=== PATIENT | female | born 1945 | race Caucasian/White ===

== ENCOUNTER 2018-03-07 06:14 | Emergency (ER) | payer MEDICARE, MEDICAID, SELFPAY ==
[2018-03-07 06:17] VITALS: BP 192/68; PULSE 79; RESP 16; TEMP 37; O2SAT 96
--- NOTE | 2018-03-07 06:38 | W.ED.GENAD ---
Discharge Plan Disposition Patient Disposition: HOME Condition: Good Discharge Details Chief Complaint: Sorethroat Clinical Impression: Anticoagulant long-term use Primary Care Provider: Noreen Adam ED Provider: Vern Orozco [place] Meds and New Rx's Prescriptions: Continue betaxolol [Betoptic S] 15 ML drops,suspension 1 drp OU BID RF: 0 carboxymethylcellulose sodium [TheraTears] 1 EACH dropperette 1 ea OU PRN RF: 0 rivaroxaban [Xarelto] 20 MG tablet 1 tab PO DAILY RF: 0 famotidine [Pepcid AC] 20 MG tablet 20 mg PO BID Qty: 180 RF: 4 cholecalciferol (vitamin D3) [Vitamin D3] 2,000 UNIT capsule 2,000 unit PO DAILY Qty: 90 RF: 3 Discharge Instructions Additional Instructions: Please follow up with primary care for blood pressure recheck and medication adjustments if needed. Follow up with ENT for further evaluation of throat. Return to ED for active bleeding, trouble swallowing, trouble breathing, other concerns. Referrals: Noreen Adam NP [Primary Care Provider] - Gurinder Devine MD [ [facility] STAFF PHYSICIAN] - Medical Decision Making There is no active bleeding now. The oropharynx that I can visualize appears normal. There does appear to be evidence of previous left epistaxis but she denies this. Her exam is otherwise unremarkable and heart rate is normal. Blood pressure is elevated but she reports being taken off blood pressure medication due to low blood pressure. Suspect the bleeding may be related to epistaxis though she denies. States she just spits up blood. Will refer back to primary care for follow-up of blood pressure and will refer to ear nose and throat as primary care had requested previously. She is not actively bleeding currently and is in no distress and reports no hemoptysis or hematemesis. She has no difficulty breathing. She is discharged home in good condition. HPI General Mode of arrival: ambulatory. Date/Time Provider Initiated Documentation: 03/07/18 06:28. Limitations to Documentation: no limitations. Information obtained by: patient. HPI Narrative: Patient presents to the ED with complaints of blood in her throat. Patient reports that for the last year at night she notices blood in the back of her throat. She knows this because when she spits it up it is bloody. She denies having a nosebleed. She denies any difficulty breathing or swallowing. She is not coughing up blood. She is not vomiting up blood. She came in this morning because she noted that last night seem to be more than usual. She is on Xarelto. She was referred to ear nose and throat in the past by her primary care physician but was never seen. She states it never happens during the day. She has no pain. Related Data Home Medications Medication Instructions Recorded Confirmed betaxolol [Betoptic S] 1 drp OU BID drp 09/21/12 03/07/18 carboxymethylcellulose sodium 1 ea OU PRN 12/20/13 03/07/18 [TheraTears] rivaroxaban [Xarelto] 1 tab PO DAILY 06/16/16 03/07/18 famotidine [Pepcid AC] 20 mg PO BID #180 tab-cap 12/22/17 03/07/18 cholecalciferol (vitamin D3) 2,000 unit PO DAILY #90 tab-cap 12/23/17 03/07/18 [Vitamin D3] Previous Rx's Medication Instructions Recorded famotidine [Pepcid AC] 20 mg PO BID #180 tab-cap 12/22/17 cholecalciferol (vitamin D3) 2,000 unit PO DAILY #90 tab-cap 12/23/17 [Vitamin D3] Allergies Allergy/AdvReac Type Severity Reaction Status Date / Time bimatoprost [From [place]ulu] AdvReac discomfort Unverified 03/07/18 06:21 General Stated Complaint: Sorethroat HANNAH: 4 Review of Systems Constitutional Denies headache(s) and Denies weakness ENT Denies dysphagia, Denies otalgia, Denies headache(s), Denies hoarseness, Denies epistaxis, Denies odynophagia, Denies post nasal drip, Denies sinus pain and Denies sore throat Cardiovascular Denies chest pain, Denies diaphoresis, Denies syncope, Denies palpitations and Denies dyspnea Respiratory Denies hemoptysis and Denies dyspnea Gastrointestinal Denies melena, Denies hematochezia, Denies coffee ground emesis, Denies dysphagia, Denies odynophagia and Denies hematemesis Genitourinary Denies hematuria Neurologic Denies syncope, Denies headache(s) and Denies weakness Endocrine Denies palpitations PFSH Family History Mother Diabetes Essential hypertension Personal history of malignant neoplasm Heart disease Father Diabetes Essential hypertension Heart disease Sister Aneurysm Sister Essential hypertension Personal history of malignant neoplasm Heart disease Brother No problems noted. Grandfather Heart disease Grandfather No problems noted. Grandmother Dementia Mental disorder Grandmother Dementia Mental disorder FAMILY HISTORY Duchenne muscular dystrophy Arthritis Neoplasm Glaucoma Brother Amyloidosis Brother Parkinson disease Brother Heart disease Medical History Atrial fibrillation (Chronic) GERD (gastroesophageal reflux disease) (Chronic) HTN (hypertension) (Chronic) Social History Smoking/Tobacco Use Status: Never Surgical History Dilation and curettage Extraction of cataract (02/06/13) Laser Eye Open Heart Surgery Exam Const General: cooperative, comfortable and no acute distress HENMT Head: normocephalic and atraumatic Ears: external ears normal and TM's normal bilaterally General nose exam: external nose normal, mucous membranes and turbinates abnormal erythematous and other (left septal wall noted to have excoriated area/small clot) and septum abnormal Mouth: oropharynx normal and moist mucous membranes Neck Neck: normal visual inspection, trachea midline and supple Resp Effort & Inspection: normal respiratory effort Auscultation: clear to auscultation bilaterally Cardio Rate: regular rate Rhythm: regular rhythm Heart Sounds: S1 normal and S2 normal Course Vital Signs Temperature 98.6 F 03/07/18 06:17 Pulse 79 03/07/18 06:17 Respiratory Rate 16 03/07/18 06:17 Blood Pressure 192/68 H 03/07/18 06:17 Pulse Oximetry 96 03/07/18 06:17 Temperature 98.6 F 03/07/18 06:17 Temperature Source Skin 03/07/18 06:17 Pulse 79 03/07/18 06:17 Respiratory Rate 16 03/07/18 06:17 Respiratory Effort Non-Labored 03/07/18 06:20 Blood Pressure 192/68 H 03/07/18 06:17 Blood Pressure Position Sitting 03/07/18 06:17 Pulse Oximetry 96 03/07/18 06:17 Oxygen Delivery Method Room Air 03/07/18 06:17 Oxygen Flow Rate 0 03/07/18 06:17 Pain Level 0 03/07/18 06:17
--- NOTE | 2018-03-07 06:44 | ED.GENADUL_ITS ---
Discharge Plan Disposition Patient Disposition: HOME Condition: Good Discharge Details Chief Complaint: Sorethroat Clinical Impression: Anticoagulant long-term use Primary Care Provider: Noreen Adam ED Provider: Vern Orozco [place] Meds and New Rx's Prescriptions: Continue betaxolol [Betoptic S] 15 ML drops,suspension 1 drp OU BID RF: 0 carboxymethylcellulose sodium [TheraTears] 1 EACH dropperette 1 ea OU PRN RF: 0 rivaroxaban [Xarelto] 20 MG tablet 1 tab PO DAILY RF: 0 famotidine [Pepcid AC] 20 MG tablet 20 mg PO BID Qty: 180 RF: 4 cholecalciferol (vitamin D3) [Vitamin D3] 2,000 UNIT capsule 2,000 unit PO DAILY Qty: 90 RF: 3 Discharge Instructions Additional Instructions: Please follow up with primary care for blood pressure recheck and medication adjustments if needed. Follow up with ENT for further evaluation of throat. Return to ED for active bleeding, trouble swallowing, trouble breathing, other concerns. Referrals: Noreen Adam NP [Primary Care Provider] - Gurinder Devine MD [ [facility] STAFF PHYSICIAN] - Medical Decision Making There is no active bleeding now. The oropharynx that I can visualize appears normal. There does appear to be evidence of previous left epistaxis but she denies this. Her exam is otherwise unremarkable and heart rate is normal. Blood pressure is elevated but she reports being taken off blood pressure medication due to low blood pressure. Suspect the bleeding may be related to epistaxis though she denies. States she just spits up blood. Will refer back to primary care for follow-up of blood pressure and will refer to ear nose and throat as primary care had requested previously. She is not actively bleeding currently and is in no distress and reports no hemoptysis or hematemesis. She has no difficulty breathing. She is discharged home in good condition. HPI General Mode of arrival: ambulatory . Date/Time Provider Initiated Documentation: 03/07/18 06:28 . Limitations to Documentation: no limitations . Information obtained by: patient . HPI Narrative: Patient presents to the ED with complaints of blood in her throat. Patient reports that for the last year at night she notices blood in the back of her throat. She knows this because when she spits it up it is bloody. She denies having a nosebleed. She denies any difficulty breathing or swallowing. She is not coughing up blood. She is not vomiting up blood. She came in this morning because she noted that last night seem to be more than usual. She is on Xarelto. She was referred to ear nose and throat in the past by her primary care physician but was never seen. She states it never happens during the day. She has no pain. Related Data Home Medications Medication Instructions Recorded Confirmed betaxolol [Betoptic S] 1 drp OU BID drp 09/21/12 03/07/18 carboxymethylcellulose sodium 1 ea OU PRN 12/20/13 03/07/18 [TheraTears] rivaroxaban [Xarelto] 1 tab PO DAILY 06/16/16 03/07/18 famotidine [Pepcid AC] 20 mg PO BID #180 tab-cap 12/22/17 03/07/18 cholecalciferol (vitamin D3) 2,000 unit PO DAILY #90 tab-cap 12/23/17 03/07/18 [Vitamin D3] Previous Rx's Medication Instructions Recorded famotidine [Pepcid AC] 20 mg PO BID #180 tab-cap 12/22/17 cholecalciferol (vitamin D3) 2,000 unit PO DAILY #90 tab-cap 12/23/17 [Vitamin D3] Allergies Allergy/AdvReac Type Severity Reaction Status Date / Time bimatoprost [From [place]ulu] AdvReac discomfort Unverified 03/07/18 06:21 General Stated Complaint: Sorethroat HANNAH: 4 Review of Systems Constitutional Denies headache(s) and Denies weakness ENT Denies dysphagia, Denies otalgia, Denies headache(s), Denies hoarseness, Denies epistaxis, Denies odynophagia, Denies post nasal drip, Denies sinus pain and Denies sore throat Cardiovascular Denies chest pain, Denies diaphoresis, Denies syncope, Denies palpitations and Denies dyspnea Respiratory Denies hemoptysis and Denies dyspnea Gastrointestinal Denies melena, Denies hematochezia, Denies coffee ground emesis, Denies dysphagia, Denies odynophagia and Denies hematemesis Genitourinary Denies hematuria Neurologic Denies syncope, Denies headache(s) and Denies weakness Endocrine Denies palpitations PFSH Family History Mother Diabetes Essential hypertension Personal history of malignant neoplasm Heart disease Father Diabetes Essential hypertension Heart disease Sister Aneurysm Sister Essential hypertension Personal history of malignant neoplasm Heart disease Brother No problems noted. Grandfather Heart disease Grandfather No problems noted. Grandmother Dementia Mental disorder Grandmother Dementia Mental disorder FAMILY HISTORY Duchenne muscular dystrophy Arthritis Neoplasm Glaucoma Brother Amyloidosis Brother Parkinson disease Brother Heart disease Medical History Atrial fibrillation (Chronic) GERD (gastroesophageal reflux disease) (Chronic) HTN (hypertension) (Chronic) Social History Smoking/Tobacco Use Status: Never Surgical History Dilation and curettage Extraction of cataract (02/06/13) Laser Eye Open Heart Surgery Exam Const General: cooperative, comfortable and no acute distress HENMT Head: normocephalic and atraumatic Ears: external ears normal and TM's normal bilaterally General nose exam: external nose normal, mucous membranes and turbinates abnormal erythematous and other (left septal wall noted to have excoriated area/ small clot) and septum abnormal Mouth: oropharynx normal and moist mucous membranes Neck Neck: normal visual inspection, trachea midline and supple Resp Effort & Inspection: normal respiratory effort Auscultation: clear to auscultation bilaterally Cardio Rate: regular rate Rhythm: regular rhythm Heart Sounds: S1 normal and S2 normal Course Vital Signs Temperature 98.6 F 03/07/18 06:17 Pulse 79 03/07/18 06:17 Respiratory Rate 16 03/07/18 06:17 Blood Pressure 192/68 H 03/07/18 06:17 Pulse Oximetry 96 03/07/18 06:17 Temperature 98.6 F 03/07/18 06:17 Temperature Source Skin 03/07/18 06:17 Pulse 79 03/07/18 06:17 Respiratory Rate 16 03/07/18 06:17 Respiratory Effort Non-Labored 03/07/18 06:20 Blood Pressure 192/68 H 03/07/18 06:17 Blood Pressure Position Sitting 03/07/18 06:17 Pulse Oximetry 96 03/07/18 06:17 Oxygen Delivery Method Room Air 03/07/18 06:17 Oxygen Flow Rate 0 03/07/18 06:17 Pain Level 0 03/07/18 06:17
== END 2018-03-07 06:45 | disposition home or self-care (01) ==
PROVIDERS: Emergency Provider Emergency Medicine
DX: R04.2 Hemoptysis (principal); Z79.01 Long term (current) use of anticoagulants; I48.91 Unspecified atrial fibrillation; K21.9 Gastro-esophageal reflux disease without esophagitis; I10 Essential (primary) hypertension
CPT/HCPCS: 99281

== ENCOUNTER 2018-04-24 10:01 | Outpatient (CLI) | payer MEDICARE, MEDICAID, SELFPAY ==
[2018-04-24 11:44] LABS: HCT 41.3 % (36.0-46.0); HGB 13.6 g/dL (12.0-15.5); Mean Corp. HGB Concentration 32.9 g/dL (32.0-36.0); Mean Corpuscular Hemoglobin 29.1 pg (27.0-33.0); Mean Corpuscular Volume 88.2 fL (80-95); Platelet Count 335 x1000/uL (130-400); RBC 4.68 m/cumm (4.00-5.20); RBC Distribution Width 15.5 % (11.7-14.6); White Blood Cell Count 6.84 k/cumm (4.4-10.8)
[2018-04-24 12:05] LABS: ALT 27 U/L (12-78); AST 26 U/L (15-37); Alkaline Phosphatase 88 U/L (46-116); Anion Gap 10.7 mmol/L (3-11); BUN 20 mg/dL (7-18); Bilirubin, Total 0.4 mg/dL (0.2-1.0); CO2 27.3 mmol/L (21.0-32.0); CREATININE 1.17 mg/dL (0.55-1.02); Calcium 9.6 mg/dL (8.5-10.1); Chloride 99 mmol/L (98-107); Estimated GFR 45.22 (mL/min/1.73m2); Glucose 81 mg/dL (70-100); Sodium 137 mmol/L (136-145); Total Protein 8.3 g/dL (6.4-8.2)
== END 2018-04-24 10:21 ==
DX: R53.83 Other fatigue (principal); I10 Essential (primary) hypertension
CPT/HCPCS: 36415; 80053; 85027

== ENCOUNTER 2018-06-06 00:13 | Outpatient (CLI) | payer MEDICARE, MEDICAID, SELFPAY ==
--- NOTE | 2018-06-06 10:20 | DI.CT_ITS ---
SYMPTOMS/DIAGNOSIS: BLEEDING FROM MOUTH, K13.79, ESOPHAGITIS, K20.9, DEVIATED SPUTUM, J34.2, NASAL SEPTAL SPUR, J34.[address]: There is a minimal amount of mucous retention in a single right ethmoid air cell. The remaining sinuses appear clear. The nasal cavity appears clear. There is no evidence of fracture. The orbits are unremarkable. IMPRESSION: Minimal ethmoid sinus disease.
== END 2018-06-06 00:33 ==
PROVIDERS: Visit Provider Otolaryngology Otolaryngology/Facial Plastic Surgery
DX: K13.79 Other lesions of oral mucosa (principal); K20.9 Esophagitis, unspecified; J34.2 Deviated nasal septum; J34.89 Other specified disorders of nose and nasal sinuses
CPT/HCPCS: 70486

== ENCOUNTER 2018-12-29 03:53 | Outpatient (CLI) | payer MEDICARE, MEDICAID, SELFPAY ==
[2018-12-29 13:12] LABS: ALT 23 U/L (12-78); AST 21 U/L (15-37); Albumin 3.9 g/dL (3.4-5.0); Alkaline Phosphatase 78 U/L (46-116); Anion Gap 11.2 mmol/L (3-11); BUN 9 mg/dL (7-18); Bilirubin, Total 0.5 mg/dL (0.2-1.0); CO2 25.8 mmol/L (21.0-32.0); CREATININE 1.14 mg/dL (0.55-1.02); Calcium 8.7 mg/dL (8.5-10.1); Chloride 99 mmol/L (98-107); Estimated GFR 46.47 (mL/min/1.73m2); Glucose 89 mg/dL (70-100); Potassium 4.4 mmol/L (3.5-5.1); Sodium 136 mmol/L (136-145); TSH (W/Ref FT4) 3.11 uIU/mL (0.36-3.74)
== END 2018-12-29 04:13 ==
DX: E03.9 Hypothyroidism, unspecified (principal); F32.9 Major depressive disorder, single episode, unspecified; I10 Essential (primary) hypertension; N28.9 Disorder of kidney and ureter, unspecified; R00.2 Palpitations; G47.00 Insomnia, unspecified
CPT/HCPCS: 36415; 80053; 84443

== ENCOUNTER 2019-03-26 16:38 | Inpatient (IN) | payer MEDICARE, MEDICAID, SELFPAY ==
[2019-03-26] VITALS (97 sets, daily range): BP systolic 114–186; BP diastolic 60–148; PULSE 53–176; RESP 9–23; TEMP 36.3–36.6; O2SAT 95–100
[2019-03-26 17:41] LABS: Abs Immature Grans 0.02 k/cumm (0.0-0.09); Absolute Basophil Count 0.05 k/cumm (0.0-0.2); Absolute Eosinophil Count 0.08 k/cumm (0.0-0.7); Absolute Lymphocyte Count 2.11 k/cumm (1.2-3.4); Absolute Monocyte Count 0.96 k/cumm (0.11-0.7); Basophils % 0.6; Eosinophils % 0.9; HCT 41.9 % (36.0-46.0); HGB 14.1 g/dL (12.0-15.5); Immature Grans % 0.2; Lymphocytes % 24.2; Mean Corp. HGB Concentration 33.7 g/dL (32.0-36.0); Mean Corpuscular Hemoglobin 30.5 pg (27.0-33.0); Mean Corpuscular Volume 90.5 fL (80-95); Mean Platelet Volume 8.8 fL (8.0-11.0); Neutrophils % 63.1; Platelet Count 394 x1000/uL (130-400); RBC 4.63 m/cumm (4.00-5.20); RBC Distribution Width 14.3 % (11.7-14.6); White Blood Cell Count 8.72 k/cumm (4.4-10.8)
[2019-03-26] MEDS: Metoprolol 5 MG/5 ML VIAL IVP ×2 (17:51→18:25)
[2019-03-26] MEDS: Normal Saline Flush 10 ML SYR IVP ×2 (17:52→18:27)
[2019-03-26 18:00] LABS: ALT 24 U/L (14-59); AST 23 U/L (15-37); Albumin 3.8 g/dL (3.4-5.0); Alkaline Phosphatase 89 U/L (46-116); Anion Gap 9.2 mmol/L (3-11); BUN 17 mg/dL (7-18); Bilirubin, Total 0.3 mg/dL (0.2-1.0); CO2 27.8 mmol/L (21.0-32.0); CREATININE 1.28 mg/dL (0.55-1.02); Calcium 9.7 mg/dL (8.5-10.1); Chloride 100 mmol/L (98-107); Estimated GFR 40.65 (mL/min/1.73m2); Glucose 94 mg/dL (70-100); Potassium 4.1 mmol/L (3.5-5.1); Sodium 137 mmol/L (136-145); Total Protein 8.4 g/dL (6.4-8.2)
[2019-03-26 18:10] LABS: Troponin I < 0.05 ng/mL (0.00-0.06)
[2019-03-26] MEDS: dilTIAZem 25 MG/5 ML VIAL 15 MG IVP (19:29)
--- NOTE | 2019-03-26 19:45 | DI.RAD_ITS ---
EXAM: XR PORTABLE CHEST AP INDICATION: Palpitations,H/O CARDIAC TUMOR COMPARISON: CHEST 2 VIEWS PA,LAT from 09/28/2016 TECHNIQUE: 2D digital imaging was performed. FINDINGS: The heart is mildly enlarged, unchanged. Sternal wires are seen. Leads overlie the chest. The lung s appear clear. IMPRESSION: No acute abnormality.
--- NOTE | 2019-03-26 19:55 | DI.VRAD_ITS ---
PROCEDURE INFORMATION: Exam: XR Chest, 1 View Exam date and time: 03/26/2019 7:46 PM Clinical history: 73 years old, female; Other: Palpitations; Prior surgery; Surgery date: 6+ months; Surgery type: Open heart surgery 3 years ago due to heart tumor TECHNIQUE: Imaging protocol: XR of the chest Views: 1 view. COMPARISON: CR CHEST 2 VIEWS PA,LAT 09/28/2016 7:37 PM FINDINGS: Lungs: Unremarkable. No consolidation. Pleural space: Unremarkable. No pleural effusion. No pneumothorax. Heart/Mediastinum: Unremarkable. No cardiomegaly. Vasculature: Atherosclerosis. Bones/joints: Sternotomy. IMPRESSION: No acute finding. Dictated and Authenticated by: Ben Baltazar MD. Ordering:SUNNY St MD
[2019-03-26 20:23] LABS: TSH (W/Ref FT4) 4.47 uIU/mL (0.36-3.74)
[2019-03-26 20:28] LABS: Troponin I < 0.05 ng/mL (0.00-0.06)
--- NOTE | 2019-03-26 21:20 | W.PM.HP.N ---
Date of service: 03/26/19 Time of Service: 21:20 Assessment and Plan Assessment and plan (1) Atrial fibrillation: Start date: 03/26/19 Status: Acute Assessment and plan: This is 73-year-old lady admitted for rate control with recurrent atrial fibrillation which appears to be paroxysmal though presently persistent. She is doing well on IV diltiazem and we will trend her troponins with the first set of lab negative. Her chest pressure and associated symptoms are of a concern for CAD associated with her heart rate. If she can be controlled on diltiazem she may need to be changed from Xarelto to another anticoagulation but she did tolerate metoprolol in the past and this could be considered. She does not want to be on Coumadin. Further cardiac work-up could be done as an outpatient. She appears very comfortable. She is a DNR/DNI. Qualifiers: Atrial fibrillation type: paroxysmal Qualified Code(s): I48.0 - Paroxysmal atrial fibrillation (2) Tachycardia: Start date: 03/26/19 Status: Acute Assessment and plan: This appears to be what was causing her symptoms upon presentation along with her recurrent atrial fibrillation. This presently is controlled on diltiazem but could be converted to metoprolol if possible. She has been on this medication in the past. 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 Continue anticoagulation chronically with most appropriate medication avoiding conflicts with her cardiac meds. 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 She is been on Xarelto since that time. She was in atrial for ablation for about 6 weeks and was cardioverted without recurrence. Since this summer the patient has been having intermittent and increasing episodes of palpitations with chest pressure as if something was pushing on her chest along with dyspnea but no nausea or diaphoresis. Patient reported to the ED because the episode became worse and more symptomatic. In the ED she was found to be in atrial fibrillation with variable but tachycardic response. She did not respond to IV metoprolol but did respond to IV diltiazem. There appeared to be a warning about using diltiazem and Xarelto therefore Xarelto was held and she will be converted to Lovenox for thrombolytic coverage. At the time I examined the patient she was not having any chest symptoms or respiratory symptoms with a heart rate well controlled on IV diltiazem and her blood pressure well controlled. She usually is on amlodipine for hypertension. She was on metoprolol when she was first diagnosed with atrial fibrillation. She did tolerate this well. Review of Systems Narrative: 13 point review of systems otherwise unrevealing or stable. [facility] Medical History Atrial fibrillation (Chronic) GERD (gastroesophageal reflux disease) (Chronic) HTN (hypertension) (Chronic) Surgical History Dilation and curettage Extraction of cataract (02/06/13) RIGHT EYE LEFT EYE Laser Eye For a cloudy implant Open Heart Surgery Family History Mother , AGE 72 Diabetes Essential hypertension Personal history of malignant neoplasm BREAST Heart disease Father , AGE 78 Diabetes Essential hypertension Heart disease Sister , AGE 80 Aneurysm Sister , AGE 81 Essential hypertension Personal history of malignant neoplasm Heart disease Brother , AGE 84 No problems noted. Maternal Grandfather Heart disease Paternal Grandfather No problems noted. Maternal Grandmother Dementia Mental disorder DEMENTIA Paternal Grandmother Dementia Mental disorder DEMENTIA FAMILY HISTORY Duchenne muscular dystrophy Arthritis Neoplasm Glaucoma Brother , AGE 28 Amyloidosis Cancer Brother , AGE 72 Parkinson disease Cancer Brother , AGE 78 Heart disease Social History Smoking/Tobacco Use Status: Never Second Hand Exposure: Yes Alcohol Intake: former Drug use: Never Substance use type: does not use Caregiver/Support person: No Household members: none Pets and animals: Yes Pets and animals: cat(s) Sexually active: No Do you think of yourself as: straight/heterosexual Current gender identity: female Frequency: does not exercise Kerrie/Yarsanism: No preference Special kerrie needs: No Do you feel safe at home: Yes Do you feel safe in your relationship?: Yes Meds Home Medications and Allergies Home Medications Medication Instructions Recorded Confirmed Type Betoptic S 1 drp OU BID drp 09/21/12 03/26/19 History TheraTears 1 ea OU PRN 12/20/13 03/26/19 History rivaroxaban 20 mg tablet 20 mg PO DAILY #90 tab 08/25/18 03/26/19 Rx amlodipine 2.5 mg tablet 2.5 mg PO DAILY tab 12/06/18 03/26/19 History amoxicillin 500 mg tablet 2,000 mg PO ONCE #8 tab 01/25/19 03/26/19 Rx cholecalciferol (vitamin D3) 2,000 2,000 unit PO DAILY #90 tab-cap 01/29/19 03/26/19 Rx unit capsule famotidine 20 mg tablet 20 mg PO BID #180 tab-cap 02/23/19 03/26/19 Rx Allergies Allergy/AdvReac Type Severity Reaction Status Date / Time bimatoprost [From [place]] AdvReac discomfort Verified 03/26/19 16:54 Exam Narrative Exam Narrative: General: Patient is moderately obese, alert and oriented x3 and in no acute distress. HEENT: Normocephalic, eyes with pupils equal and reactive to light symmetrically, extraocular movement intact and sclera anicteric. Ears normal. Oropharynx with moist pink oral mucosa. Dentition. Neck: Supple without JVD. Lungs: Clear to auscultation with no focalizing adventitious sounds. Normal breath sounds. Normal aeration. Heart: Irregular irregular rhythm without appreciable murmurs or gallops. Normal rate. Breast: Exam deferred. Back: Stooped posture with no CVA tenderness. Abdomen: Obese contour, soft and nontender. No palpable masses or hepatomegaly. No auscultated bruits with normal bowel sounds in all quadrants. Genitalia and rectal: Exam deferred. Extremities: No joint swelling with mild arthritic changes and good range of motion, obese lower extremities with no pitting edema, cyanosis or clubbing noted on upper lower extremities. Skin: Pale, warm and dry. Neuro: Cranial nerves II through XII grossly intact, no focalizing motor deficits with some word searching during conversation, sensory grossly intact with no Babinski's. Psych: Normal mood with slightly anxious affect good eye contact. Remote and recent memory appear to be intact. Results Imaging Imaging Studies: Exam(s) PROCEDURE INFORMATION: Exam: XR Chest, 1 View Exam date and time: 03/26/2019 7:46 PM Clinical history: 73 years old, female; Other: Palpitations; Prior surgery; Surgery date: 6+ months; Surgery type: Open heart surgery 3 years ago due to heart tumor TECHNIQUE: Imaging protocol: XR of the chest Views: 1 view. COMPARISON: CR CHEST 2 VIEWS PA,LAT 09/28/2016 7:37 PM FINDINGS: Lungs: Unremarkable. No consolidation. Pleural space: Unremarkable. No pleural effusion. No pneumothorax. Heart/Mediastinum: Unremarkable. No cardiomegaly. Vasculature: Atherosclerosis. Bones/joints: Sternotomy. IMPRESSION: No acute finding. Dictated and Authenticated by: Ben Baltazar MD. Labs Result diagrams: 03/26/19 17:18 03/26/19 17:18 Labs: Laboratory Results - last 24 hr 03/26/19 03/26/19 03/26/19 17:18 17:18 17:18 WBC 8.72 RBC 4.63 Hgb 14.1 Hct 41.9 MCV 90.5 MCH 30.5 MCHC 33.7 RDW 14.3 Plt Count 394 MPV 8.8 Immature Gran % 0.2 Neutrophils % 63.1 Lymphocytes % 24.2 Monocytes % 11.0 Eosinophils % 0.9 Basophils % 0.6 Absolute Neutrophils 5.50 Absolute Lymphocytes 2.11 Absolute Monocytes 0.96 H Absolute Eosinophils 0.08 Absolute Basophils 0.05 Sodium 137 Potassium 4.1 Chloride 100 Carbon Dioxide 27.8 Anion Gap 9.2 BUN 17 Creatinine 1.28 H Estimated GFR/1.73 m2 40.65 Glucose 94 Calcium 9.7 Total Bilirubin 0.3 AST 23 ALT 24 Alkaline Phosphatase 89 Troponin I < 0.05 Cancelled Total Protein 8.4 H Albumin 3.8 TSH Free T4 03/26/19 19:52 WBC RBC Hgb Hct MCV MCH MCHC RDW Plt Count MPV Immature Gran % Neutrophils % Lymphocytes % Monocytes % Eosinophils % Basophils % Absolute Neutrophils Absolute Lymphocytes Absolute Monocytes Absolute Eosinophils Absolute Basophils Sodium Potassium Chloride Carbon Dioxide Anion Gap BUN Creatinine Estimated GFR/1.73 m2 Glucose Calcium Total Bilirubin AST ALT Alkaline Phosphatase Troponin I < 0.05 Total Protein Albumin TSH 4.47 H Free T4 1.10 Last Vital Signs Temp 36.3 C L 03/26/19 16:43 Pulse 69 03/26/19 19:55 Resp 20 03/26/19 19:46 BP 142/80 H 03/26/19 19:55 Pulse Ox 99 03/26/19 16:51
[2019-03-26] MEDS: dilTIAZem 125 MG in Normal Saline 100 ML IV (21:51)
[2019-03-26] MEDS: Enoxaparin 40 MG/0.4 ML SYR SC (23:35)
--- NOTE | 2019-03-26 23:49 | W.ED.GENAD ---
Discharge Plan Disposition Patient Disposition: [facility] INPATIENT Condition: Improving Discharge Details Chief Complaint: Palpitatns Clinical Impression: A-fib Admit Date/Time: 03/26/19 21:01 Admit Provider: Barak Goldberg Attending Provider: Barak Goldberg Primary Care Provider: Noreen Adam ED Provider: Alma Rosa Sevilla Medical Decision Making 73-year-old woman who presents for complaints of palpitations associated with chest soreness and shortness of breath. Patient reports intermittent episodes for the last several months which have increased in frequency and duration. Patient is ultimately noted to be in A. fib with a heart rate which waxes and wanes between 101- 170. 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 Patient was in A. fib for approximately 6 weeks before she was cardioverted. Patient has not had any reported atrial fibrillation in the last 3 years. Patient is compliant with Xarelto. Patient compliant with her daily medications. Patient currently uses amlodipine to control hypertension is no longer on a beta-quoc which she was taking after her surgery. Patient's EKG upon presentation reveals a heart rate of 89 and atrial fibrillation. No obvious RVR. Reviewed with Kieran Joya MD. Patient's labs are ultimately unremarkable at this time for acute abnormality. Patient's TSH was notably elevated however free T4 is normal. No significant leukocytosis. No elevation of troponin. Given patient's symptomatic atrial fibrillation which is acute in onset metoprolol was attempted without significant improvement in her blood pressure or heart rate. A second dose of metoprolol was provided similarly with no significant results. Patient ultimately was given diltiazem 15 mg IV push which significantly improved her heart rate from >100 to the 70s. Patient reports symptomatic relief. Diltiazem drip of 5 mg/h was ordered. Patient continues to feel well at this time. Will admit to the ICU for continued diltiazem drip. This was discussed with the hospitalist who agrees with plan of care and will plan to admit patient. Patient agrees with plan of care of admission. This case was discussed at length throughout its course with Dr. Kieran Joya. HPI General Date/Time Provider Initiated Documentation: 03/26/19 17:00. HPI Narrative: This is a 73-year-old patient who presents to the emergency room [facility] for complaints of palpitations. Patient reports palpitations associated with chest soreness. Patient denies associated nausea or vomiting. Patient denies radiation into the arm, neck or back. Patient denies headache or dizziness. Patient does report shortness of breath is at baseline intermittently for the last several months. Patient also reports palpitations have been occurring intermittently for the last several months. Patient reports she has been quite aware of palpitations that have increased in frequency and are now lasting longer than previously. Patient comes in today for palpitations which have been present for greater than 24 hours and persistent. Patient reports no alleviating or significantly aggravating factors. Patient denies any lower leg swelling. Denies any abdominal pain. Is eating and drinking without difficulty. No other concerns or complaints at this time. Related Data Home Medications Medication Instructions Recorded Confirmed Betoptic S 1 drp OU BID drp 09/21/12 03/26/19 TheraTears 1 ea OU PRN 12/20/13 03/26/19 rivaroxaban 20 mg tablet 20 mg PO DAILY #90 tab 08/25/18 03/26/19 amlodipine 2.5 mg tablet 2.5 mg PO DAILY tab 12/06/18 03/26/19 amoxicillin 500 mg tablet 2,000 mg PO ONCE #8 tab 01/25/19 03/26/19 cholecalciferol (vitamin D3) 2,000 2,000 unit PO DAILY #90 tab-cap 01/29/19 03/26/19 unit capsule famotidine 20 mg tablet 20 mg PO BID #180 tab-cap 02/23/19 03/26/19 Previous Rx's Medication Instructions Recorded rivaroxaban 20 mg tablet 20 mg PO DAILY #90 tab 08/25/18 amoxicillin 500 mg tablet 2,000 mg PO ONCE #8 tab 01/25/19 cholecalciferol (vitamin D3) 2,000 2,000 unit PO DAILY #90 tab-cap 01/29/19 unit capsule famotidine 20 mg tablet 20 mg PO BID #180 tab-cap 02/23/19 Allergies Allergy/AdvReac Type Severity Reaction Status Date / Time bimatoprost [From Lumigan] AdvReac discomfort Verified 03/26/19 16:54 General Stated Complaint: Palpitatns HANNAH: 2 Review of Systems All systems reviewed & are unremarkable except as noted in HPI and below Constitutional Constitutional: Denies chills, Reports fatigue, Denies fever(s), Denies headache(s) and Reports malaise ENT Ears, Nose, Mouth, and Throat: Denies vertigo, Denies dizziness and Denies headache(s) Respiratory Respiratory: Denies cough Gastrointestinal Gastrointestinal: Denies abdominal pain, Denies nausea and Denies vomiting Neurologic Neurologic: Denies vertigo, Denies dizziness and Denies headache(s) Endocrine Endocrine: Reports fatigue PFSH Medical History Atrial fibrillation (Chronic) GERD (gastroesophageal reflux disease) (Chronic) HTN (hypertension) (Chronic) Surgical History Dilation and curettage Extraction of cataract (02/06/13) RIGHT EYE LEFT EYE Laser Eye For a cloudy implant Open Heart Surgery Family History Mother , AGE 72 Diabetes Essential hypertension Personal history of malignant neoplasm BREAST Heart disease Father , AGE 78 Diabetes Essential hypertension Heart disease Sister , AGE 80 Aneurysm Sister , AGE 81 Essential hypertension Personal history of malignant neoplasm Heart disease Brother , AGE 84 No problems noted. Maternal Grandfather Heart disease Paternal Grandfather No problems noted. Maternal Grandmother Dementia Mental disorder DEMENTIA Paternal Grandmother Dementia Mental disorder DEMENTIA FAMILY HISTORY Duchenne muscular dystrophy Arthritis Neoplasm Glaucoma Brother , AGE 28 Amyloidosis Cancer Brother , AGE 72 Parkinson disease Cancer Brother , AGE 78 Heart disease Social History Smoking/Tobacco Use Status: Never Second Hand Exposure: Yes Alcohol Intake: former Drug use: Never Substance use type: does not use Caregiver/Support person: No Household members: none Pets and animals: Yes Pets and animals: cat(s) Sexually active: No Do you think of yourself as: straight/heterosexual Current gender identity: female Frequency: does not exercise Kerrie/Protestant: No preference Special kerrie needs: No Do you feel safe at home: Yes Do you feel safe in your relationship?: Yes Exam Narrative Exam Narrative: CONST: Healthy appearing patient, in no acute distress. Well hydrated. Alert and alert. HENMT: Head nomocephalic, normal to inspection. Atraumatic. Hearing grossly normal. External ear canal no erythema or swelling. TM normal bilaterally. Nose normal to inspection. No rhinnorhea. Normal facial exam. Oral mucosa normal. Tounge normal. Dentition normal. Normal posterior oropharynx. Uvula midline. EYES: General normal appearance. Alignment normal. Eyelids normal. Conjunctiva normal. Sclera normal. PERRL. NECK: Normal visual inspection. FROM. No lymphadenopathy. Trachea midline. No Midline tenderness. CHEST: Normal insepection of the chest. RESP: Normal respiratory effort. Speaking full sentences. No cough. No wheezing. No retractions. Clear to auscaltation. Breath sound equal and present bilaterally. CARDIO: No JVD. Normal PMI. Tachycardic with a regular rhythm. Normal peripheral pulses. GI: Normal inspection of abdomen. No distension. Soft. Nontender. Bowel sounds present in all 4 quadrants. No rebound. No gaurding. MUSCULOSKELETAL: Normal Gait. FROM of all extremities. Distal neurovascularly intact. Sensation intact distally. No lower leg swelling present SKIN: Normal. Dry. No rashes. NEURO: Alert and awake. Speech clear. PSYCH: Normal affect. Cooperative. Course Vital Signs Vital signs: Vital Signs Temperature 36.3 C L 03/26/19 16:43 Pulse 125 H 03/26/19 16:43 Respiratory Rate 13 03/26/19 16:43 Blood Pressure 186/84 H 03/26/19 16:43 Pulse Oximetry 100 03/26/19 16:43 Temperature 36.6 C 03/26/19 22:40 Temperature Source Temporal Artery Scan 03/26/19 22:40 Pulse 85 03/26/19 22:40 Pulse 80 03/26/19 22:20 Respiratory Rate 14 03/26/19 22:40 Respiratory Effort 03/26/19 16:51 Blood Pressure 139/104 H 03/26/19 22:40 Blood Pressure Mean 115 03/26/19 22:40 Blood Pressure Position Sitting 03/26/19 22:40 Pulse Oximetry 99 03/26/19 22:40 Oxygen Delivery Method Room Air 03/26/19 22:40 Oxygen Flow Rate 0 03/26/19 22:40 Pain Level 0 03/26/19 22:40 Comment 03/26/19 16:43 Lab/Test Results Lab/Test Results: Laboratory Tests Range/Units 03/26/19 03/26/19 03/26/19 17:18 17:18 17:18 WBC (4.4-10.8) k/cumm 8.72 RBC (4.00-5.20) m/cumm 4.63 Hgb (12.0-15.5) g/dL 14.1 Hct (36.0-46.0) % 41.9 MCV (80-95) fL 90.5 MCH (27.0-33.0) pg 30.5 MCHC (32.0-36.0) g/dL 33.7 RDW (11.7-14.6) % 14.3 Plt Count (130-400) x1000/uL 394 MPV (8.0-11.0) fL 8.8 Immature Gran % 0.2 Neutrophils % 63.1 Lymphocytes % 24.2 Monocytes % 11.0 Eosinophils % 0.9 Basophils % 0.6 Absolute Neutrophils (1.2-6.7) k/cumm 5.50 Absolute Lymphocytes (1.2-3.4) k/cumm 2.11 Absolute Monocytes (0.11-0.7) k/cumm 0.96 H Absolute Eosinophils (0.0-0.7) k/cumm 0.08 Absolute Basophils (0.0-0.2) k/cumm 0.05 Sodium (136-145) mmol/L 137 Potassium (3.5-5.1) mmol/L 4.1 Chloride (98-107) mmol/L 100 Carbon Dioxide (21.0-32.0) mmol/L 27.8 Anion Gap (3-11) mmol/L 9.2 BUN (7-18) mg/dL 17 Creatinine (0.55-1.02) mg/dL 1.28 H Estimated GFR/1.73 m2 (mL/min/1.73m2) 40.65 Glucose (70-100) mg/dL 94 Calcium (8.5-10.1) mg/dL 9.7 Total Bilirubin (0.2-1.0) mg/dL 0.3 AST (15-37) U/L 23 ALT (14-59) U/L 24 Alkaline Phosphatase (46-116) U/L 89 Troponin I (0.00-0.06) ng/mL < 0.05 Cancelled Total Protein (6.4-8.2) g/dL 8.4 H Albumin (3.4-5.0) g/dL 3.8 TSH (0.36-3.74) uIU/mL Free T4 (0.76-1.46) ng/dL Range/Units 03/26/19 19:52 WBC (4.4-10.8) k/cumm RBC (4.00-5.20) m/cumm Hgb (12.0-15.5) g/dL Hct (36.0-46.0) % MCV (80-95) fL MCH (27.0-33.0) pg MCHC (32.0-36.0) g/dL RDW (11.7-14.6) % Plt Count (130-400) x1000/uL MPV (8.0-11.0) fL Immature Gran % Neutrophils % Lymphocytes % Monocytes % Eosinophils % Basophils % Absolute Neutrophils (1.2-6.7) k/cumm Absolute Lymphocytes (1.2-3.4) k/cumm Absolute Monocytes (0.11-0.7) k/cumm Absolute Eosinophils (0.0-0.7) k/cumm Absolute Basophils (0.0-0.2) k/cumm Sodium (136-145) mmol/L Potassium (3.5-5.1) mmol/L Chloride (98-107) mmol/L Carbon Dioxide (21.0-32.0) mmol/L Anion Gap (3-11) mmol/L BUN (7-18) mg/dL Creatinine (0.55-1.02) mg/dL Estimated GFR/1.73 m2 (mL/min/1.73m2) Glucose (70-100) mg/dL Calcium (8.5-10.1) mg/dL Total Bilirubin (0.2-1.0) mg/dL AST (15-37) U/L ALT (14-59) U/L Alkaline Phosphatase (46-116) U/L Troponin I (0.00-0.06) ng/mL < 0.05 Total Protein (6.4-8.2) g/dL Albumin (3.4-5.0) g/dL TSH (0.36-3.74) uIU/mL 4.47 H Free T4 (0.76-1.46) ng/dL 1.10
[2019-03-27] VITALS (38 sets, daily range): BP systolic 97–170; BP diastolic 38–95; PULSE 55–129; RESP 10–33; TEMP 36.6–37; O2SAT 95–99
[2019-03-27 06:56] LABS: HCT 42.7 % (36.0-46.0); HGB 14.2 g/dL (12.0-15.5); Mean Corp. HGB Concentration 33.3 g/dL (32.0-36.0); Mean Corpuscular Hemoglobin 30.1 pg (27.0-33.0); Mean Corpuscular Volume 90.7 fL (80-95); Mean Platelet Volume 8.9 fL (8.0-11.0); Platelet Count 394 x1000/uL (130-400); RBC 4.71 m/cumm (4.00-5.20); RBC Distribution Width 14.4 % (11.7-14.6); White Blood Cell Count 7.34 k/cumm (4.4-10.8)
[2019-03-27 07:00] LABS: Troponin I < 0.05 ng/mL (0.00-0.06)
[2019-03-27 07:31] LABS: ALT 24 U/L (14-59); AST 22 U/L (15-37); Albumin 3.4 g/dL (3.4-5.0); Alkaline Phosphatase 87 U/L (46-116); Anion Gap 8.2 mmol/L (3-11); BUN 20 mg/dL (7-18); Bilirubin, Total 0.4 mg/dL (0.2-1.0); CO2 27.8 mmol/L (21.0-32.0); CREATININE 1.21 mg/dL (0.55-1.02); Calcium 9.3 mg/dL (8.5-10.1); Chloride 101 mmol/L (98-107); Estimated GFR 43.38 (mL/min/1.73m2); Glucose 87 mg/dL (70-100); Potassium 4.3 mmol/L (3.5-5.1); Sodium 137 mmol/L (136-145); Total Protein 7.8 g/dL (6.4-8.2)
[2019-03-27 07:36] LABS: Troponin I < 0.05 ng/mL (0.00-0.06)
--- NOTE | 2019-03-27 07:57 | PDOC.CMIN ---
- If Service Date Differs Date of service: 03/27/19 Time of Service: 07:57 Care Management Initial Assess REASON FOR HOSPITALIZATION:: Atrial Fibrillation PAST MEDICAL HISTORY/PAST SURGICAL HISTORY:: Medical History . Atrial fibrillation (Chronic). GERD (gastroesophageal reflux disease) (Chronic). HTN (hypertension) (Chronic). Surgical History . Dilation and curettage. Extraction of cataract (02/06/13). RIGHT EYE. LEFT EYE. Laser Eye. For a cloudy implant. Open Heart Surgery PREVIOUS FUNCTIONAL STATUS/SOCIAL/FAMILY SUPPORTS:: Massiel lives alone in a mobile home in [place] with her cat Kemal. She has a [id number] closeby as well as numerous nieces and nephews who provide a strong support system.She is independent at baseline. CURRENT FUNCTIONAL STATUS:: Massiel was sitting up in bed when CM met with her her.She was pleasant and engaged readily in conversation.She stated she hopes to be able to go home later today but understands that may not be possible. She had worked with physical therapy this afternoon and is requesting to have new HH PT at discharge. ADVANCE DIRECTIVES:: none on file Has patient been provided with information about the portal?: No Did the patient sign up for the portal?: No CODE STATUS:: DNR/DNI INSURANCE COVERAGE / FINANCIAL ISSUES:: Medicare CURRENT HOME/COMMUNITY SERVICES/EQUIPMENT:: Massiel has no services currently but does have miscellaneous assistive devices such as a walker which she does not use. PRIMARY CARE PHYSICIAN:: Noreen Adam PATIENT/FAMILY EDUCATION NEEDS:: Discharge plan, limitations, follow up plan, Ask Me Three. ANTICIPATED BARRIERS TO DISCHARGE:: none identified TRANSPORTATION:: via private vehicle with friends/family PLAN:: Massiel will likely be discharged home with new HH PT. She will follow up with her discharge plan of care, cardiologuy and her PCP. CM will continue to suppport patient, family and discharge planning needs.
--- NOTE | 2019-03-27 08:21 | W.PM.PROGNOT ---
Date of Service Date of service: 03/27/19 Time of Service: 11:53 Assessment and Plan Assessment and plan (1) Paroxysmal atrial fibrillation with rapid ventricular response: Status: Acute Assessment and plan: Seems to be doing perfectly on cardizem 7.5 mg/hr. If HR remains controlled and BP adequate, would transition to short acting cardizem today and long acting in the morning. Resume xarelto. The patient was concerned about an interraction between xarelto and cardizem, but I have verified with the pharmacy that this combination is safe. Cardiology consult may be warranted if we are having difficulty controlling HR with medications - if she needs cardioversion. (2) Hypothyroidism: Status: Chronic Assessment and plan: Subclinical, not on levothyroxine at home. TSH of 4 does not warrant initiation of therapy at this time - follow up as outpatient. (3) Essential hypertension: Status: Chronic Assessment and plan: hold amlodipine as the patient is now on cardizem - monitor BP's carefully (4) Esophageal reflux: Status: Chronic Assessment and plan: Continue famotidine Qualifiers: Esophagitis presence: without esophagitis Qualified Code(s): K21.9 - Gastro-esophageal reflux disease without esophagitis (5) DVT prophylaxis: Status: Acute Assessment and plan: Therapeutic xarelto (6) Discharge planning issues: Status: Acute Assessment and plan: DNR/DNI Likely discharge home tomorrow Subjective Subjective Interval history since last seen: Overnight, SBP's on the cardizem gtt went down to 90's; off the drip HR went up to 110-120's, sometimes up to 160's, still in afib. Diltiazem gtt was resumed this morning. The patient's HR is now in the 70's, SBP in 110's-120's (laying flat/at rest). The patient denies dizziness, chest pain, shortness of breath, nausea, palpitations at this time - she is on cardizem gtt at 7.5 mg/hr. Exam Narrative Exam Narrative: General: very pleasant elderly female, looks tired, laying comfortably flat in bed HEENT: EOMI, MMM Heart: Irregularly irregular rhythm, no m/r/g Lungs: ?quiet crackles at B bases GI: abdomen is soft, nontender, nondistended Extremities: no e/c/c BLE's Objective Objective Clinical Data: Abnormal lab results 03/26/19 03/26/19 03/26/19 Range/Units 17:18 17:18 19:52 Absolute Monocytes 0.96 H (0.11-0.7) k/cumm BUN (7-18) mg/dL Creatinine 1.28 H (0.55-1.02) mg/dL Total Protein 8.4 H (6.4-8.2) g/dL TSH 4.47 H (0.36-3.74) uIU/mL 03/27/19 Range/Units 06:25 Absolute Monocytes (0.11-0.7) k/cumm BUN 20 H (7-18) mg/dL Creatinine 1.21 H (0.55-1.02) mg/dL Total Protein (6.4-8.2) g/dL TSH (0.36-3.74) uIU/mL Vital Signs Temperature 36.8 C 03/27/19 04:00 Temperature Source Temporal Artery Scan 03/27/19 04:00 Pulse 73 03/27/19 06:00 Pulse 87 03/27/19 06:00 Respiratory Rate 14 03/27/19 06:00 Respiratory Effort 03/27/19 04:00 Respiratory Depth Normal 03/27/19 04:00 Respiratory Pattern Normal 03/27/19 04:00 Blood Pressure 128/64 03/27/19 06:00 Blood Pressure Mean 81 03/27/19 06:00 Blood Pressure Position Sitting 03/26/19 22:40 Pulse Oximetry 95 03/27/19 06:00 Oxygen Delivery Method Room Air 03/27/19 04:00 Oxygen Flow Rate 0 03/27/19 04:00 Pain Level 0 03/27/19 04:00 Comment 03/26/19 16:43 Intake & Output 03/26/19 03/26/19 03/27/19 11:59 23:59 11:59 Intake Total 253.917 / 253.917 Output Total 275 / 275 Balance -21.083 / -21.083 Weight 92.3 kg Intake: IV 13.917 / 13.917 Oral 240 / 240 Output: Urine 275 / 275 Other: Urine Color Yellow Urine Appearance Clear Laboratory Results WBC 7.34 k/cumm (4.4-10.8) 03/27/19 06:25 RBC 4.71 m/cumm (4.00-5.20) 03/27/19 06:25 Hgb 14.2 g/dL (12.0-15.5) 03/27/19 06:25 Hct 42.7 % (36.0-46.0) 03/27/19 06:25 MCV 90.7 fL (80-95) 03/27/19 06:25 MCH 30.1 pg (27.0-33.0) 03/27/19 06:25 MCHC 33.3 g/dL (32.0-36.0) 03/27/19 06:25 RDW 14.4 % (11.7-14.6) 03/27/19 06:25 Plt Count 394 x1000/uL (130-400) 03/27/19 06:25 MPV 8.9 fL (8.0-11.0) 03/27/19 06:25 Immature Gran % 0.2 03/26/19 17:18 Neutrophils % 63.1 03/26/19 17:18 Lymphocytes % 24.2 03/26/19 17:18 Monocytes % 11.0 03/26/19 17:18 Eosinophils % 0.9 03/26/19 17:18 Basophils % 0.6 03/26/19 17:18 Absolute Neutrophils 5.50 k/cumm (1.2-6.7) 03/26/19 17:18 Absolute Lymphocytes 2.11 k/cumm (1.2-3.4) 03/26/19 17:18 Absolute Monocytes 0.96 k/cumm (0.11-0.7) H 03/26/19 17:18 Absolute Eosinophils 0.08 k/cumm (0.0-0.7) 03/26/19 17:18 Absolute Basophils 0.05 k/cumm (0.0-0.2) 03/26/19 17:18 Sodium 137 mmol/L (136-145) 03/27/19 06:25 Potassium 4.3 mmol/L (3.5-5.1) 03/27/19 06:25 Chloride 101 mmol/L (98-107) 03/27/19 06:25 Carbon Dioxide 27.8 mmol/L (21.0-32.0) 03/27/19 06:25 Anion Gap 8.2 mmol/L (3-11) 03/27/19 06:25 BUN 20 mg/dL (7-18) H 03/27/19 06:25 Creatinine 1.21 mg/dL (0.55-1.02) H 03/27/19 06:25 Estimated GFR/1.73 m2 43.38 (mL/min/1.73m2) 03/27/19 06:25 Glucose 87 mg/dL (70-100) 03/27/19 06:25 Calcium 9.3 mg/dL (8.5-10.1) 03/27/19 06:25 Total Bilirubin 0.4 mg/dL (0.2-1.0) 03/27/19 06:25 AST 22 U/L (15-37) 03/27/19 06:25 ALT 24 U/L (14-59) 03/27/19 06:25 Alkaline Phosphatase 87 U/L (46-116) 03/27/19 06:25 Troponin I < 0.05 ng/mL (0.00-0.06) 03/27/19 06:25 Total Protein 7.8 g/dL (6.4-8.2) 03/27/19 06:25 Albumin 3.4 g/dL (3.4-5.0) 03/27/19 06:25 TSH 4.47 uIU/mL (0.36-3.74) H 03/26/19 19:52 Free T4 1.10 ng/dL (0.76-1.46) 03/26/19 19:52
[2019-03-27] MEDS: Famotidine 20 MG TAB PO ×2 (08:55→19:57)
[2019-03-27 09:06] LABS: Magnesium 2.2 mg/dL (1.8-2.4)
--- NOTE | 2019-03-27 10:20 | PHARADMIT ---
Addendum entered by Carole Salgado 03/28/19 12:21: Pharmacy Note Subjective Rate controlled but symptomatic just doesn't feel right Objective BP 124/41, Scr 1.22, CrCl ~45ml/min based on adjusted bw Assessment Transitioned to short acting PO diltiazem, xarelto resumed (potential interaction in pts with decreased renal fxn and COMBINED p-gb and cy inhibitor, consider lowering dose to 15mg -MD notified) Plan IDA and Cardioversion planned for tomorrow Original Note: Admission Pharmacy Clinical Review PAROXYSMAL ATRIAL FIB WITH RVR, ATYPICAL CP Code Status DNR/DNI Current Weight 92.3 kg Renally Cleared and Narrow Therapeutic Index Meds CRCL ~38ML/MIN QTc Value / Action Taken 394 BP Control, Fever 153/67 AFEBRILE Electrolytes reviewed OK DVT Prophylaxis RIVAROXABAN Opiate Usage / Scheduled Bowel Regimen Ordered NO/PRN Plt/SCr for Heparin / Enoxaparin 394/1.21 INR for Warfarin NA H/H stable, WBC/Bands 14.2/42.7 WBC 7.34 Antibiotic appropriateness NA Cultures and Sensitivities NA Surgical ABX d/c within 24 hr NA DM control / Insulin Dosing NA Heart Failure (Check EF%) (CARMELO's, B-Block, Diuretics) NA IV to PO Switch IV DILTIAZEM Home Meds Reviewed OK Home Meds Not Ordered amlodipine 2.5 mg tablet 2.5 mg PO DAILY tab amoxicillin 500 mg tablet 2,000 mg PO ONCE #8 tab cholecalciferol (vitamin D3) 2,000 unit capsule 2,000 unit PO DAILY #90 tab-cap famotidine 20 mg tablet 20 mg PO BID #180 tab-cap Comments DILTIAZEM INFUSION STARTED THEN STOPPED OVERNIGHT BUT RESTARTED THIS AM. MAY NEED CARDIOVERSION BUT NOT UNTIL TUESDAY
--- NOTE | 2019-03-27 14:20 | IN_ITS ---
Date of service: 03/27/19 Time of Service: 13:32 PT Notes Physical Therapy Inpatient Evaluation Date: 03/27/2019 Referring Doctor: Nydia Chaves MD PT Orders: PT CONSULT: Eval/treat. Limited ability. Patient feels off balance Precautions: Fall. Standard. Activity as tolerated Patient Profile/Admitting Diagnosis: Patient is a 73-year-old female with past medical history significant for embolic CVA who presented to the ED with chief complaints of palpitation accompanied with chest soreness and shortness of breath. Patient is diagnosed with atrial fibrillation and tachycardia. PMHX: Medical History Atrial fibrillation (Chronic) GERD (gastroesophageal reflux disease) (Chronic) HTN (hypertension) (Chronic) Surgical History Dilation and curettage Extraction of cataract (02/06/13) Open Heart Surgery Social History/Home Situation: Patient lives alone with her 20-year-old cat named Kemal in a mobile home with 2-3 steps to enter with rails on both sides. She does have one step down from the level living room area to the kitchen. She is independent with all last of ADLs without the need for an assistive ambulatory device nor adaptive equipment. Equipment Owned/DME: Front-wheeled walker, walking stick Subjective: Patient is agreeable to a PT consult. She reports being off balance which she she states has been happening for quite a while now. She states that she does not want to use an assistive ambulatory device despite being off balance. She reports that her usual blood pressure is typically high in the 140s over 70s and that anything below 120/70 is not good for her. Objective: General Observation: Patient seen lying in bed. Telemetry monitoring in place. IV in right UE. Bilateral TEDS on legs. Mental Status: Alert and oriented x4 Pain: 0/10 Vital Signs: 157/70 5 mmHg ROM: Right Upper Extremity: Shoulder Flexion WFL. Shoulder abduction WFL. Elbow flexion WFL. Wrist flexion WFL. Opening and closing of hand WFL. Left Upper Extremity: Shoulder Flexion WFL. Shoulder abduction WFL. Elbow flexion WFL. Wrist flexion WFL. Opening and closing of hand WFL. Right Lower Extremity: Hip flexion WFL. Hip abduction WFL. Knee flexion WFL. Ankle dorsiflexion WFL. Ankle plantarflexion WFL. Left Lower Extremity: Hip flexion WFL. Hip abduction WFL. Knee flexion WFL. Ankle dorsiflexion WFL. Ankle plantarflexion WFL. Strength: Right Upper Extremity: Shoulder flexors 5/5. Shoulder abductors 4/5. Elbow flexors 5/5. Elbow extensors 5/5. Implementation Coordinator strong. Left Upper Extremity: Shoulder flexors 5/5. Shoulder abductors 4/5. Elbow flexors 5/5. Elbow extensors 5/5. Implementation Coordinator strong. Right Lower Extremity: Hip flexors 4/5. Hip abductors 4/5. Knee flexors 4/5. Knee extensors 4/5. Ankle dorsiflexors 4/5. Ankle plantarflexors 4/5. Left Lower Extremity:Hip flexors 4/5. Hip abductors 4/5. Knee flexors 4/5. Knee extensors 4/5. Ankle dorsiflexors 4/5. Ankle plantarflexors 4/5. Sensation: Intact as to pain and pressure on bilateral lower extremities. Bed Mobility/Transfers: Rolling supervision Supine to sit supervision Sit to supine supervision Sit to stand supervision Stand to sit supervision Bed to chair supervision Chair to bed supervision Gait: Patient is able to tolerate 80 feet of level surface ambulation inside ICU hallway requiring only SBA without any use of an assistive device. She did complain of being off balance towards the latter half of the walk back to her room. She however denies headache, dizziness, and chest pain during and after ambulation activity. Balance: Static Sitting: Normal Dynamic Sitting: Normal Static Standing: Good Dynamic Standing: Good Special Tests: Mobility Limitations Standardized Measure [facility] AM-PAC 6 clicks Basic Mobility Inpatient Short Form: Raw Score: 22 CMS Score: 21% deficit 4 stage balance test: Patient is able to assume feet close together and semi- tandem for 10 seconds but is unable to assume full tandem and one legged stance. This puts the patient at risk for falls. 2-minute walk test is 80 feet signifying impaired aerobic capacity and risk for falls. Informed Consent/Education: Patient instructed in purpose of PT consult and plan of care. Assessment: Patient is a 73-year-old female with diagnoses of paroxysmal atrial fibrillation and tachycardia. Motivation level is high. PLOF is independent without any assistive device. However the result of the 4 stage balance test and the 2-minute walk test along with manual muscle testing indicate impaired activity tolerance and low to moderate risk for falling. Patient is not agreeable to a recommendation of outpatient physical therapy for continued balance scaling. She did agree with having home health PT instead. Prognosis for regaining premorbid independent level is good. Patient presents with clinical signs and symptoms consistent with current/admitting diagnoses that have resulted to mobility limitations, gait instability, generalized weakness, and impairment of motor control as demonstrated by the following impairment level findings: 1. Decreased strength to B LE major muscle groups 2. Impaired standing balance 3. Impaired activity tolerance Impairments are contributing to the following functional limitations: 1. Inability to safely ambulate without assistive device and physical assistance 2. Increase completion time for mobility ADL performance 3. Increased fall risk 4. Inability to negotiate steps alone safely Patient is assessed as a 60052 moderate complexity based on the following: History: Patient is a 73-year-old female with diagnoses of paroxysmal atrial fibrillation and tachycardia. Examination: Demonstrable impairment in strength, balance, and activity tolerance with underlying impairments and functional limitations as documented above Presentation:Evolving Decision Makin moderate complexity Goals: Goals X1 week 1. Supine-Sit independent 2. Sit-Supine independent 3. Sit-Stand independent 4. Stand-Sit independent 5. Bed-Chair independent 6. Chair-Bed independent 7. Independent gait on level surface with use of least restrictive device for at least 300 feet without report of pain nor dyspnea 8. Independent stair negotiation while holding onto bilateral rails for at least 10 steps without report of pain nor dyspnea 9. Independent with home exercise program 10. Good static and dynamic standing balance/tolerance Plan of Care/Treatment Plan: 1-2x/day, 7 days/week x 1 week. Plan of care has been reviewed with the MEDICAL IMAGING SPECIALIST providing the service under Physical Therapy direction. Initiate Physical Therapy intervention for strengthening, bed mobility, transfers, gait, stairs, balance training, use of assistive device. DISCHARGE RECOMMENDATIONS: Patient will benefit from home health PT services in order to progress mobility level using least restrictive assistive ambulatory device, assess home safety, identify additional equipment needs, and establish a functional maintenance program that will increase ability of patient to remain at home. TREATMENT CODE/TIME: 64113 x 32 minutes beginning at 13:32 PM. Thank you very much for this referral. Madhavi Fenton PT, DPT, CLT [facility]
[2019-03-27] MEDS: dilTIAZem 60 MG TAB PO (17:50)
[2019-03-27] MEDS: Rivaroxaban 10 MG TABLET 20 MG PO (20:34)
[2019-03-28] VITALS (36 sets, daily range): BP systolic 110–147; BP diastolic 41–79; PULSE 58–132; RESP 13–28; TEMP 36.6–37; O2SAT 93–96
[2019-03-28] MEDS: dilTIAZem 60 MG TAB PO ×3 (01:21→18:12)
[2019-03-28 07:25] LABS: Abs Immature Grans 0.01 k/cumm (0.0-0.09); Absolute Basophil Count 0.03 k/cumm (0.0-0.2); Absolute Lymphocyte Count 1.71 k/cumm (1.2-3.4); Basophils % 0.3; HCT 42.1 % (36.0-46.0); HGB 13.7 g/dL (12.0-15.5); Immature Grans % 0.1; Lymphocytes % 17.1; Mean Corp. HGB Concentration 32.5 g/dL (32.0-36.0); Mean Corpuscular Hemoglobin 29.7 pg (27.0-33.0); Mean Corpuscular Volume 91.3 fL (80-95); Neutrophils % 69.5; Platelet Count 380 x1000/uL (130-400); RBC 4.61 m/cumm (4.00-5.20); RBC Distribution Width 14.5 % (11.7-14.6); White Blood Cell Count 9.98 k/cumm (4.4-10.8)
[2019-03-28 07:30] LABS: Absolute Neutrophil Count 6.94 k/cumm (1.2-6.7)
[2019-03-28] MEDS: Famotidine 20 MG TAB PO ×2 (07:34→19:08)
[2019-03-28 07:36] LABS: Anion Gap 10.3 mmol/L (3-11); BUN 22 mg/dL (7-18); CO2 27.7 mmol/L (21.0-32.0); CREATININE 1.22 mg/dL (0.55-1.02); Calcium 9.2 mg/dL (8.5-10.1); Chloride 101 mmol/L (98-107); Estimated GFR 42.97 (mL/min/1.73m2); Glucose 91 mg/dL (70-100); Potassium 4.6 mmol/L (3.5-5.1); Sodium 139 mmol/L (136-145)
--- NOTE | 2019-03-28 09:09 | PDOC.CMPRO ---
Care Management Progress Note S/O: Massiel was sleeping soundly when CM attempted to meet with her. She remains in the ICU at this time. She will have a IDA today and an anticipated cardioversion tomorrow, 03/29/19. Anticipate she will return home with new [facility] PT, CM faxed referral to [facility] intake and continues to follow. A: 73 year old female admitted to [facility] 03/26/19 for Paroxsmal A-Fib w/RVR, Atypical chest pain P: Massiel will likely be discharged home with new VNA PT through [facility]; referral faxed 03/28/19. She will follow up with her discharge plan of care, cardiology and her PCP. CM will continue to support patient, family and discharge planning needs.
--- NOTE | 2019-03-28 12:04 | W.PM.PROGNOT ---
Date of Service Date of service: 03/28/19 Time of Service: 16:53 Assessment and Plan Assessment and plan (1) Paroxysmal atrial fibrillation with rapid ventricular response: Status: Acute Assessment and plan: Transitioned to PO cardizem. Continue xarelto. Planned for IDA/cardioversion tomorrow. (2) Hypothyroidism: Status: Chronic Assessment and plan: Subclinical, not on levothyroxine at home. TSH of 4 does not warrant initiation of therapy at this time - follow up as outpatient. (3) Essential hypertension: Status: Chronic Assessment and plan: hold amlodipine as the patient is now on cardizem - monitor BP's carefully (4) Esophageal reflux: Status: Chronic Assessment and plan: Continue famotidine Qualifiers: Esophagitis presence: without esophagitis Qualified Code(s): K21.9 - Gastro-esophageal reflux disease without esophagitis (5) DVT prophylaxis: Status: Acute Assessment and plan: Therapeutic xarelto (6) Discharge planning issues: Status: Acute Assessment and plan: DNR/DNI pending IDA/cardioversion Subjective Subjective Interval history since last seen: The patient states she just doesn't feel right when she is in Afib. She specifically reports palpitations. She is interested in having cardioversion tomorrow. Denies dizziness, chest pain or burning like she had when she first presented, shortness of breath, nausea. We spoke about the fact that she would need to have a IDA prior to her cardioversion - she agrees. IDA and cardioversion are planned for tomorrow. Exam Narrative Exam Narrative: General: very pleasant elderly female, sitting up in a chair, looks well HEENT: EOMI, MMM Heart: Irregularly irregular rhythm, no m/r/g Lungs: CTAB GI: abdomen is soft, nontender, nondistended Extremities: no e/c/c BLE's Objective Objective Clinical Data: Abnormal lab results 03/28/19 03/28/19 Range/Units 06:10 06:10 Absolute Neutrophils 6.94 H (1.2-6.7) k/cumm Absolute Monocytes 1.20 H (0.11-0.7) k/cumm BUN 22 H (7-18) mg/dL Creatinine 1.22 H (0.55-1.02) mg/dL Vital Signs Temperature 36.6 C 03/28/19 07:20 Temperature Source Temporal Artery Scan 03/28/19 07:20 Pulse 58 L 03/28/19 09:52 Pulse 99 H 03/28/19 09:52 Respiratory Rate 23 03/28/19 09:52 Respiratory Effort Non-Labored 03/28/19 07:20 Respiratory Depth Normal 03/28/19 07:20 Respiratory Pattern Normal 03/28/19 07:20 Blood Pressure 147/79 H 03/28/19 09:52 Blood Pressure Mean 86 03/28/19 09:52 Blood Pressure Position Supine 03/27/19 16:30 Pulse Oximetry 96 03/28/19 07:15 Oxygen Delivery Method Room Air 03/28/19 04:00 Oxygen Flow Rate 0 03/28/19 04:00 Pain Level 0 03/28/19 07:20 Comment 03/26/19 16:43 Intake & Output 03/27/19 03/28/19 03/28/19 23:59 11:59 23:59 Intake Total 321.417 / 1065.918 240 / 240 Output Total 600 / 1125 700 / 700 Balance -278.583 / -59.082 -460 / -460 Intake: IV 71.417 / 115.918 Oral 250 / 950 240 / 240 Output: Urine 600 / 1125 700 / 700 Other: Urine Color Pale Urine Appearance Clear Comment Amount approximated based on patient report. Voiding Methods Bedside Commode Laboratory Results WBC 9.98 k/cumm (4.4-10.8) D 03/28/19 06:10 RBC 4.61 m/cumm (4.00-5.20) 03/28/19 06:10 Hgb 13.7 g/dL (12.0-15.5) 03/28/19 06:10 Hct 42.1 % (36.0-46.0) 03/28/19 06:10 MCV 91.3 fL (80-95) 03/28/19 06:10 MCH 29.7 pg (27.0-33.0) 03/28/19 06:10 MCHC 32.5 g/dL (32.0-36.0) 03/28/19 06:10 RDW 14.5 % (11.7-14.6) 03/28/19 06:10 Plt Count 380 x1000/uL (130-400) 03/28/19 06:10 MPV 9.0 fL (8.0-11.0) 03/28/19 06:10 Immature Gran % 0.1 03/28/19 06:10 Neutrophils % 69.5 03/28/19 06:10 Lymphocytes % 17.1 03/28/19 06:10 Monocytes % 12.0 03/28/19 06:10 Eosinophils % 1.0 03/28/19 06:10 Basophils % 0.3 03/28/19 06:10 Absolute Neutrophils 6.94 k/cumm (1.2-6.7) H 03/28/19 06:10 Absolute Lymphocytes 1.71 k/cumm (1.2-3.4) 03/28/19 06:10 Absolute Monocytes 1.20 k/cumm (0.11-0.7) H 03/28/19 06:10 Absolute Eosinophils 0.10 k/cumm (0.0-0.7) 03/28/19 06:10 Absolute Basophils 0.03 k/cumm (0.0-0.2) 03/28/19 06:10 Sodium 139 mmol/L (136-145) 03/28/19 06:10 Potassium 4.6 mmol/L (3.5-5.1) 03/28/19 06:10 Chloride 101 mmol/L (98-107) 03/28/19 06:10 Carbon Dioxide 27.7 mmol/L (21.0-32.0) 03/28/19 06:10 Anion Gap 10.3 mmol/L (3-11) 03/28/19 06:10 BUN 22 mg/dL (7-18) H 03/28/19 06:10 Creatinine 1.22 mg/dL (0.55-1.02) H 03/28/19 06:10 Estimated GFR/1.73 m2 42.97 (mL/min/1.73m2) 03/28/19 06:10 Glucose 91 mg/dL (70-100) 03/28/19 06:10 Calcium 9.2 mg/dL (8.5-10.1) 03/28/19 06:10 Magnesium 2.0 mg/dL (1.8-2.4) 03/28/19 06:10 Total Bilirubin 0.4 mg/dL (0.2-1.0) 03/27/19 06:25 AST 22 U/L (15-37) 03/27/19 06:25 ALT 24 U/L (14-59) 03/27/19 06:25 Alkaline Phosphatase 87 U/L (46-116) 03/27/19 06:25 Troponin I < 0.05 ng/mL (0.00-0.06) 03/27/19 06:25 Total Protein 7.8 g/dL (6.4-8.2) 03/27/19 06:25 Albumin 3.4 g/dL (3.4-5.0) 03/27/19 06:25 TSH 4.47 uIU/mL (0.36-3.74) H 03/26/19 19:52 Free T4 1.10 ng/dL (0.76-1.46) 03/26/19 19:52 Echo preliminary read: EF 65%, mild LVH, no wall motion abnormalities, RV size and function normal, mild aortic regurg, mild to moderate tricuspid regurg, RV
--- NOTE | 2019-03-28 12:38 | PT.INTREAT ---
Date of service: 03/28/19 Time of Service: 12:39 PT Notes Inpatient Physical Therapy Treatment Note [facility] Date: 03/28/2019 PRECAUTIONS: Fall SUBJECTIVE: Massiel is agreeable to participating in PT, stating that she feels good today. She reports that she will be spending the night tonight and getting zapped tomorrow. OBJECTIVE: PAIN: No complaints of pain BED MOBILITY/TRANSFERS Supine-sit: I Sit-supine: I Sit-stand: I Stand-sit: I GAIT Assistive Device: SPC Weight bearing: Full Assist: S Distance: 75' + approx 150' in a.m.; 500' + in p.m. Independent with short, in-room distances (limited by heart monitor attachment) Static standing x5 minutes with SPC support STAIRS: Up/down 2x6 and 3?4 using one rail/SPC and a step over pattern with supervision ASSESSMENT: Patient tolerated session well, tolerating a progression in gait distance with SPC support and supervision. She demonstrates independence with transfers and bed mobility at this time. PLAN: Continue with PTs POC TREATMENT CODE/TIME: Session 1: 25 minutes; 03888 x2 Session 2: 20 minutes; [id number]
[2019-03-28] MEDS: Normal Saline Flush 10 ML SYR IVP (19:09)
[2019-03-28] MEDS: Rivaroxaban 10 MG TABLET 20 MG PO (19:18)
[2019-03-29] VITALS (30 sets, daily range): BP systolic 98–149; BP diastolic 55–111; PULSE 57–119; RESP 12–27; TEMP 36.3–36.8; O2SAT 92–99
[2019-03-29] MEDS: dilTIAZem 60 MG TAB PO ×2 (01:50→09:52)
[2019-03-29 07:00] LABS: Abs Immature Grans 0.01 k/cumm (0.0-0.09); Absolute Basophil Count 0.04 k/cumm (0.0-0.2); Absolute Eosinophil Count 0.19 k/cumm (0.0-0.7); Absolute Lymphocyte Count 1.79 k/cumm (1.2-3.4); Absolute Monocyte Count 0.77 k/cumm (0.11-0.7); Absolute Neutrophil Count 5.24 k/cumm (1.2-6.7); Basophils % 0.5; Eosinophils % 2.4; HCT 41.7 % (36.0-46.0); HGB 13.6 g/dL (12.0-15.5); Immature Grans % 0.1; Lymphocytes % 22.3; Mean Corp. HGB Concentration 32.6 g/dL (32.0-36.0); Mean Corpuscular Hemoglobin 29.7 pg (27.0-33.0); Mean Platelet Volume 9.1 fL (8.0-11.0); Monocytes % 9.6; Neutrophils % 65.1; Platelet Count 405 x1000/uL (130-400); RBC 4.58 m/cumm (4.00-5.20); RBC Distribution Width 14.4 % (11.7-14.6); White Blood Cell Count 8.04 k/cumm (4.4-10.8)
[2019-03-29 07:16] LABS: Anion Gap 10.7 mmol/L (3-11); BUN 23 mg/dL (7-18); CO2 25.3 mmol/L (21.0-32.0); CREATININE 1.22 mg/dL (0.55-1.02); Calcium 9.3 mg/dL (8.5-10.1); Chloride 105 mmol/L (98-107); Estimated GFR 42.97 (mL/min/1.73m2); Glucose 110 mg/dL (70-100); Magnesium 1.9 mg/dL (1.8-2.4); Potassium 4.1 mmol/L (3.5-5.1); Sodium 141 mmol/L (136-145)
[2019-03-29] MEDS: Famotidine 20 MG TAB PO ×2 (07:55→20:24)
--- NOTE | 2019-03-29 08:00 | DI.US_ITS ---
APPROVED REPORT EXAM: Comprehensive 2D, Doppler, and color-flow Echocardiogram Patient Location: [facility]Patient [facility] Implement Mechanic: CLAUDIA Bennett (AE) Rhythm: Atrial Fibrillation Indications: prior to cardioversion. PAF Conclusion Left Ventricle : The left ventricular systolic function is normal. The left ventricular ejection frac tion is within the normal range. Atria : No thrombus is visualized in the left atrium or appendage. The right atrium size is normal. Mitral Valve : There is no mitral valve regurgitation noted. Cardioversion successful with 200J and 1 attempt. NSR confirmed with ECG. Wall motion Left Ventricle not well visualized The left ventricular systolic function is normal. The left ventricular ejection f raction is within the normal range. not well visualized not well visualized not well visualized LVEF is 55-60%. Right Ventricle not well visualized not well visualized Atria No thrombus is visualized in the left atrium or appendage. The right atrium size is normal. Aortic Valve The Aortic valve is sclerotic. not well visualized not well visualized Mitral Valve not well visualized There is no mitral valve regurgitation noted. Tricuspid Valve not well visualized not well visualized Great Vessels not well visualized Pericardium not well visualized Procedure After obtaining informed consent, patient underwent transesophageal echo in the OR. Type of Sedation : General Anesthesia Sedation was administered by Abdiaziz Ortiz CRNA. Sedation was achieved intravenously with: Propofol () The IDA was performed without complications. Synchronized Cardioversion attempted: Successful Synchronized Cardioversion acheived with 200 Joules after 1 attempt(s). Rhythm following Synchronized Cardioversion: Normal Sinus Rhythm Throughout the procedure, the blood pressure, pulse oximetry, cardiac rhythm, and rate were monitored . The patient tolerated the procedure without adverse effects. Recovery from conscious sedation was une ventful and vital signs were stable.
--- NOTE | 2019-03-29 12:49 | PDOC.CMPRO ---
- If Service Date Differs Date of service: 03/29/19 Time of Service: 12:49 Care Management Progress Note S/O: Massiel was sitting up in a chair when CM came to see her. She was smiling and pleasant and engaged readily in conversation. When asked about the cardioversion planned for this afternoon, Massiel stated that she was looking forward to having it done because she does not like feeling like she does when she is in atrial fibrillation. She stated that she had the same procedure 2 years ago and it worked well. She is not cleqar if she will be discharged home today or tomorrow. Massiel also shared that she no longer feels she needs home health PT. She stated that she has been working with the PT staff here and they have discharged her from their service since she is doing well. A: 73 year old female admitted to [facility] 03/26/19 for Paroxsmal A-Fib w/RVR, Atypical chest pain P: Massiel may be discharged home with new VNA PT through [facility], although today she states that she no longer feels she needs it. A referral was faxed 03/28/19. She will follow up with her discharge plan of care, cardiology and her PCP. CM will continue to support patient, family and discharge planning needs.
[2019-03-29] MEDS: Lactated Ringers 1,000 ML 30 ML IV (14:44)
--- NOTE | 2019-03-29 15:55 | RESPIRATORY ---
03/29/2019-RT bedside in OR with Pt for IDA/Cardioversion. Pre/Post EKG completed. Copious amounts of clear secretions orally suctioned with Yankauer and 10Fr cath. RETAIL ZONE SPECIALIST intubated Pt for airway protection.
--- NOTE | 2019-03-29 16:08 | W.CARDVER ---
Cardioversion IDA was performed under general anesthesia The left atrial appendage was free of thrombus Direct cardioversion was performed using 200 J. Normal sinus rhythm was obtained after one attempt. Normal sinus rhythm was confirmed on EKG. Date of service: 03/29/19 Time of Service: 16:08
--- NOTE | 2019-03-29 16:54 | W.PM.PROGNOT ---
Date of Service Date of service: 03/29/19 Time of Service: 16:54 Assessment and Plan Assessment and plan (1) Paroxysmal atrial fibrillation with rapid ventricular response: Status: Resolved Assessment and plan: S/p IDA/cardioversion, now in NSR. She is still recovering from anesthesia, so I feel we best monitor the patient overnight, especially given her possible aspiration event. Continue xarelto. I have discontinued cardizem. (2) Hypothyroidism: Status: Chronic Assessment and plan: Subclinical, not on levothyroxine at home. TSH of 4 does not warrant initiation of therapy at this time - follow up as outpatient. (3) Essential hypertension: Status: Chronic Assessment and plan: hold amlodipine for now - may be able to restart as outpatient. (4) Esophageal reflux: Status: Chronic Assessment and plan: Continue famotidine, but also add a PPI - I feel this was likely the reason why the patient had the possible aspiration event today. Qualifiers: Esophagitis presence: without esophagitis Qualified Code(s): K21.9 - Gastro-esophageal reflux disease without esophagitis (5) DVT prophylaxis: Status: Acute Assessment and plan: Therapeutic xarelto (6) Discharge planning issues: Status: Acute Assessment and plan: DNR/DNI will monitor for development of aspiration pneumonia/pneumonitis overnight. Planned for discharge home tomorrow if stable. Subjective Subjective Interval history since last seen: S/p IDA/cardioversion today with successful conversion to NSR, but required intubation. There is a question of possible aspiration on gastric contents (the patient coughed up greenish content). Apparently, the patient's GERD makes her sleep in a recliner at home. The patient is successfully extubated, on room air, but reports feeling nauseated. Denies chest pain, shortness of breath, dizziness. She says she just feels terrible. Exam Narrative Exam Narrative: General: elderly female, having dry heaves, does not appear to be feeling well HEENT: EOMI, MMM Heart: RRR, no m/r/g Lungs: CTAB GI: abdomen is soft, nontender, nondistended Extremities: no e/c/c BLE's Objective Objective Clinical Data: Abnormal lab results 03/29/19 03/29/19 Range/Units 06:15 06:15 Plt Count 405 H (130-400) x1000/uL Absolute Monocytes 0.77 H (0.11-0.7) k/cumm BUN 23 H (7-18) mg/dL Creatinine 1.22 H (0.55-1.02) mg/dL Glucose 110 H (70-100) mg/dL Vital Signs Temperature 36.8 C 03/29/19 11:46 Temperature Source Temporal Artery Scan 03/29/19 11:46 Pulse 97 H 03/29/19 11:46 Pulse 85 03/29/19 08:01 Respiratory Rate 14 03/29/19 11:46 Respiratory Effort Non-Labored 03/29/19 11:46 Respiratory Depth Normal 03/29/19 11:46 Respiratory Pattern Normal 03/29/19 11:46 Blood Pressure 130/83 03/29/19 11:46 Blood Pressure Mean 98 03/29/19 11:46 Blood Pressure Position Sitting 03/29/19 11:46 Pulse Oximetry 99 03/29/19 11:46 Oxygen Delivery Method Room Air 03/29/19 11:46 Oxygen Flow Rate 0 03/29/19 11:46 Pain Level 0 03/29/19 11:46 Comment 03/26/19 16:43 Intake & Output 03/28/19 03/29/19 03/29/19 23:59 11:59 23:59 Intake Total 510 / 1250 10 / 410 400 / 410 Output Total 950 / 1950 850 / 1650 800 / 1650 Balance -440 / -700 -840 / -1240 -400 / -1240 Intake: IV 10 / 410 400 / 410 Oral 500 / 1240 Output: Urine 950 / 1950 850 / 1650 800 / 1650 Other: Urine Color Yellow Yellow Yellow Urine Appearance Clear Clear Clear Urine Odor Normal Voiding Methods Bedside Commode Laboratory Results WBC 8.04 k/cumm (4.4-10.8) 03/29/19 06:15 RBC 4.58 m/cumm (4.00-5.20) 03/29/19 06:15 Hgb 13.6 g/dL (12.0-15.5) 03/29/19 06:15 Hct 41.7 % (36.0-46.0) 03/29/19 06:15 MCV 91.0 fL (80-95) 03/29/19 06:15 MCH 29.7 pg (27.0-33.0) 03/29/19 06:15 MCHC 32.6 g/dL (32.0-36.0) 03/29/19 06:15 RDW 14.4 % (11.7-14.6) 03/29/19 06:15 Plt Count 405 x1000/uL (130-400) H 03/29/19 06:15 MPV 9.1 fL (8.0-11.0) 03/29/19 06:15 Immature Gran % 0.1 03/29/19 06:15 Neutrophils % 65.1 03/29/19 06:15 Lymphocytes % 22.3 03/29/19 06:15 Monocytes % 9.6 03/29/19 06:15 Eosinophils % 2.4 03/29/19 06:15 Basophils % 0.5 03/29/19 06:15 Absolute Neutrophils 5.24 k/cumm (1.2-6.7) 03/29/19 06:15 Absolute Lymphocytes 1.79 k/cumm (1.2-3.4) 03/29/19 06:15 Absolute Monocytes 0.77 k/cumm (0.11-0.7) H 03/29/19 06:15 Absolute Eosinophils 0.19 k/cumm (0.0-0.7) 03/29/19 06:15 Absolute Basophils 0.04 k/cumm (0.0-0.2) 03/29/19 06:15 Sodium 141 mmol/L (136-145) 03/29/19 06:15 Potassium 4.1 mmol/L (3.5-5.1) 03/29/19 06:15 Chloride 105 mmol/L (98-107) 03/29/19 06:15 Carbon Dioxide 25.3 mmol/L (21.0-32.0) 03/29/19 06:15 Anion Gap 10.7 mmol/L (3-11) 03/29/19 06:15 BUN 23 mg/dL (7-18) H 03/29/19 06:15 Creatinine 1.22 mg/dL (0.55-1.02) H 03/29/19 06:15 Estimated GFR/1.73 m2 42.97 (mL/min/1.73m2) 03/29/19 06:15 Glucose 110 mg/dL (70-100) H 03/29/19 06:15 Calcium 9.3 mg/dL (8.5-10.1) 03/29/19 06:15 Magnesium 1.9 mg/dL (1.8-2.4) 03/29/19 06:15 Total Bilirubin 0.4 mg/dL (0.2-1.0) 03/27/19 06:25 AST 22 U/L (15-37) 03/27/19 06:25 ALT 24 U/L (14-59) 03/27/19 06:25 Alkaline Phosphatase 87 U/L (46-116) 03/27/19 06:25 Troponin I < 0.05 ng/mL (0.00-0.06) 03/27/19 06:25 Total Protein 7.8 g/dL (6.4-8.2) 03/27/19 06:25 Albumin 3.4 g/dL (3.4-5.0) 03/27/19 06:25 TSH 4.47 uIU/mL (0.36-3.74) H 03/26/19 19:52 Free T4 1.10 ng/dL (0.76-1.46) 03/26/19 19:52
[2019-03-29] MEDS: Pantoprazole 40 MG VIAL IVP (17:22)
--- NOTE | 2019-03-29 17:36 | DI.RAD_ITS ---
EXAM: XR PORTABLE CHEST AP INDICATION: suspected aspiration event. COMPARISON: XR PORTABLE CHEST AP from 03/26/2019 TECHNIQUE: 2D digital imaging was performed. FINDINGS: The heart is enlarged. Sternal wires and cardiomegaly are noted. Leads overlie the chest. There ar e minimal linear densities at the left lung base. No infiltrate, effusion or pulmonary edema is seen . IMPRESSION: Cardiomegaly. No acute abnormality.
--- NOTE | 2019-03-29 17:44 | DI.VRAD_ITS ---
PROCEDURE INFORMATION: Exam: XR Chest, 1 View Exam date and time: 03/29/2019 5:32 PM Clinical history: 73 years old, female; Other: Suspected aspiration event TECHNIQUE: Imaging protocol: XR of the chest Views: 1 view. COMPARISON: XR PORTABLE CHEST AP 03/26/2019 7:33 PM FINDINGS: Lungs: Linear fibrotic/atelectatic changes left lung base. Pleural space: Unremarkable. No pleural effusion. No pneumothorax. Heart/Mediastinum: Unremarkable. No cardiomegaly. Bones/joints: There are sternal wires consistent with previous sternotomy incision. IMPRESSION: Linear fibrotic/atelectatic changes at the left lung base. No real interval change from 03/26/2019 Dictated and Authenticated by: Cheikh Guajardo MD. Ordering:NERY Stafford MD
[2019-03-29] MEDS: Rivaroxaban 10 MG TABLET 20 MG PO (20:23)
[2019-03-30] VITALS (16 sets, daily range): BP systolic 132–157; BP diastolic 56–63; PULSE 64–84; RESP 12–25; TEMP 36.6–36.8; O2SAT 95–100
[2019-03-30 07:14] LABS: HCT 38.6 % (36.0-46.0); HGB 12.7 g/dL (12.0-15.5); Mean Corp. HGB Concentration 32.9 g/dL (32.0-36.0); Mean Corpuscular Hemoglobin 30.5 pg (27.0-33.0); Mean Corpuscular Volume 92.8 fL (80-95); Mean Platelet Volume 9.3 fL (8.0-11.0); Platelet Count 358 x1000/uL (130-400); RBC 4.16 m/cumm (4.00-5.20); RBC Distribution Width 14.5 % (11.7-14.6); White Blood Cell Count 9.32 k/cumm (4.4-10.8)
[2019-03-30 07:28] LABS: Anion Gap 9.1 mmol/L (3-11); BUN 24 mg/dL (7-18); CO2 26.9 mmol/L (21.0-32.0); CREATININE 1.33 mg/dL (0.55-1.02); Calcium 9.1 mg/dL (8.5-10.1); Chloride 101 mmol/L (98-107); Estimated GFR 38.89 (mL/min/1.73m2); Glucose 108 mg/dL (70-100); Magnesium 2.1 mg/dL (1.8-2.4); Potassium 4.7 mmol/L (3.5-5.1); Sodium 137 mmol/L (136-145)
--- NOTE | 2019-03-30 08:27 | W.PM.PROGNOT ---
Subjective Subjective Interval history since last seen: Doing much better today - not requiring oxygen, no fever or cough. Wants to go home. Objective Objective Clinical Data: Abnormal lab results 03/30/19 Range/Units 06:05 BUN 24 H (7-18) mg/dL Creatinine 1.33 H (0.55-1.02) mg/dL Glucose 108 H (70-100) mg/dL Vital Signs Temperature 36.6 C 03/30/19 08:13 Temperature Source Temporal Artery Scan 03/30/19 08:13 Pulse 70 03/30/19 08:13 Pulse 75 03/30/19 07:40 Respiratory Rate 16 03/30/19 08:13 Respiratory Effort Non-Labored 03/30/19 08:13 Respiratory Depth Normal 03/30/19 08:13 Respiratory Pattern Normal 03/30/19 08:13 Blood Pressure 146/61 H 03/30/19 08:13 Blood Pressure Mean 89 03/30/19 08:13 Blood Pressure Position Sitting 03/30/19 08:13 Pulse Oximetry 99 03/30/19 08:13 Oxygen Delivery Method Room Air 03/30/19 08:13 Oxygen Flow Rate 0 03/30/19 08:13 Pain Level 0 03/30/19 08:13 Comment 03/26/19 16:43 Intake & Output 03/29/19 03/29/19 03/30/19 11:59 23:59 11:59 Intake Total 10 / 410 400 / 410 600 / 600 Output Total 850 / 1650 800 / 1650 700 / 700 Balance -840 / -1240 -400 / -1240 -100 / -100 Weight 98.4 kg Intake: IV 10 / 410 400 / 410 Oral 600 / 600 Output: Urine 850 / 1650 800 / 1650 700 / 700 Other: Urine Color Yellow Yellow Dark Yoselin Urine Appearance Clear Clear Clear Urine Odor None Laboratory Results WBC 9.32 k/cumm (4.4-10.8) 03/30/19 06:05 RBC 4.16 m/cumm (4.00-5.20) 03/30/19 06:05 Hgb 12.7 g/dL (12.0-15.5) 03/30/19 06:05 Hct 38.6 % (36.0-46.0) 03/30/19 06:05 MCV 92.8 fL (80-95) 03/30/19 06:05 MCH 30.5 pg (27.0-33.0) 03/30/19 06:05 MCHC 32.9 g/dL (32.0-36.0) 03/30/19 06:05 RDW 14.5 % (11.7-14.6) 03/30/19 06:05 Plt Count 358 x1000/uL (130-400) 03/30/19 06:05 MPV 9.3 fL (8.0-11.0) 03/30/19 06:05 Immature Gran % 0.1 03/29/19 06:15 Neutrophils % 65.1 03/29/19 06:15 Lymphocytes % 22.3 03/29/19 06:15 Monocytes % 9.6 03/29/19 06:15 Eosinophils % 2.4 03/29/19 06:15 Basophils % 0.5 03/29/19 06:15 Absolute Neutrophils 5.24 k/cumm (1.2-6.7) 03/29/19 06:15 Absolute Lymphocytes 1.79 k/cumm (1.2-3.4) 03/29/19 06:15 Absolute Monocytes 0.77 k/cumm (0.11-0.7) H 03/29/19 06:15 Absolute Eosinophils 0.19 k/cumm (0.0-0.7) 03/29/19 06:15 Absolute Basophils 0.04 k/cumm (0.0-0.2) 03/29/19 06:15 Sodium 137 mmol/L (136-145) 03/30/19 06:05 Potassium 4.7 mmol/L (3.5-5.1) 03/30/19 06:05 Chloride 101 mmol/L (98-107) 03/30/19 06:05 Carbon Dioxide 26.9 mmol/L (21.0-32.0) 03/30/19 06:05 Anion Gap 9.1 mmol/L (3-11) 03/30/19 06:05 BUN 24 mg/dL (7-18) H 03/30/19 06:05 Creatinine 1.33 mg/dL (0.55-1.02) H 03/30/19 06:05 Estimated GFR/1.73 m2 38.89 (mL/min/1.73m2) 03/30/19 06:05 Glucose 108 mg/dL (70-100) H 03/30/19 06:05 Calcium 9.1 mg/dL (8.5-10.1) 03/30/19 06:05 Magnesium 2.1 mg/dL (1.8-2.4) 03/30/19 06:05 Total Bilirubin 0.4 mg/dL (0.2-1.0) 03/27/19 06:25 AST 22 U/L (15-37) 03/27/19 06:25 ALT 24 U/L (14-59) 03/27/19 06:25 Alkaline Phosphatase 87 U/L (46-116) 03/27/19 06:25 Troponin I < 0.05 ng/mL (0.00-0.06) 03/27/19 06:25 Total Protein 7.8 g/dL (6.4-8.2) 03/27/19 06:25 Albumin 3.4 g/dL (3.4-5.0) 03/27/19 06:25 TSH 4.47 uIU/mL (0.36-3.74) H 03/26/19 19:52 Free T4 1.10 ng/dL (0.76-1.46) 03/26/19 19:52
[2019-03-30] MEDS: Famotidine 20 MG TAB PO (08:51)
[2019-03-30] MEDS: dilTIAZem 30 MG TAB PO (08:51)
[2019-03-30] MEDS: Normal Saline Flush 10 ML SYR IVP (08:52)
[2019-03-30] MEDS: Normal Saline 1,000 ML 1000 ML IV (08:52)
[2019-03-30 13:22] LABS: Anion Gap 6.8 mmol/L (3-11); BUN 21 mg/dL (7-18); CO2 29.2 mmol/L (21.0-32.0); CREATININE 1.11 mg/dL (0.55-1.02); Calcium 8.7 mg/dL (8.5-10.1); Chloride 101 mmol/L (98-107); Estimated GFR 47.92 (mL/min/1.73m2); Glucose 108 mg/dL (70-100); Sodium 137 mmol/L (136-145)
--- NOTE | 2019-03-30 14:35 | W.PM.DS.N ---
Date of service: 03/30/19 Time of Service: 14:36 DS: Diagnosis Discharge Diagnosis (1) Paroxysmal atrial fibrillation with rapid ventricular response: Status: Resolved Asessment and Plan: S/p IAD/cardioversion 03/29/19 - now, in NSR, on xarelto; cardizem 30 mg PO BID (2) Hypothyroidism: Status: Chronic (3) Essential hypertension: Status: Chronic (4) Esophageal reflux: Status: Chronic (5) Acute kidney injury superimposed on chronic kidney disease: Status: Acute Discharge Plan Disposition Patient Disposition: HOME Condition: Good Discharge Details Chief Complaint: Palpitatns Clinical Impression: A-fib Reason For Visit: PAROXYSMAL ATRIAL FIBRILLATION W/RVR, ATYPICAL CARMENZA Admit Date/Time: 03/26/19 21:01 Admit Provider: Barak Goldberg Attending Provider: Barak Goldberg Primary Care Provider: Noreen Adam ED Provider: Alma Rosa [place] Hospital Course Hospital Course: Ms Max is a 73 year old female with PMHx of paroxysmal afib post atrial myxoma ressection, previously requiring cardioversion, on anticoagulation with xarelto, as well as h/o hypertension, CKD III, hypothyroidism, GERD, admitted to [facility] ICU on 03/26/19 with rapid afib, requiring intravenous cardizem infusion. Unfortunately, though her rates were easily controlled, she remained symptomatic of her atrial fibrillation. Because there was 1 missed dose of therapeutic anticoagulation (xarelto) on admission, the patient had to undergo a IDA prior to her cardioversion on 03/29/[address] Thompson. The patient had to be intubated because, post initiation of sedation, the patient developed secretions from reflux and there was a concern for aspiration. She was extubated the same day. She is asymptomatic from the event at the time of discharge, endorsing only her chronic cough, no shortness of breath, and her CXR is negative for aspiration pneumonia. She will be maintained on xarelto for anticoagulation and, per recommendation of Dr Ascencio, should stay on low dose of AV rafa quoc, so she will be discharged home on cardizem 30 mg PO BID. She will need to follow up with her PCP and with Dr Ascencio on discharge. She will be discharged with a cardiac event recorder. The patient is medically stable for discharge. Care for patient as well as completion of her discharge paperwork on the day of discharge took 45 minutes. Home Meds and New Rx's Prescriptions: New diltiazem HCl [Cardizem] 30 mg Tablet 30 mg PO BID Qty: 60 RF: 0 pantoprazole [Protonix] 40 mg tablet,delayed release (DR/EC) 40 mg PO DAILY Qty: 30 RF: 0 Continued Betoptic S 15 ML drops,suspension 1 drp OU BID RF: 0 TheraTears 1 EACH dropperette 1 ea OU PRN RF: 0 Xarelto 20 mg tablet 20 mg PO DAILY Qty: 90 RF: 3 amoxicillin 500 mg tablet 2,000 mg PO ONCE Qty: 8 RF: 0 cholecalciferol (vitamin D3) [Vitamin D3] 2,000 unit capsule 2,000 unit PO DAILY Qty: 90 RF: 3 Discontinued amlodipine 2.5 mg tablet 2.5 mg PO DAILY RF: 0 famotidine [Pepcid AC] 20 mg tablet 20 mg PO BID Qty: 180 RF: 4 Discharge Instructions Instructions: Diltiazem (By mouth), Pantoprazole (By mouth), Atrial Fibrillation (DC), Gastroesophageal Reflux Disease (DC), Cardioversion (DC) Additional Instructions: Return to the hospital with any fever, bleeding, chest, shortness of breath. Care Plan Goals: Home with a cardiac event recorder, PCP and cardiology follow up. Referrals: Noreen Adam NP [Primary Care Provider] - Barak Ascencio MD [MD CONSULTING PHYSICIAN] - Activity:: Activity as Tolerated Equipment/Supplies:: 30 day cardiac event recorder Diet:: Low Sodium Discharge Orders Discharge Orders: Discharge Order (Routine); Ordered 03/30/19 Ordered By: Nydia Chaves Other Ambulatory Orders: Cardiac Event Recorder (Outpt) (ONCE) Timeframe: [id number] Facility: [facility] - Location: Respiratory Therapy Ordered By: Nydia Chaves DS: Summary Status at Discharge Functional status at discharge: independent ambulation Overall status at discharge: patient is back to baseline Mental Status: mental status grossly normal Speech and Movement: speech and movement normal Mood: congruent mood Affect: normal affect Exam Narrative Exam Narrative: General: elderly female, A&Ox3, looks well HEENT: EOMI, MMM Heart: RRR, no m/r/g Lungs: CTAB GI: abdomen is soft, nontender, nondistended Extremities: no e/c/c BLE's Psych Mental Status: mental status grossly normal Speech and Movement: speech and movement normal Mood: congruent mood Affect: normal affect DS: Data Vitals/I&O Vitals and I&O: Vital Signs Temperature 36.6 C 03/30/19 12:07 Temperature Source Temporal Artery Scan 03/30/19 12:07 Pulse 70 03/30/19 12:07 Pulse 80 03/30/19 12:00 Respiratory Rate 14 03/30/19 12:07 Respiratory Effort Non-Labored 03/30/19 12:07 Respiratory Depth Normal 03/30/19 12:07 Respiratory Pattern Normal 03/30/19 12:07 Blood Pressure 157/61 H 03/30/19 12:07 Blood Pressure Mean 93 03/30/19 12:07 Blood Pressure Position Sitting 03/30/19 12:07 Pulse Oximetry 99 03/30/19 12:07 Oxygen Delivery Method Room Air 03/30/19 12:07 Oxygen Flow Rate 0 03/30/19 12:07 Pain Level 0 03/30/19 12:07 Comment 03/26/19 16:43 Intake & Output 03/29/19 03/30/19 03/30/19 23:59 11:59 23:59 Intake Total 400 / 410 850 / 850 Output Total 800 / 1650 700 / 1150 450 / 1150 Balance -400 / -1240 150 / -300 -450 / -300 Weight 98.4 kg Intake: IV 400 / 410 10 / 10 Oral 840 / 840 Output: Urine 800 / 1650 700 / 1150 450 / 1150 Other: Urine Color Yellow Dark Yoselin Yellow Urine Appearance Clear Clear Clear Urine Odor None None Data Completed and Pending Completed studies during hospitalization [Text1]: CXR 03/26/19: No acute abnormality. TTE 03/27/19: LVEF 65%, mild concentric LVH, nml RV function and size, moderate tricuspid regurg, PA pressure 25 mmHg IDA 03/29/19: IDA was performed under general anesthesia The left atrial appendage was free of thrombus Direct cardioversion was performed using 200 J. Normal sinus rhythm was obtained after one attempt. Normal sinus rhythm was confirmed on EKG. CXR 03/29/19: Cardiomegaly. No acute abnormality. Labs on day of discharge: Labs from last 24 hours 03/30/19 03/30/19 03/30/19 12:32 06:05 06:05 WBC 9.32 RBC 4.16 Hgb 12.7 Hct 38.6 MCV 92.8 MCH 30.5 MCHC 32.9 RDW 14.5 Plt Count 358 MPV 9.3 Sodium 137 137 Potassium 4.0 4.7 Chloride 101 101 Carbon Dioxide 29.2 26.9 Anion Gap 6.8 9.1 BUN 21 H 24 H Creatinine 1.11 H 1.33 H Estimated GFR/1.73 m2 47.92 38.89 Glucose 108 H 108 H Calcium 8.7 9.1 Magnesium 2.1 PFSH Medical History Atrial fibrillation (Chronic) GERD (gastroesophageal reflux disease) (Chronic) HTN (hypertension) (Chronic) Surgical History Dilation and curettage Extraction of cataract (02/06/13) RIGHT EYE LEFT EYE Laser Eye For a cloudy implant Open Heart Surgery Family History Mother , AGE 72 Diabetes Essential hypertension Personal history of malignant neoplasm BREAST Heart disease Father , AGE 78 Diabetes Essential hypertension Heart disease Sister , AGE 80 Aneurysm Sister , AGE 81 Essential hypertension Personal history of malignant neoplasm Heart disease Brother , AGE 84 No problems noted. Maternal Grandfather Heart disease Paternal Grandfather No problems noted. Maternal Grandmother Dementia Mental disorder DEMENTIA Paternal Grandmother Dementia Mental disorder DEMENTIA FAMILY HISTORY Duchenne muscular dystrophy Arthritis Neoplasm Glaucoma Brother , AGE 28 Amyloidosis Cancer Brother , AGE 72 Parkinson disease Cancer Brother , AGE 78 Heart disease Social History Smoking/Tobacco Use Status: Never Second Hand Exposure: Yes Alcohol Intake: former Drug use: Never Substance use type: does not use Caregiver/Support person: No Household members: none Pets and animals: Yes Pets and animals: cat(s) Sexually active: No Do you think of yourself as: straight/heterosexual Current gender identity: female Frequency: does not exercise Kerrie/Pentecostalism: No preference Special kerrie needs: No Do you feel safe at home: Yes Do you feel safe in your relationship?: Yes
--- NOTE | 2019-03-30 16:43 | PDOC.CMDIS ---
- If Service Date Differs Date of service: 03/30/19 Time of Service: 16:43 LACE Index Scoring Tool - Questions: Length of Stay (in days): 4 - 6 Acuity (Admit via E.D.?): Yes E.D. Visits: 2 - Answers: Total Score: 9 Risk of Readmission: Low Risk Care Management Discharge Reason for Hospitalization: Atrial Fibrillation Discharge Plan: Massiel will be discharged home with no new services. She has progressed with PT to the point of not needing further services at home. She will transport with her nephew via private vehicle and foolow up with her PCP, cardiology and discharge plan of care. Patient/Family Education Needs: Discharge plan, limitations, follow up plan, Ask Me Three.
--- NOTE | 2019-03-31 13:00 | PT.INDS ---
Date of service: 03/31/19 Time of Service: 13:30 PT Notes Inpatient Physical Therapy Discharge Summary Dates: 03/31/2019 Dates of Service: 03/27/2019 and 03/28/2019 This is a clinical summary of care provided on the duration of dates listed above. No charge was made in the completion of this documentation. Referring Doctor: Nydia Chaves MD PT Orders: PT CONSULT: Eval/treat. Limited ability. Patient feels off balance Precautions: Fall. Standard. Activity as tolerated Patient Profile/Admitting Diagnosis: Patient is a 73-year-old female with past medical history significant for embolic CVA who presented to the ED with chief complaints of palpitation accompanied with chest soreness and shortness of breath. Patient is diagnosed with atrial fibrillation and tachycardia. PMHX: Medical History Atrial fibrillation (Chronic) GERD (gastroesophageal reflux disease) (Chronic) HTN (hypertension) (Chronic) Surgical History Dilation and curettage Extraction of cataract (02/06/13) Open Heart Surgery Social History/Home Situation: Patient lives alone with her 20-year-old cat named Kemal in a mobile home with 2-3 steps to enter with rails on both sides. She does have one step down from the level living room area to the kitchen. She is independent with all last of ADLs without the need for an assistive ambulatory device nor adaptive equipment. Equipment Owned/DME: Front-wheeled walker, walking stick Subjective: NT Objective: General Observation: NT Mental Status: NT Pain: NT ROM: Right Upper Extremity: Shoulder Flexion WFL. Shoulder abduction WFL. Elbow flexion WFL. Wrist flexion WFL. Opening and closing of hand WFL. Left Upper Extremity: Shoulder Flexion WFL. Shoulder abduction WFL. Elbow flexion WFL. Wrist flexion WFL. Opening and closing of hand WFL. Right Lower Extremity: Hip flexion WFL. Hip abduction WFL. Knee flexion WFL. Ankle dorsiflexion WFL. Ankle plantarflexion WFL. Left Lower Extremity: Hip flexion WFL. Hip abduction WFL. Knee flexion WFL. Ankle dorsiflexion WFL. Ankle plantarflexion WFL. Strength: Right Upper Extremity: Shoulder flexors 5/5. Shoulder abductors 4/5. Elbow flexors 5/5. Elbow extensors 5/5. [employer] Equipment Tender strong. Left Upper Extremity: Shoulder flexors 5/5. Shoulder abductors 4/5. Elbow flexors 5/5. Elbow extensors 5/5. [employer] Coating Equipment Tender strong. Right Lower Extremity: Hip flexors 4/5. Hip abductors 4/5. Knee flexors 4/5. Knee extensors 4/5. Ankle dorsiflexors 4/5. Ankle plantarflexors 4/5. Left Lower Extremity:Hip flexors 4/5. Hip abductors 4/5. Knee flexors 4/5. Knee extensors 4/5. Ankle dorsiflexors 4/5. Ankle plantarflexors 4/5. Sensation: Intact as to pain and pressure on bilateral lower extremities. Bed Mobility/Transfers: Rolling independent Supine to sit independent Sit to supine independent Sit to stand independent Stand to sit independent Bed to chair independent Chair to bed independent Gait: Patient is able to tolerate 500 feet of level surface ambulation requiring only supervision SPC per ENGINE HOUSE HELPER notes on 03/28/2019. Balance: Static Sitting: Normal Dynamic Sitting: Normal Static Standing: Good Dynamic Standing: Good Assessment: Patient is a 73-year-old female with diagnoses of paroxysmal atrial fibrillation and tachycardia. Motivation level is high. PLOF is independent without any assistive device. However the result of the 4 stage balance test and the 2-minute walk test along with manual muscle testing indicate impaired activity tolerance and low to moderate risk for falling. Patient is not agreeable to a recommendation of outpatient physical therapy for continued balance scaling. She did agree with having home health PT instead. Prognosis for regaining premorbid independent level is good. Patient continues to presents with clinical signs and symptoms consistent with current/admitting diagnoses that have resulted to mobility limitations, gait instability and impairment of motor control as demonstrated by the following impairment level findings: 1. Impaired activity tolerance Impairments are contributing to the following functional limitations: 1. Increase completion time for mobility ADL performance Goals: Goals X1 week 1. Supine-Sit independent MET 2. Sit-Supine independent MET 3. Sit-Stand independent MET 4. Stand-Sit independent MET 5. Bed-Chair independent MET 6. Chair-Bed independent MET 7. Independent gait on level surface with use of least restrictive device for at least 300 feet without report of pain nor dyspnea NOT MET 8. Independent stair negotiation while holding onto bilateral rails for at least 10 steps without report of pain nor dyspnea NOT MET 9. Independent with home exercise program MET 10. Good static and dynamic standing balance/tolerance MET DISCHARGE RECOMMENDATIONS: Patient will benefit from home health PT services in order to progress mobility level using least restrictive assistive ambulatory device, assess home safety, identify additional equipment needs, and establish a functional maintenance program that will increase ability of patient to remain at home. TREATMENT CODE/TIME: NC. Thank you very much for this referral. Madhavi Fenton PT, DPT, CLT [facility]
== END 2019-03-30 16:30 | disposition home or self-care (01) | DRG 309 ==
LOC: ER 21:26 → ICU 22:42
PROVIDERS: Internal Medicine Cardiovascular Disease; Admitting Provider Family Medicine; Emergency Provider Physician Assistant; Visit Provider Internal Medicine
PROC: B246ZZ4 Ultrasonography of Right and Left Heart, Transesophageal (ICD-10-PCS; CPT 93312; principal; 2019-03-29 14:30)
PROC: 5A2204Z Restoration of Cardiac Rhythm, Single (ICD-10-PCS; CPT 92960; 2019-03-29 14:30)
DX: I48.0 Paroxysmal atrial fibrillation (principal); N17.9 Acute kidney failure, unspecified; R00.0 Tachycardia, unspecified; E03.9 Hypothyroidism, unspecified; I69.322 Dysarthria following cerebral infarction; K21.9 Gastro-esophageal reflux disease without esophagitis; I12.9 Hypertensive chronic kidney disease with stage 1 through stage 4 chronic kidney disease, or unspecified chronic kidney disease; N18.3 Chronic kidney disease, stage 3 (moderate); Z66 Do not resuscitate; Z79.01 Long term (current) use of anticoagulants
CPT/HCPCS: 92960; 36415; 80048; 80053; 85027; 93005; 93306; 93312; 96365; 96375; 96376; 97162; 97530; 99223; 99232; 99239; 99285; J1650; 71045; 83735; 84439; 84443; 84484; 85025; 93010; 93225; 93320; 93325; J2405

== ENCOUNTER 2019-04-02 11:46 | Emergency (ER) | payer MEDICARE, MEDICAID, SELFPAY ==
[2019-04-02] VITALS (15 sets, daily range): BP systolic 142–175; BP diastolic 76–104; PULSE 69–105; RESP 13–22; TEMP 36.7; O2SAT 97–98
--- NOTE | 2019-04-02 12:38 | W.ED.GENAD ---
Discharge Plan Disposition Patient Disposition: HOME Condition: Stable Discharge Details Chief Complaint: Palpitatns Clinical Impression: Atrial fibrillation Primary Care Provider: Noeren Adam ED Provider: Mauricio Jean Home Meds and New Rx's Prescriptions: No Action Betoptic S 15 ML drops,suspension 1 drp OU BID RF: 0 TheraTears 1 EACH dropperette 1 ea OU PRN RF: 0 Xarelto 20 mg tablet 20 mg PO DAILY Qty: 90 RF: 3 amoxicillin 500 mg tablet 2,000 mg PO ONCE Qty: 8 RF: 0 cholecalciferol (vitamin D3) [Vitamin D3] 2,000 unit capsule 2,000 unit PO DAILY Qty: 90 RF: 3 diltiazem HCl [Cardizem] 30 mg Tablet 30 mg PO BID Qty: 60 RF: 0 pantoprazole [Protonix] 40 mg tablet,delayed release (DR/EC) 40 mg PO DAILY Qty: 30 RF: 0 Discharge Instructions Instructions: Atrial Fibrillation (ED) Additional Instructions: 1. Drink plenty of fluids. 2. Continue all medications as prescribed. Except, increase diltiazem to 60 mg twice a day. 3. Measure blood pressure daily at the same time using her home blood pressure monitor. 4. Follow-up this week with Dr. Ascencio to review outpatient management of your atrial fibrillation. Return to the Emergency Department (ED) if your condition worsens, does not improve as expected, or for ANY other concerns. Specifically, return if you have new or uncontrolled pain, worsening fever, difficulty breathing, vomiting, or are unable to drink fluids. Medical Decision Making 73-year-old recently discharged from an [facility] after admission for atrial fibrillation with RVR. Her hospital course have included cardioversion and discharged on diltiazem 30 mg twice a day. She returns with episodes of palpitations since yesterday and in atrial fibrillation on arrival here. Of note other than having subjective palpitations intermittently, she is otherwise asymptomatic with no dyspnea, chest pain, lightheadedness, abdominal pain or bloating, lower extremity edema, or other constitutional complaints. Nonfocal exam except for irregular regular heart rate. Reviewed recent hospital admission and discussed her case with the newborn hearing screener, Dr. Ascencio. Discharge home with a plan to increase her diltiazem to 60 mg twice a day and follow-up as an outpatient for reevaluation and possible medication adjustment. Of note, Ms. Max is concerned about increased hypotension with additional calcium channel quoc use and will measure her blood pressure at home prior to follow-up with cardiology. Medical Records Medical records reviewed: Yes I reviewed the patient's medical records. ECG Data Attestation: I personally reviewed and interpreted this ECG (s) as follows: (Atrial fibrillation, heart rate = 106. Nonspecific ST changes.) HPI 73-year-old woman with a past medical history which includes CAD, hypothyroidism, and PAF. Recently admitted for atrial fibrillation with RVR. Her hospital course included cardioversion requiring intubation. She was discharged home on diltiazem 30 mg twice a day. She returns with the sensation of episodic palpitations since yesterday. She describes being unable to tell whether she is in atrial fibrillation or not. On arrival, she is in atrial fibrillation her heart rate variable between 80 and 105. She otherwise feels in her usual state of health and denies any chest pain, lightheadedness, dyspnea, fever/chills, abdominal pain or bloating, or lower extremity edema. She is concerned about raising her level of rate control medication because of associated hypotension and subjectively feeling worse when her blood pressure decreased below 140 systolic. General Date/Time Provider Initiated Documentation: 04/02/19 12:20. Related Data Home Medications Medication Instructions Recorded Confirmed Betoptic S 1 drp OU BID drp 09/21/12 03/26/19 TheraTears 1 ea OU PRN 12/20/13 04/02/19 rivaroxaban 20 mg tablet 20 mg PO DAILY #90 tab 08/25/18 04/02/19 amoxicillin 500 mg tablet 2,000 mg PO ONCE #8 tab 01/25/19 04/02/19 cholecalciferol (vitamin D3) 2,000 2,000 unit PO DAILY #90 tab-cap 01/29/19 04/02/19 unit capsule diltiazem HCl [Cardizem] 30 mg PO BID #60 tab 03/30/19 04/02/19 pantoprazole [Protonix] 40 mg PO DAILY #30 tab 03/30/19 04/02/19 Previous Rx's Medication Instructions Recorded rivaroxaban 20 mg tablet 20 mg PO DAILY #90 tab 08/25/18 amoxicillin 500 mg tablet 2,000 mg PO ONCE #8 tab 01/25/19 cholecalciferol (vitamin D3) 2,000 2,000 unit PO DAILY #90 tab-cap 01/29/19 unit capsule diltiazem HCl [Cardizem] 30 mg PO BID #60 tab 03/30/19 pantoprazole [Protonix] 40 mg PO DAILY #30 tab 03/30/19 Allergies Allergy/AdvReac Type Severity Reaction Status Date / Time bimatoprost [From Lumigan] AdvReac discomfort Verified 04/02/19 12:03 General Stated Complaint: Palpitatns HANNAH: 3 Review of Systems All systems reviewed & are unremarkable except as noted in HPI and below PFSH Medical History Atrial fibrillation (Chronic) GERD (gastroesophageal reflux disease) (Chronic) HTN (hypertension) (Chronic) Surgical History Dilation and curettage Extraction of cataract (02/06/13) RIGHT EYE LEFT EYE Laser Eye For a cloudy implant Open Heart Surgery Family History Mother , AGE 72 Diabetes Essential hypertension Personal history of malignant neoplasm BREAST Heart disease Father , AGE 78 Diabetes Essential hypertension Heart disease Sister , AGE 80 Aneurysm Sister , AGE 81 Essential hypertension Personal history of malignant neoplasm Heart disease Brother , AGE 84 No problems noted. Maternal Grandfather Heart disease Paternal Grandfather No problems noted. Maternal Grandmother Dementia Mental disorder DEMENTIA Paternal Grandmother Dementia Mental disorder DEMENTIA FAMILY HISTORY Duchenne muscular dystrophy Arthritis Neoplasm Glaucoma Brother , AGE 28 Amyloidosis Cancer Brother , AGE 72 Parkinson disease Cancer Brother , AGE 78 Heart disease Social History Smoking/Tobacco Use Status: Never Second Hand Exposure: Yes Alcohol Intake: former Drug use: Never Substance use type: does not use Caregiver/Support person: No Household members: none Pets and animals: Yes Pets and animals: cat(s) Sexually active: No Do you think of yourself as: straight/heterosexual Current gender identity: female Frequency: does not exercise Kerrie/Synagogue: No preference Special kerrie needs: No Do you feel safe at home: Yes Do you feel safe in your relationship?: Yes Exam Narrative Exam Narrative: Nursing note and vital signs have been reviewed and noted. GENERAL: alert, active, no acute distress, well -hydrated, well-nourished HEENT: atraumatic/normocephalic, PERRLA, EOMI, conjunctiva clear, external ears/canals normal, nasal mucosa normal NECK: supple, full range of motion, no mass, normal lymphadenopathy, no thyromegaly CARDIOVASCULAR: Irregularly irregular, no murmurs, nl pulses, no edema PULMONARY: nl effort, no audible wheezing or stridor, nl breath sounds with no focal deficit. no chest wall tenderness ABDOMEN: soft, non-tender, non-distended, no mass, no organomegaly EXTREMITY: normal muscle tone, all joints with FROM, no deformity or tenderness SKIN: no exanthem appreciated NEURO: gross motor exam normal, normal stance and gait PSYCH: alert and oriented, Course Vital Signs Vital signs: Vital Signs Pulse 91 H 04/02/19 11:55 Respiratory Rate 14 04/02/19 11:55 Blood Pressure 159/78 H 04/02/19 11:55 Pulse Oximetry 98 04/02/19 11:55 Temperature 98.1 F 04/02/19 11:57 Temperature Source Temporal Artery Scan 04/02/19 11:57 Pulse 81 04/02/19 12:34 Pulse 98 H 04/02/19 12:34 Respiratory Rate 16 04/02/19 12:34 Respiratory Effort Non-Labored 04/02/19 12:14 Blood Pressure 148/88 H 04/02/19 12:34 Blood Pressure Mean 103 04/02/19 12:34 Blood Pressure Position Supine 04/02/19 11:57 Pulse Oximetry 98 04/02/19 12:34 Oxygen Delivery Method Room Air 04/02/19 11:57 Oxygen Flow Rate 0 04/02/19 11:57 Pain Level 0 04/02/19 12:05
== END 2019-04-02 12:40 | disposition home or self-care (01) ==
PROVIDERS: Emergency Provider Emergency Medicine
DX: I48.91 Unspecified atrial fibrillation (principal); I10 Essential (primary) hypertension
CPT/HCPCS: 93005; 99283; 93010

== ENCOUNTER 2019-04-02 12:07 | Outpatient (CLI) | payer MEDICARE, SELFPAY | END 2019-04-02 12:27 | DX: R69 Illness, unspecified (principal) ==

== ENCOUNTER 2019-05-29 11:49 | Outpatient (CLI) | payer MEDICARE, MEDICAID, SELFPAY | END 2019-05-29 12:09 | PROVIDERS: Visit Provider Internal Medicine Cardiovascular Disease | DX: I48.19 Other persistent atrial fibrillation (principal); I10 Essential (primary) hypertension; Z79.01 Long term (current) use of anticoagulants | CPT/HCPCS: 99214; 93005; 93010 ==

== ENCOUNTER 2019-07-30 01:45 | Outpatient (CLI) | payer MEDICARE, SELFPAY ==
[2019-07-30 12:57] LABS: ALT 22 U/L (14-59); AST 21 U/L (15-37); Albumin 3.9 g/dL (3.4-5.0); Alkaline Phosphatase 104 U/L (46-116); Anion Gap 9.9 mmol/L (3-11); BUN 15 mg/dL (7-18); Bilirubin, Total 0.5 mg/dL (0.2-1.0); CO2 28.1 mmol/L (21.0-32.0); CREATININE 1.02 mg/dL (0.55-1.02); Calcium 9.6 mg/dL (8.5-10.1); Calculated LDL 149 mg/dL (<100); Chloride 99 mmol/L (98-107); Cholesterol 231 mg/dL (<200); Estimated GFR 52.83 (mL/min/1.73m2); Glucose 85 mg/dL (74-106); HDL Cholesterol 69 mg/dL (40-60); Potassium 4.4 mmol/L (3.5-5.1); Sodium 137 mmol/L (136-145); TSH (W/Ref FT4) 3.52 uIU/mL (0.36-3.74); Total Protein 8.1 g/dL (6.4-8.2); Triglyceride 68 mg/dL (<150)
== END 2019-07-30 02:05 ==
DX: E03.9 Hypothyroidism, unspecified (principal); R53.83 Other fatigue; E78.5 Hyperlipidemia, unspecified; I10 Essential (primary) hypertension; I48.0 Paroxysmal atrial fibrillation; R00.2 Palpitations
CPT/HCPCS: 36415; 80053; 80061; 84443

== ENCOUNTER → 2019-11-27 10:49 | Outpatient (BNVA) | payer MEDICARE, MEDICAID, SELFPAY | PROVIDERS: Visit Provider Internal Medicine Cardiovascular Disease | DX: I48.21 Permanent atrial fibrillation (principal); I10 Essential (primary) hypertension; Z79.01 Long term (current) use of anticoagulants | CPT/HCPCS: 99213 ==

== ENCOUNTER 2019-12-14 07:57 | Outpatient (CLI) | payer MEDICARE, MEDICAID, SELFPAY ==
[2019-12-18 15:36] LABS: SARS-CoV-2 RNA Undetected (Undetected)
== END 2019-12-14 08:17 ==
PROVIDERS: Visit Provider Family Medicine
DX: Z11.59 Encounter for screening for other viral diseases (principal)
CPT/HCPCS: U0003

== ENCOUNTER → 2020-05-21 10:39 | Outpatient (BNVA) | payer MEDICARE, MEDICAID, SELFPAY | PROVIDERS: Visit Provider Internal Medicine Cardiovascular Disease | DX: I48.21 Permanent atrial fibrillation (principal); I10 Essential (primary) hypertension | CPT/HCPCS: 99214 ==

== ENCOUNTER → 2020-08-05 13:36 | Outpatient (BNVA) | payer MEDICARE, MEDICAID, SELFPAY | PROVIDERS: Visit Provider Internal Medicine Cardiovascular Disease | DX: I48.91 Unspecified atrial fibrillation (principal); E78.5 Hyperlipidemia, unspecified; I10 Essential (primary) hypertension; Z79.01 Long term (current) use of anticoagulants | CPT/HCPCS: 99214; 99213 ==

== ENCOUNTER 2020-08-27 03:36 | Outpatient (CLI) | payer MEDICARE, MEDICAID, SELFPAY ==
[2020-08-27 11:55] LABS: ALT 22 U/L (14-59); AST 23 U/L (15-37); Albumin 3.8 g/dL (3.4-5.0); Alkaline Phosphatase 109 U/L (46-116); Anion Gap 11.4 mmol/L (3-11); BUN 14 mg/dL (7-18); Bilirubin, Total 0.5 mg/dL (0.2-1.0); CO2 26.6 mmol/L (21.0-32.0); CREATININE 1.1 mg/dL (0.55-1.02); Calcium 9.5 mg/dL (8.5-10.1); Calculated LDL 150 mg/dL (<100); Chloride 100 mmol/L (98-107); Cholesterol 245 mg/dL (<200); Estimated GFR 48.29 (mL/min/1.73m2); Glucose 91 mg/dL (74-106); HDL Cholesterol 82 mg/dL (40-60); Potassium 4.3 mmol/L (3.5-5.1); Sodium 138 mmol/L (136-145); Total Protein 8.2 g/dL (6.4-8.2); Triglyceride 67 mg/dL (<150)
== END 2020-08-27 03:37 | disposition home or self-care (01) ==
LOC: LBO 03:36
DX: I10 Essential (primary) hypertension (principal); E78.5 Hyperlipidemia, unspecified; R53.83 Other fatigue; I48.0 Paroxysmal atrial fibrillation; F32.9 Major depressive disorder, single episode, unspecified
CPT/HCPCS: 36415; 80053; 80061

== ENCOUNTER → 2021-02-24 13:28 | Outpatient (BNVA) | payer MEDICARE, MEDICAID, SELFPAY | PROVIDERS: Visit Provider Internal Medicine Cardiovascular Disease | DX: I48.21 Permanent atrial fibrillation (principal); E78.5 Hyperlipidemia, unspecified; I10 Essential (primary) hypertension; Z79.01 Long term (current) use of anticoagulants | CPT/HCPCS: 99214; 99213 ==

== ENCOUNTER → 2021-03-31 13:09 | Outpatient (BNVA) | payer MEDICARE, MEDICAID, SELFPAY | PROVIDERS: Visit Provider Internal Medicine Cardiovascular Disease | DX: R53.83 Other fatigue (principal); R53.81 Other malaise; I48.91 Unspecified atrial fibrillation; I10 Essential (primary) hypertension; Z79.01 Long term (current) use of anticoagulants | CPT/HCPCS: 99214 ==

== ENCOUNTER 2021-04-21 16:16 | Outpatient (REF) | payer MEDICARE, MEDICAID, SELFPAY ==
[2021-04-21 20:59] LABS: Blood Negative (Negative); Clarity Turbid (Clear); Leukocyte Esterase Negative (Negative); Nitrite Negative (Negative); Specific Gravity >= 1.030 (1.005-1.025); pH 5.5 (5-8)
[2021-04-21 21:00] LABS: Bilirubin Color Interference (Negative); Glucose Color Interference mg/dL (Negative); Ketones Color Interference mg/dL (Negative); Urobilinogen Color Interference EU/dL (Up TO 0.2)
[2021-04-21 21:10] LABS: C & S Indicated? C&S Done As Ordered; Crystals Many Amorphous HPF (Negative)
== END 2021-04-21 16:17 | disposition home or self-care (01) ==
LOC: LBN 16:16
DX: R53.83 Other fatigue (principal); G47.00 Insomnia, unspecified; I48.91 Unspecified atrial fibrillation; I10 Essential (primary) hypertension
CPT/HCPCS: 81003; 81015; 87086

== ENCOUNTER 2021-04-28 02:54 | Outpatient (CLI) | payer MEDICARE, MEDICAID, SELFPAY ==
[2021-04-28 13:22] LABS: Abs Immature Grans 0.02 10^3/uL (0.0-0.06); Absolute Basophil Count 0.06 10^3/uL (0.0-0.2); Absolute Eosinophil Count 0.02 10^3/uL (0.0-0.7); Absolute Lymphocyte Count 1.01 10^3/uL (1.2-3.4); Absolute Monocyte Count 0.73 10^3/uL (0.1-0.8); Absolute Neutrophil Count 3.56 10^3/uL (1.2-6.7); Basophils % 1.1; Eosinophils % 0.4; HCT 35.9 % (36.0-46.0); HGB 11.2 g/dL (11.2-15.7); Immature Grans % 0.4; Lymphocytes % 18.7; MCH 25.8 pg (27.0-33.0); MCHC 31.2 % (32.0-36.0); MCV 82.7 fL (80-95); MPV 9.5 fL (8.0-11.0); Monocytes % 13.5; Neutrophils % 65.9; Nucleated RBC 0 %; Platelet Count 273 10^3/uL (130-400); RBC 4.34 10^6/uL (3.93-5.22); RDW 17.2 % (11.7-14.6); RDW-SD 51.2 fL
[2021-04-28 14:51] LABS: Iron 25 ug/dL (50-170)
[2021-04-28 15:04] LABS: ALT 91 U/L (14-59); AST 112 U/L (15-37); Albumin 3.3 g/dL (3.4-5.0); Alkaline Phosphatase 169 U/L (46-116); Anion Gap 11.5 mmol/L (3-11); BUN 16 mg/dL (7-18); Bilirubin, Total 3.7 mg/dL (0.2-1.0); CO2 23.5 mmol/L (21.0-32.0); CREATININE 1.1 mg/dL (0.55-1.02); Calcium 9.2 mg/dL (8.5-10.1); Chloride 102 mmol/L (98-107); Estimated GFR 48.16 (mL/min/1.73m2); Ferritin 67 ng/mL (8-252); Glucose 80 mg/dL (74-106); Potassium 4.1 mmol/L (3.5-5.1); Sodium 137 mmol/L (136-145); TSH (W/Ref FT4) 0.29 uIU/mL (0.36-3.74); Total Protein 7.1 g/dL (6.4-8.2)
[2021-04-28 15:37] LABS: FREE T4 3.14 ng/dL (0.76-1.46)
== END 2021-04-28 02:55 | disposition home or self-care (01) ==
DX: R53.83 Other fatigue; G47.00 Insomnia, unspecified; F32.9 Major depressive disorder, single episode, unspecified; I48.91 Unspecified atrial fibrillation; N28.9 Disorder of kidney and ureter, unspecified; I10 Essential (primary) hypertension
CPT/HCPCS: 36415; 80053; 82728; 83540; 84439; 84443; 85025

== ENCOUNTER 2021-05-07 19:16 | Outpatient (REF) | payer MEDICARE, SELFPAY ==
[2021-05-09 11:40] LABS: COVID-19 RT-PCR UVMMC Result Negative (Negative)
== END 2021-05-07 19:17 | disposition home or self-care (01) ==
LOC: LBN 19:16
DX: R53.82 Chronic fatigue, unspecified (principal); Z20.822 Contact with and (suspected) exposure to COVID-19
CPT/HCPCS: U0003

== ENCOUNTER 2021-05-20 00:25 | Outpatient (CLI) | payer MEDICARE, MEDICAID, SELFPAY ==
--- NOTE | 2021-05-20 06:45 | DI.US_ITS ---
Exam(s) US ABDOMEN EXAM: US ABDOMEN CLINICAL HISTORY: RUQ discomfort, elevated LFT, ? gallbladder DISEASE,R10.11,R94.5 TECHNIQUE: Ultrasound of complete upper abdomen performed using standard protocol. COMPARISON: No exams were available for comparison FINDINGS: There is no ascites evident. LIVER: The liver is somewhat hyperechoic indicating an element of steatosis. However, there are no d iscrete focal hepatic lesions identified. GALLBLADDER/BILIARY: Gallbladder is packed with shadowing gallstones. No obvious gallbladder wall ed sina or pericholecystic fluid. The common hepatic duct isnot dilated, measuring 4-5mm at the level of jonatan hepatis. PANCREAS: There is no evidence of pancreatic mass nor dilatation of the pancreatic duct. SPLEEN: The spleen is not enlarged and there are no intrasplenic lesions evident. KIDNEYS:Kidneys exhibit normal size with no evidence of solid mass, calculus, nor hydronephrosis. No cortical cysts evident. ABDOMINAL AORTA: There is no evidence of abdominal aortic aneurysm. IVC: Normal diameter where visualized. IMPRESSION: 1. Cholelithiasis. The gallbladder is filled with shadowing gallstones. Gallbladder wall does not appear to be obviously edematous and the patient was not tender over this area during scanning today. CBD is not dilated 2. Hepatic steatosis. Correlation with appropriate hepatic blood work recommended 3. There is no ascites. DATA REPOSITORY:
== END 2021-05-20 00:45 ==
DX: I10 Essential (primary) hypertension (principal); R10.11 Right upper quadrant pain; R53.82 Chronic fatigue, unspecified; R94.5 Abnormal results of liver function studies; K80.20 Calculus of gallbladder without cholecystitis without obstruction; K76.0 Fatty (change of) liver, not elsewhere classified
CPT/HCPCS: 80053; 86376; 86704; 86709; 86803; 87340; 76700; 82607; 82746; 84165; 84235; 84439; 84443; 84481

== ENCOUNTER 2021-05-20 02:37 | Outpatient (CLI) | payer MEDICARE, MEDICAID, SELFPAY ==
[2021-05-20 10:39] LABS: ALT 52 U/L (14-59); AST 68 U/L (15-37); Albumin 3.4 g/dL (3.4-5.0); Alkaline Phosphatase 129 U/L (46-116); Anion Gap 11.1 mmol/L (3-11); BUN 17 mg/dL (7-18); Bilirubin, Total 3.5 mg/dL (0.2-1.0); CO2 25.9 mmol/L (21.0-32.0); CREATININE 1.2 mg/dL (0.55-1.02); Calcium 9.4 mg/dL (8.5-10.1); Chloride 103 mmol/L (98-107); Estimated GFR 43.56 (mL/min/1.73m2); Folate 11.8 ng/mL (8.6-20.0); Glucose 85 mg/dL (74-106); Potassium 4.2 mmol/L (3.5-5.1); Sodium 140 mmol/L (136-145); TSH (W/Ref FT4) 6.05 uIU/mL (0.36-3.74); Total Protein 7.2 g/dL (6.4-8.2); Vitamin B12 1266 pg/mL (193-986)
[2021-05-20 10:55] LABS: FREE T4 2.04 ng/dL (0.76-1.46)
[2021-05-20 16:30] LABS: T3,Free 4.3 pg/mL (2.8-5.3)
[2021-05-20 17:10] LABS: Thyroglobulin Antibody <15 U/mL (<=60); Thyroperoxidase Antibody <28 U/mL (<=60)
[2021-05-21 10:23] LABS: Hepatitis A Antibody IgM Negative (Negative); Hepatitis B Core Antibody Negative (Negative); Hepatitis B surface Ag Negative (Negative); Hepatitis C Ab w Rflx HCV PCR Negative (Negative)
[2021-05-21 12:00] LABS: Thyrotropin Receptor Ab <1.10 IU/L
[2021-05-21 13:08] LABS: Albumin 50.7 % (55.8-66.1); Total Protein 7.5 g/dL (6.3-8.2)
== END 2021-05-20 02:38 | disposition home or self-care (01) ==
LOC: LBO 02:38
DX: G47.00 Insomnia, unspecified (principal); E05.90 Thyrotoxicosis, unspecified without thyrotoxic crisis or storm; I10 Essential (primary) hypertension; R10.11 Right upper quadrant pain; R53.82 Chronic fatigue, unspecified; R94.5 Abnormal results of liver function studies; D51.8 Other vitamin B12 deficiency anemias
CPT/HCPCS: 80053; 86376; 86704; 86709; 86803; 87340; 82607; 82746; 84165; 84235; 84439; 84443; 84481

== ENCOUNTER 2021-05-29 00:17 | Outpatient (CLI) | payer MEDICARE, MEDICAID, SELFPAY ==
--- NOTE | 2021-05-29 10:00 | DI.NM_ITS ---
Exam(s) NM I123 THYROID UP SC DAY 1 NM I123 THYROID UP SC DAY 2 CLINICAL HISTORY: HYPERTHYROIDISM,GRAVES DISEASE,E05.90,E05.00. COMPARISON: NM NM I123 THYROID UP SC DAY 2 from 05/29/2021 TECHNIQUE: Capsule Dose: 335 uCi I-123 Images: At 6 hours and 24 hours. FINDINGS: The total radioiodine uptake was 3.1% at 24 hours. (Normal 24 hour uptake at [facility] is 10-35%) No cold or hot nodules are demonstrated. IMPRESSION: 1. Total radioiodine uptake of 3.1%. Decreased 24 hour radioiodine uptake. 2. No thyroid nodules are identified. Thyroid scan is limited due to decreased radiotracer uptake. SNM Guidelines: Normal uptake values 10-35%. Graves Uptake >50-80%. DATA REPOSITORY:
== END 2021-05-29 00:37 ==
DX: E05.90 Thyrotoxicosis, unspecified without thyrotoxic crisis or storm (principal); E05.00 Thyrotoxicosis with diffuse goiter without thyrotoxic crisis or storm
CPT/HCPCS: 78014; A9512

== ENCOUNTER → 2021-06-05 09:23 | Outpatient (BNVA) | payer MEDICARE, MEDICAID, SELFPAY | PROVIDERS: Visit Provider Surgery | DX: K80.20 Calculus of gallbladder without cholecystitis without obstruction (principal); R06.02 Shortness of breath; R60.9 Edema, unspecified; I48.91 Unspecified atrial fibrillation; Z79.01 Long term (current) use of anticoagulants | CPT/HCPCS: 99203; 99214 ==

== ENCOUNTER → 2021-06-19 10:45 | Outpatient (BNVA) | payer MEDICARE, MEDICAID, SELFPAY | PROVIDERS: Visit Provider Internal Medicine Cardiovascular Disease | DX: I50.9 Heart failure, unspecified (principal); I48.91 Unspecified atrial fibrillation | CPT/HCPCS: 99214 ==

== ENCOUNTER 2021-06-25 01:22 | Outpatient (CLI) | payer MEDICARE, MEDICAID, SELFPAY ==
--- NOTE | 2021-06-25 14:49 | DI.US_ITS ---
APPROVED REPORT EXAM: Comprehensive 2D, Doppler, and color-flow Echocardiogram Other Information Study Quality: Adequate Conclusion Left ventricle is normal in size and wall thickness. Estimated ejection fraction is 25 to 30%. Sept al motion is paradoxic. Apical and anterior akinesis Mildly dilated right ventricle. normal right ventricular systolic function with paradoxic septal mot ion Both atria are moderately dilated The aortic valve is sclerotic with trace to mild regurgitation. No aortic stenosis Thickened mitral leaflets. Moderate mitral annular calcification. Moderate to severe mitral regurgi tation Normal tricuspid valve with moderate to severe regurgitation. Estimated right ventricular systolic p ressure is 47 mmHg Dilated ascending aorta measuring 3.56 cm Left pleural effusion Wall motion Left Ventricle The left ventricle is normal size. Left ventricular systolic function is moderately to severely decre ased. There is normal left ventricular wall thickness. Regional wall motion abnormalities are noted. Septum is akinetic to paradoxic There is no ventricular septal defect visualized. LVEF is 25-30%. Right Ventricle Right ventricle is mildly dilated. Right ventricular systolic function is grossly normal. The RVSP is 46.9mmHg. Atria Left atrium is moderately dilated. Right atrium is moderately dilated. The interatrial septum is inta ct with no evidence for an atrial septal defect. Aortic Valve The Aortic valve is sclerotic. Aortic valve is trileaflet. There is no aortic valvular stenosis. Trac e to mild aortic regurgitation. Mitral Valve Moderate mitral annular calcification. Mitral valve leaflets are mildly thickened. No evidence of jose ral valve stenosis. Moderate to severe mitral regurgitation Tricuspid Valve The tricuspid valve is normal in structure. There is no tricuspid valve stenosis. Moderate to severe tricuspid regurgitation. Pulmonic Valve The pulmonary valve is normal in structure. There is no pulmonic valvular stenosis. Trace to mild pul sonya regurgitation. Great Vessels The aortic root is normal in size. The ascending aorta is mildly dilated. Aortic arch is normal in ca liber. The IVC collapses <50% with inspiration. Pericardium There is no pericardial effusion. 2D Dimensions IVSD d PLAX 0.93 cm F: 0.6-1.0 LV Vol A2C d MOD 116.5 mL LVPW d PLAX 0.96 cm F: 0.6 - 1.0 LV Vol A4C d MOD 97.9 mL LVID d PLAX 4.96 cm F: 3.8 - 5.2 LA vol/ BSA A2C s A-L 30.1 mL/m2 LVDs 4.15 cm F: 2.2 - 3.5 LA vol/ BSA A4C s A-L 47.0 mL/m2 Ao Root d 3.25 cm F: 2.7 - 3.3 LA Vol/ BSA Biplane s A-L 39.2 mL/m2 RA Area A4C 24.44 cm2 LA Area A4C s MOD 28.79 cm2 RA Vol/ BSA A4C s A-L 39.5 mL/m2 LA Area A2C s MOD 22.15 cm2 Ao Asc Diam d 3.56 cm F: 2.3 - 3.1 LV EF A4C MOD 25.9 % LV EF Teichholz 33.0 % LV EF A2C MOD 30.9 % LVEF (Bullock's) 26.19 % F: 54 - 74 LV EF Biplane MOD 26.2 % LV Volume 78.49 mL F: 46 - 106 SV 28.05 mL LV Volume Index 36.67 mL/m2 F: 29 - 61 SV Index 13.07 mL/m2 LV Vol Biplane MOD 107.1 mL FS 15.65 % M-Mode TAPSE 0.88 cm (M/F) >1.7 LV Diastology MV E' medial 0.092 (>0.07 m/s) MV E Vmax 1.16 (0.4-1.3 m/s) LV E/e MED 12.60 (<14) MV E' lateral 0.089 (>0.1 m/s) LV E/e LAT 13.00 (<14) MV E/E' medial 12.61 MV E/E' lateral 13.03 Aortic Valve LVOT Area 3.15 cm2 AoV Area Vmax 2.76 cm2 LVOT Vmax 0.82 m/s AoV Area/ BSA (Vmax) 1.28 cm2/m2 LVOT Mean Giovanny. 0.59 m/s BETO Mean Giovanny. 2.59 cm2 LVOT Peak Grad 2.7 mmHg BETO Mean Giovanny. Index 1.21 cm2/m2 LVOT Mean Grad 1.6 mmHg AR DT 1925 msec LVOT VTI 0.154 m AR PHT 558 msec LVOT Diam s 2.00 cm AoV Vmax 0.94 m/s Velocity Ratio 0.87 AoV Mean Giovanny. 0.72 m/s AoV Peak Grad 3.5 mmHg LVOT SV 48.47 mL AoV Mean Grad 2.2 mmHg AoV VTI 0.158 m AoV Area VTI 3.07 cm2 AoV Area/ BSA (VTI) 1.43 cm/m2 Mitral Valve MV DT 176 (160-240 msec) MR Vmax 5.01 m/s MV PHT 51 msec MR VTI 1.458 m MV Area PHT 4.31 cm2 MR Peak Grad 100.4 mmHg MV VTI 0.261 m MR Mean Grad 70.3 mmHg MV VTI Annulus 0.259 m MV Area VTI 1.85 (4.0-6.0 cm2) Pulmonary Valve PV Vmax 0.54 (0.5-1.5 m/s) RVOT Peak Gr. 0.68 mmHg PV Peak Grad 1.2 mmHg RVOT Mean Gr. 0.30 mmHg PV Mean Grad 0.6 mmHg RVOT VTI 0.072 m PV VTI 0.113 m RVOT Vmax 0.41 m/s Tricuspid Valve TR Peak Grad 38.8 mmHg TR Vmax 3.12 m/s RA Pressure 8.00 mmHg RVSP (TR) 46.9 mmHg
== END 2021-06-25 01:42 ==
PROVIDERS: Visit Provider Internal Medicine Cardiovascular Disease
DX: I48.91 Unspecified atrial fibrillation (principal); I36.1 Nonrheumatic tricuspid (valve) insufficiency; I08.1 Rheumatic disorders of both mitral and tricuspid valves
CPT/HCPCS: 93306

== ENCOUNTER → 2021-07-03 10:19 | Outpatient (BNVA) | payer MEDICARE, MEDICAID, SELFPAY | PROVIDERS: Visit Provider Internal Medicine Cardiovascular Disease | DX: I48.91 Unspecified atrial fibrillation (principal); I50.9 Heart failure, unspecified; R53.83 Other fatigue; K76.0 Fatty (change of) liver, not elsewhere classified; I42.9 Cardiomyopathy, unspecified | CPT/HCPCS: 99214 ==

== ENCOUNTER → 2021-07-31 11:48 | Outpatient (BNVA) | payer MEDICARE, MEDICAID, SELFPAY | PROVIDERS: Visit Provider Internal Medicine Cardiovascular Disease | DX: I42.9 Cardiomyopathy, unspecified (principal); I50.9 Heart failure, unspecified; I48.91 Unspecified atrial fibrillation | CPT/HCPCS: 99214; 99213 ==

== ENCOUNTER 2021-07-31 18:43 | Outpatient (REF) | payer MEDICARE, SELFPAY ==
[2021-07-31 13:31] LABS: ALT 40 U/L (14-59); AST 50 U/L (15-37); Albumin 3.8 g/dL (3.4-5.0); Alkaline Phosphatase 111 U/L (46-116); Anion Gap 10.7 mmol/L (3-11); BUN 40 mg/dL (7-18); Bilirubin, Direct 0.9 mg/dL (0.0-0.2); Bilirubin, Total 1.5 mg/dL (0.2-1.0); CO2 25.3 mmol/L (21.0-32.0); CREATININE 1.4 mg/dL (0.55-1.02); Calcium 10.2 mg/dL (8.5-10.1); Chloride 99 mmol/L (98-107); Estimated GFR 36.46 (mL/min/1.73m2); Glucose 104 mg/dL (74-106); Sodium 135 mmol/L (136-145); Total Protein 8.9 g/dL (6.4-8.2)
== END 2021-07-31 18:44 | disposition home or self-care (01) ==
LOC: LBN 18:43
PROVIDERS: Visit Provider Internal Medicine Cardiovascular Disease
DX: I48.91 Unspecified atrial fibrillation (principal); I50.9 Heart failure, unspecified; K76.0 Fatty (change of) liver, not elsewhere classified; R53.83 Other fatigue
CPT/HCPCS: 80048; 80076

== ENCOUNTER 2021-09-11 01:56 | Outpatient (CLI) | payer MEDICARE, SELFPAY ==
[2021-09-11 14:59] LABS: ALT 39 U/L (14-59); AST 44 U/L (15-37); Albumin 3.4 g/dL (3.4-5.0); Alkaline Phosphatase 166 U/L (46-116); Anion Gap 5.1 mmol/L (3-11); BUN 20 mg/dL (7-18); Bilirubin, Total 0.7 mg/dL (0.2-1.0); CO2 30.9 mmol/L (21.0-32.0); Calcium 9.7 mg/dL (8.5-10.1); Calculated LDL 163 mg/dL (<100); Chloride 100 mmol/L (98-107); Cholesterol 239 mg/dL (<200); Estimated GFR 53.76 (mL/min/1.73m2); Glucose 84 mg/dL (74-106); HDL Cholesterol 52 mg/dL (40-60); Potassium 4.3 mmol/L (3.5-5.1); Sodium 136 mmol/L (136-145); Total Protein 7.8 g/dL (6.4-8.2); Triglyceride 121 mg/dL (<150)
[2021-09-11 15:07] LABS: FREE T4 1.05 ng/dL (0.76-1.46); TSH 3.49 uIU/mL (0.36-3.74)
[2021-09-11 22:20] LABS: T3, Total 142 ng/dL (97-169)
== END 2021-09-11 01:57 | disposition home or self-care (01) ==
LOC: LBO 01:56
PROVIDERS: Visit Provider Student in an Organized Health Care Education/Training Program
DX: E78.5 Hyperlipidemia, unspecified (principal); I48.0 Paroxysmal atrial fibrillation; R53.1 Weakness; R53.83 Other fatigue
CPT/HCPCS: 36415; 80053; 80061; 84439; 84443; 84480

== ENCOUNTER → 2021-10-27 16:09 | Outpatient (CLI) | payer MEDICARE, MEDICAID, SELFPAY ==
--- NOTE | 2021-10-27 16:04 | DI.US_ITS ---
APPROVED REPORT EXAM: Comprehensive 2D, Doppler, and color-flow Echocardiogram Patient Location: Out-Patient Technical Sales Consultant: Rebekah Arzate RDCS (AE) Indications: Cardiomyopathy Other Information Study Quality: Fair Conclusion Normal left ventricular wall thickness and chamber size. Left ventricular systolic function is moder ately reduced. EF is 40%. There is global hypokinesis The right ventricle is mildly dilated. Right ventricular systolic function appears grossly normal Both atria are moderately dilated The aortic valve is sclerotic and trileaflet with trace to mild regurgitation Mitral annular calcification. Thickened mitral leaflets. Moderate mitral regurgitation Normal tricuspid valve with trace to mild regurgitation. Estimated right ventricular systolic pressu re is 23 mmHg Mildly dilated ascending aorta Wall motion Left Ventricle The left ventricle is normal size. Left ventricular systolic function is moderately decreased. There is normal left ventricular wall thickness. There is global hypokinesis of the left ventricle. There i s no ventricular septal defect visualized. LVEF is 40%. Right Ventricle Right ventricle is mildly dilated. Right ventricular systolic function is grossly normal. The RVSP is 23.4 mmHg. Atria Left atrium is moderately dilated. Right atrium is moderately dilated. The interatrial septum is inta ct with no evidence for an atrial septal defect. Aortic Valve The Aortic valve is sclerotic. Aortic valve is trileaflet. There is no aortic valvular stenosis. Trac e to mild aortic regurgitation. Mitral Valve Moderate mitral annular calcification. Mitral valve leaflets are thickened. No evidence of mitral krishna ve stenosis. Moderate mitral regurgitation. Tricuspid Valve The tricuspid valve is normal in structure. There is no tricuspid valve stenosis. Trace to mild tricu spid regurgitation. Pulmonic Valve The pulmonary valve is normal in structure. There is no pulmonic valvular stenosis. Trace pulmonic re gurgitation. Great Vessels The aortic root is normal in size. The ascending aorta is mildly dilated. Aortic arch is normal in ca liber. IVC is normal in size and collapses >50% with inspiration. Pericardium There is no pericardial effusion. 2D Dimensions IVSD d PLAX 1.04 cm F: 0.6-1.0 LV Vol A2C d MOD 88.5 mL LVPW d PLAX 1.04 cm F: 0.6 - 1.0 LV Vol A4C d MOD 93.2 mL LVID d PLAX 4.94 cm F: 3.8 - 5.2 LA vol/ BSA A2C s A-L 27.7 mL/m2 LVDs 4.05 cm F: 2.2 - 3.5 LA vol/ BSA A4C s A-L 44.4 mL/m2 Ao Root d 3.29 cm F: 2.7 - 3.3 LA Vol/ BSA Biplane s A-L 36.5 mL/m2 RA Area A4C 20.98 cm2 LA Area A4C s MOD 25.91 cm2 RA Vol/ BSA A4C s A-L 30.8 mL/m2 LA Area A2C s MOD 19.68 cm2 Ao Asc Diam d 3.57 cm F: 2.3 - 3.1 LV EF A4C MOD 37.4 % LV EF Teichholz 35.7 % LV EF A2C MOD 35.1 % LVEF (Bullock's) 36.39 % F: 54 - 74 LV EF Biplane MOD 36.4 % LV Volume 72.21 mL F: 46 - 106 SV 34.78 mL LV Volume Index 37.03 mL/m2 F: 29 - 61 SV Index 17.78 mL/m2 LV Vol Biplane MOD 95.6 mL FS 17.10 % M-Mode TAPSE 1.13 cm (M/F) >1.7 LV Diastology MV E' medial 0.090 (>0.07 m/s) MV E Vmax 1.10 (0.4-1.3 m/s) LV E/e MED 12.10 (<14) MV E' lateral 0.081 (>0.1 m/s) LV E/e LAT 13.45 (<14) MV E/E' medial 12.12 MV E/E' lateral 13.46 Aortic Valve LVOT Area 2.92 cm2 AoV Area Vmax 2.12 cm2 LVOT Vmax 0.90 m/s AoV Area/ BSA (Vmax) 1.09 cm2/m2 LVOT Mean Giovanny. 0.62 m/s BETO Mean Giovanny. 1.84 cm2 LVOT Peak Grad 3.2 mmHg BETO Mean Giovanny. Index 0.94 cm2/m2 LVOT Mean Grad 1.8 mmHg AR DT 1539 msec LVOT VTI 0.172 m AR PHT 446 msec LVOT Diam s 1.90 cm AoV Vmax 1.24 m/s Velocity Ratio 0.72 AoV Mean Giovanny. 0.99 m/s AoV Peak Grad 6.1 mmHg LVOT SV 50.36 mL AoV Mean Grad 4.1 mmHg AoV VTI 0.245 m AoV Area VTI 2.05 cm2 AoV Area/ BSA (VTI) 1.05 cm/m2 Mitral Valve MV DT 166 (160-240 msec) MR Vmax 5.26 m/s MV PHT 48 msec MR VTI 1.652 m MV Area PHT 4.58 cm2 MR Peak Grad 110.5 mmHg MV VTI 0.213 m MR Mean Grad 70.8 mmHg MV VTI Annulus 0.213 m MR PISA Radius 0.54 cm MV Area VTI 2.36 (4.0-6.0 cm2) MR EROA 0.12 cm2 MR Aliasing Velocity 0.35 m/s MR PISA 1.85 cm2 Pulmonary Valve PV Vmax 0.92 (0.5-1.5 m/s) RVOT Peak Gr. 0.75 mmHg PV Peak Grad 3.4 mmHg RVOT Mean Gr. 0.50 mmHg PV Mean Grad 2.2 mmHg RVOT VTI 0.085 m PV VTI 0.182 m RVOT Vmax 0.43 m/s Tricuspid Valve TR Peak Grad 20.4 mmHg TR Vmax 2.26 m/s RA Pressure 3.00 mmHg RVSP (TR) 23.4 mmHg
== END ==
PROVIDERS: Visit Provider Internal Medicine Cardiovascular Disease
DX: I42.9 Cardiomyopathy, unspecified (principal)
CPT/HCPCS: 93306

== ENCOUNTER → 2021-11-02 11:43 | Outpatient (BNVA) | payer MEDICARE, MEDICAID, SELFPAY | PROVIDERS: Visit Provider Internal Medicine Cardiovascular Disease | DX: I48.91 Unspecified atrial fibrillation (principal); I42.9 Cardiomyopathy, unspecified; I50.9 Heart failure, unspecified; I10 Essential (primary) hypertension | CPT/HCPCS: 99214; 99213 ==

== ENCOUNTER → 2021-11-12 02:05 | Outpatient (CLI) | payer MEDICARE, SELFPAY ==
--- NOTE | 2021-11-12 13:30 | DI.DEXA_ITS ---
Exam(s) XR DEXA BONE DENSITY W/WO COLETTE EXAM: XR DEXA BONE DENSITY W/WO COLETTE CLINICAL HISTORY: ASYMPTOMATIC MENOPAUSAL STATE, Z80.0; HYPERTHYROIDISM, E05.90 TECHNIQUE: OneTouch Horizon C densitometer analysis of left hip, lumbar spine and left forearm. COMPARISON: No exams were available for comparison FINDINGS: Lateral view of the thoracic and lumbar spine shows no evidence of compression fractures. Bone mineral density measurements of the lumbar spine correspond to a total T-score of -0.2, in the n ormal range. Bone mineral density measurements of the left hip correspond to a total T-score of -0.4. The femora l neck T-score is -1.4, in the osteopenic range.. The left forearm bone mineral density measurements correspond to a T-score of the distal 3rd of 0.7, normal range.. IMPRESSION: Normal bone mineral density of the lumbar spine and left forearm. Osteopenia of the left hip.
== END ==
PROVIDERS: Visit Provider Student in an Organized Health Care Education/Training Program
DX: M85.88 Other specified disorders of bone density and structure, other site (principal); E05.90 Thyrotoxicosis, unspecified without thyrotoxic crisis or storm; Z78.0 Asymptomatic menopausal state
CPT/HCPCS: 77080

== ENCOUNTER 2021-12-17 02:57 | Outpatient (CLI) | payer MEDICARE, SELFPAY ==
[2021-12-17 10:34] LABS: HCT 43.9 % (36.0-46.0); HGB 14.7 g/dL (11.2-15.7)
[2021-12-17 12:10] LABS: Iron 94 ug/dL (50-170)
[2021-12-17 12:21] LABS: FREE T4 0.95 ng/dL (0.76-1.46); TSH 5.94 uIU/mL (0.36-3.74)
[2021-12-17 12:36] LABS: Vitamin D 25 Total 44.3 ng/mL (30-100)
== END 2021-12-17 02:58 | disposition home or self-care (01) ==
LOC: LBO 02:58
PROVIDERS: Visit Provider Student in an Organized Health Care Education/Training Program
DX: E05.90 Thyrotoxicosis, unspecified without thyrotoxic crisis or storm (principal); E66.8 Other obesity; D50.9 Iron deficiency anemia, unspecified
CPT/HCPCS: 36415; 82306; 83540; 84439; 84443; 85014; 85018

== ENCOUNTER 2022-03-01 08:45 | Outpatient (CLI) | payer MEDICARE, MEDICAID, SELFPAY | END 2022-03-01 08:46 | disposition home or self-care (01) | LOC: DI.CARD 08:46 | PROVIDERS: Visit Provider Internal Medicine Cardiovascular Disease | DX: R69 Illness, unspecified (principal) | CPT/HCPCS: 93010 ==

== ENCOUNTER 2022-03-02 08:18 | Outpatient (CLI) | payer MEDICARE, MEDICAID, SELFPAY ==
--- NOTE | 2022-03-02 08:15 | RT.EKG_ITS ---
APPROVED REPORT Exam: Resting ECG Reason for Exam: PAF, cardiomyopathy, CHF Patient Location: O HR:85 bpm ECG Measurements Heart Rate 85 AXIS NM [id number] P [id number] QRSd 103 QRS 28 QT 353 T 57 QTc 420 Conclusion Atrial fibrillation...V-rate 67- 94, irreg A-activity
== END 2022-03-02 08:19 | disposition home or self-care (01) ==
LOC: DI.CARD 08:20
PROVIDERS: Visit Provider Internal Medicine Cardiovascular Disease
DX: I48.0 Paroxysmal atrial fibrillation (principal); I42.9 Cardiomyopathy, unspecified; I50.9 Heart failure, unspecified
CPT/HCPCS: 93010

== ENCOUNTER → 2022-03-02 10:31 | Outpatient (BNVA) | payer MEDICARE, MEDICAID, SELFPAY | PROVIDERS: Visit Provider Internal Medicine Cardiovascular Disease | DX: Z79.01 Long term (current) use of anticoagulants (principal); I48.91 Unspecified atrial fibrillation; I42.9 Cardiomyopathy, unspecified; I50.9 Heart failure, unspecified | CPT/HCPCS: 93005; 99214 ==

== ENCOUNTER 2022-03-30 03:25 | Outpatient (CLI) | payer MEDICARE, MEDICAID, SELFPAY ==
[2022-03-30 12:25] LABS: FREE T4 0.99 ng/dL (0.76-1.46); TSH 7.89 uIU/mL (0.36-3.74)
== END 2022-03-30 03:26 | disposition home or self-care (01) ==
PROVIDERS: Visit Provider Student in an Organized Health Care Education/Training Program
DX: E06.9 Thyroiditis, unspecified (principal)
CPT/HCPCS: 36415; 99214; 84439; 84443; 99213

== ENCOUNTER 2022-07-21 00:54 | Outpatient (CLI) | payer MEDICARE, MEDICAID, SELFPAY ==
--- NOTE | 2022-07-21 10:30 | DI.US_ITS ---
APPROVED REPORT EXAM: Comprehensive 2D, Doppler, and color-flow Echocardiogram Patient Location: Out-Patient Software Systems Architect: Rebekah Arzate RDCS (AE) Indications: Cardiomyopathy, palpitations, atrial fibrillation Other Information Study Quality: Adequate Conclusion Normal left ventricular wall thickness and chamber size. Estimated ejection fraction is 40%. There is global hypokinesis The right atrium and left atrium are both moderately dilated The right ventricle is mildly dilated and hypocontractile The aortic valve is sclerotic, trileaflet, with mild regurgitation Mitral annular calcification. Moderate mitral regurgitation Mild tricuspid regurgitation. Estimated right ventricular systolic pressure is 41 mmHg Mildly dilated ascending aorta Wall motion Left Ventricle The left ventricle is normal size. Left ventricular systolic function is moderately decreased. There is normal left ventricular wall thickness. There is global hypokinesis of the left ventricle. There i s no ventricular septal defect visualized. LVEF is 40%. Right Ventricle Right ventricle is mildly dilated. Right ventricle is mildly hypokinetic. The RVSP is 40.9 mmHg. Atria Left atrium is moderately dilated. Right atrium is moderately dilated. The interatrial septum is i ntact with no evidence for an atrial septal defect. Aortic Valve The Aortic valve is sclerotic. Aortic valve is trileaflet. There is no aortic valvular stenosis. mil d aortic regurgitation. Mitral Valve Moderate mitral annular calcification. No evidence of mitral valve stenosis. Moderate mitral regurgit ation. Tricuspid Valve The tricuspid valve is normal in structure. There is no tricuspid valve stenosis. Mild tricuspid regu rgitation. Pulmonic Valve The pulmonary valve is normal in structure. There is no pulmonic valvular stenosis. Mild pulmonic re gurgitation. Great Vessels The aortic root is normal in size. The ascending aorta is mildly dilated. Aortic arch is normal in ca liber. IVC is normal in size and collapses >50% with inspiration. Pericardium There is no pericardial effusion. 2D Dimensions IVSD d PLAX 0.80 cm F: 0.6-1.0 LV Vol A2C d MOD 78.0 mL LVPW d PLAX 0.82 cm F: 0.6 - 1.0 LV Vol A4C d MOD 93.1 mL LVID d PLAX 4.82 cm F: 3.8 - 5.2 LA vol/ BSA A4C s A-L 35.5 mL/m2 LVDs 3.85 cm F: 2.2 - 3.5 LA Area A4C s MOD 24.00 cm2 Ao Root d 3.27 cm F: 2.7 - 3.3 LV EF A4C MOD 40.7 % RA Area A4C 24.98 cm2 LV EF A2C MOD 40.5 % RA Vol/ BSA A4C s A-L 41.9 mL/m2 LV EF Biplane MOD 41.1 % Ao Asc Diam d 3.58 cm F: 2.3 - 3.1 SV 35.84 mL LV EF Teichholz 39.8 % SV Index 17.36 mL/m2 LVEF (Bullock's) 41.12 % F: 54 - 74 LV Volume 64.68 mL F: 46 - 106 LV Volume Index 31.24 mL/m2 F: 29 - 61 LV Vol Biplane MOD 87.2 mL FS 19.35 % M-Mode TAPSE 0.89 cm (M/F) >1.7 LV Diastology MV E' medial 0.086 (>0.07 m/s) MV E Vmax 1.07 (0.4-1.3 m/s) LV E/e MED 12.40 (<14) MV E' lateral 0.095 (>0.1 m/s) LV E/e LAT 11.25 (<14) MV E/E' medial 12.42 MV E/E' lateral 11.27 Aortic Valve LVOT Area 3.23 cm2 AoV Area Vmax 2.69 cm2 LVOT Vmax 0.83 m/s AoV Area/ BSA (Vmax) 1.30 cm2/m2 LVOT Mean Giovanny. 0.57 m/s BETO Mean Giovanny. 2.48 cm2 LVOT Peak Grad 2.8 mmHg BETO Mean Giovanny. Index 1.20 cm2/m2 LVOT Mean Grad 1.5 mmHg AR DT 1738 msec LVOT VTI 0.154 m AR PHT 504 msec LVOT Diam s 2.00 cm AoV Vmax 1.00 m/s Velocity Ratio 0.83 AoV Mean Giovanny. 0.74 m/s AoV Peak Grad 4.0 mmHg LVOT SV 49.63 mL AoV Mean Grad 2.4 mmHg AoV VTI 0.177 m AoV Area VTI 2.81 cm2 AoV Area/ BSA (VTI) 1.36 cm/m2 Mitral Valve MV DT 125 (160-240 msec) MR Vmax 5.43 m/s MV PHT 36 msec MR VTI 1.610 m MV Area PHT 6.06 cm2 MR Peak Grad 117.8 mmHg MV VTI 0.159 m MR Mean Grad 74.8 mmHg MV VTI Annulus 0.154 m MR PISA Radius 0.67 cm MV Area VTI 3.04 (4.0-6.0 cm2) MR EROA 0.18 cm2 MR Aliasing Velocity 0.35 m/s MR PISA 2.79 cm2 Pulmonary Valve PV Vmax 0.73 (0.5-1.5 m/s) RVOT Peak Gr. 0.81 mmHg PV Peak Grad 2.2 mmHg RVOT Mean Gr. 0.50 mmHg PV Mean Grad 1.3 mmHg RVOT VTI 0.099 m PV VTI 0.131 m RVOT Vmax 0.45 m/s Tricuspid Valve TR Peak Grad 37.9 mmHg TR Vmax 3.08 m/s RA Pressure 3.00 mmHg RVSP (TR) 40.9 mmHg
== END 2022-07-21 01:14 ==
PROVIDERS: PCP Nurse Practitioner Family; Visit Provider Internal Medicine Cardiovascular Disease
DX: I42.9 Cardiomyopathy, unspecified (principal); I48.91 Unspecified atrial fibrillation; R00.2 Palpitations
CPT/HCPCS: 93306

== ENCOUNTER → 2022-08-10 13:14 | Outpatient (BNVA) | payer MEDICARE, MEDICAID, SELFPAY | PROVIDERS: PCP Nurse Practitioner Family; Visit Provider Internal Medicine Cardiovascular Disease | DX: I50.9 Heart failure, unspecified (principal); I42.9 Cardiomyopathy, unspecified; I48.0 Paroxysmal atrial fibrillation; R00.2 Palpitations | CPT/HCPCS: 99214 ==

== ENCOUNTER 2022-09-01 03:14 | Outpatient (CLI) | payer MEDICARE, SELFPAY ==
[2022-09-01 13:17] LABS: TSH (W/Ref FT4) 6.55 uIU/mL (0.36-3.74)
[2022-09-01 14:33] LABS: FREE T4 0.97 ng/dL (0.76-1.46)
== END 2022-09-01 03:15 | disposition home or self-care (01) ==
LOC: LBO 03:15
PROVIDERS: PCP Nurse Practitioner Family; Visit Provider Student in an Organized Health Care Education/Training Program
DX: E03.8 Other specified hypothyroidism (principal)
CPT/HCPCS: 36415; 84439; 84443

== ENCOUNTER 2022-09-22 02:35 | Outpatient (CLI) | payer MEDICARE, SELFPAY ==
[2022-09-22 10:52] LABS: HCT 41.4 % (36.0-46.0); HGB 13.6 g/dL (11.2-15.7); MCH 30.8 pg (27.0-33.0); MCHC 32.9 % (32.0-36.0); MCV 94 fL (80-95); Platelet Count 282 10^3/uL (130-400); RBC 4.41 10^6/uL (3.93-5.22); RDW 14.3 % (11.7-14.6); RDW-SD 49.5 fL
[2022-09-22 11:42] LABS: ALT 25 U/L (14-59); AST 25 U/L (15-37); Albumin 3.6 g/dL (3.4-5.0); Alkaline Phosphatase 112 U/L (46-116); BUN 24 mg/dL (7-18); Bilirubin, Total 0.6 mg/dL (0.2-1.0); CREATININE 1.5 mg/dL (0.55-1.02); Calcium 9.8 mg/dL (8.5-10.1); Chloride 101 mmol/L (98-107); Estimated GFR 35.45 (mL/min/1.73m2); Glucose 91 mg/dL (74-106); Potassium 4.4 mmol/L (3.5-5.1); Sodium 137 mmol/L (136-145); Total Protein 8.4 g/dL (6.4-8.2)
== END 2022-09-22 02:36 | disposition home or self-care (01) ==
LOC: LBO 02:35
PROVIDERS: PCP Nurse Practitioner Family; Visit Provider Nurse Practitioner Family
DX: D50.9 Iron deficiency anemia, unspecified (principal); I48.91 Unspecified atrial fibrillation; K76.0 Fatty (change of) liver, not elsewhere classified; K80.20 Calculus of gallbladder without cholecystitis without obstruction
CPT/HCPCS: 36415; 80053; 85027

== ENCOUNTER → 2023-02-07 13:18 | Outpatient (BNVA) | payer MEDICARE, MEDICAID, SELFPAY | PROVIDERS: PCP Nurse Practitioner Family; Visit Provider Internal Medicine Cardiovascular Disease | DX: I48.21 Permanent atrial fibrillation (principal); Z79.01 Long term (current) use of anticoagulants; I42.9 Cardiomyopathy, unspecified; I50.9 Heart failure, unspecified | CPT/HCPCS: 99213 ==

== ENCOUNTER 2023-09-30 11:35 | Outpatient (CLI) | payer MEDICARE, MEDICAID, SELFPAY ==
--- NOTE | 2023-09-30 11:30 | RT.EKG_ITS ---
APPROVED REPORT Exam: Resting ECG Reason for Exam: Follow up Patient Location: O HR:89 bpm ECG Measurements Heart Rate 89 AXIS MS [id number] P [id number] QRSd 97 QRS 30 QT 364 T 57 QTc 443 Conclusion Atrial fibrillation...V-rate 69-103, irreg A-activity
== END 2023-09-30 11:36 | disposition home or self-care (01) ==
LOC: DI.CARD 11:36
PROVIDERS: PCP Nurse Practitioner Family; Visit Provider Internal Medicine Cardiovascular Disease
DX: I61.4 Nontraumatic intracerebral hemorrhage in cerebellum (principal)
CPT/HCPCS: 93010

== ENCOUNTER → 2023-09-30 11:35 | Outpatient (BNVA) | payer MEDICARE, MEDICAID, SELFPAY | PROVIDERS: PCP Nurse Practitioner Family; Referring Provider Nurse Practitioner Family; Visit Provider Internal Medicine Cardiovascular Disease | DX: I48.21 Permanent atrial fibrillation (principal); I42.9 Cardiomyopathy, unspecified; I50.9 Heart failure, unspecified; R00.2 Palpitations | CPT/HCPCS: 93005; 99213 ==

== ENCOUNTER 2023-10-04 05:08 | Outpatient (CLI) | payer MEDICARE, MEDICAID, SELFPAY ==
[2023-10-04 10:56] LABS: HGB 13.5 g/dL (11.2-15.7); MCH 29.9 pg (27.0-33.0); MCHC 32.9 % (32.0-36.0); MCV 91 fL (80-95); MPV 9.1 fL (8.0-11.0); Platelet Count 291 10^3/uL (130-400); RBC 4.52 10^6/uL (3.93-5.22); RDW 14.6 % (11.7-14.6); RDW-SD 48.4 fL; WBC 7.55 10^3/uL (4.4-10.8)
[2023-10-04 11:26] LABS: ALT 27 U/L (14-59); AST 27 U/L (15-37); Albumin 3.7 g/dL (3.4-5.0); Alkaline Phosphatase 106 U/L (46-116); Anion Gap 8.5 mmol/L (3-11); BUN 27 mg/dL (7-18); Bilirubin, Total 0.5 mg/dL (0.2-1.0); CO2 29.5 mmol/L (21.0-32.0); CREATININE 1.4 mg/dL (0.55-1.02); Calcium 9.7 mg/dL (8.5-10.1); Chloride 100 mmol/L (98-107); Estimated GFR 38.27 (mL/min/1.73m2); Glucose 97 mg/dL (74-106); Potassium 4.4 mmol/L (3.5-5.1); Sodium 138 mmol/L (136-145); Total Protein 8.3 g/dL (6.4-8.2)
[2023-10-04 11:54] LABS: Iron 57 ug/dL (50-170)
== END 2023-10-04 05:09 | disposition home or self-care (01) ==
LOC: LBO 05:08
PROVIDERS: PCP Nurse Practitioner Family; Visit Provider Nurse Practitioner Family
DX: D50.9 Iron deficiency anemia, unspecified (principal); K76.0 Fatty (change of) liver, not elsewhere classified
CPT/HCPCS: 36415; 80053; 85027; 83540

== ENCOUNTER 2023-10-27 05:17 | Outpatient (CLI) | payer MEDICARE, SELFPAY ==
[2023-10-27 12:31] LABS: TSH (W/Ref FT4) 5.99 uIU/mL (0.36-3.74); Uric Acid 9.7 mg/dL (2.6-6.0)
[2023-10-27 12:51] LABS: FREE T4 0.96 ng/dL (0.76-1.46)
== END 2023-10-27 05:18 | disposition home or self-care (01) ==
LOC: LBO 05:17
PROVIDERS: PCP Nurse Practitioner Family; Visit Provider Nurse Practitioner Family
DX: R53.83 Other fatigue (principal)
CPT/HCPCS: 36415; 84439; 84443; 84550

== ENCOUNTER 2023-12-07 03:54 | Outpatient (CLI) | payer MEDICARE, SELFPAY ==
--- OUTSIDE RECORDS SUMMARY | 2023-12-07 03:55 | XMS_ITS | Encounter Summary ---
Author Organization [facility] Address [address] [place] [address] Care Team Providers Care Law Secretary Name Role Phone Unavailable Primary Care Provider Unavailabl e Encounter Details Date Type Department Care Team (Late st Contact Info) Description 05/20/2021 Lab Requisition [facility] Pathology & Laboratory Medicine - [facility] [address] [place] [address] Outr Resulting Lab, Provider Social History Tobacco Use Types Packs/Day Years Used Date Smoking Tobacco: Never Assessed Sex and Gender Information Value Date Recorded Sex Assigned at Not on file Gender Identity Not on file Sexual Orientation Not on file documented as of this encounter Plan of Treatment Not on file documented as of this encounter Procedures Procedure Name Priority Date/Time Associated Diagnosis Comments SPEP, INCLUDES QUANTITATION OF MONOCLONAL SPIKE PERFORMABLE Today 05/20/2021 9:20 EST T3 FREE Routine 05/20/2021 9:20 EST THYROID ANTIBODIES Routine 05/20/2021 9: 20 EST SPEP, INCLUDES QUANTITATION OF MONOCLONAL SPIKE Routine 05/20/2021 9:20 EST PROTEIN, TOTAL Today 05/20/2021 9:20 EST documented in this encounter Results * (ABNORMAL) SPEP, INCLUDES QUANTITATION OF MONOCLONAL SPIKE PERFORMABLE (05/20/2021 9:20 EST) Albumin % 50.7(L) 55.8 - 66.1 % 05/21/2021 13:04 EST [facility] Alpha-1 % 3.5 2.9 - 4.9 % 05/21/2021 13:04 [facility] Alpha-2 % 6.7(L) 7.1 - 11.8 % 05/21/2021 13:04 [facility] Beta % 16.3(H) 8.4 - 13.1 % 05/21/2021 13:04 [facility] Gamma % 22.8(H) 11.1 - 18.8 % 05/21/2021 13:04 [facility] SPEP Comment No apparent monoclonal protein seen on serum electrophoresis 05/21/2021 13:04 [facility] Comment:See scanned/suppleme ntary report. Total Protein 7.5 6.3 - 8.2 g/dL 05/21/2021 13:04 [facility] Blood VENOUS BLOOD / Unknown 05/20/2021 9:20 EST 05/20/2021 15:51 EST Provider Outr Resulting Lab CHEMISTRY & BLOOD GAS ORDERABLES Performing Organization Address [facility] de Phone Number [facility] [address] [place] [address] * PROTEIN, TOTAL (05/20/2021 9:20 EST) Blood VENOUS BLOOD / Unknown 05/20/2021 9:20 EST 05/20/2021 15:51 EST Provider Outr Resulting Lab CHEMISTRY & BLOOD GAS ORDERABLES Performing Organization Address [facility] Co de Phone Number [facility] [address] [place] [address] * T3 FREE (05/20/2021 9:20 EST) T3, Free 4.3 2.8 - 5.3 pg/mL 05/20/2021 16:24 EST [facility] Blood VENOUS BLOOD / Unknown 05/20/2021 9:20 EST 05/20/2021 15:51 EST Provider Outr Resulting Lab CHEMISTRY & BLOOD GAS ORDERABLES Performing Organization Address [facility]/State/ZIP Co de Phone Number [facility] [address] [place] [address] * THYROID ANTIBODIES (05/20/2021 9:20 EST) Anti-Thyroglobulin <15 <=60 U/mL 2020 17:05 EST [facility] Thyroperoxidase Ab <28 <=60 U/mL 2020 17:05 EST [facility] Blood VENOUS BLOOD / Unknown 05/20/2021 9:20 EST 05/20/2021 15:51 EST Provider Outr Resulting Lab CHEMISTRY & BLOOD GAS ORDERABLES [facility] [address] [place] [address] documented in this encounter Visit Diagnoses Not on filedocumented in this encounter
--- OUTSIDE RECORDS SUMMARY | 2023-12-07 03:55 | XMS_ITS | Encounter Summary ---
Author Organization [facility] Address [address] [place] [address] Care Team Providers Care Propeller Engineer Name Role Phone Unavailable Primary Care Provider Unavailabl e Encounter Details Date Type Department Care Team (Late st Contact Info) Description 05/08/2021 Lab Requisition [facility] Pathology & Laboratory Medicine - [facility] [address] [place] [address] Outr Resulting Lab, Provider Social History Tobacco [...] Procedure Name Priority Date/Time Associated Diagnosis Comments ZZCOVID-19 TEST [facility] PCR Today 05/07/2021 11:55 EST COVID-19 TESTING Routine 05/07/2021 11:5 5 EST documented in this encounter Results * COVID-19 TEST [facility] PCR (05/07/2021 11:55 EST) Swab 05/07/2021 11:5 5 EST 05/08/2021 17:08 EST Provider Outr Resulting Lab MICROBIOLOGY - GENERAL ORDERABLES [facility] [address] [place] [address] * COVID-19 TESTING (05/07/2021 11:55 EST) COVID-19 rt-PCR Result Negative Negative 05/09/2021 11:[address] [facility] Comment: This test has not been FDA cleared or approved. This test has been authorized by FDA under an EUA for use by authorized laboratories. This test has been authorized only for detection of nucleic acid from 2019-nCoV, not for any other viruses or pathogens. This test is only authorized for the duration of the declaration that circumstances exist justifying the authorization of emergency use of in vitro diagnostic tests for detection and/or diagnosis of 2019-nCoV under section 564(b)(1) of Act, 21 U.S.C ?? 360bbb-3(b) (1), unless the authorization is terminated or revoked sooner. Negative results do not preclude 2019-nCoV infection and should not be used as the sole basis for treatment or other patient management decisions. Negative results must be combined with clinical observations, patient history, and epidemiological information. Testing was performed using the diana SARS-CoV-2 assay ([employer] on the Diana 6800 System Performing Lab Diana 6800 [facility] 05/09/2021 11:[address] [facility] Swab 05/07/2021 11:5 5 EST 05/08/2021 17:08 EST Provider Outr Resulting Lab MICROBIOLOGY - GENERAL ORDERABLES [facility] [address] [place] [address] documented in this encounter Visit Diagnoses Not on filedocumented in this encounter
--- OUTSIDE RECORDS SUMMARY | 2023-12-07 03:55 | XMS_ITS | Clinical Summary ---
Author Organization [facility] Address [address] [place] [address] Care Team Providers Care Rn Mobile Name Role Phone Unavailable Primary Care Provider Unavailabl e Social History Tobacco Use Types Packs/Day Years Used Date Smoking Tobacco: Never Assessed Sex and Gender Information Value Date Recorded Sex Assigned at Not on file Gender Identity Not on file Sexual Orientation Not on file Plan of Treatment Health Maintenance Due Date Last Done Comments Hepatitis C Screen 1945 RSV Immunization ( o r 60+ Years) (1 - 1-dose 60+ series) 2003 Fall Risk Screening 11/28/2008 COVID-19 Vaccine (2022-24 season) 2023
--- OUTSIDE RECORDS SUMMARY | 2023-12-07 03:55 | XMS_ITS | Encounter Summary ---
Author Organization [facility] Address [address] [place] [address] Care Team Providers Care Senior Sales Manager Name Role Phone Unavailable Primary Care Provider Unavailabl e Encounter Details Date Type Department Care Team (Late st Contact Info) Description 09/11/2021 Lab Requisition [facility] Pathology & Laboratory Medicine - [address] [address] Outr Resulting Lab, Provider Social History Tobacco [...] Procedure Name Priority Date/Time Associated Diagnosis Comments T3, TOTAL Routine 09/11/2021 13:30 EDT documented in this encounter Results * T3, TOTAL (09/11/2021 13:30 EDT) T3, Total 142 97 - 169 ng/dL 09/11/2021 22:16 EDT [facility] Blood VENOUS BLOOD / Unknown 09/11/2021 13:30 EDT 09/11/2021 20:50 EDT Provider Outr Resulting Lab CHEMISTRY & BLOOD GAS ORDERABLES [facility] [address] [place] [address] documented in this encounter Visit Diagnoses Not on filedocumented in this encounter
--- OUTSIDE RECORDS SUMMARY | 2023-12-07 03:55 | XMS_ITS | Referral Summary ---
Author Organization [facility] Address [address] [place] [address] Care Team Providers Care Hand Candle Dipper Name Role Phone Unavailable Primary Care Provider Unavailabl e Social History Tobacco Use Types Packs/Day Years Used Date Smoking Tobacco: Never Assessed Sex and Gender Information Value Date Recorded Sex Assigned at Not on file Gender Identity Not on file Sexual Orientation Not on file Plan of Treatment Not on file
--- OUTSIDE RECORDS SUMMARY | 2023-12-07 03:55 | XMS_ITS | Encounter Summary ---
Author Organization [facility] Address [address] [place] [address] Care Team Providers Care History Faculty Member Name Role Phone Unavailable Primary Care Provider Unavailabl e Encounter Details Date Type Department Care Team (Late st Contact Info) Description 05/20/2021 Lab Requisition [facility] Pathology & Laboratory Medicine - [address] [address] Outr Resulting Lab, Provider Social History Tobacco [...] Procedure Name Priority Date/Time Associated Diagnosis Comments ACUTE HEPATITIS PROFILE Routine 05/20/2021 9:20 EST documented in this encounter Results * ACUTE HEPATITIS PROFILE (05/20/2021 9:20 EST) Hep B Surface Ag Negative Negative 05/21/2021 10:[address] [facility] Hep C Antibody Negative Negative 05/21/2021 10:[address] [facility] Hepatitis A Antibody, IgM Negative Negative 05/21/2021 10:[address] [facility] Comment:The results of this assay can be falsely lowered due to the consumption of Biotin. Hepatitis B Core Ab, Total Negative Negative 05/21/2021 10:[address] [facility] Blood VENOUS BLOOD / Unknown 05/20/2021 9:20 EST 05/20/2021 15:49 EST Provider Outr Resulting Lab CHEMISTRY & BLOOD GAS ORDERABLES [facility] [address] [place] [address] documented in this encounter Visit Diagnoses Not on filedocumented in this encounter
--- OUTSIDE RECORDS SUMMARY | 2023-12-07 03:56 | XMS_ITS | Encounter Summary ---
Author Organization [facility] [place] [address] Care Team Providers Care Director Global Development Name Role Phone Noreen Adam APRN Primary Care Provider [phone] Encounter Details Date Type Department Care Team (Late st Contact Info) Description 09/18/2021 Telephone [place] [id number] Jesus Arvizu DO [facility] [place] [address] Social History Tobacco Use Types Packs/Day Years Used Date Smoking Tobacco: Never Smokeless Tobacco: Never Alcohol Use Standard Drinks/Week Comments No 0 (1 standard drink = 0.6 oz pur e alcohol) Sex and Gender Information Value Date Recorded Sex Assigned at Not on file Gender Identity Not on file Sexual Orientation Not on file documented as of this encounter Miscellaneous Notes * Telephone Encounter - Jesus Arvizu DO - 09/18/2021 3:38 PM EDT Called patient to follow-up regarding recommendations for DEXA scan and vitamin D level. She also let me know that she discovered in an old record she was hypothyroid at one point around 2014 but later normalized. In light of this it might be prudent to recheck TFTs about 3 months from now. We [facility]ldo these labs at [facility]. We will also order her DEXA over there. Jesus Arvizu DO Endocrinology Fellow documented in this encounter Plan of Treatment Not on file documented as of this encounter Visit Diagnoses Diagnosis Hyperthyroidism Thyrotoxicosis without mention of goiter or other cause, without mention of thyrotoxic crisis or storm Other obesity Asymptomatic menopausal state Asymptomatic postmenopausal status (age-related) (natural) documented in this encounter Care Teams Director Global Development Relationship Specialty Start Date End Date Noreen Adam APRN [address] [place] [address] [address] [facility] [address] [place] [address] PCP - General Family Medicine 04/27/16 02/12/22 documented as of this encounter
--- OUTSIDE RECORDS SUMMARY | 2023-12-07 03:56 | XMS_ITS | Encounter Summary ---
Author Organization [facility] [place] [address] Care Team Providers Care Iv Therapy Nurse Name Role Phone Noreen Adam APRN Primary Care Provider [phone] Reason for Referral * Diagnostic Test (Routine) - Closed Specialty Diagnoses / Procedures Referred By Contac t Referred To Contact Cardiology Diagnoses S/P aortic valve replacement Procedures Echocardiogram Transthoracic(Leb) Katelyn Vasquez APRN [address] [place] [address] [place] [address] [facility] [place] [address] Referral ID Status Reason Start Date Expiration Date V isits Requested Visits Authorized [id number] Closed Specialty Service Requested 06/16/2016 06/16/2017 1 1 Encounter Details Date Type Department Care Team (Late st Contact Info) Description 06/16/2016 Orders [place] [id number] Katelyn Vasquez APRN [address] [place] [address] [place] [address] S/P aortic valve replacement Social History Tobacco Use Types Packs/Day Years [...] on file documented as of this encounter Results * ECHO COMPLETE W CONTRAST (07/13/2016 1:26 PM EST) EF 40 HEARTLAB SYSTEM Anatomical Region Laterality Modality Other 07/13/2016 Narrative 07/13/2016 1:54 PM EST Procedure: ?Transthoracic Echocardiogram Patient: ?FERNANDO SANTIAGO E ?(Age): 1945(70y) Med Rec#: ? [id number] ?Sex: ?F ? Site Loc: ? [facility] ?Ht / Wt: ??170(cm)/93.44(k Pt. Loc: ?Echo Lab ?BSA: ?2.05 Study Date: ?? 07/13/2016 ?Pt. Type: Outpatient Tape: ? 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 A-Fib BP: ? 110/60 SUMMARY: 1. Basal septal hypertrophy is observed. ??Global left ventricular systolic function is mildly reduced. ??The quantitative left ventricular ejection fraction by biplane Bullock's method is 40%. ??There are left ventricular segmental wall motion abnormalities present, as shown in the diagram below. 2. The right ventricle is mildly dilated. Right ventricular global systolic function is probably normal. 3. There is no hemodynamically significant valve disease. 4. See remainder of report for additional findings. Findings ? : Study Quality: ? Technically limited Left Ventricle: ? The left ventricular chamber size is normal. ?Basal septal hypertrophy is observed. ?There is no evidence of LVOT obstruction. ?No ventricular septal defect is visualized. ?Global left ventricular systolic function is mildly reduced. ?The quantitative left ventricular ejection fraction by biplane Bullock's method is 40%. ?There are left ventricular segmental wall motion abnormalities present, as shown in the diagram below. ?There is septal flattening present consistent with right ventricular pressure overload. ?The ??basal inferior, basal inferoseptal, mid anteroseptal, mid inferolateral, mid inferior, mid inferoseptal, and ??apical septal wall segments are hypokinetic (score 2). ?Overall wallmotion score index is ??1.44 ?No intracardiac mass is observed. Left Atrium: ? The left atrium is mildly dilated. ?No mass is visualized within the left atrium. ?No atrial septal defect is visualized. Right Ventricle: ? The right ventricle is mildly dilated. ?Right ventricular global systolic function is probably normal. ?The estimated pulmonary artery systolic pressure is 37 mmHg. ?The estimated right atrial pressure is 8 mmHg. ?No mass is visualized in the right ventricle. Right Atrium: ? The right atrium is mildly dilated. ?No mass is visualized in the right atrium. Aortic Valve: ? The aortic valve is tricuspid. ?The left coronary cusp of the aortic valve is thickened. ?Systolic excursion of the aortic valve is normal. ?There is no evidence of aortic valve stenosis. ?There is a trace of aortic regurgitation present. Mitral Valve: ? The mitral valve leaflets appear normal. ?There is posterior mitral annular calcification. ?There is mild (1+/4+) mitral regurgitation present. Tricuspid Valve: ? The tricuspid valve leaflets are morphologically normal. ?There is trace tricuspid regurgitation present. Pulmonic Valve: ? The pulmonic valve appears normal. ?There is trace pulmonic regurgitation present. Pericardium: ? The pericardium appears normal and there is no evidence of a pericardial effusion. Aorta: ? The aortic root is normal in size. ?The ascending aorta is normal in size. ?The aortic arch is normal in size. Pulmonary Artery: ? The main pulmonary artery is probably normal in size. Venous: ? There is less than 50% respiratory change in the inferior vena cava dimension consistent with elevated right atrial pressure. Misc: ? See remainder of report for additional findings. ?Two-dimensional echo, spectral Doppler and color Doppler performed. ?Definity contrast (one 1.5 ml vial)was used to enhance endocardial definition. Excess contrast was discarded. Chambers 2D ?Value ?Units (Range) ? RVIDd ??Base ? 4.3 ?cm ? IVSd (2D) ? 1.1 ?cm ? LVPWd (2D) ?0.9 ?cm ? IVS:LVPW ratio (2D) 1.3 ?ratio ? LVIDd (2D) ?4.1 ?cm ? LVIDs (2D) ?2.8 ?cm ? LVIDd (2D) index ?2 ?cm/m2 ? LVIDs (2D) index ?1.4 ?cm/m2 ? LV FS (2D) ?31 ? % ? EF Teichholz (2D) ?? 59 ? % ? Ao root diameter (2D3.5 ?cm (2.1 - 3.6) ? Ascending Ao ?3.5 ?cm (2 - 3.5) ? Aortic arch ? 3 ?cm ? Volumes/Mass ?Value ?Units (Range) ? LA Area 4 CH ?25 ? cm2 (<21) ? RA AREA 4CH ? 20 ? cm2 ? LA ESV SP 4CH (MOD) 69.5 ? ml ? LA ESV SP 2CH (MOD) 80.2 ? ml ? LA ESV BP (MOD) ? 75.7 ? ml ? LA ESV BP (MOD) inde36.9 ? ml/m2 ? LV ESV SP 4CH (MOD) 41.5 ? ml ? LV ESV SP 2CH (MOD) 48.4 ? ml ? LV EDV BP ? 73.9 ? ml ? LV ESV BP ? 44.5 ? ml ? BP EF (MOD) ? 40 ? % ? LV mass (2D) ?132.5 ?g ? LV mass (2D) index ??64.6 ? g/m2 ? Diastolic/Systolic Function ?Value ?Units (Range) ? MV E-wave Vmax ?1 ?m/sec ? LV septal e' Vmax ?? 0.1 ?m/sec ? LV lateral e' Vmax ??0.1 ?m/sec ? LV average e' Vmax ??0.1 ?m/sec ? LV E:e' septal ratio20.8 ? ratio ? LV E:e' lateral rati7.4 ?ratio ? LV average E:e' rati10.4 ? ratio ? Tricuspid Valve ?Value ?Units (Range) ? TAPSE ? 0.7 ?cm ? TR Vmax ? 2.7 ?m/sec ? TR peak gradient ?29 ? mmHg ? RAP ? 8 ?mmHg ? RVSP ?37 ? mmHg ? Pulmonic Valve/Qp:Qs ?Value ?Units (Range) ? AL end-diastolic Vma1.9 ?m/sec ? PA end-diastolic pre22 ? mmHg ? MPA diameter ?2.2 ?cm ? Measurement Trending Name ? 07/13/2016 ? LV EDV BP ?73.9 LVIDd (2D) ? 4.05 LV ESV BP ?44.5 LA ESV BP (MOD) ?75.7 LVIDs (2D) ? 2.8 Wall Motion: Segment Name ?Rest ? Base-Anteroseptal ?? Normal ? Base-Anterior ? Normal ? Base-Anterolateral ??Normal ? Base-Posterolateral Normal ? Base-Inferior ? Hypokinetic ? Base-Inferoseptal ?? Hypokinetic ? Mid-Anteroseptal ?Hypokinetic ? Mid-Anterior ?Normal ? Mid-Anterolateral ?? Normal ? Mid-Posterolateral ??Hypokinetic ? Mid-Inferior ?Hypokinetic ? Mid-Inferoseptal ?Hypokinetic ? [place]-Septal ? Hypokinetic ? [place]-Anterior ? Normal ? [place]-Lateral ?Normal ? [place]-Inferior ? Normal ? [place]-Tip ?Normal ? This report has been electronically signed by: Chris Davison M.D. ? 07/13/2016 13:54:03 Images reviewed and interpretation verified [facility] Cardiac Ultrasound [facility] Procedure Note Chris Davison MD - 07/13/2016 Procedure: Transthoracic Echocardiogram Patient: FERNANDO CASTANON(Age): 1945(70y) Med Rec#: [id number] Sex: F Site Loc: [facility] Ht / Wt: 170(cm)/93.44(k Pt. Loc: Echo Lab BSA: 2.05 Study Date: 07/13/2016 Pt. 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 Basal septal hypertrophy is observed. Global left ventricular systolic function is mildly reduced. The quantitative left ventricular ejection fraction by biplane Bullock's method is 40%. There are left ventricular segmental wall motion abnormalities present, as shown in the diagram below. 2. The right ventricle is mildly dilated. Right ventricular global systolic function is probably normal. 3. There is no hemodynamically significant valve disease. 4. See remainder of report for additional findings. Findings : Study Quality: Technically limited Left Ventricle: The left ventricular chamber size is normal. Basal septal hypertrophy is observed. There is no evidence of LVOT obstruction. No ventricular septal defect is visualized. Global left ventricular systolic function is mildly reduced. The quantitative left ventricular ejection fraction by biplane Bullock's method is 40%. There are left ventricular segmental wall motion abnormalities present, as shown in the diagram below. There is septal flattening present consistent with right ventricular pressure overload. The basal inferior, basal inferoseptal, mid anteroseptal, mid inferolateral, mid inferior, mid inferoseptal, and apical septal wall segments are hypokinetic (score 2). Overall wallmotion score index is 1.44 No intracardiac mass is observed. Left Atrium: The left atrium is mildly dilated. No mass is visualized within the left atrium. No atrial septal defect is visualized. Right Ventricle: The right ventricle is mildly dilated. Right ventricular global systolic function is probably normal. The estimated pulmonary artery systolic pressure is 37 mmHg. The estimated right atrial pressure is 8 mmHg. No mass is visualized in the right ventricle. Right Atrium: The right atrium is mildly dilated. No mass is visualized in the right atrium. Aortic Valve: The aortic valve is tricuspid. The left coronary cusp of the aortic valve is thickened. Systolic excursion of the aortic valve is normal. There is no evidence of aortic valve stenosis. There is a trace of aortic regurgitation present. Mitral Valve: The mitral valve leaflets appear normal. There is posterior mitral annular calcification. There is mild (1+/4+) mitral regurgitation present. Tricuspid Valve: The tricuspid valve leaflets are morphologically normal. There is trace tricuspid regurgitation present. Pulmonic Valve: The pulmonic valve appears normal. There is trace pulmonic regurgitation present. Pericardium: The pericardium appears normal and there is no evidence of a pericardial effusion. Aorta: The aortic root is normal in size. The ascending aorta is normal in size. The aortic arch is normal in size. Pulmonary Artery: The main pulmonary artery is probably normal in size. Venous: There is less than 50% respiratory change in the inferior vena cava dimension consistent with elevated right atrial pressure. Misc: See remainder of report for additional findings. Two-dimensional echo, spectral Doppler and color Doppler performed. Definity contrast (one 1.5 ml vial)was used to enhance endocardial definition. Excess contrast was discarded. Chambers 2D Value Units (Range) RVIDd Base 4.3 cm IVSd (2D) 1.1 cm LVPWd (2D) 0.9 cm IVS:LVPW ratio (2D) 1.3 ratio LVIDd (2D) 4.1 cm LVIDs (2D) 2.8 cm LVIDd (2D) index 2 cm/m2 LVIDs (2D) index 1.4 cm/m2 LV FS (2D) 31 % EF Teichholz (2D) 59 % Ao root diameter (2D3.5 cm (2.1 - 3.6) Ascending Ao 3.5 cm (2 - 3.5) Aortic arch 3 cm Volumes/Mass Value Units (Range) LA Area 4 CH 25 cm2 (<21) RA AREA 4CH 20 cm2 LA ESV SP 4CH (MOD) 69.5 ml LA ESV SP 2CH (MOD) 80.2 ml LA ESV BP (MOD) 75.7 ml LA ESV BP (MOD) inde36.9 ml/m2 LV ESV SP 4CH (MOD) 41.5 ml LV ESV SP 2CH (MOD) 48.4 ml LV EDV BP 73.9 ml LV ESV BP 44.5 ml BP EF (MOD) 40 % LV mass (2D) 132.5 g LV mass (2D) index 64.6 g/m2 Diastolic/Systolic Function Value Units (Range) MV E-wave Vmax 1 m/sec LV septal e' Vmax 0.1 m/sec LV lateral e' Vmax 0.1 m/sec LV average e' Vmax 0.1 m/sec LV E:e' septal ratio20.8 ratio LV E:e' lateral rati7.4 ratio LV average E:e' rati10.4 ratio Tricuspid Valve Value Units (Range) TAPSE 0.7 cm TR Vmax 2.7 m/sec TR peak gradient 29 mmHg RAP 8 mmHg RVSP 37 mmHg Pulmonic Valve/Qp:Qs Value Units (Range) AL end-diastolic Vma1.9 m/sec PA end-diastolic pre22 mmHg MPA diameter 2.2 cm Measurement Trending Name 07/13/2016 LV EDV BP 73.9 LVIDd (2D) 4.05 LV ESV BP 44.5 LA ESV BP (MOD) 75.7 LVIDs (2D) 2.8 Wall Motion: Segment Name Rest Base-Anteroseptal Normal Base-Anterior Normal Base-Anterolateral Normal Base-Posterolateral Normal Base-Inferior Hypokinetic Base-Inferoseptal Hypokinetic Mid-Anteroseptal Hypokinetic Mid-Anterior Normal Mid-Anterolateral Normal Mid-Posterolateral Hypokinetic Mid-Inferior Hypokinetic Mid-Inferoseptal Hypokinetic [place]-Septal Hypokinetic [place]-Anterior Normal [place]-Lateral Normal [place]-Inferior Normal [place]-Tip Normal This report has been electronically signed by: Chris Davison M.D. 07/13/2016 13:54:03 Images reviewed and interpretation verified [facility]ound [facility] Laureano Guzman MD ECHO ORDERABLES documented in this encounter Visit Diagnoses Diagnosis S/P aortic valve replacement Heart valve replaced by other means S/P aortic valve replacement Heart valve replaced by other means documented in this encounter Care Teams Iv Therapy Nurse Relationship Specialty Start Date End Date Noreen Adam APRN [address] [place] [address] PCP - General Family Medicine 04/27/16 02/12/22 documented as of this encounter
--- OUTSIDE RECORDS SUMMARY | 2023-12-07 03:56 | XMS_ITS | Encounter Summary ---
Author Organization [facility] [place] [address] Care Team Providers Care Misdraw Hand Name Role Phone Noreen Adam APRN Primary Care Provider [phone] Reason for Visit * Consultation (Urgent) - Closed Specialty Diagnoses / Procedures Referred By Contac t Referred To Contact Endocrinology Diagnoses Other fatigue Weakness Palpitations Abnormal results of thyroid function studies Other specified abnormal findings of blood chemistry Noninfective gastroenteritis and colitis, unspecified Noreen Adam APRN [address] [place] [address] [facility] [address] [place] [phone] Referral ID Status Reason Start Date Expiration Date V isits Requested Visits Authorized [id number] Closed Consult, Test & [facility] PCP Updated and/or Approved 06/04/2021 06/04/2022 6 6 Encounter Details Date Type Department Care Team (Late st Contact Info) Description 06/18/2021 11:00 AM EST Office Visit [place] [address] Jesus Bob, [facility] [place] [address] Hyperthyroidism Social History Tobacco Use Types Packs/Day Years Used Date Smoking Tobacco: Never Smokeless Tobacco: Never Alcohol Use Standard Drinks/Week Comments No 0 (1 standard drink = 0.6 oz pur e alcohol) Sex and Gender Information Value Date Recorded Sex Assigned at Not on file Gender Identity Not on file Sexual Orientation Not on file documented as of this encounter Last Filed Vital Signs Vital Sign Reading Time Taken Comments Blood Pressure 137/100 06/18/2021 10:57 AM EST Pulse 100 06/18/2021 10:57 AM EST Temperature 36 ??C (96.8 ??F) 06/18/2021 10:57 AM EST Respiratory Rate - - Oxygen Saturation 99% 06/18/2021 10:57 AM EST Inhaled Oxygen Concentration - - Weight 107.5 kg (237 lb) 06/18/2021 10:57 AM EST Height 170.2 cm (5' 7) 06/18/2021 10:57 AM EST Body Mass Index 37.12 06/18/2021 10:57 AM EST documented in this encounter Progress Notes * Jesus Bob, DO - 06/18/2021 11:00 AM EST Images from the original note were not included. Ms. Massiel Max is an 75 y.o. female who presents in consultation for chief complaint of hyperthyroidism. Referred by: Noreen Adam APRN Patient is a 75-year-old female with a history of cardiac myxoma resected about 4 years ago with subsequent atrial fibrillation who presents for evaluation of hyperthyroidism. Patient states that in January 2021 she had a viral illness with fever and chills. She was tested for Covid but reports it was negative. Since then she has been having numerous ongoing symptoms including loss of appetite,altered taste, weight gain, weakness, shakiness, tremor, cold intolerance, edema, shortness of breath, chest feels full, sometimes head feels strange, imbalance, having 4-5 bowel movements per day. She has longstanding depression. Denies any tenderness or discomfort in her neck. In the past shehas been treated with amiodarone but reports she has been off this for at least 3 years. She deniesany recent iodinated contrast exposure. She does recall that at one time she had an abnormal thyroid test and was given a prescription but that the tests normalized. She is not currently taking any thyroid related medications. She denies any family history of thyroid problems. No past medical history on file. Past Surgical History: Procedure Laterality Date ??? PRO CARDIOVERSION ELECTIVE ARRHYTHMIA EXTERNAL N/A 07/14/2016 CARDIOVERSION-ELECTIVE (WRVU 2.25) performed by Adan Jovel MD at [facility] MAIN OR ??? PRO EXC INTRACARDIAC TUMOR RESCTION CARDIOPULMONARY BYPASS N/A 05/31/2016 @EXC INTRACARDIAC TUMOR W\CPB (WRVU 38.45) performed by Laureano Gomez MD at [facility] MAIN OR Social History Socioeconomic History ??? Marital status: Single Spouse name: Not on file ??? Number of children: Not on file ??? Years of education: Not on file ??? Highest education level: Not on file Occupational History ??? Not on file Tobacco Use ??? Smoking status: Never Smoker ??? Smokeless tobacco: Never Used Substance and Sexual Activity ??? Alcohol use: No ??? Drug use: No ??? Sexual activity: Not on file Other Topics Concern ??? Not on file Social History Narrative ??? Not on file Social Determinants of Health Financial Resource Strain: Not on file Food Insecurity: Not on file Transportation Needs: Not on file Physical Activity: Not on file Housing Stability: Not on file Current Outpatient Medications: ??? metoprolol succinate XL (Toprol-XL) 50 mg Tablet Sustained Release 24 hr, TAKE ONE TABLET BY MOUTH EVERY DAY, Disp: , Rfl: ??? ferrous sulfate 325 mg (65 mg iron) Tablet, Take 325 mg by mouth daily (with breakfast)., Disp:, Rfl: ??? latanoprost (Xalatan) 0.005 % Drops, Place 1 drop into both eyes nightly., Disp: , Rfl: ??? pantoprazole EC (Protonix) 40 mg Tablet, Delayed Release (E.C.), Take 40 mg by mouth daily., Disp: , Rfl: ??? APIXABAN ORAL, Take 5 mg by mouth 2 times daily., Disp: , Rfl: ??? carboxymethylcellulose (REFRESH CELLUVISC) 1 % Dropperette, Gel, 1 drop 3 times daily as needed. Reported on 07/13/2016, Disp: , Rfl: ??? dilTIAZem (CARDIZEM SR) 60 mg Capsule, Sust. Release 12 hr, Take 60 mg by mouth 2 times daily.,Disp: , Rfl: ??? acetaminophen (TYLENOL) 500 mg Tablet, Take 2 tablets by mouth every 6 hours as needed for Pain. (Patient not taking: Reported on 06/18/2021), Disp: 30 tablet, Rfl: 1 No Known Allergies Physical Exam: Patient Vitals for the past 24 hrs: Temp Pulse BP SpO2 06/18/21 1057 36 ??C (96.8 ??F) 100 (!) 137/100 99 % Face: not round or red Eyes: no lid lag; normal eye movements Neck: no supraclavicular fat pads; no thyroid enlargement or palpable masses Lymphatic: no palpable cervical lymph nodes Respiratory: symmetrical chest expansion, mild wheeze present Cardiovascular: tachycardic, irregular, bilateral pitting edema Musculoskeletal: moving all 4 extremities normally. normal female musculature Skin: normal temperature/texture, no jaundice or pallor, no lower extremity edema Neurological: coarse tremor, normal gait Psychological: alert/oriented to person, place, time; normal affect; memory intact; normal judgement/insight Radiology Studies: Laboratory Data: Assessment / Plan: 75-year-old female with a history of cardiac myxoma resected several years ago with subsequent atrial fibrillation presents for evaluation of hyperthyroidism. She reports a viral illness in Januarywith symptoms developing after that becoming progressively worse. She had thyroid function checked in early April which revealed an elevated free T4 with a suppressed TSH. By the end of April free T4 had come down though did remain above the normal limit however her TSH was also rising above normal limits. She had a radioactive iodine uptake scan of her thyroid earlier this month which showed reduced iodine uptake diffusely. Today in clinic she is volume overloaded and appears to be in acute decompensated heart failure. Suspect she may have had a post viral thyroiditis that may recover spontaneously. We will repeat thyroid labs today before starting any treatment. I am going to reach out to her business development representative so she can hopefully have urgent visit in light of her heart failure. -Repeat thyroid labs today -She will follow-up urgently with her business development representative -Return to clinic in 3 months A note will be sent to the referring provider Discussed with attending physician, Dr. Gaxiola. It was a pleasure to be involved in the care of Massiel Max. If you have any questions about themanagement and treatment plan as outlined above, or if I can be of further assistance, please do not hesitate to contact me. Sincerely, Jesus Bob DO Endocrinology Fellow * Ramon Gaxiola MD - 06/18/2021 11:00 AM EST I saw this patient with Dr Bob . I reviewed the guy portions of the history and physical exam, and reviewed pertinent lab data. I answered all patient questions. I was involved in all medical decision making and agree with this plan. This is an unusual set of labs. While the pattern of the free T4 or the TSH would be consistent with a thyroiditis, the combination of the two being elevated is not. The only possibility would be recurrent thyroidtis in which the TSH was coming down as the free T4 was going up, but that does not fit the case. We suspected an interfering substance and have reviewed this with the lab. She appears to be euthyroid to mildly hyperthyroid but improving, so her clinical state matches her free T4 best - while both hyper and hypo thyroidism can contribute to chf, a TSH of 6 would be very mild hypothyroidism and unlikely to have a major impact. I agree with the plan to monitor the pattern of these tests and to follow the test that matches her clinical stae documented in this encounter Plan of Treatment Not on file documented as of this encounter Results * (ABNORMAL) Comprehensive metabolic panel (non-fasting) (06/18/2021 12:48 PM EST) Glucose Lvl 79 65 - 199 mg/dL [facility] Comment:Diabetes: >=200 mg/d L plus symptoms BUN 14 8 - 18 mg/dL [facility] Creatinine 0.96 0.70 - 1.20 mg/dL [facility] Sodium 137 135 - 145 mmol/L [facility] Potassium 4.4 3.5 - 5.0 mmol/L [facility] Comment: Please note: ??Patients with WBC >100,000 may have falsely elevated Potassium levels. ??For accurate Potassium quantification in these patients send serum separator tube (gold top) for subsequent determinations. ??Contact the Clinical Chemistry Laboratory if there are any questions. Chloride 101 98 - 107 mmol/L [facility] CO2 26 22 - 31 mmol/L [facility] Anion Gap 10 5 - 15 mmol/L [facility] Calcium 9.8 8.5 - 10.5 mg/dL [facility] Total Protein 7.2 6.1 - 8.0 g/dL [facility] Albumin 3.7 3.2 - 5.2 g/dL [facility] AST 39(H) 0 - 30 unit/L [facility] ALT 23 0 - 30 unit/L [facility] Alk Phos 109(H) 35 - 105 unit/L [facility] Total Bilirubin 3.5(H) 0.2 - 1.3 mg/dL [facility] Estimated GFR 57(L) >=60 mL/min/1. 73 m?? [facility] Comment: This patient? s estimated glomerular filtration rate (eGFR) is between 57 mL/min/1.73 m2 (patients with less muscle mass) and 66 mL/min/1.73 m2 (patients with more muscle mass) as determined by the CKD-EPI equation. Assessment of eGFR is not appropriate when creatinine concentrations are rapidly changing. For clinical decisions where creatinine clearance will affect therapy, a 24-hour urine creatinine clearance may be advised. Assignment of CKD stage 1 - 5 for patients with an eGFR near the transition point between stages may be based on clinical assessment of muscle mass and symptoms in addition to eGFR. Blood 06/18/2021 12:4 8 PM EST 06/18/2021 1:00 PM EST Narrative Resulting Agency Comment Spec In Lab Ramon Gaxiola MD CHEMISTRY ORDERABLES [facility] [place] [place] [address] * T3 Total (06/18/2021 12:48 PM EST) T3, Total 87 80 - 200 ng/dL [facility] Blood 06/18/2021 12:4 8 PM EST 06/18/2021 1:00 PM EST Narrative Resulting Agency Comment Spec In Lab Ramon Gaxiola MD CHEMISTRY ORDERABLES Performing Organization Address [facility] Co de Phone Number [facility] [place] [address] * T4, free (06/18/2021 12:48 PM EST) Free T4 1.62 0.93 - 1.70 ng/dL [facility] Comment: Reference Interval (ng/dL): Females: ??First Trimester: 0.97-1.68 ??Second Trimester: 0.77-1.51 ??Third Trimester: 0.77-1.49 Blood 06/18/2021 12:4 8 PM EST 06/18/2021 1:00 PM EST Narrative Resulting Agency Comment Spec In Lab Ramon Gaxiola MD CHEMISTRY ORDERABLES Performing Organization Address [facility] Co de Phone Number [facility] [place] [address] * (ABNORMAL) TSH (06/18/2021 12:48 PM EST) TSH 14.40(H) 0.27 - 4.20 mcIU/mL [facility] Comment: Reference Interval (mcIU/mL): Females: ??First Trimester: 0.23-3.88 ??Second Trimester: 0.22-3.90 ??Third Trimester: 0.44-4.66 Blood 06/18/2021 12:4 8 PM EST 06/18/2021 1:00 PM EST Narrative Resulting Agency Comment Spec In Lab Ramon Gaxiola MD CHEMISTRY ORDERABLES Performing Organization Address [facility] Co de Phone Number [facility] [place] [address] documented in this encounter Visit Diagnoses Diagnosis Hyperthyroidism Thyrotoxicosis without mention of goiter or other cause, without mention of thyrotoxic crisis or storm documented in this encounter Care Teams Misdraw Hand Relationship Specialty Start Date End Date Noreen Adam, HVAC OPERATIONS TECHNICIAN [address] [place] [address] PCP - General Family Medicine 04/27/16 02/12/22 documented as of this encounter
--- OUTSIDE RECORDS SUMMARY | 2023-12-07 03:56 | XMS_ITS | Encounter Summary ---
Author Organization [facility] [place] [address] Care Team Providers Care Seed Laboratory Assistant Name Role Phone Simón Frederick DNP Primary Care Provider Encounter Details Date Type Department Care Team (Late st Contact Info) Description 09/13/2022 10:30 AM EDT Office [place] [phone] Jesus Bob, [facility] [place] [address] Thyroiditis Social History Tobacco Use Types Packs/Day Years [...] Sign Reading Time Taken Comments Blood Pressure 156/99 09/13/2022 10:38 AM EDT Pulse 86 09/13/2022 10:38 AM EDT Temperature 36.4 ??C (97.5 ??F) 09/13/2022 10:38 AM E DT Respiratory Rate - - Oxygen Saturation 99% 09/13/2022 10:38 AM EDT Inhaled Oxygen Concentration - - Weight 99.4 kg (219 lb 3.2 oz) 09/13/2022 10:38 AM EDT Height 170.2 cm (5' 7) 09/13/2022 10:38 AM EDT Body Mass Index 34.33 09/13/2022 10:38 AM EDT documented in this encounter Progress Notes * Jesus Bob, DO - 09/13/2022 10:30 AM EDT Images from the original note were not included. Ms. Massiel Max is an 76 y.o. female who presents for ongoing care of thyroiditis. Interval history: She has generally been well. She has tired does have some cold intolerance. She has a feeling of swelling beneath her eyes. No discomfort in the anterior neck though occasionally has trouble swallowing. She showed me some medical records that she located from several years ago that showed her thyroid for function fluctuating between mild subclinical hypothyroidism and euthyroidism. Plan from last visit 09/16/21 75-year-old female with a history of cardiac myxoma resected several years ago with subsequent atrial fibrillation presents for follow-up of hyperthyroidism. ??She reports a viral illness in January with symptoms developing after that becoming progressively worse. ??She had thyroid function checked in early April which revealed an elevated free T4 with a suppressed TSH. ??By the end of April free T4 had come down though did remain above the normal limit however her TSH was also rising above normal limits. ??She had a radioactive iodine uptake scan of her thyroid in May which showed reduced iodine uptake diffusely. ??She has now had follow up TFTs on 09/11/21 that have normalized. Suspect this was a post viral thyroiditis. ?? -recommend re-checking TSH and free T4 in 6 months and then annually. This can be done with her PCP. -recommend checking DXA and Vit D if not already done. She should aim for at least 1,000mg of calcium intake daily through diet and/or supplement ?? Patient Active Problem List Diagnosis ??? A-fib ??? 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 losartan (Cozaar) 25 mg tablet, Take 25 mg by mouth daily., Disp: , Rfl: ??? potassium chloride (Klor-Con Sprinkle) 10 mEq ER capsule, Take 10 mEq by mouth 2 times daily., Disp: , Rfl: ??? metoprolol succinate XL (Toprol-XL) 50 mg Tablet Sustained Release 24 hr, 2 times daily., Disp:, Rfl: ??? ferrous sulfate 325 mg (65 [...] 2 times daily., Disp: , Rfl: ??? acetaminophen (TYLENOL) 500 mg Tablet, Take 2 tablets by mouth every 6 hours as needed for Pain., Disp: 30 tablet, Rfl: 1 ??? dilTIAZem (CARDIZEM SR) 60 mg Capsule, Sust. Release 12 hr, Take 60 mg by mouth 2 times daily.,Disp: , Rfl: ??? carboxymethylcellulose (REFRESH CELLUVISC) 1 % Dropperette, Gel, 1 drop 3 times daily as needed. Reported on 07/13/2016, Disp: , Rfl: has no past medical history on file. Physical Exam: Patient Vitals for the past 24 hrs: Temp Pulse BP SpO2 09/13/22 1038 36.4 ??C (97.5 ??F) 86 (!) 156/99 99 % Wt & BMI By Encounter Date Flowsheet Row Office Visit from 09/13/2022 in Endocrinology at [facility] [place] Office Visit from 06/18/2021 in Endocrinology at [facility] Weight 99.4 kg (219 lb 3.2 oz) 1 09/13/2022 1038 107.5 kg (237 lb) 1 06/18/2021 1057 BMI 34.33 1 09/13/2022 1038 37.12 1 06/18/2021 1057 General: no acute distress, pleasant, sitting comfortably Face: not round or red Eyes: did not appreciate any visible periorbital edema Neck: thyroid nonpalpable Respiratory: symmetrical chest expansion, breathing comfortably on room air Musculoskeletal: Moving all 4 extremities Psychological: alert/oriented to person, place, time; normal affect; memory intact; normal judgement/insight Radiology Studies: Laboratory Data: Assessment / Plan: 76-year-old female with a history of cardiac myxoma resected several years ago with subsequent atrial fibrillation presents for follow-up of thyroiditis. ?? She had a viral illness in January 2021 with symptoms developing after that becoming progressively worse. ??She had thyroid function checked in early April 2021 which revealed an elevated free T4 with a suppressed TSH. ??By the end of April free T4 had come down though did remain above the normal limit however her TSH was also rising above normal limits. ??She had a radioactive iodine uptake scan of her thyroid in May 2021 which showed reduced iodine uptake diffusely. ??She had follow up TFTs on 09/11/21 that have normalized. Since then the TSH has risen and is now stable in the range of 6 to 7 with a normal free T4. She showed me some old albs today from years prior that were jody similar range. I suspect she had a postviral thyroiditis and progressed through a period of hyperthyroidism, seemingly euthyroidism and now is back to baseline in a mild subclinical hypothyroid range. She does havesome symptoms that could potentially be attributed to hypothyroidism including fatigue and cold intolerance though this could be caused by her other medical conditions as well. She does have an elevated diastolic blood pressure which again could be attributed to hypothyroidism. She also complains of the feeling of periorbital edema. However her subclinical hypothyroidism is very mild and so it issomewhat doubtful whether it would produce much in the way of these symptoms/findings. She is happyto remain off an additional medication and I think it is reasonable to continue her off of levothyroxine for now. If her TSH was to rise to greater than 10 or her free T4 was to drop below the normallimit would then start levothyroxine at that time. These labs should be checked at least annually. She had a DEXA scan in October 2021 that showed osteopenia. Her vitamin D should be checked annually. Adequate calcium intake should be encouraged. DEXA scan should be repeated October 2023. ?? -Check TSH and free T4 annually. If TSH rises above 10 and free T4 falls before and below normal limits recommend starting levothyroxine -Next DEXA scan due October 2023 -Check vitamin D annually -Encourage adequate calcium intake -recommend she follow up with her PCP but can return to the endocrine clinic as needed ?? She has a new PCP, Simón Frederick APRN, at [facility] in [place], who she has not yet metwith. Discussed with attending physician, Dr. Medellin. Jesus Bob DO Endocrinology Fellow * Markus Medellin MD - 09/13/2022 10:30 AM EDT I have seen the patient and reviewed Dr. Jesus Bob's above history and I agree with the details as written. The assessment and plan were formulated in discussion with me and I agree with them as documented. Markus Medellin MD, PhD, FACP, FACE documented in this encounter Plan of Treatment Not on file documented as of this encounter Visit Diagnoses Diagnosis Thyroiditis Thyroiditis, unspecified documented in this encounter Care Teams Seed Laboratory Assistant Relationship Specialty Start Date End Date Simón Frederick DNP [address] [place] [id number] PCP - General Family Medicine 09/13/22 documented as of this encounter
--- OUTSIDE RECORDS SUMMARY | 2023-12-07 03:56 | XMS_ITS | Encounter Summary ---
Author Organization [facility] Address [facility] [place] [address] Care Team Providers Care Dry Placer Machine Operator Name Role Phone Noreen Adam APRN Primary Care Provider [phone] Reason for Visit * Auth/Cert Specialty Diagnoses / Procedures Referred By Contac t Referred To Contact Diagnoses A-fib AFIB W/ RVR a fib Procedures CARDIOVERSION-ELECTIVE (WRVU 2.25) Referral ID Status Reason Start Date Expiration Date Visits Re quested Visits Authorized [id number] 1 1 Encounter Details Date Type Department Care Team (Late st Contact Info) Description 07/13/2016 1:40 PM EST Office [place] [phone] Laureano Guzman MD [facility] DR CARDIOTHORACIC [place] [address] Atrial myxoma Social History Tobacco Use Types Packs/Day Years [...] Sign Reading Time Taken Comments Blood Pressure 140/100 07/13/2016 1:40 PM EST Pulse 124 07/13/2016 1:40 PM EST Temperature - - Respiratory Rate - - Oxygen Saturation 97% 07/13/2016 1:40 PM EST room air Inhaled Oxygen Concentration - - Weight 92.8 kg (204 lb 8 oz) 07/13/2016 1:40 PM EST Height 167.6 cm (5' 6) 07/13/2016 1:40 PM EST Body Mass Index 33.01 07/13/2016 1:40 PM EST documented in this encounter Progress Notes * Devon Wilder, FINANCIAL SERVICES EDUCATION CONSULTANT - 07/13/2016 1:40 PM EST Cardiac Surgery Clinic Note: ID: [id number] Cardiac Surgery Attending: Dr. Guzman Manager Country: Dr. Byrd PCP: Noreen Adam APRN S: Mrs. Max arrives today for her post op visit. She is s/p Atrial Myxoma removal. Her post op course was complicated by PAfib. She was sent home on amio, xarelto and metoprolol, she was in SR at discharge. Today she arrives in RAFib rate of 122. She states that she was admitted to [facility] about 2 wks ago for afib, her medications were changed and she was discharged. She saw Dr Byrd yesterday. She was still in afib, rate of 90, he increased her amiodarone to tid, increased her metoprolol to50mg bid and stopped the cardizem and restarted her asa that [facility] had order EKG: Shows AF with RVR, rate of 122 CXR: Improved inflation and resolution of pleural effusions. ?? TTE: SUMMARY: ?? 1. Basal septal hypertrophy is observed. Global [...] See remainder of report for additional findings. ? Current medications: Outpatient Prescriptions Marked as Taking for the 07/13/16 encounter (Office Visit) with Laureano Guzman MD Medication Sig Dispense Refill ??? AMIOdarone (CORDARONE; PACERONE) 200 mg Tablet Take 200 mg by mouth 3 times daily. ??? meTOPROLOL tartrate (LOPRESSOR) 50 mg Tablet Take 50 mg by mouth 2 times daily. ??? aspirin 81 mg Tablet, Chewable Take 81 mg by mouth daily. 30 tablet 3 ??? rivaroxaban (XARELTO) 20 mg Tablet Take 1 tablet by mouth every evening. 30 tablet 3 ??? senna-docusate (PERICOLACE) 8.6-50 mg Tablet Take 2 tablets by mouth daily. 60 tablet 11 ??? famotidine (PEPCID) 20 mg Tablet 1 tablet 2 times daily. ??? betaxolol (BETOPTIC S) 0.25 % ophthalmic suspension O: Vitals: 07/13/16 1340 BP: (!) 140/100 Pulse: 124 SpO2: 97% Weight: 92.8 kg (204 lb 8 oz) Height: 167.6 cm (5' 6) Physical exam: General: alert, pleasant, oriented. Lungs: LSC Heart: RRR, s1, s2 Abdomen: soft, nt, +bs Ext: wwp, +1 b/l TERELL Incisions: healing Assessment/Plan: Mrs. Max is here for her post op visit. She has been admitted to [facility] for afib and has been scheduled by Dr. Byrd for CV on Tuesday. Her echo today shows a reduced ef at 40%, it was 65% postop. She does complain of palpitations. Plan at this time is admit her to [facility] and to consult cardiology for CV tomorrow. Will also order some lasix and continue her xarelto. DW Attending Surgeon. Signed: DEVON WILDER APRN [facility] Section of Cardiac Surgery 07/13/2016 documented in this encounter Plan of Treatment Not on file documented as of this encounter Procedures Procedure Name Priority Date/Time Associated Diagnosis Comments EKG 12-LEAD Routine 07/13/2016 1:38 PM EST Atrial myxoma documented in this encounter Results * EKG 12 Lead (07/13/2016 1:38 PM EST) Ventricular rate 122 BPM MUSE SYSTEM Atrial Rate 244 BPM MUSE SYSTEM QRS Duration 96 ms MUSE SYSTEM Q-T Interval 378 ms MUSE SYSTEM QTC Calculated (Bezet) 538 ms MUSE SYSTEM Calculated P [place] -119 degrees MUSE SYSTEM Calculated R [place] 39 degrees MUSE SYSTEM Calculated T [place] -35 degrees MUSE SYSTEM INTERPRETATION Atrial flutter with variable A-V block Possible Inferior infarct , age undetermined Abnormal ECG When compared with ECG of 31-MAY-2016 12:03, Atrial flutter has replaced Sinus rhythm Vent. rate has increased BY ??[address] now depressed in Inferior leads ST now depressed in Lateral leads Nonspecific T wave abnormality now evident in Inferior leads Confirmed by MD Will, Fahad Jamil ([id number]) on 07/13/2016 7:25:39 PM MUSE SYSTEM 07/13/2016 1:38 PM EST 07/13/2016 7:25 PM EST Laureano Guzman MD ECG ORDERABLES MUSE SYSTEM documented in this encounter Visit Diagnoses Diagnosis Atrial myxoma Benign neoplasm of heart documented in this encounter Care Teams Dry Placer Machine Operator Relationship Specialty Start Date End Date Noreen Adam APRN [address] [place] [address] PCP - General Family Medicine 04/27/16 02/12/22 documented as of this encounter
--- OUTSIDE RECORDS SUMMARY | 2023-12-07 03:56 | XMS_ITS | Encounter Summary ---
[place] [address] Care Team Providers Care High School Coordinator Name Role Phone Noreen Adam APRN Primary Care Provider [phone] Encounter Details Date Type Department Care Team (Late st Contact Info) Description 10/19/2019 Telephone Cardiology at [address] [phone] Chloe Pena Social History Tobacco Use Types Packs/Day Years [...] encounter Miscellaneous Notes * Telephone Encounter - Chloe Pena LNA - 10/19/2019 2:14 PM EDT Called and reviewed chart with pt Weight 210 lb Pt will take BP prior to visit with Dr Wills 10/22/19 No recent hospitalizations documented in this encounter Plan of Treatment Not on file documented as of this encounter Visit Diagnoses Not on filedocumented in this encounter Care Teams High School Coordinator Relationship Specialty Start Date End Date Noreen Adam APRN [address] [place] [address] PCP - General Family Medicine 04/27/16 02/12/22 documented as of this encounter
--- OUTSIDE RECORDS SUMMARY | 2023-12-07 03:56 | XMS_ITS | Encounter Summary ---
Author [facility] [place] [address] Care Team Providers Care Collections Associate Name Role Phone Noreen Adam APRN Primary Care Provider [phone] Encounter Details Date Type Department Care Team (Latest Contact Info) Description 06/18/2021 12:10 PM EST Laboratory Appointment Lab [address] [place] [phone] Hyperthyroidism Social History Tobacco Use Types Packs/Day [...] Procedure Name Priority Date/Time Associated Diagnosis Comments SCAN, PERIPHERAL BLOOD Routine 12:48 PM EST HEMOGRAM Routine 06/18/2021 12:48 PM EST Hyperthyroidism DIFFERENTIAL, AUTOMATED Routine 06/18/2021 12:48 PM EST Hyperthyroidism HC CBC,PLT & AUTO DIFF Routine 12:48 PM EST Hyperthyroidism HC TOTAL T3 Routine 06/18/2021 12:48 PM EST Hyperthyroidism HC THYROID STIMULATING HORMONE, SERUM Routine 06/18/2021 12:48 PM EST Hyperthyroidism HC FREE THYROXINE (T4) Routine 12:48 PM EST Hyperthyroidism COMPREHENSIVE METABOLIC PANEL (NON-FASTING) Routine 06/18/2021 12:48 PM EST Hyperthyroidism documented in this encounter Results * Scan, Peripheral Blood (06/18/2021 12:48 PM EST) Plat Estimate Normal [facility] RBC Morphology Abnormal [facility] Hypochromia Moderate [facility] Ovalocytes 1-5 /HPF [facility] Blood 06/18/2021 12:4 8 PM EST 06/18/2021 1:00 PM EST Narrative Resulting Agency Comment Spec In Lab Jesus Bob DO HEMATOLOGY ORDERABL ES Performing Organization Address City/State/[facility] Co de Phone Number [facility] [place] [address] * (ABNORMAL) Differential, Automated (06/18/2021 12:48 PM EST) Neutrophils % 72.5 % [facility] Neutr Abs (ANC) 4.34 1.70 - 6.10 x10(3)/mc L [facility] Lymphocytes % 12.4 % [facility] Lymphocytes Abs 0.7(L) 0.9 - 3.2 x10(3)/mc L [facility] Monocytes % 13.9 % [facility] Monocyte Abs 0.8 0.3 - 0.9 x10(3)/mc L [facility] Eosinophils % 0.5 % [facility] Eosinophils Abs 0.0 0.0 - 0.4 x10(3)/mc L [facility] Basophils % 0.5 % [facility] Basophils Abs 0.0 0.0 - 0.1 x10(3)/mc L [facility] Immature Gran % 0.20 % [facility] Comment: Immature granulocytes(IG's)percentage and absolute count will include metamyelocytes, myelocytes, and promyelocytes. Blood smears from CBCs yielding IG's will be scanned manually for concordance. If this scan disagrees with the automated IG or if promyelocytes are noted, a manual differential will be performed. Karen Gran Abs 0.01 0.00 - 0.04 x10(3)/mc L [facility] Blood 06/18/2021 12:4 8 PM EST 06/18/2021 1:00 PM EST Narrative Resulting Agency Comment Spec In Lab Jesus Bob DO HEMATOLOGY ORDERABL ES [facility] [place] [address] * (ABNORMAL) Hemogram (06/18/2021 12:48 PM EST) WBC 6.0 4.0 - 9.5 x10(3)/[facility] RBC 4.68 4.00 - 5.21 x10(6)/[facility] Hemoglobin 12.7 11.7 - 15.5 g/dL [facility] Hematocrit 39.5 35.7 - 45.8 % [facility] MCV 84.4 82.6 - 94.4 fL [facility] MCH 27.1 27.1 - 32.0 pg [facility] MCHC 32.2 31.7 - 35.0 g/dL [facility] Platelets 199 145 - 357 x10(3)/[facility] RDWSD 82.4(H) 37.0 - 46.0 fL [facility] RDWCV 27.8(H) 11.5 - 14.1 % [facility] MPV 9.3 7.6 - 12.9 fL [facility] nRBC % Auto 0.0 % [facility] nRBC Abs Auto 0.000 0.000 - 0.000 x10(3)/mcL [facility] Blood 06/18/2021 12:4 8 PM EST 06/18/2021 1:00 PM EST Narrative Resulting Agency Comment Spec In Lab Jesus Bob DO HEMATOLOGY ORDERABL ES Performing Organization Address [facility] Co de Phone Number [facility] [place] [address] * (ABNORMAL) TSH (06/18/2021 12:48 PM EST) TSH 14.40(H) 0.27 - 4.20 mcIU/mL [facility] Comment: Reference Interval (mcIU/mL): Females: ??First Trimester: 0.23-3.88 ??Second Trimester: 0.22-3.90 ??Third Trimester: 0.44-4.66 Blood 06/18/2021 12:4 8 PM EST 06/18/2021 1:00 PM EST Narrative Resulting Agency Comment Spec In Lab Ramon Gaxiola MD CHEMISTRY ORDERABLES Performing Organization Address [facility] de Phone Number [facility] [place] [address] * T4, free (06/18/2021 12:48 PM EST) Free T4 1.62 0.93 - 1.70 ng/dL [facility] Comment: Reference Interval (ng/dL): Females: ??First Trimester: 0.97-1.68 ??Second Trimester: 0.77-1.51 ??Third Trimester: 0.77-1.49 Blood 06/18/2021 12:4 8 PM EST 06/18/2021 1:00 PM EST Narrative Resulting Agency Comment Spec In Lab Ramon Gaxiola MD CHEMISTRY ORDERABLES Performing Organization Address [facility] Co de Phone Number [facility] [place] [address] * T3 Total (06/18/2021 12:48 PM EST) Pathologist [facility] T3, Total 87 80 - 200 ng/dL [facility] Blood 06/18/2021 12:4 8 PM EST 06/18/2021 1:00 PM EST Narrative Resulting Agency Comment Spec In Lab Ramon Gaxiola MD CHEMISTRY ORDERABLES [facility] [place] [address] * (ABNORMAL) Comprehensive metabolic panel (non-fasting) (06/18/2021 12:48 PM EST) [facility] Glucose Lvl 79 65 - 199 mg/dL [facility] Comment:Diabetes: >=200 mg/d L plus symptoms BUN 14 8 - 18 mg/dL [facility] Creatinine 0.96 0.70 - 1.20 mg/dL [facility] Sodium 137 135 - 145 mmol/L [facility] Potassium 4.4 3.5 - 5.0 mmol/L [facility] Comment: Please note: ??Patients with WBC >100,000 may have falsely elevated Potassium levels. ??For accurate Potassium quantification in these patients send serum separator tube (gold top) for subsequent determinations. ??Contact the Clinical Chemistry Laboratory if there are any questions. Chloride 101 98 - 107 mmol/L [facility] CO2 26 22 - 31 mmol/L [facility] Anion Gap 10 5 - 15 mmol/L [facility] Calcium 9.8 8.5 - 10.5 mg/dL [facility] Total Protein 7.2 6.1 - 8.0 g/dL [facility] Albumin 3.7 3.2 - 5.2 g/dL [facility] AST 39(H) 0 - 30 unit/L [facility] ALT 23 0 - 30 unit/L [facility] Alk Phos 109(H) 35 - 105 unit/L [facility] Total Bilirubin 3.5(H) 0.2 - 1.3 mg/dL [facility] Estimated GFR 57(L) >=60 mL/min/1. 73 m?? [facility] Comment: This patient? s estimated [...] In Lab Ramon Gaxiola MD CHEMISTRY ORDERABLES [facility] [place] [address] documented in this encounter Visit Diagnoses Diagnosis Hyperthyroidism Thyrotoxicosis without mention of goiter or other cause, without mention of thyrotoxic crisis or storm documented in this encounter Care Teams Collections Associate Relationship Specialty Start Date End Date Noreen Adam APRN [address] [place] [address] PCP - General Family Medicine 04/27/16 02/12/22 documented as of this encounter
--- OUTSIDE RECORDS SUMMARY | 2023-12-07 03:56 | XMS_ITS | Encounter Summary ---
Author Organization [facility] Address [facility] [place] [address] Care Team Providers Care Drawbench Operator Name Role Phone Noreen Adam APRN Primary Care Provider [phone] Reason for Referral * Diagnostic Test (Routine) - Closed Specialty Diagnoses / Procedures Referred By Contac t Referred To Contact Diagnoses Paroxysmal atrial fibrillation Procedures Julia Wright MD [facility] [place] [address] Referral ID Status Reason Start Date Expiration Date V isits Requested Visits Authorized [id number] Closed Specialty Service Requested 09/17/2019 09/16/2020 1 1 Reason for Visit * Diagnostic Test (Routine) - Closed Specialty Diagnoses / Procedures Referred By Contac t Referred To Contact Diagnoses Paroxysmal atrial fibrillation Procedures Julia Wright MD [facility] [place] [address] Referral ID Status Reason Start Date Expiration Date V isits Requested Visits Authorized [id number] Closed Specialty Service Requested 09/17/2019 09/16/2020 1 1 Encounter Details Date Type Department Care Team (Latest Contact Info) Description 09/17/2019 12:23 PM EDT - 09/17/2019 11:59 PM EDT Hospital Encounter Non-Invasive Cardiology Lab [facility] [place] [address] Julia Wills MD [facility] [place] [address] Paroxysmal atrial fibrillation Discharge Disposition: Home Social History Tobacco Use Types Packs/Day Years Used Date Smoking Tobacco: Never Smokeless Tobacco: Never Alcohol Use Standard Drinks/Week Comments No 0 (1 standard drink = 0.6 oz pur e alcohol) Sex and Gender Information Value Date Recorded Sex Assigned at Not on file Gender Identity Not on file Sexual Orientation Not on file documented as of this encounter Medications at Time of Discharge Medication Sig Dispensed Refills Start Date End Date pantoprazole EC (Protonix) 40 mg Tablet, Delayed Release (E.C.) Take 40 mg by mouth daily. APIXABAN ORAL Take 5 mg by mouth 2 times daily. acetaminophen (TYLENOL) 500 mg Tablet Take 2 tablets by mouth every 6 hours as needed for Pain. 30 tablet 1 06/05/2016 dilTIAZem (CARDIZEM SR) 60 mg Capsule, Sust. Release 12 hr Take 60 mg by mouth 2 times daily. carboxymethylcellulose (REFRESH CELLUVISC) 1 % Dropperette, Gel 1 drop 3 times daily as needed. Reported on 07/13/2016 meTOPROLOL tartrate (LOPRESSOR) 50 mg Tablet Take 1 tablet by mouth 2 times daily. 60 tablet 5 07/16/2016 10/19/2019 rivaroxaban (XARELTO) 20 mg Tablet Take 1 tablet by mouth every evening. 30 tablet 3 06/05/2016 10/19/2019 senna-docusate (PERICOLACE) 8.6-50 mg Tablet Take 2 tablets by mouth daily. 60 tablet 11 06/05/2016 10/19/2019 famotidine (PEPCID) 20 mg Tablet 1 tablet 2 times daily. 03/25/2016 10/19/2019 betaxolol (BETOPTIC S) 0.25 % ophthalmic suspension 04/29/2004 10/19/2019 documented as of this encounter Plan of Treatment Not on file documented as of this encounter Procedures Procedure Name Priority Date/Time Associated Diagnosis Comments GREGOR Routine 09/17/2019 1:06 PM EDT Paroxysmal atrial fibrillation documented in this encounter Results * Gregor (09/17/2019 1:06 PM EDT) Anatomical Region Laterality Modality Other Narrative 10/22/2019 2:41 PM EDT [facility] ? Zio Patch? Ambulatory Cardiac Event Monitor Report Indication: paroxysmal atrial fibrillation Duration of recording ? 12 days 22 hours (after removing artifact) Summary Data Predominant rhythm ? atrial fibrillation (continuous) diurnal variation Minimum rate 45 bpm Maximum rate 184 bpm Average heart rate was 86 bpm Atrial fibrillation was seen continuously. - during daytime, HR was 50-110 bpm for 93% of the recorded period; 110-150 for 7%; >150 for <1% - during nighttime, HR was 50-110 bpm for 100% of the recorded period High degree AV block was not seen. Pauses were not seen. Ectopic beats Occasional ventricular premature beats (VPBs) (1.2%) No high grade ectopy Triggered and Patient Diary Events There were 8 triggered and 5 patient diary events: All triggered and diary events correlated with AF with rate 50s-120s with and without isolated ventricular ectopic beats. ??Diary events were reported as pounding, short of breath, lightheaded. Conclusion(s): ?? 1) Atrial fibrillation seen continuously and with diurnal variation with reasonable rate control (93% of daytime AF 50-110 bpm; 100% of nighttime AF 50-110 bpm) 2) No pauses or high degree AV block seen. 3) Triggered and diary events correlate with AF with HR 50s-120s with and without rare, isolated ventricular ectopy. 4) Occasional ventricular ectopy seen almost exclusively in isolation (rather than series). ??No high grade ventricular ectopy. Julia Wills MD CARDIAC SERVICES ORD ERABLES documented in this encounter Visit Diagnoses Diagnosis Paroxysmal atrial fibrillation Atrial fibrillation documented in this encounter Care Teams Drawbench Operator Relationship Specialty Start Date End Date Noreen Adam APRN [address] [place] [address] PCP - General Family Medicine 04/27/16 02/12/22 documented as of this encounter
--- OUTSIDE RECORDS SUMMARY | 2023-12-07 03:56 | XMS_ITS | Encounter Summary ---
[place] [address] Care Team Providers Care Physical Sciences Instructor Name Role Phone Noreen Adam APRN Primary Care Provider [phone] Reason for Referral * Diagnostic Test (Routine) - Closed Specialty Diagnoses / Procedures Referred By Contac t Referred To Contact Cardiology Diagnoses S/P aortic valve replacement Procedures Echocardiogram Transthoracic(Leb) Katelyn Vasquez APRN [address] [place] [address] [place] [address] [facility] [place] [address] Referral ID Status Reason Start Date Expiration Date V isits Requested Visits Authorized [id number] Closed Specialty Service Requested 06/16/2016 06/16/2017 1 1 Reason for Visit * Auth/Cert Specialty Diagnoses / Procedures Referred By Contac t Referred To Contact Diagnoses A-fib AFIB W/ RVR a fib Procedures CARDIOVERSION-ELECTIVE (WRVU 2.25) Referral ID Status Reason Start Date Expiration Date Visits Re quested Visits Authorized [id number] 1 1 Encounter Details Date Type Department Care Team (Latest Contact Info) Description 07/13/2016 12:00 PM EST - 07/13/2016 2:43 PM EST Hospital Encounter Non-Invasive [place] [address] Laureano Guzman MD [facility] [place] [address] S/P aortic valve replacement Discharge Disposition: Home Social History Tobacco Use [...] Sig Dispensed Refills Start Date End Date acetaminophen (TYLENOL) 500 mg Tablet Take 2 tablets by mouth every 6 hours as needed for Pain. 30 tablet 1 06/05/2016 carboxymethylcellulose (REFRESH CELLUVISC) 1 % Dropperette, Gel 1 drop 3 times daily as needed. Reported on 07/13/2016 AMIOdarone (CORDARONE; PACERONE) 200 mg Tablet Take 1 tablet by mouth 2 times daily for 30 days. 60 tablet 07/16/2016 08/15/2016 potassium chloride (K-DUR/KLOR-CON) 10 mEq Tablet Sustained Release Take 1 tablet by mouth daily for 30 days. 30 tablet 07/17/2016 08/16/2016 furosemide (LASIX) 20 mg Tablet Take 1 tablet by mouth daily for 30 days. 30 tablet 07/17/2016 08/16/2016 furosemide (LASIX) 20 mg Tablet Take 1 tablet by mouth daily. 30 tablet 12 07/17/2016 07/16/2016 meTOPROLOL tartrate (LOPRESSOR) 50 mg Tablet Take 1 tablet by mouth 2 times daily. 60 tablet 5 07/16/2016 10/19/2019 AMIOdarone (CORDARONE; PACERONE) 200 mg Tablet Take 200 mg by mouth 3 times daily. 07/16/2016 meTOPROLOL tartrate (LOPRESSOR) 50 mg Tablet Take 50 mg by mouth 2 times daily. 07/16/2016 aspirin 81 mg Tablet, Chewable Take 81 mg by mouth daily. 30 tablet 3 06/05/2016 07/16/2016 rivaroxaban (XARELTO) 20 mg Tablet Take 1 [...] Procedure Name Priority Date/Time Associated Diagnosis Comments ECHO COMPLETE W CONTRAST Routine 07/13/2016 1:26 PM EST S/P aortic valve replacement documented in this encounter Results * ECHO COMPLETE W CONTRAST (07/13/2016 1:26 PM EST) EF 40 HEARTVeset SYSTEM Anatomical Region Laterality Modality Other 07/13/2016 Narrative 07/13/2016 1:54 PM EST Procedure: ?Transthoracic Echocardiogram Patient: ?FERNANDO SANTIAGO Grace ?(Age): 1945(70y) Med Rec#: ? [id number] ?Sex: ?F ? Site Loc: ? [facility] ?Ht / Wt: ??170(cm)/93.44(k Pt. Loc: ?Echo Lab ?BSA: ?2.05 Study Date: ?? 07/13/2016 ?Pt. Type: Outpatient Tape: ? 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 A-Fib BP: ? 110/60 SUMMARY: [...] ? Pulmonic Valve/Qp:Qs ?Value ?Units (Range) ? IA end-diastolic Vma1.9 ?m/sec ? PA end-diastolic pre22 [...] ? Mid-Inferior ?Hypokinetic ? Mid-Inferoseptal ?Hypokinetic ? [place]-Septal ? Hypokinetic ? [place]-Anterior ? Normal ? [place]-Lateral ?Normal ? [place]-Inferior ? Normal ? [place]-Tip ?Normal ? This report has been electronically signed by: Chris Davison M.D. ? 07/13/2016 13:54:03 Images reviewed and interpretation verified [facility] Cardiac Ultrasound Laboratory Procedure Note Chris Davison MD - 07/13/2016 Procedure: Transthoracic Echocardiogram Patient: FERNANDO CASTANON(Age): 1945(70y) Med Rec#: [id number] Sex: F Site Loc: [facility] Ht / Wt: 170(cm)/93.44(k Pt. Loc: Echo Lab BSA: 2.05 Study Date: 07/13/2016 Pt. 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 Basal [...] 37 mmHg Pulmonic Valve/Qp:Qs Value Units (Range) IA end-diastolic Vma1.9 m/sec PA end-diastolic pre22 mmHg MPA diameter 2.2 cm Measurement Trending Name 07/13/2016 LV EDV BP 73.9 LVIDd (2D) 4.05 LV ESV BP 44.5 LA ESV BP (MOD) 75.7 LVIDs (2D) 2.8 Wall Motion: Segment Name Rest Base-Anteroseptal Normal Base-Anterior Normal Base-Anterolateral Normal Base-Posterolateral Normal Base-Inferior Hypokinetic Base-Inferoseptal Hypokinetic Mid-Anteroseptal Hypokinetic Mid-Anterior Normal Mid-Anterolateral Normal Mid-Posterolateral Hypokinetic Mid-Inferior Hypokinetic Mid-Inferoseptal Hypokinetic [place]-Septal Hypokinetic [place]-Anterior Normal [place]-Lateral Normal [place]-Inferior Normal [place]-Tip Normal This report has been electronically signed by: Chris Davison M.D. 07/13/2016 13:54:03 Images reviewed and interpretation verified [facility] Cardiac Ultrasound Laboratory Laureano Guzman MD ECHO ORDERABLES documented in this encounter Visit Diagnoses Diagnosis S/P aortic valve replacement Heart valve replaced by other means documented in this encounter Administered Medications Inactive Administered Medications - up to 3 most recent administrations Medication Order MAR Action Action Date Dose Rate Site perflutren lipid microspheres (DEFINITY) injection 1.5 mL 1.5 mL, Intravenous, ONCE PRN, 1 dose, Starting on Tue07/13/16 at 1328, Until Tue07/13/16 at 1328, prn, Routine Given 07/13/2016 1:28 PM EST 1.5 mLs documented in this encounter Care Teams Physical Sciences Instructor Relationship Specialty Start Date End Date Noreen Adam, ANIKET [address] [place] [address] PCP - General Family Medicine 04/27/16 02/12/22 documented as of this encounter
--- OUTSIDE RECORDS SUMMARY | 2023-12-07 03:56 | XMS_ITS | Encounter Summary ---
Author Organization [facility] [place] [address] Care Team Providers Care General Operations Manager Name Role Phone Unknown Primary Care Provider Unavailabl e Encounter Details Date Type Department Care Team (Late st Contact Info) Description 04/09/2022 Orders [place] [address] Jesus Bob, [facility] [place] [address] Subclinical hypothyroidism Social History Tobacco Use Types Packs/Day Years [...] as of this encounter Visit Diagnoses Diagnosis Subclinical hypothyroidism Other specified acquired hypothyroidism documented in this encounter Care Teams General Operations Manager Relationship Specialty Start Date End Date Unknown None PCP - General 02/13/22 09/12/22 documented as of this encounter
--- OUTSIDE RECORDS SUMMARY | 2023-12-07 03:56 | XMS_ITS | Encounter Summary ---
Author Organization [facility] [place] [address] Care Team Providers Care Medical Assisting Instructor Name Role Phone Noreen Adam APRN Primary Care Provider [phone] Encounter Details Date Type Department Care Team (Late st Contact Info) Description 09/16/2021 10:30 AM EDT TH Visit (TeleHealth) [place] [address] Jesus Bob, [facility] [place] [address] Thyroiditis Social History Tobacco Use Types Packs/Day Years Used Date Smoking Tobacco: Never Smokeless Tobacco: Never Alcohol Use Standard Drinks/Week Comments No 0 (1 standard drink = 0.6 oz pur e alcohol) Sex and Gender Information Value Date Recorded Sex Assigned at Not on file Gender Identity Not on file Sexual Orientation Not on file documented as of this encounter Progress Notes * Jesus Bob, - 09/16/2021 10:30 AM EDT Images from the original note were not included. Ms. Massiel Max is an 75 y.o. female who presents for ongoing care of thyrotoxicosis. Interval history: Patient reports she had been doing well since her last visit. She was able to see cardiology and was started on diuresis. She estimates she is lost 30 pounds of fluid. She feels much better with thischange. She notes her blood pressure has been checked at doctors appointments and she believes it has been fine. She notes she has some weakness in her upper arms. Her appetite is okay. She does not have diabetes or elevated blood sugar as far she knows. She does have some bruising but not too muchand does take Eliquis. She is able to get up from a chair more easily than she has been in the pastthough she does use her arms for assistance. She denies any abdominal striae. She did recently havea febrile illness that lasted about 5 days. Plan from previous note: 75-year-old female with a history of cardiac [...] am going to reach out to her social science instructor so she can hopefully have urgent visit in light of her heart failure. ?? -Repeat thyroid labs today -She will follow-up urgently with her social science instructor -Return to clinic in 3 months Patient Active Problem List Diagnosis ??? A-fib ??? 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 metoprolol succinate XL [...] by mouth daily., Disp: , Rfl: ??? dilTIAZem (CARDIZEM SR) 60 mg Capsule, Sust. Release 12 hr, Take 60 mg by mouth 2 times daily.,Disp: , Rfl: ??? APIXABAN ORAL, Take 5 mg by mouth 2 times daily., Disp: , Rfl: ??? acetaminophen (TYLENOL) 500 mg Tablet, Take 2 tablets by mouth every 6 hours as needed for Pain. (Patient not taking: Reported on 06/18/2021), Disp: 30 tablet, Rfl: 1 ??? carboxymethylcellulose (REFRESH CELLUVISC) 1 % Dropperette, Gel, 1 drop 3 times daily as needed. Reported on 07/13/2016, Disp: , Rfl: has no past medical history on file. Physical Exam: Telephone visit Psychological: alert/oriented to person, place, time; normal affect; memory intact; normal judgement/insight Laboratory Data: Assessment / Plan: 75-year-old female with a history of cardiac myxoma resected several years ago with subsequent atrial fibrillation presents for follow-up of hyperthyroidism. She reports a viral illness in January with [...] May which showed reduced iodine uptake diffusely. She has now had follow up TFTs on 09/11/21 that have normalized. Suspect this was a post viral thyroiditis. -recommend re-checking TSH and free T4 in 6 months and then annually. This can be done with her PCP. -recommend checking DXA and Vit D if not already done. She should aim for at least 1,000mg of calcium intake daily through diet and/or supplement Discussed with attending physician, Dr. Blanco. Jesus Bob DO Endocrinology Fellow * Jamil lBanco MD - 09/16/2021 10:30 AM EDT Patient evaluated by me and Dr. Bob. This is telemedicine visit. I agree with his above assessment and plan. Hyperthyroidism has resolved, likely due to thyroiditis as etiology. Needs BMD by DXA due to age and hyperthyroidism increases bone loss. Other as per fellow. Jamil Blanco MD Professor documented in this encounter Plan of Treatment Not on file documented as of this encounter Visit Diagnoses Diagnosis Thyroiditis Thyroiditis, unspecified documented in this encounter Care Teams Medical Assisting Instructor Relationship Specialty Start Date End Date Noreen Adam, IRRIGATION DISTRICT MANAGER [address] [place] [address] [facility] [address] [place] [address] PCP - General Family Medicine 04/27/16 02/12/22 documented as of this encounter
--- OUTSIDE RECORDS SUMMARY | 2023-12-07 03:56 | XMS_ITS | Encounter Summary ---
[facility] [place] [address] Care Team Providers Care Equipment Operat0R Name Role Phone Noreen Adam APRN Primary Care Provider [phone] Reason for Visit * Auth/Cert Specialty Diagnoses / Procedures Referred By Contac t Referred To Contact Diagnoses A-fib AFIB W/ RVR a fib Procedures CARDIOVERSION-ELECTIVE (WRVU 2.25) Referral ID Status Reason Start Date Expiration Date Visits Re quested Visits Authorized [id number] 1 1 Encounter Details Date Type Department Care Team (Latest Contact Info) Description 07/13/2016 2:44 PM EST - 07/16/2016 1:31 PM EST Hospital Encounter Intermediate [place] [address] [facility] [place] [address] Atrial fibrillation, unspecified type Discharge Disposition: Home with VNA Social History Tobacco Use Types Packs/Day Years [...] Sign Reading Time Taken Comments Blood Pressure 140/68 07/16/2016 12:14 PM EST Pulse 57 07/16/2016 12:14 PM EST Temperature 36.6 ??C (97.9 ??F) 07/16/2016 12:[address] Respiratory Rate 16 07/16/2016 12:14 PM EST Oxygen Saturation 96% 07/16/2016 7:00 AM EST Inhaled Oxygen Concentration - - Weight 89.4 kg (197 lb 1.5 oz) 07/16/2016 4:45 A M EST Height 167.6 cm (5' 6) 07/13/2016 3:56 PM EST Body Mass Index 31.81 07/13/2016 3:56 PM EST documented in this encounter Discharge Summaries * Hussein Hill PA - 07/16/2016 11:10 AM EST Inpatient - Discharge Summary Patient Name: Massiel Max Patient Age: 70 y.o. Birthdate: 1945 Language: Citizen Of [place] Race: White Ethnicity: Not nor Admit Date: 07/13/2016 Discharge Date: 07/16/2016 Attending Physician: Laureano Gzuman MD Follow-up Recommendations for Providers: Please continue routine management of cardiovascular risk factors including blood pressure, lipids,glucose, etc. Please note any changes to medications. Patient to follow-up with PCP, Noreen Adam APRN, in 1-2 weeks. Patient to follow-up with Rn Chronic, Dr. Tonny Byrd, on 07/22/2016 at 9:30 am. Inpatient Provider Contact Information: [facility] Section of Cardiac Surgery [facility] [phone] FAX [phone] Discharge Diagnoses (Hospital Problems) Primary Diagnoses: A-fib w/ RVR Secondary Diagnoses: Other Diagnoses (Chronic Problems): Active Non-Hospital Problems Diagnosis ??? Atrial myxoma Discharged to: Patient discharged to home Functional and Cognitive Status: At baseline. Discharge Conditions/Prognosis: Stable and improving. No past medical history on file. Past Surgical History Procedure Laterality Date ??? Pro removal heart lesion programming internship N/A 05/31/2016 @[facility] INTRACARD[facility] TUM[facility] W\CPB ([facility] 38.45) performed by Laureano Guzman MD at [facility] MA[facility] OR ??? Pro cardioversion N/A 07/14/2016 CARDIOVERSION-ELECTIVE ([facility] 2.25) performed by Adan Jovel MD at [facility] MA[facility] OR Prior To Admission Medications Prescriptions Prior to Admission Medication Sig Dispense Refill Last Dose ??? AMIOdarone (CORDARONE; PACERONE) 200 mg Tablet Take 200 mg by mouth 3 times daily. Taking at Unknown time ??? meTOPROLOL tartrate (LOPRESSOR) 50 mg Tablet Take 50 mg by mouth 2 times daily. Taking at Unknown time ??? acetaminophen (TYLENOL) 500 mg Tablet Take 2 tablets by mouth every 6 hours as needed for Pain.(Patient not taking: Reported on 07/13/2016) 30 tablet 1 Not Taking at Unknown time ??? aspirin 81 mg Tablet, Chewable Take 81 mg by mouth daily. 30 tablet 3 Taking at Unknown time ??? rivaroxaban (XARELTO) 20 mg Tablet Take 1 tablet by mouth every evening. 30 tablet 3 Taking at Unknown time ??? senna-docusate (PERICOLACE) 8.6-50 mg Tablet Take 2 tablets by mouth daily. 60 tablet 11 Takingat Unknown time ??? carboxymethylcellulose (REFRESH CELLUVISC) 1 % Dropperette, Gel 1 drop 3 times daily as needed.Reported on 07/13/2016 Not Taking at Unknown time ??? famotidine (PEPCID) 20 mg Tablet 1 tablet 2 times daily. Taking at Unknown time ??? betaxolol (BETOPTIC S) 0.25 % ophthalmic suspension Taking at Unknown time Updated Allergies/ADRs: No Known Allergies History of Presentation: Massiel Max is a 70 y.o. year old woman who is s/p Atrial Myxoma removal on 05/31/2016. She returned to clinic today for her 4 wk follow up visit. Her clinic ekg showed AF with RVR. She states she was admitted to [facility] about 2 wks ago for afib. At that time they stopped her ASA, added diltiazem andincreased her metoprolol. She was discharged home and she saw Dr. Byrd in his clinic yesterday.At that time she was still in afib, though rate controlled. He had her restart ASA, stop the diltiazem and increase her amio to 200mg tid. She is scheduled for cardioversion on Tuesday with Dr. Byrd. She does complain of occasional palpitations, denies dyspnea, fatigue, n/v/d. Major Procedures/Operations: Electric cardioversion on 07/14/2016 Hospital Course: Massiel Max was admitted to [facility] on 07/13/2016 viadirect admit from [facility] cardiac surgery clinic to the intermediate cardiac care unit where she was medically managed prior to her procedure (electric cardioversion). The next day, she was brought to the OR's minor procedural room where Dr. Jovel performed an electrical cardioversion. She tolerated the procedure well and returned to sinus rhythm. She was brought to the post-anesthesia care unit following the procedure for a brief stay and then brought back to the intermediate cardiac care unit for continued observation and optimization of medications. She was transitioned from IV amiodarone to oral Amiodarone following the procedure. Aspirin was stopped before discharge home as Massiel was experiencing some bruising under her right eyelid with light scratching. She is to continue her Rivaroxaban without change, until follow-up withcardiology, where this medication can be further managed. She was seen by Physical Therapy. Her discharge plan at this time is to home. The remainder of the her hospital course was uneventful and by post-procedural day #2 she had met all criteria for discharge. She had walked 5 minutes and gone up and down stairs. She was tolerating a regular diet and hada bowel movement. Vital Signs at Discharge: Last set of vitals: BP 140/68 (BP Location (NBP): Right arm) Pulse 57 Temp 36.6 ??C (97.9 ??F) (Oral) Resp 16 Ht 167.6 cm (5' 6) Wt 89.4 kg (197 lb 1.5 oz) SpO2 96% BMI 31.81 kg/m2 Patient Vitals for the past 168 hrs: Weight 07/16/16 0445 89.4 kg (197 lb 1.5 oz) 07/15/16 0700 90.3 kg (199 lb 1.2 oz) 07/14/16 0700 89.4 kg (197 lb 1.5 oz) 07/13/16 1556 91.5 kg (201 lb 11.5 oz) Current weight: 89.4 kg Admit/Preop weight: 91.9 kg Pertinent physical exam findings prior to discharge: General: NAD, pleasant, reclining in hospital chair. Neuro: A&Ox3, CN II-XII grossly intact, conversational. HEENT: Normocephalic, atraumatic, EOMI, sclerae anicteric. Neck: Supple, trachea midline. Heart: Normal S1/S2, no M/R/G appreciated. Lungs: CTAB, no wheeze/ronchi/rales appreciated, non-labored breathing on RA. Abd: Soft, NT, (+)BS. Ext: WWP, no LE edema bilaterally. Important Studies and Lab Data: Lab Results Component Value Date WBC 8.0 07/13/2016 RBC 4.46 07/13/2016 HGB 13.2 07/13/2016 HCT 39.8 07/13/2016 PLATELET 372 (H) 07/13/2016 No results for input(s): INR in the last 168 hours. Lab Results Component Value Date NA 138 07/13/2016 K 3.9 07/16/2016 CL 98 07/13/2016 CO2 24 07/13/2016 BUN 12 07/13/2016 CREATININE 1.04 07/13/2016 Pending Studies and Lab Data: None Immunizations Given this Hospitalization: There is no immunization history for the selected administration types on file for this patient. Smoking Status at Discharge: History Smoking Status ??? Never Smoker Smokeless Tobacco ??? Never Used Discharge Medications: Your Medications Notice Some of the medications listed here do not show instructions, such as how often to take the medication. Ask your doctor or nurse how to use these medications. Specifically ask about this and similar medications: betaxolol (BETOPTIC S) 0.25 % ophthalmic suspension New Medications Dose Details furosemide 20 mg Tab Commonly known as: LASIX Take 1 tablet by mouth daily for 30 days. Start taking on: 07/17/2016 20 mg Quantity: 30 tablet Refills: 0 potassium chloride 10 mEq Tbsr Commonly known as: K-DUR/KLOR-CON Take 1 tablet by mouth daily for 30 days. Start taking on: 07/17/2016 10 mEq Quantity: 30 tablet Refills: 0 Continued medications with new dosing Dose Details AMIOdarone 200 mg Tab Commonly known as: CORDARONE; PACERONE Take 1 tablet by mouth 2 times daily for 30 days. What changed: when to take this 200 mg Quantity: 60 tablet Refills: 0 Continued medications, unchanged Dose Details acetaminophen 500 mg Tab Commonly known as: TYLENOL Take 2 tablets by mouth every 6 hours as needed for Pain. 1000 mg Quantity: 30 tablet Refills: 1 BETOPTIC S 0.25 % Drps ?nk?wn!?? Generic drug: betaxolol Refills: 0 carboxymethylcellulose 1 % Dpge Commonly known as: REFRESH CELLUVISC 1 drop 3 times daily as needed. Reported on 07/13/2016 1 drop Refills: 0 famotidine 20 mg Tab Commonly known as: PEPCID 1 tablet 2 times daily. 1 tablet Refills: 0 meTOPROLOL tartrate 50 mg Tab Commonly known as: LOPRESSOR Take 1 tablet by mouth 2 times daily. 50 mg Quantity: 60 tablet Refills: 5 rivaroxaban 20 mg Tab Commonly known as: XARELTO Take 1 tablet by mouth every evening. 20 mg Quantity: 30 tablet Refills: 3 senna-docusate 8.6-50 mg Tab Commonly known as: PERICOLACE Take 2 tablets by mouth daily. 2 tablet Quantity: 60 tablet Refills: 11 STOPPED Medications aspirin 81 mg Chew Instructions Given to Patient at Discharge: General Instructions None Discharge Instructions: Call your doctor if: You have a fever of greater than 101 degrees, shaking chills, if you develop redness, or if you have questions. Your surgeon, Dr. Laureano Guzman and/or the Cardiac Surgery Physician Nozzle Tender Team may be reached at . Weight: Massiel is being sent home with 30 days of Lasix and Potassium replacement. This should be used with care for weight changes and communication with Dr. Guzman's office should there be concerning changes. Weigh yourself daily. Please call the office if you notice increasing weight, increasing fluid retention (edema), and/or SOB. Activity level: Please resume normal activities after an additional 2 weeks of using the previouslyadvised restrictions. Home activities: Please return to normal activities after an additional 2 weeks of reduced activitythat was advised following your surgery. Stairs: There are no restrictions on stair climbing. Use common sense. Don't exhaust yourself. Smoking: It is very important that you not smoke after surgery. Smoking cessation education was provided as appropriate. If you need further assistance with this please call and you will be referred to a smoking cessation specialist. Medications: Take only those medications listed on your discharge information. Diet: You should follow your normal diet, including any normal restictions. Driving: You may now drive without restriction. Shower/Bath: Please shower and or bath normally. Home oxygen therapy: N/A Follow up appointments: 1. You should arrange to see your primary care physician, Noreen Adam APRN, in one-to-two weeksor as soon as possible. 2. Cardiology, Dr. Tonny Byrd, on 07/22/2016 at 9:30 am. Future Appointments and Orders Future Orders Complete By Expires Referral to Home Health - at DISCHARGE [TIS5131 CPT(R)] As directed Process Instructions: Scheduling Instructions: Comments: DOCUMENTATION FOR VNA SERVICES (INCLUDING THOSE PATIENTS WITH MEDICARE COVERAGE REQUIRING HOME VNA SERVICES AND/OR HOSPICE SERVICES) PATIENT'S LOCATION: Massiel Max [address] [place] [phone] (home) No relevant phone numbers on file. Behavioral Science Chair's Name: self In discussion with the attending physician, it is certified that this patient is under their care and that they, or a Nurse Practitioner, or Physician Nozzle Tender who is working directly with them, hada face to face encounter that meets the physician face to face encounter requirements with this patient on 07/14/2016 The encounter with the patient was in whole, or in part, for the following medical condition, whichis the primary reason for home health care services: A-Fib In discussion with the provider, it is certified that, based on their findings, the following services are medically necessary for home health services. To provide the following care/treatments with the clinical findings supporting the need for services as follows: HOME HEALTH AGENCY: [facility]. PHONE: [phone] FAX: [phone] RN orders: Cardiopulmonary assessment, incisional assessment, assess vital signs, assessment of rehab progress, medication management and effectiveness, home safety evaluation. 2-3x/week and PRN Please monitor for bruising or bleeding as the patient is on Rivaroxaban. PT ORDERS: Continue rehab for endurance, gait stability and strength with mobility and transfers. Home safety evaluation. Home exercise program if appropriate. OT Orders: Exercises for aADLs, home safety asessment Social Work Orders: Home Safety/Needs assessment Start of Care Date: 24 hours post discharge SPECIAL INSTRUCTIONS: For any follow up questions, needs, or issues please call the Cardiac SurgeryOffice at [phone] FOR MEDICARE ONLY: (please delete this section if not Medicare) In discussion with the attending physician, it is certified that the clinical findings support thatthis patient is homebound i.e. absences from home require considerable and taxing effort due to: Restricted mobility and poor activity tolerance due to recent cardiac surgery. Patient requires assistance of a person to leave the home. Home Health agencies which cover the area of patient's residence have been reviewed, either verbally or in writing, and patient/family have chosen the agency as noted. Questions: Agency name and contact information: [place] Patient location post discharge: home What services are requested: Registered Nurse Physical Therapy Social Work Occupational Therapy Start date: Responsible MD post discharge contact info: Arrangements for VNA/home care: As above. Signed: Hussein Hill PA-C 07/16/2016 [facility] Section of Cardiac Surgery [facility] [address] FAX [phone] Date: 07/16/2016 CC: Noreen Adam APRN No referring provider defined for this encounter. documented in this encounter Discharge Instructions * Patient Instructions* Hussein Hill PA - 07/16/2016 12:56 PM EST Discharge Instructions: ?? Call your doctor if: You have a fever of greater than 101 degrees, shaking chills, if you develop redness, or if you have questions. Your surgeon, Dr. Laureano Guzman and/or the Cardiac Surgery Physician Nozzle Tender Team may be reached at . ?? Weight: Massiel is being sent home with 30 days of Lasix and Potassium replacement. This should be used with care for weight changes and communication with Dr. Guzman's office should there be concerning changes. Weigh yourself daily. Please call the office if you notice increasing weight, increasing fluid retention (edema), and/or SOB. ?? Activity level: Please resume normal activities after an additional 2 weeks of using the previouslyadvised restrictions. ?? Home activities: Please return to normal activities after an additional 2 weeks of reduced activitythat was advised following your surgery. ?? Stairs: There are no restrictions on stair climbing. Use common sense. Don't exhaust yourself. ?? Smoking: It is very important that you not smoke after surgery. Smoking cessation education was provided as appropriate. If you need further assistance with this please call and you will be referred to a smoking cessation specialist. ?? Medications: Take only those medications listed on your discharge information. ? Diet: You should follow your normal diet, including any normal restictions. ?? Driving: You may now drive without restriction. ?? Shower/Bath: Please shower and or bath normally. ?? Home oxygen therapy: N/A ?? Follow up appointments: ?? 1. You should arrange to see your primary care physician, Noreen Adam APRN, in one-to-two weeksor as soon as possible. ?? 2. Cardiology, Dr. Tonny Byrd, on 07/22/2016 at 9:30 am. documented in this encounter Medications at Time of Discharge [...] for 30 days. 30 tablet 07/17/2016 08/16/2016 meTOPROLOL tartrate (LOPRESSOR) 50 mg Tablet Take [...] 04/29/2004 10/19/2019 documented as of this encounter Progress Notes * Hussein Hill PA - 07/15/2016 2:25 PM EST Cardiac Surgery Progress Note: ID: [id number] Massiel Max is a 70 y.o. year old female who is s/p Atrial Myxoma removal on 05/31/2016. She returned to clinic today for her 4 wk follow up visit. Her clinic ekg showed AF with RVR. EF-65% 24 Hour Events: - Electric cardioversion yesterday at 10 am yesterday. Converted back into sinus rhythm. Has been in sinus radha since. Rates high 40s to low 50s. S: Had a good night. Is wondering if she will have her follow-up with Dr. Guzman since she missedher 4 week follow-up with him. Also, is wondering if she should be on both Xarelto and low dose ASA. Doesn't want to walk around the vee because she isn't interested in being in public locations with all the people that are on the vee outside her room. O: Temperature Temp: 37 ??C (98.6 ??F) Temp: [36.3 ??C (97.3 ??F)-37 ??C (98.6 ??F)] Heart Rate Heart Rate: 56 Heart Rate: [51-73] Blood Pressure BP: 126/59 BP: (121-154)/(55-69) Respiratory Rate Resp: 20 Resp: [16-20] SpO2 SpO2: 95 % SpO2: [94 %-98 %] I/O last 3 completed shifts: In: 1580 [P.O.:1530; I.V.:50] Out: 3950 [Urine:3950] I/O this shift: In: 522 [P.O.:520; I.V.:2] Out: 775 [Urine:775] Admit weight 91.5 kg Current Weight Weight - Scale: 90.3 kg (199 lb 1.2 oz) Patient Vitals for the past 168 hrs: Weight 07/15/16 0700 90.3 kg (199 lb 1.2 oz) 07/14/16 0700 89.4 kg (197 lb 1.5 oz) 07/13/16 1556 91.5 kg (201 lb 11.5 oz) Physical exam: General: NAD, pleasant, reclining in hospital chair. Neuro: A&Ox3, CN II-XII grossly intact, conversational. Heart: Normal S1/S2, no M/R/G appreciated. Lungs: CTAB, no wheeze/ronchi/rales appreciated, non-labored breathing on RA. Abd: Soft, NT, (+)BS. Ext: WWP, no LE edema bilaterally. Incision: Dressings CDI, without drainage or crepitus. Tubes/lines/drains: PIV. LABS: Recent Labs 07/13/16 1654 WBC 8.0 HGB 13.2 HCT 39.8 PLATELET 372* Recent Labs 07/15/16 1055 07/13/16 1654 NA -- 138 K 4.2 4.0 CL -- 98 CO2 -- 24 BUN -- 12 CREATININE -- 1.04 GLUCOSE -- 85 CALCIUM -- 9.7 ABG (Arterial Blood Gas) No results found for: PHART, PO2ART, PFH2BPB Assessment/Plan: Continue to optimize hemodynamics. Transition to PO Amio. Assess tele until discharge. Continue Xarelto for paroxysmal A-fib management. Neuro: APAP, zofran CV: Metop 50 Q12H, amiodarone 200 BID, Monitor on tele Resp: IS, deep breath, ambulate GI: RBOs, walking,Pepcid : urinating spontaneously Renal: Lasix 20 IV BID, K PRN ID: None Heme: ASA 81, Xarelto 20 Endo: None Other: Betaxolol Dispo: ICCU DW Attending Surgeon on rounds. Signed: Hussein Hill PA-C 07/15/2016 Team pager: [phone] after 5pm [facility] Section of Cardiac Surgery * Jaylene Franklin RN - 07/14/2016 5:28 PM EST Pt c/o brief discomfort in chest at incision site soon stating she was thinking a lot about taking her xarelto earlier than she normally does at home and that was bothering her. On telemetry pt's heart rate briefly increased to mid to high 70s from the mid 50s. Pt lying in bed. Pain spontaneously resolved, MYLES Zepeda notified. No intervention at this time. Will continue to monitor. Call light withinreach. * Jaylene Franklin RN - 07/14/2016 4:54 PM EST OUTCOME EVALUATION NOTE: OUTCOME SUMMARY: Pt went for cardioversion today and was successfully cardioverted into a NSR. No other events, pt walking around unit. See doc flowsheet for assessment and VSS. PLAN MOVING FORWARD: Monitor rhythm overnight, possible discharge INDIVIDUALIZED FALL PREVENTION INTERVENTIONS: Patient-specific fall risk factors per assessment: [current deficits]: Unfamiliar environment Assistance [level of assistance required for transfers and ambulation]: Independent Supervision [direct monitoring required during toileting and ADLs]: Independent Surveillance [continuous indirect monitoring]: Telemetry, call light within reach, rings appropriately, hourly rounding Patient-specific fall prevention interventions for sensory deficits provided, if applicable: [X] No CPG GOAL OUTCOME EVALUATION: * Katelyn Vasquez APRN - 07/14/2016 11:12 AM EST Cardiac Surgery History and Physical Note CC: AFib, RVR HPI: Massiel Max is a 70 y.o. year old woman who is s/p Atrial Myxoma removal on 05/31/2016. She returned to clinic today for her 4 wk follow up visit. Her clinic ekg showed AF with RVR. She states she was admitted to [facility] about 2 wks ago for afib. At that time they stopped her ASA, added diltiazem andincreased her metoprolol. She was discharged home and she saw Dr. Byrd in his clinic yesterday.At that time she was still in afib, though rate controlled. He had her restart ASA, stop the diltiazem and increase her amio to 200mg tid. She is scheduled for cardioversion on Tuesday with Dr. Byrd. She does complain of occasional palpitations, denies dyspnea, fatigue, n/v/d. 24 hour interval: no overnight events, remained in an Aflutter overnight, NPO for DCCV this am Review of Symptoms: Review of Systems - General ROS: negative for - fever Respiratory ROS: negative for - shortness of breath Cardiovascular ROS: negative for - chest pain; positive for - palpitations Gastrointestinal ROS: negative for - abdominal pain or nausea/vomiting Musculoskeletal ROS: negative for - muscular weakness Neurological ROS: negative for - TIA or stroke symptoms Problem List: Patient Active Problem List Diagnosis ??? A-fib ??? Atrial myxoma S/p resection 05/31/16 Past Medical History: No past medical history on file. Past Surgical History: Past Surgical History Procedure Laterality Date ??? Pro removal heart lesion programming internship N/A 05/31/2016 @[facility] INTRACARDIAC TUMOR W\CPB ([facility] 38.45) performed by Laureano Guzman MD at [facility] OR Social History: Social History Substance Use Topics ??? Smoking status: Never Smoker ??? Smokeless tobacco: Never Used ??? Alcohol use No Social History Social History Narrative Family History: No family history on file. Meds Prior to Admission: Prescriptions Prior to Admission Medication Sig Dispense Refill Last Dose ??? AMIOdarone (CORDARONE; PACERONE) 200 mg Tablet Take 200 mg by mouth 3 times daily. Taking at Unknown time ??? meTOPROLOL tartrate (LOPRESSOR) 50 mg Tablet Take 50 mg by mouth 2 times daily. Taking at Unknown time ??? acetaminophen (TYLENOL) 500 mg Tablet Take 2 tablets by mouth every 6 hours as needed for Pain.(Patient not taking: Reported on 07/13/2016) 30 tablet 1 Not Taking at Unknown time ??? aspirin 81 mg Tablet, Chewable Take 81 mg by mouth daily. 30 tablet 3 Taking at Unknown time ??? rivaroxaban (XARELTO) 20 mg Tablet Take 1 tablet by mouth every evening. 30 tablet 3 Taking at Unknown time ??? senna-docusate (PERICOLACE) 8.6-50 mg Tablet Take 2 tablets by mouth daily. 60 tablet 11 Takingat Unknown time ??? carboxymethylcellulose (REFRESH CELLUVISC) 1 % Dropperette, Gel 1 drop 3 times daily as needed.Reported on 07/13/2016 Not Taking at Unknown time ??? famotidine (PEPCID) 20 mg Tablet 1 tablet 2 times daily. Taking at Unknown time ??? betaxolol (BETOPTIC S) 0.25 % ophthalmic suspension Taking at Unknown time Current Meds: Scheduled Meds: Continuous Infusions: PRN Meds:. Allergies: No Known Allergies Physical Exam: BP 134/62 Pulse (!) 49 Temp 37 ??C (98.6 ??F) (Temporal) Resp 13 Ht 167.6 cm (5' 6) Wt 89.4 kg (197 lb 1.5 oz) SpO2 97% BMI 31.81 kg/m2 General: Well appearing in no acute distress. Neuro: Conversant. Alert and oriented x 3. No neuro deficits noted Skin: Warm, dry, and well perfused. Well healed sternotomy Neck: No JVD. Heart: irregularly regular, S1/S2 audible Lungs: clear bilaterally. Abdomen: Soft, non-tender, (+) bowel sounds Extremities: 1+ edema to BLE Diagnostics: Lab Results Component Value Date WBC 8.0 07/13/2016 RBC 4.46 07/13/2016 HGB 13.2 07/13/2016 HCT 39.8 07/13/2016 PLATELET 372 (H) 07/13/2016 No results for input(s): INR in the last 168 hours. Lab Results Component Value Date NA 138 07/13/2016 K 4.0 07/13/2016 CL 98 07/13/2016 CO2 24 07/13/2016 BUN 12 07/13/2016 CREATININE 1.04 07/13/2016 Assessment and Plan: 70 y.o. year old woman who is a re-admit for atrial fib/flutter, VR 110-130. Scheduled for DCCV this am with cardiology. On Xarelto DCCV cardioversion this am Continue telemetry monitoring Continue amiodarone 200mg TID Continue metoprolol 50mg q6h Resume diet following procedure Continue lasix and strict I+O Monitor potassium levels Cardiology consult appreciated Katelyn Vasquez APRN [facility] Section of Cardiac Surgery Date: 07/14/2016 * Sue Crenshaw RN - 07/14/2016 11:06 AM EST Pt met phase 1 recovery with no complications. EKG done here in PACU, pt in SB with occ PVC's. Handoff report given to AIDEN Mariee on 4E. Pt brought back to unit on portable heart monitor by BUDDHIST MONK Kate. documented in this encounter H&P Notes * Devon Parada APRN - 07/13/2016 3:29 PM EST Cardiac Surgery History and Physical Note CC: AFib, RVR HPI: Massiel Max is a 70 y.o. year old woman who is s/p Atrial Myxoma removal on 05/31/2016. She returned to clinic today for her 4 wk follow up visit. Her clinic ekg showed AF with RVR. She states she was admitted to [facility] about 2 wks ago for afib. At that time they stopped her ASA, added diltiazem andincreased her metoprolol. She was discharged home and she saw Dr. Byrd in his clinic yesterday.At that time she was still in afib, though rate controlled. He had her restart ASA, stop the diltiazem and increase her amio to 200mg tid. She is scheduled for cardioversion on Tuesday with Dr. Byrd. She does complain of occasional palpitations, denies dyspnea, fatigue, n/v/d. Review of Symptoms: Constitutional - No weakness, fatigue, fevers, weight change. HEENT - No visual changes; no hearing changes; no recent URI symptoms. Neck - No new pain, no new limitation of motion. Cardiovascular - As per HPI. Pulmonary - No dyspnea, cough, bronchitis, pneumonias. GI - No difficulty swallowing, abdominal pain, constipation, diarrhea, melena, or BRBPR. - No frequency, nocturia, dysuria. Musculoskeletal - No muscle pain, no new limitation of motion. Extremities - + b/l TERELL and b/l wrist edema Neuro - No confusion, syncope, paresthesias. Hematologic - No bruising, excessive bleeding, previous bleeding issues. Problem List: Patient Active Problem List Diagnosis ??? A-fib ??? Atrial myxoma S/p resection 05/31/16 Past Medical History: No past medical history on file. Past Surgical History: Past Surgical History Procedure Laterality Date ??? Pro removal heart lesion programming internship N/A 05/31/2016 @[facility] INTRACARDIAC TUMOR W\CPB (WRVU 38.45) performed by Laureano Guzman MD at [facility] MAIN OR Social History: Social History Substance Use Topics ??? Smoking status: Never Smoker ??? Smokeless tobacco: Never Used ??? Alcohol use No Social History Social History Narrative Congregation- though she is not a practicing JW she does conform to the practice of refusing blood tx and limiting blood draws Family History: No family history on file. Meds Prior to Admission: Prescriptions Prior to Admission Medication Sig Dispense Refill Last Dose ??? AMIOdarone (CORDARONE; PACERONE) 200 mg Tablet Take 200 mg by mouth 3 times daily. Taking at Unknown time ??? meTOPROLOL tartrate (LOPRESSOR) 50 mg Tablet Take 50 mg by mouth 2 times daily. Taking at Unknown time ??? acetaminophen (TYLENOL) 500 mg Tablet Take 2 tablets by mouth every 6 hours as needed for Pain.(Patient not taking: Reported on 07/13/2016) 30 tablet 1 Not Taking at Unknown time ??? aspirin 81 mg Tablet, Chewable Take 81 mg by mouth daily. 30 tablet 3 Taking at Unknown time ??? rivaroxaban (XARELTO) 20 mg Tablet Take 1 tablet by mouth every evening. 30 tablet 3 Taking at Unknown time ??? senna-docusate (PERICOLACE) 8.6-50 mg Tablet Take 2 tablets by mouth daily. 60 tablet 11 Takingat Unknown time ??? carboxymethylcellulose (REFRESH CELLUVISC) 1 % Dropperette, Gel 1 drop 3 times daily as needed.Reported on 07/13/2016 Not Taking at Unknown time ??? famotidine (PEPCID) 20 mg Tablet 1 tablet 2 times daily. Taking at Unknown time ??? betaxolol (BETOPTIC S) 0.25 % ophthalmic suspension Taking at Unknown time Current Meds: Scheduled Meds: Continuous Infusions: PRN Meds:. Allergies: No Known Allergies Physical Exam: There were no vitals taken for this visit. General: Well appearing in no acute distress. Neuro: Conversant. Alert and oriented x 3. Grossly intact with grossly normal strength. Skin: Warm, dry, and well perfused. Scars consistent with history. Neck: Trachea ML. No JVD. No carotid bruits. Heart: IRR, S1/S2. No mrg Lungs: LS present bilaterally. Clear Abdomen: Soft, NT/ND. BS present. No masses noted. Extremities: Full range of motion; no clubbing, cyanosis. Has +1 b/l TERELL, and trace b/l wrist No significant varicosities. Diagnostics: Lab Results Component Value Date WBC 7.5 04/27/2016 RBC 5.07 04/27/2016 HGB 15.0 04/27/2016 HCT 44.6 04/27/2016 PLATELET 215 05/31/2016 No results for input(s): INR in the last 168 hours. Lab Results Component Value Date NA 138 05/11/2016 K 3.9 06/02/2016 CL 94 (L) 05/11/2016 CO2 22 05/11/2016 BUN 14 05/11/2016 CREATININE 1.00 05/11/2016 CXR: IMPRESSION Improved inflation and resolution of pleural effusions. ECHO: SUMMARY: ?? 1. Basal septal hypertrophy is [...] See remainder of report for additional findings. Assessment and Plan: 70 y.o. year old woman who is s/p Atrial Myxoma removal on 05/31/2016. She returned to clinic today for her 4 wk follow up visit. Her clinic ekg showed AF with RVR. She states she was admitted to [facility] about 2 wks ago for afib. At that time they stopped her ASA, added diltiazem and increased her metoprolol. She was discharged home and she saw Dr. Byrd in his clinic yesterday. At that time she was still in afib, though rate controlled. He had her restart ASA, stop the diltiazem and increase her amio to 200mg tid. She is scheduled for cardioversion on Tuesday with Dr. Byrd. She does complain of occasional palpitations, denies dyspnea, fatigue, n/v/d. Plan at this timeis to Admit to [facility]U, order home medication, increase metoprolol to tid dosing and plan for Cardioversion tomorrow. Will give lasix 20mg iv. -Admit to Cardiac Surgery, Dr. Guzman Attending. -Condition: stable. Code status: Full code -Activity: as briseyda -Diet: NPO after MN, Regular diet otherwise. -VS and I/Os per protocol. -Telemetry. -Titrate NC O2 for SPO2 >92%. -PIV access. -Routine labs. To be drawn in pedi tubes. -Consult Cardiology for CV tomorrow -Medications: Home medications reconciled as appropriate. DEVON PARADA APRN [facility] Section of Cardiac Surgery Date: 07/13/2016 documented in this encounter Procedure Notes * Allan Chávez - 07/14/2016 10:34 AM ESTAssociated Order(s): CARDIOVERSION-OR Procedure(s): CARDIOVERSION EXTERNAL (ELECTIVE) Pre-Procedure Diagnose(s): Persistent atrial fibrillation Post-Procedure Diagnose(s): Persistent atrial fibrillation Direct Current Cardioversion Procedure Note Patient Name: Massiel Max : [id number] We were asked by the CTS service to facilitate a DCCV for this patient with post-op persistent atrial fibrillation. She has been on xarelto > 30 days, 100% compliant. Date of Procedure: 07/14/2016 Time of Procedure: 1030h Attending: Adan Jovel MD Fellow: Allan Chávez MD After obtaining informed consent, the patient underwent direct current cardioversion using the biphasic device under brief general anesthesia provided by the anesthesia team (propofol 60). The electrode pads were placed in the following position: Right anterior, left scapular The patient received 1 synchronized discharge(s) and the maximal discharge at 120J joules. Normal Sinus Rhythm was restored successfully: Yes Complications: None See orders for post-procedure instructions. Dr. Jovel present for procedure's entirety Allan Chávez MD Associated attestation - Adan Jovel MD - 07/21/2016 1:13 PM EST I was present for the entirety of the procedure and directly supervised the procedure. documented in this encounter Miscellaneous Notes * Plan of Care - Piper Wilhelm RN - 07/16/2016 6:40 AM EST Problem: Patient Care Overview Goal: Plan of Care Review Outcome: Ongoing (Interventions Implemented as Appropriate) 07/14/16 1654 07/15/162016 Coping/Psychosocial Plan Of Care Reviewed With -- patient Plan of Care Review Progress progress toward functional goals as expected -- OUTCOME EVALUATION NOTE: OUTCOME SUMMARY: Pt slept throughout the night between nursing care. No c/o pain or SOB. VSS. Safety maintained. PLAN MOVING FORWARD: Discharge home. INDIVIDUALIZED FALL PREVENTION INTERVENTIONS: Patient-specific fall risk factors per assessment: [current deficits]: None Assistance [level of assistance required for transfers and ambulation]: Independent Supervision [direct monitoring required during toileting and ADLs]: Independent. Surveillance [continuous indirect monitoring]: Telemetry, purposeful rounding. Patient-specific fall prevention interventions for sensory deficits provided, if applicable: Yes. CPG GOAL OUTCOME EVALUATION: Ongoing. * Plan of Care - Katty Arteaga RN - 07/15/2016 3:46 AM EST Problem: Patient Care Overview Goal: Plan of Care Review 07/14/16 1654 07/14/162349 Coping/Psychosocial Plan Of Care Reviewed With -- patient Plan of Care Review Progress progress toward functional goals as expected -- OUTCOME EVALUATION NOTE: OUTCOME SUMMARY: Pt had uneventful night. C/o sternal pain relieved with prn tylenol. A&O. Ambulating in room. No labs ordered, MD notified. SR/SB on tele. Appears to be resting comfortably, will cont to monitor. PLAN MOVING FORWARD: D/c? INDIVIDUALIZED FALL PREVENTION INTERVENTIONS: Patient-specific fall risk factors per assessment: [current deficits]: New enviornment Assistance [level of assistance required for transfers and ambulation]: Independent Supervision [direct monitoring required during toileting and ADLs]: Independent, rings appropriatly Surveillance [continuous indirect monitoring]: Tele, purposeful rounding, call parkinson in reach Patient-specific fall prevention interventions for sensory deficits provided, if applicable: CPG GOAL OUTCOME EVALUATION: Goal: Fall Prevention-Safe Patient Handling 07/14/162349 Marquez Fall Risk History of Falling 0 Secondary Diagnosis 15 Ambulatory Aids 0 Intravenous Therapy/Heparin/Saline Lock 20 Gait/Transferring 0 Mental Status 0 Score 35 OTHER Marquez Fall Risk Med Restraint Interventions Safety Promotion/Fall Prevention activity supervised;fall prevention program maintained;nonskid shoes/slippers when out of bed;safety round/check completed Positioning Body Position independent Goal: Infection Control 07/14/162349 Safety Interventions Isolation Precautions standard precautions maintained Infection Prevention environmental surveillance performed;single patient room provided Coping Strategies Supportive Measures active listening utilized;verbalization of feelings encouraged * Initial Assessments - Hussein Walton RN - 07/14/2016 10:14 AM EST Office of Care Management 4 [facility] Cardiac Care Banana Loader RN Hussein Walton RN, MSN Pager [phone] Provider: Dr. Guzman, pager [phone] Office of Care Management Initial Assessment Hussein Walton RN reviewed record and discussed patient with Care Team. Source of Information: chart review, interdisciplinary rounds Introduced self/reviewed role; services accepted. Reason for Hospitalization: A-Fib No past medical history on file. 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 Home Environment: 3-4 steps with rail x2 to enter, all one floor in the home (mobile home) Social & Family Supports/Community Resources: sister in law and 2 nephews available for support Behavioral Health History: anxious- no medications/counseling Substance Use/Abuse: none Other Pertinent/Service Specific Information: none Health/Prescription Coverage: Primary Insurance: medicare A/B Secondary [place] Preferred Pharmacy: [facility] Other: none Primary Care Provider: Noreen Adam, ANIKET [phone] Patient/Caregiver Goals of Treatment: TBD Potential Needs for Transition of Care: Rehab/SNF: n/a Home Health: The patient has been provided a list of Home Health Agencies which serve their preferred geographicarea. A letter describing our affiliations was reviewed with them and they were educated about their right to choose where referrals are placed. Patient requests referral to [facility]. PHONE: [phone] FAX: [phone] Expected date of discharge: unknown Referral routed to the Data Consultant for matching with agency and to provide any required information. DME: lifeline? Raised toilet seat Dialysis: n/a Community Resources: none Transportation: family Other: none Anticipated Barriers to Discharge/Special Considerations: not medically ready Plan: CV today, home with VNA and family support A member of the Care Management team will continue to monitor progress, follow for continuity of care and assist with transition of care planning. * Plan of Care - Carolyn Bazzi RN - 07/14/2016 4:01 AM EST Problem: Patient Care Overview Goal: Plan of Care Review Outcome: Ongoing (Interventions Implemented as Appropriate) 07/14/16 0359 Coping/Psychosocial Plan Of Care Reviewed With patient Plan of Care Review Progress no change OUTCOME EVALUATION NOTE: OUTCOME SUMMARY: See flowsheet for VS; AFLUTTER with rare PVCs. Patient can occasionally feel like her heart is pounding but no other c/o chest discomfort/SOB. Slept comfortably overnight. PLAN MOVING FORWARD: NPO for cardioversion. INDIVIDUALIZED FALL PREVENTION INTERVENTIONS: Patient-specific fall risk factors per assessment: [current deficits]: None Assistance [level of assistance required for transfers and ambulation]: IND Supervision [direct monitoring required during toileting and ADLs]: Room near unit station, call parkinson in reach, bed in lowest position Surveillance [continuous indirect monitoring]: Telemetry, purposeful hourly rounding Patient-specific fall prevention interventions for sensory deficits provided, if applicable: [X] No CPG GOAL OUTCOME EVALUATION: Ongoing documented in this encounter Plan of Treatment Not on file documented as of this encounter Procedures Procedure Name Priority Date/Time Associated Diagnosis Comments CARDIOVERSION-OR Routine 07/21/2016 1:10 PM EST NECK CUTTER SCAN 07/17/2016 12:00 AM EST NECK CUTTER SCAN 07/17/2016 12:00 AM EST POTASSIUM Routine 07/16/2016 4:25 AM EST POTASSIUM Routine 07/15/2016 10:55 AM EST EKG 12-LEAD STAT 07/14/2016 11:01 AM EST Atrial fibrillation, unspecified type CARDIOVERSION-ELECT RAYA (WRVU 2) 07/14/2016 10:02 AM EST CV HEMOGRAM Routine 07/13/2016 4:54 PM EST DIFFERENTIAL, AUTOMATED Routine 07/13/2016 4:54 PM EST CBC (WITH DIFF) Routine 07/13/2016 4:54 PM EST BASIC METABOLIC PANEL (NON-FASTING) Routine 07/13/2016 4:54 PM EST documented in this encounter Results * CARDIOVERSION-OR (07/21/2016 1:10 PM EST) Narrative Adan Jovel MD - 07/21/2016 1:10 PM EST Allan Chávez MD ? 07/14/2016 10:36 AM Direct Current Cardioversion Procedure Note Patient Name: Massiel Max : [id number] We were asked by the CTS service to facilitate a DCCV for this patient with post-op persistent atrial fibrillation. ??She has been on xarelto > 30 days, 100% compliant. Date of Procedure: ??07/14/2016 Time of Procedure: ??1030h Attending: ??Adan Jovel MD Fellow: Allan Chávez MD After obtaining informed consent, the patient underwent direct current cardioversion using the biphasic device under brief general anesthesia provided by the anesthesia team (propofol 60). The electrode pads were placed in the following position: Right anterior, left scapular The patient received 1 synchronized discharge(s) and the maximal discharge at 120J joules. Normal Sinus Rhythm was restored successfully: ??Yes Complications: ??None See orders for post-procedure instructions. Dr. Jovel present for procedure's entirety Allan Chávez MD Laureano Guzman MD GENSURG ORDERS NO P OSTOP PAIN QUESTION * SCAN DOC: NECK CUTTER (07/17/2016 12:00 AM EST) Anatomical Region Laterality Modality Other Narrative 07/17/2016 12:00 AM EST Ordered by an unspecified provider. Scanning Provider MEDIA MGR SCAN EXT O RDR/RSLT * SCAN DOC: NECK CUTTER (07/17/2016 12:00 AM EST) Anatomical Region Laterality Modality Other Narrative 07/17/2016 12:00 AM EST Ordered by an unspecified provider. Scanning Provider MEDIA MGR SCAN EXT O RDR/RSLT * Potassium (07/16/2016 4:25 AM EST) Potassium 3.9 3.5 - 5.0 mmol/L [facility] Comment: Please note: ??Patients with WBC >100,000 may have falsely elevated Potassium levels. ??For accurate Potassium quantification in these patients send serum separator tube (gold top) for subsequent determinations. ??Contact the Clinical Chemistry Laboratory if there are any questions. Blood specimen (specimen) 07/16/2016 4:25 AM EST 07/16/2016 4:55 AM EST Narrative Resulting Agency Comment Spec In Lab Laureano Guzman MD CHEMISTRY ORDERABLE S Performing Organization Address [facility] de Phone Number [facility] [place] [address] * Potassium (07/15/2016 10:55 AM EST) Potassium 4.2 3.5 - 5.0 mmol/L [facility] Comment: Please note: ??Patients with WBC >100,000 may have falsely elevated Potassium levels. ??For accurate Potassium quantification in these patients send serum separator tube (gold top) for subsequent determinations. ??Contact the Clinical Chemistry Laboratory if there are any questions. Blood specimen (specimen) 07/15/2016 10:55 AM EST 07/15/2016 11:06 AM EST Narrative Resulting Agency Comment Spec In Lab Laureano Guzman MD CHEMISTRY ORDERABLE S Performing Organization Address [facility] Co de Phone Number [facility] [place] [address] * EKG 12 Lead (07/14/2016 11:01 AM EST) Ventricular rate 52 BPM MUSE SYSTEM Atrial Rate 52 BPM MUSE SYSTEM P-R Interval 188 ms MUSE SYSTEM QRS Duration 90 ms MUSE SYSTEM Q-T Interval 456 ms MUSE SYSTEM QTC Calculated (Bezet) 424 ms MUSE SYSTEM Calculated P [place] 60 degrees MUSE SYSTEM Calculated R [place] 3 degrees MUSE SYSTEM Calculated T [place] 42 degrees MUSE SYSTEM INTERPRETATION Sinus bradycardia Inferior infarct (cited on or before 13-JUL-2016) Abnormal ECG When compared with ECG of 13-JUL-2016 13:38, Sinus rhythm has replaced Atrial flutter Vent. rate has decreased BY ??[address] no longer depressed in Inferior leads ST no longer depressed in Lateral leads Confirmed by MD VARMA ARMIN ([id number]) on 07/14/2016 2:15:39 PM MUSE SYSTEM 07/14/2016 11:0 1 AM EST 07/14/2016 2:15 PM EST Laureano Guzman MD ECG ORDERABLES MUSE SYSTEM * Differential, Automated (07/13/2016 4:54 PM EST) Neutrophils % 64.0 % [facility] Neutr Abs (ANC) 5.12 1.70 - 6.10 x10(3)/[facility] Lymphocytes % 23.1 % [facility] Lymphocytes Abs 1.8 0.9 - 3.2 x10(3)/[facility] LAB[facility]ORY Monocytes % 9.3 % [facility] Monocyte Abs 0.7 0.3 - 0.9 x10(3)/[facility] LAB[facility]ATORY Eosinophils % 2.5 % [facility] Eosinophils Abs 0.2 0.0 - 0.4 x10(3)/[facility] Basophils % 0.8 % [facility] Basophils Abs 0.1 0.0 - 0.1 x10(3)/[facility] LAB[facility]ATORY Immature Gran % 0.30 % [facility] Comment: Immature granulocytes(IG's)percentage and absolute count will include metamyelocytes, myelocytes, and promyelocytes. Blood smears from CBCs yielding IG's will be scanned manually for concordance. If this scan disagrees with the automated IG or if promyelocytes are noted, a manual differential will be performed. Karen Gran Abs 0.02 0.00 - 0.04 x10(3)/[facility] Blood specimen (specimen) 07/13/2016 4:54 PM EST 07/13/2016 5:11 PM EST Narrative Resulting Agency Comment Spec In Lab Laureano Guzman MD HEMATOLOGY ORDERABL ES [facility] [place] [address] * (ABNORMAL) Hemogram (07/13/2016 4:54 PM EST) WBC 8.0 4.0 - 9.5 x10(3)/[facility] LAB[facility]ORY RBC 4.46 4.00 - 5.21 x10(6)/[facility] Hemoglobin 13.2 11.7 - 15.5 gm/dL [facility] Hematocrit 39.8 35.7 - 45.8 % [facility] MCV 89.2 82.6 - 94.4 [facility]ORY MCH 29.6 27.1 - 32.0 pg [facility] MCHC 33.2 31.7 - 35.0 gm/dL [facility] Platelets 372(H) 145 - 357 x10(3)/[facility] RDWSD 47.8(H) 37.0 - 46.0 [facility] RDWCV 14.8(H) 11.5 - 14.1 % [facility] MPV 8.7 7.6 - 12.9 [facility] nRBC % Auto 0.0 % [facility] nRBC Abs Auto 0.000 0.000 - 0.000 x10(3)/[facility] Blood specimen (specimen) 07/13/2016 4:54 PM EST 07/13/2016 5:11 PM EST Narrative Resulting Agency Comment Spec In Lab Laureano Guzman MD HEMATOLOGY ORDERABL ES [facility] [place] [address] * (ABNORMAL) Basic Metabolic Panel (non-fasting) (07/13/2016 4:54 PM EST) Glucose Lvl 85 65 - 199 mg/dL [facility] Comment:Diabetes: >=200 mg/d L plus symptoms BUN 12 8 - 18 mg/dL [facility] Creatinine 1.04 0.70 - 1.20 mg/dL [facility] Comment: Please note that the pediatric reference intervals supplied above were not validated at [facility] [place]. Results from pediatric patients should be interpreted in conjunction to the patient's age, height and muscle mass. Sodium 138 135 - 145 mmol/L [facility] Potassium 4.0 3.5 - 5.0 mmol/L [facility] Comment: Please note: ??Patients with WBC >100,000 may have falsely elevated Potassium levels. ??For accurate Potassium quantification in these patients send serum separator tube (gold top) for subsequent determinations. ??Contact the Clinical Chemistry Laboratory if there are any questions. Chloride 98 98 - 107 mmol/L [facility] CO2 24 22 - 31 mmol/L [facility] Anion Gap 16(H) 5 - 15 mmol/L [facility] Calcium 9.7 8.5 - 10.5 mg/dL [facility] Estimated GFR 52(L) >=60 [facility] Comment: This estimated GFR (eGFR) value was calculated using the MDRD equation which has been validated on patients between the ages of 18 and 70. The MDRD should not be used to assess kidney function in patients < 18 years of age or in patients with extremes of body mass, or in patients with acute kidney failure. This value should be multiplied by 1.2 for patients. For further information please copy and paste the following links into your internet browser. [email or web address] [email or web address] Blood specimen (specimen) 07/13/2016 4:54 PM EST 07/13/2016 5:11 PM EST Narrative Resulting Agency Comment Spec In Lab Laureano Guzman MD CHEMISTRY ORDERABLE S [facility] [place] [address] documented in this encounter Visit Diagnoses Diagnosis Atrial fibrillation, unspecified type A-fib Atrial fibrillation documented in this encounter Admitting Diagnoses Diagnosis A-fib Atrial fibrillation documented in this encounter Administered Medications Inactive Administered Medications - up to 3 most recent administrations Medication Order MAR Action Action Date Dose Rate Site acetaminophen (TYLENOL) tablet 1,000 mg 1,000 mg, Oral, EVERY 6 HOURS PRN, Starting on Tue07/13/16 at 1602, Until Tue07/16/16 at 1531, Pain, Maximum dose of acetaminophen is 4000 mg from all sources in 24 hours., Routine Given 07/14/2016 11:50 PM EST 1,000 mg AMIOdarone (CORDARONE; PACERONE) tablet 200 mg 200 mg, Oral, 3 TIMES DAILY, First dose on Tue07/13/16 at 1630, Until Discontinued, Routine Given 07/14/2016 8:49 PM EST 200 mg Given 07/14/2016 4:17 PM EST 200 mg Given 07/14/2016 8:10 AM EST 200 mg AMIOdarone (CORDARONE; PACERONE) tablet 200 mg 200 mg, Oral, 2 TIMES DAILY, First dose (after last modification) on Tue07/15/16 at 0900, Until Discontinued, Routine Given 07/16/2016 8:26 AM EST 200 mg Given 07/15/2016 8:17 PM EST 200 mg Given 07/15/2016 8:56 AM EST 200 mg aspirin chewable tablet 81 mg 81 mg, Oral, DAILY, First dose on Tue07/13/16 at 1700, Until Discontinued, Routine Given 07/15/2016 8:56 AM EST 81 mg Given 07/14/2016 8:10 AM EST 81 mg betaxolol (BETOPTIC-S) 0.25 % ophthalmic drops 1 drop 1 drop, Both Eyes, 2 TIMES DAILY, First dose on Tue07/13/16 at 2100, Until Discontinued, Routine Given 07/16/2016 8:25 AM EST 1 drop Given 07/15/2016 8:18 PM EST 1 drop Given 07/15/2016 8:56 AM EST 1 drop famotidine (PEPCID) tablet 20 mg 20 mg, Oral, 2 TIMES DAILY, First dose on Tue07/13/16 at 2100, Until Discontinued, Routine Given 07/16/2016 8:26 AM EST 20 mg Given 07/15/2016 8:17 PM EST 20 mg Given 07/15/2016 8:56 AM EST 20 mg furosemide (LASIX) injection 20 mg 20 mg, Intravenous, ONCE, 1 dose, On Tue07/13/16 at 1630 Given 07/13/2016 5:46 PM EST 20 mg furosemide (LASIX) injection 20 mg 20 mg, Intravenous, 2 TIMES DAILY, First dose on Tue07/15/16 at 0900, Until Discontinued Given 07/15/2016 4:02 PM EST 2 0 mg Given 07/15/2016 8:56 AM EST 20 mg furosemide (LASIX) tablet 20 mg 20 mg, Oral, DAILY, 30 doses, First dose on 07/17/16 at 0900, Last dose on 08/15/16 at 0900, Routine hydrALAZINE (APRESOLINE) injection 5 mg 5 mg, Intravenous, EVERY 6 HOURS PRN, Starting on Tue07/13/16 at 2124, Until Tue07/16/16 at 1531, High Blood Pressure, Please give to keep SBP<150. lidocaine (XYLOCAINE) 10 mg/mL (1 %) injection 3 mg 3 mg (0.3 mL), Subcutaneous, ONCE PRN, 1 dose, Starting on Tue07/14/16 at 1048, Until Tue07/16/16 at 1531, for discomfort with PIV insertion, Recovery (Recovery-Hospital Unit), Routine meTOPROLOL tartrate (LOPRESSOR) tablet 50 mg 50 mg, Oral, EVERY 8 HOURS SCHEDULED, First dose on Tue07/13/16 at 1630, Until Discontinued, Routine Given 07/13/2016 5:48 PM EST 50 mg meTOPROLOL tartrate (LOPRESSOR) tablet 50 mg 50 mg, Oral, EVERY 6 HOURS SCHEDULED, First dose (after last modification) on Tue07/14/16 at 0000, Until Discontinued, Hold for HR<50, SBP<90, Routine Given 07/15/2016 6:48 AM EST 50 mg Given 07/14/2016 11:51 PM EST 50 mg Given 07/14/2016 5:34 PM EST 50 mg meTOPROLOL tartrate (LOPRESSOR) tablet 50 mg 50 mg, Oral, EVERY 12 HOURS SCHEDULED (2 times per day), First dose (after last modification) on Tue07/15/16 at 2100, Until Discontinued, Hold for HR<50, SBP<90, Routine Given 07/16/2016 8:26 AM EST 50 mg Given 07/15/2016 8:17 PM EST 50 mg ondansetron (ZOFRAN) injection 4 mg 4 mg, Intravenous, EVERY 8 HOURS PRN, Starting on Tue07/13/16 at 1602, Until Tue07/16/16 at 1531, Nausea, May repeat times one in 30 minutes if ineffective. If multiple antiemetics are ordered, give ondansetron first. ondansetron (ZOFRAN) tablet 4 mg 4 mg, Oral, EVERY 8 HOURS PRN, Starting on Tue07/13/16 at 1602, Until Tue07/16/16 at 1531, Nausea, Vomiting, If multiple antiemetics are ordered, use ondansetron first. PO Preferred. If patient unable to take PO, may give IV if ordered. May repeat times one in 45 minutes if ineffective. If unable to take PO, may give IV., Routine potassium chloride (K-DUR/KLOR-CON) extended release tablet 10 mEq 10 mEq, Oral, DAILY, 30 doses, First dose on Tue07/17/16 at 0900, Last dose on Tue08/15/16 at 0900, Routine potassium chloride (K-DUR/KLOR-CON) extended release tablet 40 mEq 40 mEq, Oral, ONCE, 1 dose, On Tue07/16/16 at 0715, 20 mEq tablet may be dissolved in water for administration, Routine Given 07/16/2016 8:28 AM EST 40 mEq rivaroxaban (XARELTO) tablet 20 mg 20 mg, Oral, EVERY EVENING, First dose on Tue07/13/16 at 1900, Until Discontinued, Routine Given 07/15/2016 4:03 PM EST 20 mg Given 07/14/2016 4:16 PM EST 20 mg Given 07/13/2016 6:36 PM EST 20 mg senna-docusate (PERICOLACE) 8.6-50 mg per tablet 2 tablet 2 tablet, Oral, DAILY, First dose on Tue07/13/16 at 1630, Until Discontinued, Routine Given 07/16/2016 8:27 AM EST 2 tablets Given 07/15/2016 8:56 AM EST 2 tablets Given 07/13/2016 5:50 PM EST 2 tablets sodium chloride 0.9 % flush 5 mL 5 mL, Intravenous, 2 TIMES DAILY, First dose on Tue07/13/16 at 2100, Until Discontinued, Routine Given 07/16/2016 8:33 AM EST 5 mLs Given 07/15/2016 8:57 AM EST 5 mLs Given 07/14/2016 8:11 AM EST 5 mLs sodium chloride 0.9 % flush 5 mL 5 mL, Intravenous, 2 TIMES DAILY, First dose on Tue07/14/16 at 1115, Until Discontinued, Recovery (Recovery-Hospital Unit), Routine Given 07/16/2016 8:33 AM EST 5 mLs Given 07/15/2016 8:18 PM EST 5 mLs Given 07/14/2016 10:57 AM EST 10 mLs sodium chloride 0.9 % flush 5-20 mL 5-20 mL, Intravenous, EVERY 1 MIN PRN, Starting on Tue07/14/16 at 1048, Until Tue07/16/16 at 1531, flush, Flush pertains to all indwelling lines. Flush per protocol found in the job aid using the link provided on this medication record., Recovery (Recovery-Hospital Unit), Routine documented in this encounter Active and Recently Administered Medications Times are shown in EST. Scheduled Medication Order 07/14/2016 07/15/2016 07/16/2016 AMIOdarone (CORDARONE; PACERONE) tablet 200 mg (CANCELED) 200 mg, Oral, 3 TIMES DAILY, First dose on Tue07/13/16 at 1630, Until Discontinued, Routine 0810 (Given - Provider: Jaylene Franklin RN)1002 (JUL Hold - Provider: Admin Adt - Reason: Transfer to a Procedural area)1049 (JUL Unhold - Provider: Sue Crenshaw RN)1617 (Given - Provider: Jaylene Franklin RN)204 (Given - Provider: Fahad Arriaga RN) AMIOdarone (CORDARONE; PACERONE) tablet 200 mg 200 mg, Oral, 2 TIMES DAILY, First dose (after last modification) on Tue07/15/16 at 0900, Until Discontinued, Routine 0856 (Given - Provider: Graciela Medrano RN)2016 (Given - Provider: Piper Wilhelm RN) 08 (Given - Provider: Micha Burrell, RN) aspirin chewable tablet 81 mg (CANCELED) 81 mg, Oral, DAILY, First dose on Tue07/13/16 at 1700, Until Discontinued, Routine 0810 (Given - Provider: Jaylene Franklin RN)1002 (JUL Hold - Provider: Admin Adt - Reason: Transfer to a Procedural area)1049 (JUL Unhold - Provider: Sue Crenshaw RN) 08 (Given - Provider: Graciela Medrano RN) 08 (Hold - Provider: Micha Burrell RN - Reason: Per MD Order) betaxolol (BETOPTIC-S) 0.25 % ophthalmic drops 1 drop 1 drop, Both Eyes, 2 TIMES DAILY, First dose on Tue07/13/16 at 2100, Until Discontinued, Routine 0810 (Given - Provider: Jaylene Franklin RN)1002 (JUL Hold - Provider: Admin Adt - Reason: Transfer to a Procedural area)1049 (JUL Unhold - Provider: Sue Crenshaw, AIDEN)2048 (Given - Provider: Fahad Arriaga, AIDEN) 0856 (Given - Provider: Graciela Medrano RN)2017 (Given - Provider: Piper Wilhelm RN) 08 (Given - Provider: Micha Burrell, AIDEN) famotidine (PEPCID) tablet 20 mg 20 mg, Oral, 2 TIMES DAILY, First dose on Tue07/13/16 at 2100, Until Discontinued, Routine 0809 (Given - Provider: Jaylene Franklin RN)1002 (JUL Hold - Provider: Admin Adt - Reason: Transfer to a Procedural area)1049 (JUL Unhold - Provider: Sue Crenshaw RN)2048 (Given - Provider: Fahad Arriaga RN) 0856 (Given - Provider: Graciela Medrano RN)2016 (Given - Provider: Piper Wilhelm RN) 08 (Given - Provider: Micha Burrell RN) furosemide (LASIX) injection 20 mg (CANCELED) 20 mg, Intravenous, 2 TIMES DAILY, First dose on Gabi 07/15/16 at 0900, Until Discontinued 0856 (Given - Provider: Graciela Medrano RN)1602 (Given - Provider: Micha Burrell RN) 0900 (Hold - Provider: Micha Burrell RN - Reason: Per MD Order) furosemide (LASIX) tablet 20 mg 20 mg, Oral, DAILY, 30 doses, First dose on Tue07/17/16 at 0900, Last dose on Tue08/15/16 at 0900, Routine meTOPROLOL tartrate (LOPRESSOR) tablet 50 mg (CANCELED) 50 mg, Oral, EVERY 6 HOURS SCHEDULED, First dose (after last modification) on Tue07/14/16 at 0000, Until Discontinued, Hold for HR<50, SBP<90, Routine 0017 (Given - Provider: Carolyn Bazzi RN)0538 (Given - Provider: Carolyn Bazzi RN)1002 (JUL Hold - Provider: Admin Adt - Reason: Transfer to a Procedural area)1049 (MAR Unhold - Provider: Sue Crenshaw, AIDEN)1136 (Given - Provider: Jaylene Franklin RN)1734 (Given - Provider: Jaylene Franklin RN)2351 (Given - Provider: Katty Arteaga RN) 0648 (Given - Provider: Katty Arteaga RN) meTOPROLOL tartrate (LOPRESSOR) tablet 50 mg 50 mg, Oral, EVERY 12 HOURS SCHEDULED (2 times per day), First dose (after last modification) on Gabi 07/15/16 at 2100, Until Discontinued, Hold for HR<50, SBP<90, Routine 2016 (Given - Provider: Piper Wilhelm RN) 08 (Given - Provider: Micha Burrell RN) potassium chloride (K-DUR/KLOR-CON) extended release tablet 10 mEq 10 mEq, Oral, DAILY, 30 doses, First dose on Tue07/17/16 at 0900, Last dose on Tue08/15/16 at 0900, Routine potassium chloride (K-DUR/KLOR-CON) extended release tablet 40 mEq (COMPLETED) 40 mEq, Oral, ONCE, 1 dose, On Tue07/16/16 at 0715, 20 mEq tablet may be dissolved in water for administration, Routine 0828 (Given - Provider: Micha Burrell, AIDEN) rivaroxaban (XARELTO) tablet 20 mg 20 mg, Oral, EVERY EVENING, First dose on Tue07/13/16 at 1900, Until Discontinued, Routine 1002 (JUL Hold - Provider: Admin Adt - Reason: Transfer to a Procedural area)1049 (JUL Unhold - Provider: Sue Crenshaw RN)1616 (Given - Provider: Jaylene Franklin RN) 1603 (Given - Provider: Micha Burrell RN) senna-docusate (PERICOLACE) 8.6-50 mg per tablet 2 tablet 2 tablet, Oral, DAILY, First dose on Tue07/13/16 at 1630, Until Discontinued, Routine 0900 (Hold - Provider: Jaylene Franklin RN - Reason: Patient/family refused)1002 (JUL Hold - Provider: Admin Adt - Reason: Transfer to a Procedural area)1049 (JUL Unhold - Provider: Sue Crenshaw RN) 0856 (Given - Provider: Graciela Medrano RN) 0827 (Given - Provider: Micha Burrell RN) sodium chloride 0.9 % flush 5 mL 5 mL, Intravenous, 2 TIMES DAILY, First dose on Tue07/13/16 at 2100, Until Discontinued, Routine 0811 (Given - Provider: Jaylene Franklin RN)1002 (JUL Hold - Provider: Admin Adt - Reason: Transfer to a Procedural area)1049 (JUL Unhold - Provider: Sue Crenshaw RN)2100 (Not Given - Provider: Fahad Arriaga RN - Reason: Contraindicated) 0857 (Given - Provider: Graciela Medrano RN)2100 (Not Given - Provider: Piper Wilhelm RN - Reason: See comment - Comment: duplicate order) 0833 (Given - Provider: Micha Burrell RN) sodium chloride 0.9 % flush 5 mL 5 mL, Intravenous, 2 TIMES DAILY, First dose on Tue07/14/16 at 1115, Until Discontinued, Recovery (Recovery-Hospital Unit), Routine 1057 (Given - Provider: Sue Cernshaw RN)2100 (Not Given - Provider: Fahad Arriaga AIDEN - Reason: Contraindicated) 0900 (Not Given - Provider: Graciela Medrano RN - Reason: Loss of access)2017 (Given - Provider: Piper Wilhelm, AIDEN) 0833 (Given - Provider: Micha Burrell RN) PRN Medication Order 07/14/2016 07/15/2016 07/16/2016 acetaminophen (TYLENOL) tablet 1,000 mg 1,000 mg, Oral, EVERY 6 HOURS PRN, Starting on Tue07/13/16 at 1602, Until Tue07/16/16 at 1531, Pain, Maximum dose of acetaminophen is 4000 mg from all sources in 24 hours., Routine 1002 (JUL Hold - Provider: Admin Adt - Reason: Transfer to a Procedural area)1049 ([facility] Unhold - Provider: Sue Crenshaw, AIDEN)2350 (Given - Provider: Katty Arteaga RN) carboxymethylcellulose (REFRESH CELLUVISC) 1 % ophthalmic drops 1 drop 1 drop, Both Eyes, 3 TIMES DAILY PRN, Starting on Tue07/13/16 at 1602, Until Tue07/16/16 at 1531, Dry Eyes, Routine 1002 (JUL Hold - Provider: Admin Adt - Reason: Transfer to a Procedural area)1049 ([facility] Unhold - Provider: Sue Crenshaw, AIDEN) hydrALAZINE (APRESOLINE) injection 5 mg 5 mg, Intravenous, EVERY 6 HOURS PRN, Starting on Tue07/13/16 at 2124, Until Tue07/16/16 at 1531, High Blood Pressure, Please give to keep SBP<150. 1002 ([facility] Hold - Provider: Admin Adt - Reason: Transfer to a Procedural area)1049 ([facility] Unhold - Provider: Sue Crenshaw RN) lidocaine (XYLOCAINE) 10 mg/mL (1 %) injection 3 mg 3 mg (0.3 mL), Subcutaneous, ONCE PRN, 1 dose, Starting on Tue07/13/16 at 1602, Until Tue07/16/16 at 1531, for discomfort with PIV insertion, Routine 1002 (JUL Hold - Provider: Admin Adt - Reason: Transfer to a Procedural area)1049 ([facility] Unhold - Provider: Sue Crenshaw RN) lidocaine (XYLOCAINE) 10 mg/mL (1 %) injection 3 mg 3 mg (0.3 mL), Subcutaneous, ONCE PRN, 1 dose, Starting on Tue07/14/16 at 1048, Until Tue07/16/16 at 1531, for discomfort with PIV insertion, Recovery (Recovery-Hospital Unit), Routine ondansetron (ZOFRAN) injection 4 mg(Linked Group 1) 4 mg, Intravenous, EVERY 8 HOURS PRN, Starting on Tue07/13/16 at 1602, Until Tue07/16/16 at 1531, Nausea, May repeat times one in 30 minutes if ineffective. If multiple antiemetics are ordered, give ondansetron first. 1002 ([facility] Hold - Provider: Admin Adt - Reason: Transfer to a Procedural area)1049 ([facility] Unhold - Provider: Sue Crensahw RN) ondansetron (ZOFRAN) tablet 4 mg(Linked Group 1) 4 mg, Oral, EVERY 8 HOURS PRN, Starting on Tue07/13/16 at 1602, Until Tue07/16/16 at 1531, Nausea, Vomiting, If multiple antiemetics are ordered, use ondansetron first. PO Preferred. If patient unable to take PO, may give IV if ordered. May repeat times one in 45 minutes if ineffective. If unable to take PO, may give IV., Routine 1002 ([facility] Hold - Provider: Admin Adt - Reason: Transfer to a Procedural area)1049 ([facility] Unhold - Provider: Sue Crenshaw RN) sodium chloride 0.9 % flush 5-20 mL 5-20 mL, Intravenous, EVERY 1 MIN PRN, Starting on Tue07/13/16 at 1602, Until Tue07/16/16 at 1531, flush, Flush pertains to all indwelling lines. Flush per protocol found in the job aid using the link provided on this medication record., Routine 1002 ([facility] Hold - Provider: Admin Adt - Reason: Transfer to a Procedural area)1049 ([facility] Unhold - Provider: Sue Crenshaw RN) sodium chloride 0.9 % flush 5-20 mL 5-20 mL, Intravenous, EVERY 1 MIN PRN, Starting on Tue07/14/16 at 1048, Until Tue07/16/16 at 1531, flush, Flush pertains to all indwelling lines. Flush per protocol found in the job aid using the link provided on this medication record., Recovery (Recovery-Hospital Unit), Routine Linked Groups Order Group 1: ondansetron (ZOFRAN) tablet 4 mgJump to med 4 mg, Oral, EVERY 8 HOURS PRN, Starting on Tue07/13/16 at 1602, Until Tue07/16/16 at 1531, Nausea, Vomiting, If multiple antiemetics are ordered, use ondansetron first. PO Preferred. If patient unable to take PO, may give IV if ordered. May repeat times one in 45 minutes if ineffective. If unable to take PO, may give IV., Routine Or ondansetron (ZOFRAN) injection 4 mgJump to med 4 mg, Intravenous, EVERY 8 HOURS PRN, Starting on Tue07/13/16 at 1602, Until Tue07/16/16 at 1531, Nausea, May repeat times one in 30 minutes if ineffective. If multiple antiemetics are ordered, give ondansetron first. documented in this encounter Care Teams Equipment Operat0R Relationship Specialty Start Date End Date Noreen Adam APRN [address] [place] [address] PCP - General Family Medicine 04/27/16 02/12/22 documented as of this encounter
--- OUTSIDE RECORDS SUMMARY | 2023-12-07 03:56 | XMS_ITS | Encounter Summary ---
Author [facility] Address [facility] [place] [address] Care Team Providers Care Banquet Bartender Name Role Phone Noreen Adam APRN Primary Care Provider [phone] Reason for Referral * Diagnostic Test (Routine) - Closed Specialty Diagnoses / Procedures Referred By Contac t Referred To Contact Diagnoses Paroxysmal atrial fibrillation Procedures Julia Wright [place] [facility] [place] [address] Referral ID Status Reason Start Date Expiration Date V isits Requested Visits Authorized [id number] Closed Specialty Service Requested 09/17/2019 09/16/2020 1 1 Reason for Visit * Consultation (Routine) - Closed Specialty Diagnoses / Procedures Referred By Contact Referred To Contact Electrophysiology / Cardiology Diagnoses a fib, has had two cardioversions Procedures a fib, has had two cardioversions Barak Ascencio MD [facility] [place] [address] [facility] [address] [place] [phone] Referral ID Status Reason Start Date Expiration Date Visits Re quested Visits Authorized [id number] Closed 05/30/2019 05/29/2020 1 1 Encounter Details Date Type Department Care Team (Latest Contact Info) Description 09/17/2019 11:00 AM EDT TH Visit (TeleHealth) Cardiology at [address] [place] [address] Julia Wills MD [facility] [place] [address] Paroxysmal atrial fibrillation Social History Tobacco Use Types Packs/Day Years Used Date Smoking Tobacco: Never Smokeless Tobacco: Never Alcohol Use Standard Drinks/Week Comments No 0 (1 standard drink = 0.6 oz pur e alcohol) Sex and Gender Information Value Date Recorded Sex Assigned at Not on file Gender Identity Not on file Sexual Orientation Not on file documented as of this encounter Progress Notes * Julia Wills MD - 09/17/2019 11:00 AM EDT Referring Provider: Barak Ascencio Md [facility] [place] [address] Primary Care Provider: Noreen Adam APRN [address] [facility] [address] [address] Patient Identification: Massiel Max is a 73 y.o. female here to discuss management options for her atrial fibrillation. History of Present Illness: Ms. Max is a 73 y.o. female with a history of HTN and atrial myxoma s/p excision 2016, who is referred by Dr. Ascencio for evaluation of management options for atrial fibrillation. She has previously been treated with amiodarone following atrial myxoma excision in 2016 and has had at least two prior cardioversion (off AAD) the most recent of which resulted in ERAF. May 2016 had myxoma removed from LA. Soon thereafter, she went into AF and had a stroke. She was started on amiodarone and metoprolol and had liver trouble. Symptoms from the stroke have resolved. She is forgetful but other symptoms have resolved. She stayed in AF until June 2016. She had cardioversion at that time. Metoprolol and amiodarone were subsequently discontinued, and she had no AF until March 2019. She came to the ED and was admitted for AF with RVR. On March 29, 2019 she had cardioversion which only lasted 1-2 days and she went back into AF. Metoprolol did not adequately rate control her, so Sse was started on diltiazem in March 2019. In May 2019, she believes she went back into sinus rhythm. Since then, she believes she is in andout of AF. She has a blood pressure machine that tells her she is in AF sometimes. She feels an irregular beat that sometimes pounds in her chest. She lives alone and manages her own affairs. Not very active. She lives in a mobile home and finds it's hard to get activity especially in the winter. She does not exercise for exercise's sake. When the weather is nice she does some walking. Able to carry groceries on her own and do even heavy housekeeping (cleaning, vacuuming) and lawn maintenance/gardening. She has lost strength in her arms. The upper arms feel lame. She can't tack picker what she used to tack picker. Last spring, she could easily start her lawnmower, but now she can't. She hasn't noticed as much strength loss in her legs. But she has noticed that it's more strenuous to get up the stairs (3to her house) than it used to be. No pain in shoulders or hips. Her upper arms feel lame which has been that way for a year or more. Never gets headaches. No pain in her neck or back. Sometimes if she works for a long period of time(eg, housework) she gets some back pain. Pain is just above the hips. No episodes of passing out. She feels light headed sometimes. She thinks that this is because of low BP. On diltiazem, her BP is lower and she notices that this is associated with episodes of LH. Shesits down when she feels like this and it gets better so she can function. She is pretty sure that when BP is <130 she has these symptoms. When she saw Silva in May, she started taking Eliquis (rather than xarelto). She was having red spots on her skin and a rash on her thighs. Much better since the change. No problems with bleeding. Kidney function was not great, but this has improved on eliquis. She doesn't mind the twice daily dosing. She denies ever missing a dose of apixaban. Sometimes she has chest heaviness and burning sensation in her chest. She rubs her chest and it seems to go away. These episodes occur a few times a week. They happen more when she is stressed. She notices it more with resting. Doesn't change with position that she can tell. Episodes last an hour or so. Never noticed during activity. I have reviewed the patient's medical, social and family history in detail and updated the electronic medical record as appropriate. Problem List: Patient Active Problem List Diagnosis Code ??? 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 A-fib I48.91 Social History: Social History Socioeconomic History ??? Marital status: Single Spouse name: Not on file ??? Number of children: Not on file ??? Years of education: Not on file ??? Highest education level: Not on file Occupational History ??? Not on file Social Needs ??? Financial resource strain: Not on file ??? Food insecurity Worry: Not on file Inability: Not on file ??? Transportation needs Medical: Not on file Non-medical: Not on file Tobacco Use ??? Smoking status: Never Smoker ??? Smokeless tobacco: Never Used Substance and Sexual Activity ??? Alcohol use: No ??? Drug use: No ??? Sexual activity: Not on file Lifestyle ??? Physical activity Days per week: Not on file Minutes per session: Not on file ??? Stress: Not on file Relationships ??? Social connections Talks on phone: Not on file Gets together: Not on file Attends tenriism service: Not on file Active member of club or organization: Not on file Attends meetings of clubs or organizations: Not on file Relationship status: Not on file ??? Intimate partner violence Fear of current or ex partner: Not on file Emotionally abused: Not on file Physically abused: Not on file Forced sexual activity: Not on file Other Topics Concern ??? Not on file Social History Narrative ??? Not on file Family History: No family history on file. Medications: Current Outpatient Medications Medication Sig Dispense Refill ??? pantoprazole EC (Protonix) 40 mg Tablet, Delayed Release (E.C.) Take 40 mg by mouth daily. ??? dilTIAZem (CARDIZEM SR) 60 mg Capsule, Sust. Release 12 hr Take 60 mg by mouth 2 times daily. ??? APIXABAN ORAL Take 5 mg by mouth 2 times daily. ??? betaxolol (BETOPTIC S) 0.25 % ophthalmic suspension ??? acetaminophen (TYLENOL) 500 mg Tablet Take 2 tablets by mouth every 6 hours as needed for Pain.(Patient not taking: Reported on 07/13/2016) 30 tablet 1 ??? senna-docusate (PERICOLACE) 8.6-50 mg Tablet Take 2 tablets by mouth daily. 60 tablet 11 ??? carboxymethylcellulose (REFRESH CELLUVISC) 1 % Dropperette, Gel 1 drop 3 times daily as needed.Reported on 07/13/2016 ??? famotidine (PEPCID) 20 mg Tablet 1 tablet 2 times daily. No current facility-administered medications for this visit. Allergies: No Known Allergies Labs: None recent (she recalls having labs drawn by her PCP in july) Outside echo 03/2019: Normal LVEF LA size not commented No significant valvular dysfunction Holter 2018: Sinus rhythm throughout Assessment/plan: 1) Persistent Atrial fibrillation: Persistent AF with last episode in 03/2019 which resolved in May. Subjectively has been in and out of AF since then. Overall symptoms are somewhat vague, but there are time when symptoms are significant and have certainly resulted in ED visit in the past. Rate control has been insufficient with episodes of LH/dizzines likely related to relatively hypotension. For these reasons, we have discussed the role of rhythm control including AAD and ablation. However, her burden of AF remains mostly unknown. We have discussed the role of ambulatory monitoring toassess AF burden as a starting point. If burden is low, we will consider AAD as a first step. In ant icipation of that, will need current assessment of renal function and QT interval. - obtain outside ECG and labs (BMP); if not available, will have done at [facility] - patient will be mailed a Zio monitor and we will follow up by phone after results available 2) Anti-coagulation: The patient's current [id number] risk factors include HTN(1), Age 73(2) and Female sex(1) for an annual risk of stroke risk of 4.8% She is anti-coagulated with Apixaban. Her anti-coagulation will be continued. 3) Follow-up: 3 months or sooner prn or when zio results available. documented in this encounter Plan of Treatment Not on file documented as of this encounter Results * Ziopatch (09/17/2019 1:06 PM EDT) Anatomical Region Laterality Modality Other Narrative 10/22/2019 2:41 PM EDT [facility] ? Zio Patch? Ambulatory Cardiac Event Monitor [...] Diagnoses Diagnosis Paroxysmal atrial fibrillation Atrial fibrillation Paroxysmal atrial fibrillation Atrial fibrillation documented in this encounter Care Teams Banquet Bartender Relationship Specialty Start Date End Date Noreen Adam APRN [address] [place] [address] PCP - General Family Medicine 04/27/16 02/12/22 documented as of this encounter
--- OUTSIDE RECORDS SUMMARY | 2023-12-07 03:56 | XMS_ITS | Encounter Summary ---
[facility] [place] [address] Care Team Providers Care Maintenance Mechanic Engine Name Role Phone Noreen Adam APRN Primary Care Provider [phone] Reason for Visit * Auth/Cert Specialty Diagnoses / Procedures Referred By Contac t Referred To Contact Diagnoses A-fib AFIB W/ RVR a fib Procedures CARDIOVERSION-ELECTIVE (WRVU 2.25) Referral ID Status Reason Start Date Expiration Date Visits Re quested Visits Authorized [id number] 1 1 Encounter Details Date Type Department Care Team (Late st Contact Info) Description 07/14/2016 10:00 AM EST - 07/14/2016 11:00 AM EST Surgery [place] [address] [facility] [place] [address] CARDIOVERSION-ELECTIVE (WRVU 2) Social History Tobacco Use Types Packs/Day Years [...] Inpatient - Discharge Summary Patient Name: Massiel aMx Patient Age: 70 y.o. Birthdate: 1945 Language: Spanish Race: White Ethnicity: Not nor Admit Date: 07/13/2016 Discharge Date: 07/16/2016 Attending Physician: Laureano Guzman MD Follow-up Recommendations for Providers: Please continue routine management of cardiovascular risk factors including blood pressure, lipids,glucose, etc. Please note any changes to medications. Patient to follow-up with PCP, Noreen Adam APRN, in 1-2 weeks. Patient to follow-up with Security Sme, Dr. Tonny Byrd, on 07/22/2016 at 9:30 am. 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 Discharge Conditions/Prognosis: Stable and improving. No past medical history on file. Past Surgical History Procedure Laterality Date ??? 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 Pro cardioversion N/A 07/14/2016 C[facility]LECT[facility] performed by Adan Jovel MD at [facility] OR Prior To Admission Medications Prescriptions [...] RVR. She states she was admitted to [facility] about 2 wks ago for afib. At [...] Hospital Course: Massiel Max was admitted to [facility] on 07/13/2016 viadirect [place] [facility] [place] to the intermediate cardiac [...] Laureano Guzman and/or the Cardiac Surgery Physician Data Miner Team may be reached at . Weight: [...] Referral to Home Health - at DISCHARGE [QDQ2303 CPT(R)] As directed Process Instructions: Scheduling Instructions: Comments: DOCUMENTATION FOR VNA SERVICES (INCLUDING THOSE PATIENTS WITH MEDICARE COVERAGE REQUIRING HOME VNA SERVICES AND/OR HOSPICE SERVICES) PATIENT'S LOCATION: Massiel Max [address] [place] [phone] (home) No relevant phone numbers on file. Digital Marketing Lead's Name: self In discussion with the attending physician, it is certified that this patient is under their care and that they, or a Nurse Practitioner, or Physician Data Miner who is working directly with them, hada [...] for services as follows: HOME HEALTH AGENCY: [facility]. PHONE: [phone] FAX: [phone] RN orders: Cardiopulmonary assessment, incisional assessment, assess [...] issues please call the Cardiac SurgeryOffice at [phone] FOR MEDICARE ONLY: (please delete this section [...] noted. Questions: Agency name and contact information: [facility] Patient location post discharge: home What services are requested: Registered Nurse Physical Therapy Social Work Occupational Therapy Start date: Responsible MD post discharge contact info: Arrangements for VNA/home care: As above. Signed: Hussein Hill PA-C 07/16/2016 [facility] Section of Cardiac Surgery [facility] [place] [address] FAX [phone] Date: 07/16/2016 CC: Noreen Adam APRN No [...] Laureano Guzman and/or the Cardiac Surgery Physician Data Miner Team may be reached at . ?? [...] PM EST Cardiac Surgery Progress Note: ID: [id number] Massiel Max is a 70 y.o. year [...] Gas) No results found for: PHART, PO2ART, [id number] Assessment/Plan: Continue to optimize hemodynamics. Transition to [...] Signed: Hussein Hill PA-C 07/15/2016 Team pager: [phone]; [phone] after 5pm [facility] Section of Cardiac Surgery * Jaylene Franklin [...] RVR. She states she was admitted to [facility] about 2 wks ago for afib. At [...] Laterality Date ??? Pro removal heart lesion college intern N/A 05/31/2016 @[facility] INTRACARDIAC TUMOR W\CPB (WRVU 38.45) performed by Laureano Guzman MD at [facility] OR Social History: Social History Substance [...] levels Cardiology consult appreciated Katelyn Vasquez APRN [facility] Section of Cardiac Surgery Date: 07/14/2016 * Sue Crenshaw RN - 07/14/2016 11:06 AM EST Pt met phase 1 recovery with no complications. EKG done here in PACU, pt in SB with occ PVC's. Handoff report given to AIDEN Mariee on 4E. Pt brought back to unit on portable heart monitor by NUCLEAR LICENSING ENGINEER Kate. documented in this encounter H&P Notes [...] RVR. She states she was admitted to [facility] about 2 wks ago for afib. At [...] Laterality Date ??? Pro removal heart lesion college intern N/A 05/31/2016 @[facility] INTRACARDIAC TUMOR W\CPB ([facility]VU 38.45) performed by Laureano Guzman MD at [facility] OR Social History: Social History Substance Use Topics ??? Smoking status: Never Smoker ??? Smokeless tobacco: Never Used ??? 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 She states she was admitted to [facility] about 2 wks ago for afib. At [...] medications reconciled as appropriate. DEVON PARADA APRN [facility] Section of Cardiac Surgery Date: 07/13/2016 documented in this encounter Procedure Notes * Allan Chávez - 07/14/2016 10:34 AM ESTAssociated Order(s): CARDIOVERSION-OR Procedure(s): CARDIOVERSION EXTERNAL (ELECTIVE) Pre-Procedure Diagnose(s): Persistent atrial fibrillation Post-Procedure Diagnose(s): Persistent atrial fibrillation Direct Current Cardioversion Procedure Note Patient Name: Massiel Max : [id number] We were asked by the CTS service [...] AM EST Office of Care Management 4 [facility] Cardiac Care Document Control Manager RN Hussein Walton RN, MSN Pager [phone] Provider: Dr. Guzman, pager [phone] Office of Care Management Initial Assessment Hussein Walton RN reviewed record and discussed patient with Care Team. Source of Information: chart review, interdisciplinary rounds Introduced self/reviewed role; services accepted. Reason for Hospitalization: A-Fib No past medical history on file. 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 Home Environment: 3-4 steps with rail x2 to enter, all one floor in the home (mobile home) Social & Family Supports/Community Resources: sister in law and 2 nephews available for support Behavioral Health History: anxious- no medications/counseling Substance Use/Abuse: none Other Pertinent/Service Specific Information: none Health/Prescription Coverage: Primary Insurance: medicare A/B Secondary Insurance: [place] medicaid Prescription Coverage: [place] medicaid [facility] Other: none Primary Care Provider: Noreen Adam, MANAGER OF SELECTION AND ASSESSMENT [phone] Patient/Caregiver Goals of Treatment: TBD Potential Needs for Transition of Care: Rehab/SNF: n/a Home Health: The patient has been provided a list of Home Health Agencies which serve their preferred geographicarea. A letter describing our affiliations was reviewed with them and they were educated about their right to choose where referrals are placed. Patient requests referral to [facility]. PHONE: [phone] FAX: [phone] Expected date of discharge: unknown Referral routed to the Costume Rental Clerk for matching with agency and to provide [...] Comments CARDIOVERSION-OR Routine 07/21/2016 1:10 PM EST SALMON TROLL FISHER SCAN 07/17/2016 12:00 AM EST SALMON TROLL FISHER SCAN 07/17/2016 12:00 AM EST POTASSIUM Routine [...] Procedure Note Patient Name: Massiel Max : [id number] We were asked by the CTS service [...] P OSTOP PAIN QUESTION * SCAN DOC: SALMON TROLL FISHER (07/17/2016 12:00 AM EST) Anatomical Region Laterality Modality Other Narrative 07/17/2016 12:00 AM EST Ordered by an unspecified provider. Scanning Provider MEDIA MGR SCAN EXT O RDR/RSLT * SCAN DOC: SALMON TROLL FISHER (07/17/2016 12:00 AM EST) Anatomical Region Laterality Modality Other Narrative 07/17/2016 12:00 AM EST Ordered by an unspecified provider. Scanning Provider MEDIA MGR SCAN EXT O RDR/RSLT * Potassium (07/16/2016 4:25 AM EST) Potassium 3.9 3.5 - 5.0 mmol/L [facility] Comment: Please note: ??Patients with [...] MD CHEMISTRY ORDERABLE S Performing Organization Address [facility] de Phone Number [facility] [place] [address] * Potassium (07/15/2016 10:55 AM EST) Potassium 4.2 3.5 - 5.0 mmol/L [facility] Comment: Please note: ??Patients with [...] MD CHEMISTRY ORDERABLE S Performing Organization Address [facility] de Phone Number [facility] [place] [address] * EKG 12 Lead (07/14/2016 11:01 AM EST) Ventricular rate 52 BPM MUSE SYSTEM Atrial Rate 52 BPM MUSE SYSTEM P-R Interval 188 ms MUSE SYSTEM QRS Duration 90 ms MUSE SYSTEM Q-T Interval 456 ms MUSE SYSTEM QTC Calculated (Bezet) 424 ms MUSE SYSTEM Calculated P [place] 60 degrees MUSE SYSTEM Calculated R [place] 3 degrees MUSE SYSTEM Calculated T [place] 42 degrees MUSE SYSTEM INTERPRETATION Sinus bradycardia [...] Neutr Abs (ANC) 5.12 1.70 - 6.10 x10(3)/[facility] Lymphocytes % 23.1 % [facility] Lymphocytes Abs 1.8 0.9 - 3.2 x10(3)/[facility] Monocytes % 9.3 % [facility] Monocyte Abs 0.7 0.3 - 0.9 x10(3)/[facility] Eosinophils % 2.5 % [facility] Eosinophils Abs 0.2 0.0 - 0.4 x10(3)/[facility] Basophils % 0.8 % [facility] Basophils Abs 0.1 0.0 - 0.1 x10(3)/[facility] Immature Gran % 0.30 % [facility] Comment: Immature granulocytes(IG's)percentage and absolute count will include metamyelocytes, myelocytes, and promyelocytes. Blood smears from CBCs yielding IG's will be scanned manually for concordance. If this scan disagrees with the automated IG or if promyelocytes are noted, a manual differential will be performed. Karen Gran Abs 0.02 0.00 - 0.04 x10(3)/[facility] Blood specimen (specimen) 07/13/2016 4:54 PM EST 07/13/2016 5:11 PM EST Narrative Resulting Agency Comment Spec In Lab Laureano Guzman MD HEMATOLOGY ORDERABL ES Performing Organization Address City/State/[place] [facility] de Phone Number [facility] [place] [address] * (ABNORMAL) Hemogram (07/13/2016 4:54 PM EST) WBC 8.0 4.0 - 9.5 x10(3)/[facility] RBC 4.46 4.00 - 5.21 x10(6)/[facility] Hemoglobin 13.2 11.7 - 15.5 gm/dL [facility] Hematocrit 39.8 35.7 - 45.8 % [facility] MCV 89.2 82.6 - 94.4 [facility] MCH 29.6 27.1 - 32.[address] [facility] MCHC 33.2 31.7 - 35.0 gm/dL [facility] Platelets 372(H) 145 - 357 x10(3)/[facility] RDWSD 47.8(H) 37.0 - 46.0 [facility] RDWCV 14.8(H) 11.5 - 14.1 % [facility] MPV 8.7 7.6 - 12.9 [facility] nRBC % Auto 0.0 % [facility] nRBC Abs Auto 0.000 0.000 - 0.000 x10(3)/[facility] Blood specimen (specimen) 07/13/2016 4:54 PM EST 07/13/2016 5:11 PM EST Narrative Resulting Agency Comment Spec In Lab Laureano Guzman MD HEMATOLOGY ORDERABL ES [facility] [place] [address] * (ABNORMAL) Basic Metabolic Panel (non-fasting) (07/13/2016 4:54 PM EST) Glucose Lvl 85 65 - 199 mg/dL [facility] Comment:Diabetes: >=200 mg/d L plus symptoms BUN 12 8 - 18 mg/dL [facility] Creatinine 1.04 0.70 - 1.20 mg/dL [facility] Comment: Please note that the pediatric reference intervals supplied above were not validated at [facility]. Results from pediatric patients should be interpreted in conjunction to the patient's age, height and muscle mass. Sodium 138 135 - 145 mmol/L [facility] Potassium 4.0 3.5 - 5.0 mmol/L [facility] Comment: Please note: ??Patients with WBC >100,000 may have falsely elevated Potassium levels. ??For accurate Potassium quantification in these patients send serum separator tube (gold top) for subsequent determinations. ??Contact the Clinical Chemistry Laboratory if there are any questions. Chloride 98 98 - 107 mmol/L [facility] CO2 24 22 - 31 mmol/L [facility] Anion Gap 16(H) 5 - 15 mmol/L [facility] Calcium 9.7 8.5 - 10.5 mg/dL [facility] Estimated GFR 52(L) >=60 [facility] [...] the following links into your internet browser. [email or web address] Blood specimen (specimen) 07/13/2016 4:54 PM EST 07/13/2016 5:11 PM EST Narrative Resulting Agency Comment Spec In Lab Laureano Guzman MD CHEMISTRY ORDERABLE S [facility] [place] [address] documented in this encounter Visit Diagnoses Not on filedocumented in this encounter Admitting Diagnoses Diagnosis A-fib [...] Given 07/15/2016 8:56 AM EST 200 mg betaxolol (BETOPTIC-S) 0.25 % ophthalmic drops [...] Last dose on 08/15/16 at 0900, Routine rivaroxaban (XARELTO) tablet 20 mg 20 mg, [...] Crenshaw RN)1617 (Given - Provider: Jaylene Franklin RN)2048 (Given - Provider: Fahad Arriaga, RN) AMIOdarone (CORDARONE; PACERONE) tablet 200 mg 200 mg, Oral, 2 TIMES DAILY, First dose (after last modification) on Tue07/15/16 at 0900, Until Discontinued, Routine 0856 (Given - Provider: Graciela Medrano RN)2016 (Given - Provider: Piper Wilhelm RN) 0826 (Given - Provider: Micha [place] RN) aspirin chewable tablet 81 mg (CANCELED) 81 mg, Oral, DAILY, First dose on Tue07/13/16 at 1700, Until Discontinued, Routine 0810 (Given - Provider: Jaylene Franklin RN)1002 (JUL Hold - Provider: Admin Adt - Reason: Transfer to a Procedural area)1049 (JUL Unhold - Provider: Sue Crenshaw RN) 0856 (Given - Provider: Graciela Medrano RN) 0826 (Hold - Provider: Micha [place] RN - [...] RN) 0856 (Given - Provider: Graciela Medrano RN)2017 (Given - Provider: Piper Wilhelm, AIDEN) 0825 (Given - Provider: Micha [place] RN) famotidine (PEPCID) tablet 20 mg 20 mg, Oral, 2 TIMES DAILY, First dose on Tue07/13/16 at 2100, Until Discontinued, Routine 0809 (Given - Provider: Jaylene Franklin RN)1002 (JUL Hold - Provider: Admin Adt - Reason: Transfer to a Procedural area)1049 (MAR Unhold - Provider: Sue Crenshaw RN)204 (Given - Provider: Fahad Arriaga RN) 0856 (Given - Provider: Graciela Medrano, AIDEN)2016 (Given - Provider: Piper Wilhelm, RN) 08 (Given - Provider: Micha [place], RN) furosemide (LASIX) injection 20 mg (CANCELED) 20 mg, Intravenous, 2 TIMES DAILY, First dose on Gabi 07/15/16 at 0900, Until Discontinued 08 (Given - Provider: Graciela Medrano RN)1602 (Given - Provider: Micha [place] RN) 0900 (Hold - Provider: Micha [place] RN - Reason: Per MD Order) furosemide (LASIX) tablet 20 mg 20 mg, Oral, DAILY, 30 doses, First dose on 07/17/16 at 0900, Last dose on Tue08/15/16 at [...] Procedural area)1049 (MAR Unhold - Provider: Sue Crenshaw RN)1136 (Given - Provider: Jaylene Franklin RN)1734 (Given [...] SBP<90, Routine 2016 (Given - Provider: Piper Wilhelm, AIDEN) 08 (Given - Provider: Micha [place], AIDEN) potassium chloride (K-DUR/KLOR-CON) extended release tablet 10 mEq 10 mEq, Oral, DAILY, 30 doses, First dose on 07/17/16 at 0900, Last dose on Tue08/15/16 at [...] Franklin RN) 1603 (Given - Provider: Micha [place], AIDEN) senna-docusate (PERICOLACE) 8.6-50 mg per tablet 2 [...] Unit), Routine 1057 (Given - Provider: Sue Crenshaw, AIDEN)2100 (Not Given - Provider: Fahad Arriaga RN - Reason: Contraindicated) 0900 (Not Given - Provider: Graciela Medrano RN - Reason: Loss of access)2017 (Given - Provider: Piper Wilhelm, RN) 0833 (Given - Provider: Micha Burrell RN) [...] area)1049 (JUL Unhold - Provider: Sue Crenshaw RN)2350 (Given - Provider: Katty Arteaga RN) carboxymethylcellulose (REFRESH CELLUVISC) 1 % ophthalmic drops 1 drop 1 drop, Both Eyes, 3 TIMES DAILY PRN, Starting on Tue07/13/16 at 1602, Until Tue07/16/16 at 1531, Dry Eyes, Routine 1002 ([facility] Hold - Provider: Admin Adt - Reason: Transfer to a Procedural area)1049 ([facility] Unhold - Provider: Sue Crenshaw RN) hydrALAZINE (APRESOLINE) injection 5 mg 5 mg, Intravenous, EVERY 6 HOURS PRN, Starting on Tue07/13/16 at 2124, Until Tue07/16/16 at 1531, High Blood Pressure, Please give to keep SBP<150. 1002 ([facility] Hold - Provider: Admin Adt - Reason: Transfer to a Procedural area)1049 ([facility] Unhold - Provider: Sue Crenshaw RN) lidocaine (XYLOCAINE) 10 mg/mL (1 %) injection 3 mg 3 mg (0.3 mL), Subcutaneous, ONCE PRN, 1 dose, Starting on Tue07/13/16 at 1602, Until Tue07/16/16 at 1531, for discomfort with PIV insertion, Routine 1002 ([facility] Hold - Provider: Admin Adt - Reason: Transfer to a Procedural area)1049 ([facility] Unhold - Provider: Sue Crenshaw RN) lidocaine [...] antiemetics are ordered, give ondansetron first. 1002 ([facility] Hold - Provider: Admin Adt - Reason: Transfer to a Procedural area)1049 ([facility] Unhold - Provider: Sue Crenshaw RN) ondansetron (ZOFRAN) tablet 4 mg(Linked Group [...] take PO, may give IV., Routine 1002 ([facility] Hold - Provider: Admin Adt - Reason: Transfer to a Procedural area)1049 ([facility] Unhold - Provider: Sue Crenshaw RN) sodium chloride 0.9 % flush 5-20 mL 5-20 mL, Intravenous, EVERY 1 MIN PRN, Starting on Tue07/13/16 at 1602, Until Tue07/16/16 at 1531, flush, Flush pertains to all indwelling lines. Flush per protocol found in the job aid using the link provided on this medication record., Routine 1002 ([facility] Hold - Provider: Admin Adt - Reason: Transfer to a Procedural area)1049 ([facility] Unhold - Provider: Sue Nabarowsky, RN) sodium chloride 0.9 % flush 5-20 [...] first. documented in this encounter Care Teams Maintenance Mechanic Engine Relationship Specialty Start Date End Date Noreen Adam, ANIKET [address] [place] [address] PCP - General Family Medicine 04/27/16 02/12/22 documented as of this encounter
--- OUTSIDE RECORDS SUMMARY | 2023-12-07 03:56 | XMS_ITS | Encounter Summary ---
Author Organization [facility] Address [facility] [place] [address] Care Team Providers Care Hydrogen Treater Name Role Phone Noreen Adam APRN Primary Care Provider [phone] Encounter Details Date Type Department Care Team (Late st Contact Info) Description 10/11/2019 Telephone Cardiology at [address] [phone] Julia Wills MD [facility] [place] [address] Social History Tobacco Use Types Packs/Day Years [...] encounter Miscellaneous Notes * Telephone Encounter - Julia Wills MD - 10/11/2019 9:56 AM EDT Spoke with patient regarding the results of her zio monitor which demonstrated persistent AF throughout the 2 weeks of monitoring with reasonable rate control. During daytime, most of the time HR [id number] bpm. However, there were periods of rapidly conducted AF that were sustained at times (150s-180s). She was surprised to hear that she was in AF persistently. Symptoms did not correlate with these periods of rapid AF. We discussed alternative management options for rhythm control should she choose to pursue that including drugs and ablation. 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 We also discussed ablation very briefly. She wishes to think about these options and get back to me in a few days. I assured here there is no antonio. documented in this encounter Plan of Treatment Not on file documented as of this encounter Visit Diagnoses Not on filedocumented in this encounter Care Teams Hydrogen Treater Relationship Specialty Start Date End Date Noreen Adam APRN [address] [place] [address] PCP - General Family Medicine 04/27/16 02/12/22 documented as of this encounter
--- OUTSIDE RECORDS SUMMARY | 2023-12-07 03:56 | XMS_ITS | Encounter Summary ---
Author Organization [facility] Address [facility] [place] [address] Care Team Providers Care Optical Glass Sawyer Name Role Phone Noreen Adam APRN Primary Care Provider [phone] Encounter Details Date Type Department Care Team (Latest Contact Info) Description 10/22/2019 2:00 PM EDT TH Visit (TeleHealth) Cardiology at [address] [phone] Julia Wills MD [facility] [place] [address] Persistent atrial fibrillation Social History Tobacco Use Types [...] Progress Notes * Julia Wills MD - 10/22/2019 2:00 PM EDT [facility] [place] [facility] TELEPHONE VISIT PRIMARY CARE PROVIDER: Noreen Adam APRN [address] [facility] 1 [place] [address] PATIENT PROFILE: Massiel Max is a 73 y.o. female with persistent atrial fibrillation. PROBLEM LIST: Patient Active Problem List Diagnosis Code ??? 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 A-fib I48.91 ALLERGIES: No Known Allergies MEDICATIONS: Current Outpatient Medications Medication Sig Dispense Refill ??? pantoprazole EC (Protonix) 40 mg Tablet, Delayed Release (E.C.) Take 40 mg by mouth daily. ??? dilTIAZem (CARDIZEM SR) 60 mg Capsule, Sust. Release 12 hr Take 60 mg by mouth 2 times daily. ??? APIXABAN ORAL Take 5 mg by mouth 2 times daily. ??? acetaminophen (TYLENOL) 500 mg Tablet Take 2 tablets by mouth every 6 hours as needed for Pain.30 tablet 1 ??? carboxymethylcellulose (REFRESH CELLUVISC) 1 % Dropperette, Gel 1 drop 3 times daily as needed.Reported on 07/13/2016 No current facility-administered medications for this visit. HISTORY OF PRESENT ILLNESS: Massiel Max is a 73 y.o. female with a history of atrial myxoma s/p removal complicated by postoperative AF which has progressed to persistent atrial fibrillation. We last spoke during a telehealth visit about one month ago. After that telehealth visit, she wore a Zio monitor which demonstrated persistent AF with adequate rate control. We discussed management options for treatment of symptomatic AF including drugs and ablation when that monitor resulted. This televisit is a follow up to thatphone call about 10 days ago. Massiel has a number of questions today related to the nature of atrial fibrillation and management options. She continues to feel well. She sometimes feels her heart pounding, but other times not. She does not feel limited in her daily activities. She denies syncope, near syncope, or light headedness. She denies chest pain/pressure. She denies LE edema or PND/orthopnea. Massiel took her BP a few times today and it was 140s-150s/100-110s. ACCESSORY CLINICAL FINDINGS: Zio monitor reviewed: AF seen continuously with reasonable rate control. Laboratory Data: None recent IMPRESSION: Massiel Max is a 73F with history of atrial myxoma s/p removal complicated by postoperative atrial fibrillation complicated by stroke initially treated with amiodarone and anticoagulation which has now progressed to persistent atrial fibrillation since recurrence in the fall of 2018. We met by phone today to discuss management options. Today, we focused on the natural history of atrial fibrillation including the general increase in difficulty suppressing AF in the absence of gnosticism of sinus rhythm. We discussed reasons for rhythm control including, primarily, avoidance of tachy-myopathy and symptom control. We did discuss that rhythm control does not reduce stroke risk. Importantly, Ms Max appears to have adequate rate control on her current regimen based on recent ambulatory monitoring. After a discussion of risks and benefits, Ms. Max would like to defer rhythm control of AF at this time since rate control is adequate and symptoms appear to be minimal. She knows that she can revisit rhythm control in the future. She will continue anticoagulation lifelong. Regarding her blood pressure, she is not sure her monitor is accurate since she has not used it much over the past 5 years. She will purchase a new one and if BP remains high (especially DBP), she will reach out to her PCP or primary cardiology, Dr. Ascencio. documented in this encounter Plan of Treatment Not on file documented as of this encounter Visit Diagnoses Diagnosis Persistent atrial fibrillation Atrial fibrillation documented in this encounter Care Teams Optical Glass Sawyer Relationship Specialty Start Date End Date Noreen Adam APRN [address] [facility] 1 [place] [address] PCP - General Family Medicine 04/27/16 02/12/22 documented as of this encounter
--- OUTSIDE RECORDS SUMMARY | 2023-12-07 03:56 | XMS_ITS | Encounter Summary ---
Author Organization [facility] Address [facility] [place] [address] Care Team Providers Care Spinning Machine Tender Name Role Phone Noreen Adam APRN Primary Care Provider [phone] Encounter Details Date Type Department Care Team (Latest Contact Info) Description 03/28/2019 11:05 AM [facility] - 03/28/2019 11:59 PM [facility] Hospital Encounter [place] [phone] Nydia Chaves MD [address] [place], [place] [address] Atrial fibrillation, persistent Discharge Disposition: Home Social History Tobacco Use [...] Priority Date/Time Associated Diagnosis Comments ECHO COMPLETE Routine 03/28/2019 11:16 AM EST Atrial fibrillation, persistent documented in this encounter Results * ECHO COMPLETE (03/28/2019 11:16 AM EST) EF 65 HEARTLAB SYSTEM Anatomical Region Laterality Modality Other 03/28/2019 Narrative 03/28/2019 11:40 AM EST Procedure: ?Transthoracic Echocardiogram Patient: ?FERNANDO Sims . ? (Age): 1945(73y) Med Rec#: ? [id number] ?Sex: ?F ? Site Loc: ? [facility] ??Ht / Wt: ??167.64(cm)/92.0 Pt. Loc: ?Adult Floor ? BSA: ?2.01 Study Date: ?? 03/28/2019 ?Pt. Type: Inpatient Tape: ? Referring: [facility] (Diag Imaging) Referring: LAUREEN Referring: SITA (ICU) Referring: [facility]ITA(Med Rec) Reading: Barak Hallman ([id number]) Continuing Education Dean: BASIL Continuing Education Dean: BASIL Diagnosis: *Persistent atrial fibrillation (I48.1) BP: ? 119/63 SUMMARY: 1. The left ventricular chamber size is normal. Mild concentric left ventricular hypertrophy is observed. There are no left ventricular segmental wall motion abnormalities. There is normal global left ventricular systolic function. ??Ejection fraction is estimated to be 65%. 2. The right ventricle is normal in size. Right ventricular global systolic function is normal. 3. The left atrium is mildly dilated. The right atrium is normal in size. 4. The aortic valve is tricuspid. The aortic valve leaflets are moderately thickened. There is no evidence of aortic valve stenosis. Mild (1+/4+) aortic valve regurgitation is present. 5. There is mild to moderate (1-2+/4+) tricuspid regurgitation present. The estimated pulmonary artery systolic pressure is 25 mmHg. 6. See remainder of report for additional findings. Findings ? : Left Ventricle: ? The left ventricular chamber size is normal. ?Mild concentric left ventricular hypertrophy is observed. ?There is no evidence of LVOT obstruction. ?There is normal global left ventricular systolic function. ??Ejection fraction is estimated to be 65%. ?There are no left ventricular segmental wall motion abnormalities. Left Atrium: ? The left atrium is mildly dilated. Right Ventricle: ? The right ventricle is normal in size. ?Right ventricular global systolic function is normal. ?The estimated pulmonary artery systolic pressure is 25 mmHg. ?The estimated right atrial pressure is 3 mmHg. Right Atrium: ? The right atrium is normal in size. Aortic Valve: ? The aortic valve is tricuspid. ?The aortic valve leaflets are moderately thickened. ?Systolic excursion of the aortic valve is normal. ?There is no evidence of aortic valve stenosis. ?Mild (1+/4+) aortic valve regurgitation is present. Mitral Valve: ? The mitral valve leaflets are mildly thickened. ?There is mitral annular calcification. ?There is no evidence of mitral stenosis. ?There is trace mitral regurgitation present. Tricuspid Valve: ? The tricuspid valve leaflets are mildly thickened. ?There is mild to moderate (1-2+/4+) tricuspid regurgitation present. Pulmonic Valve: ? The pulmonic valve appears normal. ?There is mild to moderate (1-2+/4+) pulmonic regurgitation present. Misc: ? Two-dimensional echo, spectral Doppler and color Doppler performed. Chambers 2D ?Value ?Units (Range) ? IVSd (2D) ? 1.3 ?cm ? LVPWd (2D) ?1.2 ?cm ? IVS:LVPW ratio (2D) 1.1 ?ratio ? RWT (2D) ?0.7 ?ratio ? RWT PW (2D) ? 0.7 ?ratio ? LVIDd (2D) ?3.5 ?cm ? LVIDs (2D) ?2.6 ?cm ? LVIDd (2D) index ?1.8 ?cm/m2 ? LVIDs (2D) index ?1.3 ?cm/m2 ? LV FS (2D) ?27 ? % ? EF Teichholz (2D) ?? 53 ? % ? Ascending Ao ?3.5 ?cm (2 - 3.5) ? Volumes/Mass ?Value ?Units (Range) ? LA ESV BP (A/L) inde29.1 ? ml/m2 ? LA ESV BP (MOD) inde26.8 ? ml/m2 ? LV ESV SP 4CH (MOD) 20.5 ? ml ? LV ESV SP 2CH (MOD) 26.7 ? ml ? LV EDV BP ? 54.9 ? ml ? LV ESV BP ? 24.6 ? ml ? LV EDV BP index ? 27.3 ? ml/m2 ? LV ESV BP index ? 12.3 ? ml/m2 ? BP EF (MOD) ? 55 ? % ? LV mass (2D) ?143.3 ?g ? LV mass (2D) index ??71.3 ? g/m2 ? Diastolic/Systolic Function ?Value ?Units (Range) ? MV E-wave Vmax ?1.1 ?m/sec ? MV deceleration crkv788.4 ?msec ? LV septal e' Vmax ?? 0.1 ?m/sec ? LV lateral e' Vmax ??0.1 ?m/sec ? LV average e' Vmax ??0.1 ?m/sec ? LV E:e' septal ratio14.6 ? ratio ? LV E:e' lateral rati9.1 ?ratio ? LV average E:e' rati11 ? ratio ? Aortic Valve ?Value ?Units (Range) ? AV Vmax ? 1.2 ?m/sec ? AV VTI ?19.4 ? cm ? AV peak gradient ?5.8 ?mmHg ? AV mean gradient ?3.3 ?mmHg ? LVOT diameter ? 2 ?cm ? LVOT Vmax ? 0.9 ?m/sec ? LVOT VTI ?14.2 ? cm ? DOI (VTI) ? 0.7 ?ratio ? DOI (Vmax) ?0.7 ?ratio ? SV LVOT ? 45.5 ? ml ? CO LVOT ? 4.1 ?l/min ? Cardiac index ? 2.1 ?l/min/m2 ? BETO (continuity Vmax2.3 ?cm2 ? BETO (continuity Vmax1.2 ?cm2/m2 ? BETO (continuity VTI)2.4 ?cm ? BETO (continuity VTI)1.2 ?cm2/m2 ? Mitral Valve ?Value ?Units (Range) ? MV PHT ?49.4 ? msec ? MVA (PHT) ? 4.5 ?cm2 ? Tricuspid Valve ?Value ?Units (Range) ? TR Vmax ? 2.4 ?m/sec ? TR peak gradient ?22.3 ? mmHg ? RAP ? 3 ?mmHg ? RVSP ?25 ? mmHg ? Pulmonic Valve/Qp:Qs ?Value ?Units (Range) ? PV Vmax ? 1.1 ?m/sec ? PV peak gradient ?4.9 ?mmHg ? PA end-diastolic Vma1.9 ?m/sec ? PA end-diastolic pre17 ? mmHg ? Wall Motion: Segment Name ?Rest ? Base-Anteroseptal ?? Normal ? Base-Anterior ? Normal ? Base-Anterolateral ??Normal ? Base-Posterolateral Normal ? Base-Inferior ? Normal ? Base-Inferoseptal ?? Normal ? Mid-Anteroseptal ?Normal ? Mid-Anterior ?Normal ? Mid-Anterolateral ?? Normal ? Mid-Posterolateral ??Normal ? Mid-Inferior ?Normal ? Mid-Inferoseptal ?Normal ? [place]-Septal ? Normal ? [place]-Anterior ? Normal ? [place]-Lateral ?Normal ? [place]-Inferior ? Normal ? [place]-Tip ?Normal ? This report has been electronically signed by: Barak Hallman MD ? 03/28/2019 11:22:40 Images reviewed and interpretation verified [facility] Cardiac Ultrasound Laboratory Procedure Note Barak Hallman MD - 03/28/2019 Procedure: Transthoracic Echocardiogram Patient: FERNANDO CASTANON(Age): 1945(73y) Med Rec#: [id number] Sex: F Site Loc: [facility] Ht / Wt: 167.64(cm)/92.0 Pt. Loc: Adult Floor BSA: 2.01 Study Date: 03/28/2019 Pt. Type: Inpatient Tape: Referring: [facility] (Diag Imaging) Referring: LAUREEN Referring: SITA (ICU) Referring: [facility](Med Rec) Reading: Barak Hallman ([id number]) Continuing Education Dean: BASIL Continuing Education Dean: BASIL Diagnosis: *Persistent atrial fibrillation (I48.1) BP: 119/63 SUMMARY: 1. The left ventricular chamber size is normal. Mild concentric left ventricular hypertrophy is observed. There are no left ventricular segmental wall motion abnormalities. There is normal global left ventricular systolic function. Ejection fraction is estimated to be 65%. 2. The right ventricle is normal in size. Right ventricular global systolic function is normal. 3. The left atrium is mildly dilated. The right atrium is normal in size. 4. The aortic valve is tricuspid. The aortic valve leaflets are moderately thickened. There is no evidence of aortic valve stenosis. Mild (1+/4+) aortic valve regurgitation is present. 5. There is mild to moderate (1-2+/4+) tricuspid regurgitation present. The estimated pulmonary artery systolic pressure is 25 mmHg. 6. See remainder of report for additional findings. Findings : Left Ventricle: The left ventricular chamber size is normal. Mild concentric left ventricular hypertrophy is observed. There is no evidence of LVOT obstruction. There is normal global left ventricular systolic function. Ejection fraction is estimated to be 65%. There are no left ventricular segmental wall motion abnormalities. Left Atrium: The left atrium is mildly dilated. Right Ventricle: The right ventricle is normal in size. Right ventricular global systolic function is normal. The estimated pulmonary artery systolic pressure is 25 mmHg. The estimated right atrial pressure is 3 mmHg. Right Atrium: The right atrium is normal in size. Aortic Valve: The aortic valve is tricuspid. The aortic valve leaflets are moderately thickened. Systolic excursion of the aortic valve is normal. There is no evidence of aortic valve stenosis. Mild (1+/4+) aortic valve regurgitation is present. Mitral Valve: The mitral valve leaflets are mildly thickened. There is mitral annular calcification. There is no evidence of mitral stenosis. There is trace mitral regurgitation present. Tricuspid Valve: The tricuspid valve leaflets are mildly thickened. There is mild to moderate (1-2+/4+) tricuspid regurgitation present. Pulmonic Valve: The pulmonic valve appears normal. There is mild to moderate (1-2+/4+) pulmonic regurgitation present. Misc: Two-dimensional echo, spectral Doppler and color Doppler performed. Chambers 2D Value Units (Range) IVSd (2D) 1.3 cm LVPWd (2D) 1.2 cm IVS:LVPW ratio (2D) 1.1 ratio RWT (2D) 0.7 ratio RWT PW (2D) 0.7 ratio LVIDd (2D) 3.5 cm LVIDs (2D) 2.6 cm LVIDd (2D) index 1.8 cm/m2 LVIDs (2D) index 1.3 cm/m2 LV FS (2D) 27 % EF Teichholz (2D) 53 % Ascending Ao 3.5 cm (2 - 3.5) Volumes/Mass Value Units (Range) LA ESV BP (A/L) inde29.1 ml/m2 LA ESV BP (MOD) inde26.8 ml/m2 LV ESV SP 4CH (MOD) 20.5 ml LV ESV SP 2CH (MOD) 26.7 ml LV EDV BP 54.9 ml LV ESV BP 24.6 ml LV EDV BP index 27.3 ml/m2 LV ESV BP index 12.3 ml/m2 BP EF (MOD) 55 % LV mass (2D) 143.3 g LV mass (2D) index 71.3 g/m2 Diastolic/Systolic Function Value Units (Range) MV E-wave Vmax 1.1 m/sec MV deceleration lflt776.4 msec LV septal e' Vmax 0.1 m/sec LV lateral e' Vmax 0.1 m/sec LV average e' Vmax 0.1 m/sec LV E:e' septal ratio14.6 ratio LV E:e' lateral rati9.1 ratio LV average E:e' rati11 ratio Aortic Valve Value Units (Range) AV Vmax 1.2 m/sec AV VTI 19.4 cm AV peak gradient 5.8 mmHg AV mean gradient 3.3 mmHg LVOT diameter 2 cm LVOT Vmax 0.9 m/sec LVOT VTI 14.2 cm DOI (VTI) 0.7 ratio DOI (Vmax) 0.7 ratio SV LVOT 45.5 ml CO LVOT 4.1 l/min Cardiac index 2.1 l/min/m2 BETO (continuity Vmax2.3 cm2 BTEO (continuity Vmax1.2 cm2/m2 BETO (continuity VTI)2.4 cm BETO (continuity VTI)1.2 cm2/m2 Mitral Valve Value Units (Range) MV PHT 49.4 msec MVA (PHT) 4.5 cm2 Tricuspid Valve Value Units (Range) TR Vmax 2.4 m/sec TR peak gradient 22.3 mmHg RAP 3 mmHg RVSP 25 mmHg Pulmonic Valve/Qp:Qs Value Units (Range) PV Vmax 1.1 m/sec PV peak gradient 4.9 mmHg PA end-diastolic Vma1.9 m/sec PA end-diastolic pre17 mmHg Wall Motion: Segment Name Rest Base-Anteroseptal Normal Base-Anterior Normal Base-Anterolateral Normal Base-Posterolateral Normal Base-Inferior Normal Base-Inferoseptal Normal Mid-Anteroseptal Normal Mid-Anterior Normal Mid-Anterolateral Normal Mid-Posterolateral Normal Mid-Inferior Normal Mid-Inferoseptal Normal [place]-Septal Normal [place]-Anterior Normal [place]-Lateral Normal [place]-Inferior Normal [place]-Tip Normal This report has been electronically signed by: Barak Hallman MD 03/28/2019 11:22:40 Images reviewed and interpretation verified [facility] Cardiac Ultrasound Laboratory Nydia Chaves MD ECHO ORDERABLES documented in this encounter Visit Diagnoses Diagnosis Atrial fibrillation, persistent Atrial fibrillation documented in this encounter Care Teams Spinning Machine Tender Relationship Specialty Start Date End Date Noreen Adam, ANIKET [address] [place] [address] PCP - General Family Medicine 04/27/16 02/12/22 documented as of this encounter
--- OUTSIDE RECORDS SUMMARY | 2023-12-07 03:56 | XMS_ITS | Encounter Summary ---
Author Organization [facility] [place] [address] Care Team Providers Care Sheet Metal Work Furnace Installer Name Role Phone Noreen Adam APRN Primary Care Provider [phone] Encounter Details Date Type Department Care Team (Late st Contact Info) Description 05/29/2021 Ancillary Procedure [place] [phone] Noreen Adam APRN [address] [place], [place] [id number] Social History Tobacco Use Types Packs/Day Years [...] Procedure Name Priority Date/Time Associated Diagnosis Comments FILM LIBRARY STORAGE ONLY NUCLEAR MEDICINE Routine 05/29/2021 12:00 AM EST documented in this encounter Results * Film Library- Storage Only nuclear medicine (05/29/2021 12:00 AM EST) Narrative [facility] - 06/02/2021 9:02 AM EST This exam is auto-finalizing. It's purpose is for storage only. Noreen Adam APRN IMG FILM LIBRARY ORD ERABLES [facility] [place], [place] documented in this encounter Visit Diagnoses Not on filedocumented in this encounter Care Teams Sheet Metal Work Furnace Installer Relationship Specialty Start Date End Date Noreen Adam APRN [address] [place] [address] PCP - General Family Medicine 04/27/16 02/12/22 documented as of this encounter
--- OUTSIDE RECORDS SUMMARY | 2023-12-07 03:56 | XMS_ITS | Encounter Summary ---
Author Organization [facility] [address] Care Team Providers Care Wool Buyer Name Role Phone Noreen Adam APRN Primary Care Provider [phone] Encounter Details Date Type Department Care Team (Late st Contact Info) Description 06/16/2016 Notes [place] [phone] Katelyn Vasquez APRN [address] [place] [address] GENERAL [place] [address] Social History Tobacco Use Types Packs/Day Years [...] on filedocumented in this encounter Care Teams Wool Buyer Relationship Specialty Start Date End Date Noreen Adam APRN [address] [place] [address] PCP - General Family Medicine 04/27/16 02/12/22 documented as of this encounter
--- OUTSIDE RECORDS SUMMARY | 2023-12-07 03:56 | XMS_ITS | Encounter Summary ---
Author Organization [facility] [place] [address] Care Team Providers Care Itinerant Teacher Assistant Name Role Phone Noreen Adam APRN Primary Care Provider [phone] Encounter Details Date Type Department Care Team (Late st Contact Info) Description 07/01/2021 Telephone [place] [phone] Jesus Arvizu DO [facility] [place] [address] Social History Tobacco Use Types Packs/Day Years [...] Telephone Encounter - Jesus Arvizu DO - 07/01/2021 11:57 AM EST Called patient to review the liver function labs were abnormal on last blood draw. Advised that this could be secondary to heart failure and that she should discuss this further with her cardiologistand/or primary care physician. Jesus Arvizu DO Endocrinology Fellow documented in this encounter Plan of Treatment Not on file documented as of this encounter Visit Diagnoses Not on filedocumented in this encounter Care Teams Itinerant Teacher Assistant Relationship Specialty Start Date End Date Noreen Adam APRN [address] [place] [address] PCP - General Family Medicine 04/27/16 02/12/22 documented as of this encounter
--- OUTSIDE RECORDS SUMMARY | 2023-12-07 03:56 | XMS_ITS | Encounter Summary ---
Author Organization [facility] [place] [address] Care Team Providers Care Community Development Technician Name Role Phone Noreen Adam APRN Primary Care Provider [phone] Encounter Details Date Type Department Care Team (Late st Contact Info) Description 10/09/2019 Telephone Cardiology at [address] [phone] Eva Gould RN Social History Tobacco Use Types Packs/Day Years [...] encounter Miscellaneous Notes * Telephone Encounter - Eva Gould RN - 10/09/2019 2:19 PM EDT RTC from [facility] at [facility] reporting abnormal Zio Patch results on pt. Pt had Afib with RVR with rateof 150 for greater than 30 seconds, 184 max. Eva Guold take out waitress Team Nurse [facility] documented in this encounter Plan of Treatment Not on file documented as of this encounter Visit Diagnoses Not on filedocumented in this encounter Care Teams Community Development Technician Relationship Specialty Start Date End Date Noreen Adam APRN [address] [place] [address] PCP - General Family Medicine 04/27/16 02/12/22 documented as of this encounter
--- OUTSIDE RECORDS SUMMARY | 2023-12-07 03:56 | XMS_ITS | Encounter Summary ---
Author Organization [facility] Address [facility] [place] [address] Care Team Providers Care Relationship Banker Name Role Phone Noreen Adam APRN Primary Care Provider + [phone] Reason for Visit * Auth/Cert Specialty Diagnoses / Procedures Referred By Contac t Referred To Contact Diagnoses A-fib AFIB W/ RVR a fib Procedures CARDIOVERSION-ELECTIVE (WRVU 2.25) Referral ID Status Reason Start Date Expiration Date Visits Re quested Visits Authorized [id number] 1 1 Encounter Details Date Type Department Care Team (Latest Contact Info) Description 07/13/2016 11:43 AM EST - 07/13/2016 11:59 AM [facility] Hospital Encounter XRay at [address] [place] [address] Luareano Guzman MD [facility] [place] [address] Atrial myxoma Discharge Disposition: Home Social History Tobacco Use [...] times daily. 60 tablet 5 07/16/2016 10/19/2019 aspirin 81 mg Tablet, Chewable Take 81 [...] Procedure Name Priority Date/Time Associated Diagnosis Comments XR CHEST PA AND LATERAL Routine 07/13/2016 11:52 AM EST Atrial myxoma documented in this encounter Results * XR Chest PA & Lateral (Generic) (07/13/2016 11:52 AM EST) Anatomical Region Laterality Modality Chest N/A Digital Radiogra phy Impressions 07/13/2016 12:01 PM EST Improved inflation and resolution of pleural effusions. Narrative 07/13/2016 12:01 PM EST EXAMINATION: XR CHEST PA AND LATERAL (GENERIC) CLINICAL HISTORY: s/p atrial myxoma removal TECHNIQUE: Standing PA and lateral chest COMPARISON: 06/04/2016 FINDINGS: There is a better degree of inflation and the previously seen small pleural effusions have cleared. There is no other interval change. Again noted are mild cardiomegaly and sternotomy wires.. Procedure Note Gildardo Leon MD - 07/13/2016 EXAMINATION: XR CHEST PA AND LATERAL (GENERIC) CLINICAL HISTORY: s/p atrial myxoma removal TECHNIQUE: Standing PA and lateral chest COMPARISON: 06/04/2016 FINDINGS: There is a better degree of inflation and the previously seen smallpleural effusions have cleared. There is no other interval change. Again noted aremild cardiomegaly and sternotomy wires.. IMPRESSION Improved inflation and resolution of pleural effusions. Laureano Guzman MD IMG DX ORDERABLES documented in this encounter Visit Diagnoses Diagnosis Atrial myxoma Benign neoplasm of heart documented in this encounter Care Teams Relationship Banker Relationship Specialty Start Date End Date Noreen Adam, HUMAN FACTORS ENGINEER [address] [place] [address] [address] [facility] [address] [place] [address] PCP - General Family Medicine 04/27/16 02/12/22 documented as of this encounter
--- OUTSIDE RECORDS SUMMARY | 2023-12-07 03:56 | XMS_ITS | Clinical Summary ---
Author Organization [facility] Address [facility] [place] [address] Care Team Providers Care Literacy Consultant Name Role Phone Simón Frederick Allisonmi DNP Primary Care Provider Allergies No known active allergies Medications Medication Sig Dispensed Refills Start Date End Date Status carboxymethylcellulo se (REFRESH CELLUVISC) 1 % Dropperette, Gel 1 drop 3 times daily as needed. Reported on 07/13/2016 Active acetaminophen (TYLENOL) 500 mg Tablet Take 2 tablets by mouth every 6 hours as needed for Pain. 30 tablet 1 06/05/2016 Active pantoprazole EC (Protonix) 40 mg Tablet, Delayed Release (E.C.) Take 40 mg by mouth daily. Active dilTIAZem (CARDIZEM SR) 60 mg Capsule, Sust. Release 12 hr Take 60 mg by mouth 2 times daily. Active APIXABAN ORAL Take 5 mg by mouth 2 times daily. Active metoprolol succinate XL (Toprol-XL) 50 mg Tablet Sustained Release 24 hr 2 times daily. 05/17/2021 Active ferrous sulfate 325 mg (65 mg iron) Tablet Take 325 mg by mouth daily (with breakfast). Active latanoprost (Xalatan) 0.005 % Drops Place 1 drop into both eyes nightly. Active losartan (Cozaar) 25 mg tablet Take 25 mg by mouth daily. 06/22/2022 Active potassium chloride (Klor-Con Sprinkle) 10 mEq ER capsule Take 10 mEq by mouth 2 times daily. 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 Overview (05/31/2016): S/p resection 05/31/16 Immunizations Name Administration Dates Next Due Influenza PF, Split 04/27/2016(Deferred: Patient Refused) Social History Tobacco Use Types Packs/Day Years Used Date Smoking Tobacco: Never Smokeless Tobacco: Never Alcohol Use Standard Drinks/Week Comments No 0 (1 standard drink = 0.6 oz pur e alcohol) Sex and Gender Information Value Date Recorded Sex Assigned at Not on file Gender Identity Not on file Sexual Orientation Not on file Last Filed Vital Signs Vital Sign Reading Time Taken Comments Blood Pressure 156/99 09/13/2022 10:38 AM EDT Pulse 86 09/13/2022 10:38 AM EDT Temperature 36.4 ??C (97.5 ??F) 09/13/2022 10:38 AM E DT Respiratory Rate 16 07/16/2016 12:14 PM EST Oxygen Saturation 99% 09/13/2022 10:38 AM EDT Inhaled Oxygen Concentration - - Weight 99.4 kg (219 lb 3.2 oz) 09/13/2022 10:38 AM EDT Height 170.2 cm (5' 7) 09/13/2022 10:38 AM EDT Body Mass Index 34.33 09/13/2022 10:38 AM EDT Plan of Treatment Health Maintenance Due Date Last Done Comments Hepatitis C Screening 11/28/1961 Tdap adult 11/28/1962 Tetanus vaccine 11/28/1962 Zoster vaccine (1 of 2) 11/28/1993 Advance Directive 11/28/1998 Bone Density Scan 11/28/2008 Pneumoccocal Vaccine: 65+ (1 of 1 - PCV) 11/28/2008 Covid-19 Vaccine (1 - 2022-24 season) 2023 Influenza (Flu) vaccine (1 o f 1 - Influenza standard series) 01/22/2024 Medical Devices Implanted Type Area Web Press Operator Assistant Device Identifier Shelf Expiration Date Model / Serial / Lot Patch,Cav,Per icard,5x10cm ([id number]) (Autoreq) - [id number] Implanted:Qty : 1 on 05/31/2016 by Laureano Guzman MD at [facility] N/A: Heart DO NOT USE [employer] - [id number] 08/01/2018 [id number] / / [id number] Travis,Blmarcos,Ss ,38in ([id number]) - [id number] Implanted:Qty : 1 on 05/31/2016 by Laureano Guzman MD at [facility] IMPLANTS Midline: Sternum [employer] - [id number] 02/17/2021 [id number] / / [id number] Advance Directives * Full Code (Latest Code Status on File) Date Activated Date Inactivated Comments 07/13/2016 3:17 PM 07/16/2016 3:31 PM Question Answer Comments Does patient have capacity to make decision: Yes * Full Code Date Activated Date Inactivated Comments 05/31/2016 11:48 AM 06/05/2016 3:13 PM Question Answer Comments Does patient have capacity to make decision: Yes * Full Code Date Activated Date Inactivated Comments 05/31/2016 7:26 AM 05/31/2016 11:48 AM Question Answer Comments Does patient have capacity to make decision: Yes * Full Code Date Activated Date Inactivated Comments 05/11/2016 11:19 AM 05/11/2016 5:39 PM Question Answer Comments Does patient have capacity to make decision: Yes Care Teams Literacy Consultant Relationship Specialty Start Date End Date Simón Frederick DNP [address] [place] [id number] PCP - General Family Medicine 09/13/22
--- OUTSIDE RECORDS SUMMARY | 2023-12-07 03:56 | XMS_ITS | Encounter Summary ---
[place] [address] Care Team Providers Care Electrification Adviser Name Role Phone Simón Frederick DNP Primary Care Provider Encounter Details Date Type Department Care Team (Latest Contact Info) Description 09/13/2022 Travel Social History Tobacco Use Types Packs/Day Years [...] on filedocumented in this encounter Care Teams Electrification Adviser Relationship Specialty Start Date End Date Simón Frederick DNP [address] [place] [address] [place] [address] PCP - General Family Medicine 09/13/22 documented as of this encounter
--- OUTSIDE RECORDS SUMMARY | 2023-12-07 03:56 | XMS_ITS | Encounter Summary ---
Author Organization [facility] [place] [address] Care Team Providers Care Central Sterile Tech Name Role Phone Noreen Adam APRN Primary Care Provider [phone] Encounter Details Date Type Department Care Team (Late st Contact Info) Description 01/20/2022 Orders [place] [address] Jesus Bob, [facility] [place] [address] Thyroiditis Social History Tobacco Use Types Packs/Day [...] unspecified documented in this encounter Care Teams Central Sterile Tech Relationship Specialty Start Date End Date Noreen Adam APRN [address] [place], [place] [address] PCP - General Family Medicine 04/27/16 02/12/22 documented as of this encounter
--- OUTSIDE RECORDS SUMMARY | 2023-12-07 03:56 | XMS_ITS | Encounter Summary ---
Author Organization [facility] [place] [address] Care Team Providers Care General Supervisor Name Role Phone Noreen Adam APRN Primary Care Provider [phone] Encounter Details Date Type Department Care Team (Late st Contact Info) Description 11/12/2021 3:35 PM EDT Ancillary Procedure [place] [address] Noreen Adam APRN [address] [place], [place] [id number] Social History Tobacco Use Types Packs/Day Years [...] Name Priority Date/Time Associated Diagnosis Comments FILM LIBRARY- STORAGE ONLY DXA IMAGES Routine 11/12/2021 3:32 PM EDT documented in this encounter Results * Film Library- Storage Only DXA Images (11/12/2021 3:32 PM EDT) Narrative [facility] - 11/12/2021 3:32 PM EDT This exam is auto-finalizing. It's purpose is for storage only. Noreen Adam APRN [facility] FILM LIBRARY ORD ERABLES [place], [place] documented in this encounter Visit Diagnoses Not on filedocumented in this encounter Care Teams General Supervisor Relationship Specialty Start Date End Date Noreen Adam APRN [address] [place] [address] PCP - General Family Medicine 04/27/16 02/12/22 documented as of this encounter
--- OUTSIDE RECORDS SUMMARY | 2023-12-07 03:56 | XMS_ITS | Encounter Summary ---
Author Organization [facility] Address [facility] [place] [address] Care Team Providers Care Cuff Setter Lockstitch Name Role Phone Noreen Adam APRN Primary Care Provider [phone] Reason for Visit * Auth/Cert Specialty Diagnoses / Procedures Referred By Ayan chan Referred To Contact Diagnoses A-fib AFIB W/ RVR a fib Procedures CARDIOVERSION-ELECTIVE (WRVU 2.25) Referral ID Status Reason Start Date Expiration Date Visits Re quested Visits Authorized [id number] 1 1 Encounter Details Date Type Department Care Team (Late st Contact Info) Description 07/14/2016 10:25 AM EST Anesthesia Event [place] [address] Sage Hernandez MD [facility] [place] [address] Anesthesia Record Procedure Summary Procedure Name Responsible Anesthesiologist Anesthesia Start Time Anesthesia Stop Time CARDIOVERSION-ELECT RAYA (WRVU 2) Sage Hernandez MD 07/14/16 1025 07/14/16 1037 Events Date Time Event Comment 07/14/2016 1010 1025 AN Verify 1025 Start 1025 An Start Data 1025 Anesthesia Ready 1030 Procedure Start 1031 Procedure Stop 1031 an stop data 1037 Recovery or ICU Handoff Jada ent care was transferred to the destination unit staff after review of the patient's medical history, current anesthetic/surgical status and plan, according to the Provider Handoff Checklist. 1037 Stop Meds Name Total Propofol 50 mg Sodium Chloride 0.9% 50 mL * Agents Name O2 * Blood No blood administrations on file. Lines, Drains, and Airways Type Details Placement Removal Incision 05/31/16; 0820; ches t; midline, vertical; 01/18/22 (LDA cleanup utility RA#[id number]); 1715 (LDA cleanup utility RA#[id number]) 05/31/16 0820 by Cierra Martinez RN 01/18/22 1715 by Megan Kumar (RETIRED) Peripheral IV Line - Single Lumen 07/13/16; 1806; median cubital vein (antecubital fossa), left; [id number] catheter system; 22 gauge; AIDEN BRICE; distraction, intradermal injection, tolerated well; site symptomatic, catheter/device intact; 07/15/16; 0338 07/13/16 1806 by Fahad Argueta RN 07/15/16 0338 by Katty Arteaga RN (RETIRED) Peripheral IV Line - Single Lumen 07/14/16; 1029; 07/14/16; 1053 07/14/16 1029 by Roderick Bower CRNA 07/14/16 1053 by Sue Crenshaw RN documented in this encounter Social History Tobacco Use Types Packs/Day Years Used Date Smoking Tobacco: Never Smokeless Tobacco: Never Alcohol Use Standard Drinks/Week Comments No 0 (1 standard drink = 0.6 oz pur e alcohol) Sex and Gender Information Value Date Recorded Sex Assigned at Not on file Gender Identity Not on file Sexual Orientation Not on file documented as of this encounter OR Notes * Anesthesia Postprocedure Evaluation - Sage Hernandez MD - 07/14/2016 11:44 AM EST [facility] Department of Anesthesiology Post-procedure Note Patient: Massiel Max Procedure Summary Date Anesthesia Start Anesthesia Stop Room / Location 07/14/16 1025 1037 [facility] MINOR SURGERY / [facility] MAIN OR Procedure Diagnosis Surgeon Responsible Provider CARDIOVERSION-ELECTIVE (WRVU 2.25) (N/A ) (CV) Adan Jovle MD Nguyen, Tung T, MD All Anesthesia Providers: Anesthesiologist: Sage Hernandez MD SKEINER: Roderick Bower CRNA Last (1hr) Vitals: BP 137/67 (07/14/16 1133) Temp 36.4 ??C (97.5 ??F) (07/14/16 1133) Pulse 60 (07/14/16 1133) Resp 20 (07/14/16 1133) SpO2 94 % (07/14/16 1133) Patient Location: PACU/[facility] Level of Consciousness: Awake and Alert Pain Management: Satisfactory Analgesia PONV: None Cardiovascular Status: At Baseline Respiratory Status: At Baseline Postoperative Fluid Status: Intravascular EUvolemia Possible Anesthetic Complications: NONE apparent at time of evaluation Final Primary Anesthesia Type: MAC (The anesthetic type performed was the same as planned.) Comments: * Anesthesia Preprocedure Evaluation - Sage Hernandez MD - 07/14/2016 9:22 AM EST Pre-Anesthesia Evaluation for: Massiel Max a 70 y.o. female. Procedure(s): CARDIOVERSION-ELECTIVE (WRVU 2.25) Patient Active Problem List Diagnosis ??? A-fib ??? Atrial myxoma S/p resection 05/31/16 No past medical history on file. Past Surgical History Procedure Laterality Date ??? Pro removal heart lesion biology internship N/A 05/31/2016 @[facility] INTRACARDIAC TUMOR W\CPB (WRVU 38.45) performed by Laureano Gomez MD at [facility] MAIN OR Social History Substance Use Topics ??? Smoking status: Never Smoker ??? Smokeless tobacco: Never Used ??? Alcohol use No History Drug Use No No Known Allergies Medications: MAR and/or home medications have been reviewed. Physical Exam: Vitals: 07/14/16 0800 BP: (!) 144/98 Pulse: 106 Resp: 18 Temp: 36.9 ??C (98.4 ??F) Body mass index is 31.81 kg/(m^2). Height: 167.6 cm (5' 6) Weight - Scale: 89.4 kg (197 lb 1.5 oz) Airway Assessment: Mallampati: I TM distance: >3 FB Neck ROM: full Cardiovascular Assessment: Rhythm: irregular Rate: abnormal Pulmonary Assessment: breath sounds clear to auscultation Dental Assessment: - normal exam Misc Assessment: Patient is wearing No contact(s). IV access: Peripheral line Anesthesia Plan: ASA 3 MAC, with a(n) intravenous induction Region - Other Informed Consent: Anesthetic plan and risks discussed with patient. Use of blood products discussed with patient who did not consent to blood products. PAT Staff Note Attending NOTE Brief HPI: 70 y.o. with afib for cardioversion Diagnosis ??? Atrial myxoma s/p excision 05/2016 ??? A-fib PMH: HTN Hiatal hernia GERD Cardiac Symptoms: + palpitations EKG: afib ECHO: 07/13/16 EF 40%, left vent SWMA, no valve disease LABS: Lab Results Component Value Date HGB 13.2 07/13/2016 PLATELET 372 (H) 07/13/2016 NA 138 07/13/2016 K 4.0 07/13/2016 CREATININE 1.04 07/13/2016 Type and Screen: No results found for: ABORH Past anesthetic problems: denies Previous airway notes (on eDH): easy MV, grade 1 mac 3 NPO status: Reviewed and appropriate Anesthetic Plan: MAC Monitoring: Standard ASA monitors documented in this encounter Plan of Treatment Not on file documented as of this encounter Visit Diagnoses Not on filedocumented in this encounter Administered Medications Inactive Administered Medications - up to 3 most recent administrations Medication Order MAR Action Action Date Dose Rate Site propofol (DIPRIVAN) 10 mg/mL bolus injection (Anesthesia) PRN, Starting on 2/22/17 at 1026, Until Tue07/14/16 at 1037, Anesthesia Intra-op Given 07/14/2016 10:26 AM EST 50 mg sodium chloride 0.9% infusion CONTINUOUS PRN, Starting on Tue07/14/16 at 1025, Until Tue07/14/16 at 1037, Anesthesia Intra-op New Bag 07/14/2016 10:25 AM EST documented in this encounter Care Teams Cuff Setter Lockstitch Relationship Specialty Start Date End Date Noreen Adam, TRUST ADMINISTRATOR [address] [place] [address] [address] [place] [address] PCP - General Family Medicine 04/27/16 02/12/22 documented as of this encounter
--- OUTSIDE RECORDS SUMMARY | 2023-12-07 03:56 | XMS_ITS | Encounter Summary ---
Author Organization [facility] [place] [address] Care Team Providers Care Generator Rebuilder Name Role Phone Noreen Adam APRN Primary Care Provider [phone] Reason for Visit * Reason Onset Date Comments Follow-up 10/16/2019 Encounter Details Date Type Department Care Team ([facility] Contact Info) Description 10/16/2019 Telephone Cardiology at [address] [phone] Claudia Lipscomb, RN Follow-up Social History Tobacco Use Types Packs/Day Years [...] encounter Miscellaneous Notes * Telephone Encounter - Claudia Lipscomb, RN - 10/16/2019 11:42 AM EDT TC from pt as a f/u to discussion had with Dr. Wills on 10/10 regarding her options to treat her AF Explained admission process for dofetilide as well as for Afib ablation, but she also had some follow up questions to pose to Dr. Wills: 1. What are the risks of procedure/ side effects of the ablation procedure? (explained pericarditisas a possibility) 2. What would happen if she pursued no intervention and went on as is? 3. What avenue (AAD vs ablation) would Dr. Wills herself recommend? 4. Would the medications have an adverse effect on her liver/kidneys? (explained to her the monitoring process) She would appreciate a call at Dr. Wills's convenience to discuss these questions in a little more depth, she would like to make sure she is available (early mornings work best for her - 8:30- 9 AM) Will forward to Dr. Wills for her further review documented in this encounter Plan of Treatment Not on file documented as of this encounter Visit Diagnoses Not on filedocumented in this encounter Care Teams Generator Rebuilder Relationship Specialty Start Date End Date Noreen Adam APRN [address] [place] [address] PCP - General Family Medicine 04/27/16 02/12/22 documented as of this encounter
--- OUTSIDE RECORDS SUMMARY | 2023-12-07 03:56 | XMS_ITS | Encounter Summary ---
Author Organization [facility] [place] [address] Care Team Providers Care Relationship Advisor Name Role Phone Noreen Adam APRN Primary Care Provider [phone] Reason for Visit * Reason Comments Medication Refill Encounter Details Date Type Department Care Team (Late st Contact Info) Description 01/01/2017 Refill [place]iac [place] [address] Katelyn Vasquez APRN [address] [place] [address] [place] [address] Social History Tobacco Use Types Packs/Day Years [...] on filedocumented in this encounter Care Teams Relationship Advisor Relationship Specialty Start Date End Date Noreen Adam APRN [address] [place], [place] [address] PCP - General Family Medicine 04/27/16 02/12/22 documented as of this encounter
--- OUTSIDE RECORDS SUMMARY | 2023-12-07 03:56 | XMS_ITS | Encounter Summary ---
Author Organization [facility] [place] [address] Care Team Providers Care Election Supervisor Name Role Phone Noreen Adam APRN Primary Care Provider [phone] Reason for Visit * Reason Onset Date Comments Appointment 06/19/2021 Encounter Details Date Type Department Care Team ([facility] Contact Info) Description 06/19/2021 [place] [phone] Alison Almazan I Appointment Social History Tobacco Use Types Packs/Day Years [...] encounter Miscellaneous Notes * Telephone Encounter - Alison Gold I - 06/19/2021 2:26 PM EST Unable to leave a for patient to schedule a [address] Bob. Letter sent documented in this encounter Plan of Treatment Not on file documented as of this encounter Visit Diagnoses Not on filedocumented in this encounter Care Teams Election Supervisor Relationship Specialty Start Date End Date Noreen Adam APRN [address] [place], [place] [address] PCP - General Family Medicine 04/27/16 02/12/22 documented as of this encounter
--- OUTSIDE RECORDS SUMMARY | 2023-12-07 03:56 | XMS_ITS | Encounter Summary ---
Author Organization [facility] [place] [address] Care Team Providers Care Elementary Vocal Music Teacher Name Role Phone Noreen Adam APRN Primary Care Provider [phone] Encounter Details Date Type Department Care Team (Late st Contact Info) Description 06/19/2021 Telephone [place] [address] Jesus Bob, [facility] [place] [address] Social History Tobacco Use Types Packs/Day Years [...] Miscellaneous Notes * Telephone Encounter - Jesus Bob DO - 06/19/2021 8:47 AM EST Called patient and discussed lab findings. Reported that she may be headed towards hypothyroidism and that this may be due to a post viral thyroiditis that will likely eventually recover. Discussed that actual thyroid hormone levels at this point appear normal and so no specific treatment is indicated. Advised her to re-check the labs in 3 to 4 weeks. She will do this at [facility]. I asked her to please let me know once the labs have been drawn so that I can be sure to obtain a copy of the results. I also advised her that I have been in contact with her manager user experience, Dr. Houser and that she should contact Dr. Houser's office in [place] today to arrange an urgent visit. She is in agreement with this plan. Jesus Bob DO Endocrinology Fellow documented in this encounter Plan of Treatment Not on file documented as of this encounter Visit Diagnoses Diagnosis Thyroiditis Thyroiditis, unspecified documented in this encounter Care Teams Elementary Vocal Music Teacher Relationship Specialty Start Date End Date Noreen Adam, ANIKET [address] [place] [address] PCP - General Family Medicine 04/27/16 02/12/22 documented as of this encounter
--- OUTSIDE RECORDS SUMMARY | 2023-12-07 03:56 | XMS_ITS | Encounter Summary ---
Author Organization [facility] [place] [address] Care Team Providers Care Plate Furnace Operator Name Role Phone Noreen Adam APRN Primary Care Provider [phone] Encounter Details Date Type Department Care Team (Late st Contact Info) Description 05/28/2021 Ancillary Procedure [place] [phone] Noreen Adam APRN [address] [place], [place] [id number] Social History Tobacco Use Types Packs/Day Years [...] FILM LIBRARY STORAGE ONLY NUCLEAR MEDICINE Routine 05/28/2021 12:00 AM EST documented in this encounter Results * Film Library- Storage Only nuclear medicine (05/28/2021 12:00 AM EST) Narrative [facility] - 06/02/2021 9:06 AM EST This exam is auto-finalizing. It's purpose is for storage only. Noreen Adam APRN IMG FILM LIBRARY ORD ERABLES [place], [place] documented in this encounter Visit Diagnoses Not on filedocumented in this encounter Care Teams Plate Furnace Operator Relationship Specialty Start Date End Date Noreen Adam APRN [address] [place] [address] PCP - General Family Medicine 04/27/16 02/12/22 documented as of this encounter
--- OUTSIDE RECORDS SUMMARY | 2023-12-07 03:57 | XMS_ITS | Encounter Summary ---
Author Organization [facility] [place] [address] Care Team Providers Care Teradata Solution Architect Name Role Phone Noreen Adam APRN Primary Care Provider [phone] Encounter Details Date Type Department Care Team (Late st Contact Info) Description 04/27/2016 12:20 PM EST Clinical [place] [id number] Social History Tobacco Use Types Packs/Day Years Used Date Smoking Tobacco: Never Smokeless Tobacco: Never Alcohol Use Standard Drinks/Week Comments No 0 (1 standard drink = 0.6 oz pur e alcohol) Sex and Gender Information Value Date Recorded Sex Assigned at Not on file Gender Identity Not on file Sexual Orientation Not on file documented as of this encounter Progress Notes * Yamileth Rothman RN - 04/27/2016 12:20 PM EST PAT questionnaire reviewed with patient while in Pre Admission testing. Pre-operative instruction booklet reviewed with patient. Reviewed importance of pain control and cough and deep breathing exercise during the post-operative period. Instructed patient on use of Hibiclens soap to shower with the night before surgery or the morning of surgery. Pt verbalizes good understanding of all information reviewed. PLAN Testing: cbc Special medication instructions: Procedure date: No date yet. documented in this encounter Plan of Treatment Not on file documented as of this encounter Visit Diagnoses Not on filedocumented in this encounter Care Teams Teradata Solution Architect Relationship Specialty Start Date End Date Noreen Adam APRN [address] [place] [address] PCP - General Family Medicine 04/27/16 02/12/22 documented as of this encounter
--- OUTSIDE RECORDS SUMMARY | 2023-12-07 03:57 | XMS_ITS | Encounter Summary ---
Author Organization [facility] Address [facility] [place] [address] Care Team Providers Care Honeycomb Decapper Name Role Phone Noreen Adam APRN Primary Care Provider [phone] Encounter Details Date Type Department Care Team (Latest Contact Info) Description 05/11/2016 Unscheduled Encounter [place] [address] Laureano Guzman MD [facility] [place] [address] Cardiac tumor, atrial Social History Tobacco Use Types Packs/Day Years Used Date Smoking Tobacco: Never Smokeless Tobacco: Never Alcohol Use Standard Drinks/Week Comments No 0 (1 standard drink = 0.6 oz pur e alcohol) Sex and Gender Information Value Date Recorded Sex Assigned at Not on file Gender Identity Not on file Sexual Orientation Not on file documented as of this encounter Progress Notes * Laureano Guzman MD - 05/11/2016 2:02 PM EST Mrs. Max has just had her cardiac catheterization for preop planning for her cardiac tumor. Her catheterization shows the outline of the mass but no blood supply to it, based off of her coronaries. Her coronaries have no obstructive coronary disease in them. She has expressed wishes to get this procedure done as soon as possible. She and I have already discussed the risks and benefits of the procedure, that the risks include but are not limited to bleeding, infection, organ failure, stroke, and . She had the opportunity to ask questions and we will set a date for surgery. documented in this encounter Plan of Treatment Not on file documented as of this encounter Procedures Procedure Name Priority Date/Time Associated Diagnosis Comments @EXC INTRACARDIAC TUMOR W\CPB Routine 05/11/2016 2:08 PM EST Cardiac tumor, atrial documented in this encounter Results * XR Chest PA & Lateral (Generic) (05/11/2016 4:12 PM EST) Anatomical Region Laterality Modality Chest N/A Digital Radiogra phy Impressions 05/11/2016 4:51 PM EST 2.4 cm poorly-defined circular opacity projecting over the dorsal cardiac silhouette on the lateral view only, question if this represents the intra-atrial septal mass seen on 04/06/16 echocardiogram, possibly partially calcified. No other active cardiopulmonary pathology. I have personally reviewed the image(s) and the residents interpretation and agree with the findings, Koki Rodriguez at 05/11/2016 4:51 PM Narrative 05/11/2016 4:51 PM EST EXAMINATION: XR CHEST PA AND LATERAL (GENERIC) CLINICAL HISTORY: pre op TECHNIQUE: Upright PA and lateral chest radiograph COMPARISON: None FINDINGS: There is a poorly-circumscribed circular opacity projecting over the left atrium on the lateral view, which measures approximately 2.4 cm in diameter, and is not visualized on the PA projection as it may project over the spine. Otherwise the lungs are clear. No pleural effusion or pneumothorax. The cardiac and mediastinal silhouettes and lungs pulmonary vascular markings are within normal limits. No significant osseous findings. Procedure Note Koki Rodriguez MD - 05/11/2016 EXAMINATION: XR CHEST PA AND LATERAL (GENERIC) CLINICAL HISTORY: pre op TECHNIQUE: Upright PA and lateral chest radiograph COMPARISON: None FINDINGS: There is a poorly-circumscribed circular opacity projecting over the leftatrium on the lateral view, which measures approximately 2.4 cm in diameter, andis not visualized on the PA projection as it may project over the spine.Otherwise the lungs are clear. No pleural effusion or pneumothorax. The cardiac and mediastinal silhouettes and lungs pulmonary vascular markings are withinnormal limits. No significant osseous findings. IMPRESSION 2.4 cm poorly-defined circular opacity projecting over the dorsalcardiac silhouette on the lateral view only, question if this represents the intra-atrial septal mass seen on 04/06/16 echocardiogram, possiblypartially calcified. No other active cardiopulmonary pathology. I have personally reviewed the image(s) and the residents interpretationand agree with the findings, Koki Rodriguez at 05/11/2016 4:51 PM Laureano Guzman MD IMG DX ORDERABLES documented in this encounter Visit Diagnoses Diagnosis Cardiac tumor, atrial Neoplasms of unspecified nature, other specified sites Cardiac tumor, atrial Neoplasms of unspecified nature, other specified sites documented in this encounter Care Teams Honeycomb Decapper Relationship Specialty Start Date End Date Noreen Adam, ANIKET [address] [place] [address] PCP - General Family Medicine 04/27/16 02/12/22 documented as of this encounter
--- OUTSIDE RECORDS SUMMARY | 2023-12-07 03:57 | XMS_ITS | Encounter Summary ---
Author Organization [facility] [place] [address] Care Team Providers Care Manager Wellness Name Role Phone Noreen Adam APRN Primary Care Provider [phone] Reason for Visit * Auth/Cert Specialty Diagnoses / Procedures Referred By Contac t Referred To Contact Diagnoses Atrial myxoma atrial myxoma n/a Procedures PRO REMOVAL HEART LESION CRIB TENDER @EXC INTRACARDIAC TUMOR W\CPB (WRVU 38.45) Referral ID Status Reason Start Date Expiration Date Visits Re quested Visits Authorized [id number] 1 1 Encounter Details Date Type Department Care Team (Latest Contact Info) Description 05/31/2016 5:59 AM EST - 06/05/2016 1:[address] [facility] Hospital Encounter Intermediate [place] [address] Laureano Guzman MD [facility] [place] [address] Cardiac tumor, atrial; Atrial fibrillation, unspecified type; Atrial myxoma Discharge Disposition: Home with VNA Social History [...] Sign Reading Time Taken Comments Blood Pressure 147/55 06/05/2016 9:00 AM EST Pulse 75 06/05/2016 9:00 AM EST Temperature 36.7 ??C (98.1 ??F) 06/05/2016 9:00 AM ES T Respiratory Rate 18 06/05/2016 9:00 AM EST Oxygen Saturation 95% 06/05/2016 9:00 AM EST Inhaled Oxygen Concentration - - Weight 92.8 kg (204 lb 9.4 oz) 06/04/2016 7:00 A M EST Height 167.6 cm (5' 6) 05/31/2016 6:20 AM EST Body Mass Index 33.02 05/31/2016 6:20 AM EST documented in this encounter Discharge Summaries * Katelyn Vasquez APRN - 06/05/2016 10:16 AM EST Inpatient - Discharge Summary Patient Name: Massiel Max Patient Age: 70 y.o. Birthdate: 1945 Language: Maori Race: White Ethnicity: Not nor Admit Date: 05/31/2016 Discharge Date: 06/05/2016 Attending Physician: Laureano Guzman MD Follow-up Recommendations for Providers: Please continue routine management of cardiovascular risk factors including blood pressure, lipids,glucose, etc. Please note any changes to medications. Patient to follow-up with PCP, Noreen Adam APRN, in 1-2 weeks. Patient to follow-up with Surgical Garment Assembly Supervisor, Dr Byrd, in two weeks. Patient to follow-up with Cardiac Surgery, Dr. Laureano Guzman, in ~ 4 weeks with CXR, EKG, and Echo. Inpatient Provider Contact Information: [facility] Section of Cardiac Surgery [facility] [place] [address] FAX [phone] Discharge Diagnoses (Hospital Problems) Primary Diagnoses: Atrial Myxoma Secondary Diagnoses: Post-op Afib Other Diagnoses (Chronic Problems): There are no active non-hospital problems to display for this patient. Discharged to: Patient discharged to home Functional and Cognitive Status: Returned completely back to baseline Discharge Conditions/Prognosis: Stable and improving No past medical history on file. Past Surgical History Procedure Laterality Date ??? Pro removal heart lesion r d intern N/A 05/31/2016 @EXC INTRACARDIAC TUMOR W\CPB (WRVU 38.45) performed by Laureano Guzman MD at [facility] Prior To Admission Medications Prescriptions Prior to Admission Medication Sig Dispense Refill Last Dose ??? carboxymethylcellulose (REFRESH CELLUVISC) 1 % Dropperette, Gel 1 drop 3 times daily as needed.05/30/2016 at Unknown time ??? famotidine (PEPCID) 20 mg Tablet 1 tablet 2 times daily. 05/31/2016 at Unknown time ??? amLODIPine (NORVASC) 5 mg Tablet Take 2.5 mg by mouth daily. 05/31/2016 at Unknown time ??? betaxolol (BETOPTIC S) 0.25 % ophthalmic suspension 05/30/2016 at Unknown time ??? chlorhexidine (HIBICLENS) 4 % Liquid Apply topically daily as needed. Shower from head to toe with Chlorhexidine the night before surgery . 120 mL 0 Updated Allergies/ADRs: No Known Allergies History of Presentation: 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 ? Ms. Max is 70. She is completely asymptomatic. She had a routine echocardiogram done for a different reason, and an incidental finding of a left intraatrial septal mass was found. She has had no symptoms of stroke, no TIAs, no RINDs. She denies ongoing substernal chest pressure or dyspnea on exertion. Her past medical history is not significant for any diabetes, stroke, or previous coronary disease. ? On physical exam, she has no scars over her chest, no pectus. She has no murmurs. Her lungs are clear. She has no swelling in her legs. ? 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 Her ventricular function, her valvular function all appears normal. ? She and I have discussed the treatment for this, the reasons for treatment even though she is currently asymptomatic. We have discussed the risks and benefits of surgery, that the risks include, but are not limited to, bleeding, infection, organ failure, stroke, , need for a pacemaker. She has expressed strongly that she has no desire for any blood or blood products. Even though she is not a Jehovah Witness, she has grown up in a family of Jehovah Witnesses and we will treat her as one with regards to her desire for no blood or blood products. She would like to go home and think about this before considering her catheterization and the procedure. We will get a CBC today to decide whether or not she will need hormone and iron treatment to build up her blood count prior to the possibility of surgery. Major Procedures/Operations: 05/31/16: Removal of LA tumor with intra-atrial septum Patch of septum with pericardium ?? Hospital Course: Massiel Max was admitted to [facility] on 05/31/2016 via the Same Day Program. She was brought to the operating room where Dr. Laureano Guzman removd a LAtumor with intra-atrial septum and patched the septum with pericardium. She tolerated the procedureand was brought to the Cardiovascular Intensive Care Unit for recovery. She initially required the pharmacologic support of intravenous levophed. She was extubated from the ventilator on the day of surgery. All drips were weaned to off. Routine postoperative and home medications were started and a diet was advanced. She was started on beta blockade and this was optimized. Diuretics were started and she responded appropriately. By postoperative day # 1 she was transferred to the Intermediate Cardiac Care Unit for continued rehabilitation. All tubes, lines, and epicardial pacing wires were removed without incident. She voided normally after her Medrano was removed. She developed afib on POD#2 and was loaded with amiodarone. 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 Upon discharge, all stroke like symptoms resolved. Speech clear, conversation appropriate, no motor deficits noted, no visual deficits noted Discharge plan will be on amiodarone 200mg PO BID and Xarelto 20mg daily. Patient having intermittent atrial fibrillation during course of stay. In SR today with short bursts of AF with VR 100-110 She was seen by Physical Therapy and Cardiac Rehabilitation. Sternal precaution education was provided. Her discharge plan at this time is to home. The remainder of the her hospital course was uneventful and by postoperative day #5 she had met all criteria for discharge. Pain was controlled on oralmedications. She had walked 5 minutes and gone up and down stairs. She was tolerating a regular diet and had a bowel movement. Vital Signs at Discharge: Last set of vitals: BP 147/55 (BP Location (NBP): Right arm) Pulse 75 Temp 36.7 ??C (98.1 ??F) (Oral) Resp 18 Ht 167.6 cm (5' 6) Wt 92.8 kg (204 lb 9.4 oz) SpO2 95% BMI 33.02 kg/m2 Patient Vitals for the past 168 hrs: Weight 06/04/16 0700 92.8 kg (204 lb 9.4 oz) 06/03/16 0651 94.3 kg (207 lb 14.3 oz) 06/02/16 0700 95.3 kg (210 lb 1.6 oz) 06/01/16 0600 94.8 kg (208 lb 15.9 oz) 05/31/16 0620 90.6 kg (199 lb 12.8 oz) Current weight: 92.8 Admit/Preop weight: 90.6 kg Pertinent physical exam findings prior to discharge: General:awake and alert Neuro: complete resolution of expressive aphasia noted, speech clear, conversation oriented and thoughtful without delay, Pupils- KEVIN, equal strength of all 4 extremities Lungs:clear bilaterally Heart:S1 S2 audible and regular, VR 58-66, SR on monitor Abdomen:soft, non-tender, (+) bowel sounds Ext:moves all extremities to command with equal strength, no evidence of edema Incisions:sternotomy ELO, CDI Important Studies and Lab Data: Lab Results Component Value Date WBC 7.5 04/27/2016 RBC 5.07 04/27/2016 HGB 15.0 04/27/2016 HCT 44.6 04/27/2016 PLATELET 215 05/31/2016 No results for input(s): INR in the last 168 hours. Lab Results Component Value Date NA 138 05/11/2016 K 3.9 06/02/2016 CL 94 (L) 05/11/2016 CO2 22 05/11/2016 BUN 14 05/11/2016 CREATININE 1.00 05/11/2016 Pending Studies and Lab Data: None Immunizations [...] % ophthalmic suspension New Medications Dose Details acetaminophen 500 mg Tab Commonly known as: TYLENOL Take 2 tablets by mouth every 6 hours as needed for Pain. 1000 mg Quantity: 30 tablet Refills: 1 AMIOdarone 200 mg Tab Commonly known as: CORDARONE; PACERONE Take 1 tablet by mouth 2 times daily. 200 mg Quantity: 60 tablet Refills: 3 aspirin 81 mg Chew Take 81 mg by mouth daily. 81 mg Quantity: 30 tablet Refills: 3 furosemide 20 mg Tab Commonly known as: LASIX Take 1 tablet by mouth daily. 20 mg Quantity: 7 tablet Refills: 0 meTOPROLOL tartrate 25 mg Tab Commonly known as: LOPRESSOR Take 1 tablet by mouth 2 times daily. 25 mg Quantity: 60 tablet Refills: 3 oxyCODONE 5 mg Tab Commonly known as: ROXICODONE Take 1 tablet by mouth every 4 hours as needed for Pain. 5 mg Quantity: 30 tablet Refills: 0 potassium chloride 20 mEq Tbsr Take 0.5 tablets by mouth daily. 10 mEq Quantity: 7 tablet Refills: 0 rivaroxaban 20 mg Tab Commonly known as: XARELTO Take 1 tablet by mouth every evening. 20 mg Quantity: 30 tablet Refills: 3 senna-docusate 8.6-50 mg Tab Commonly known as: PERICOLACE Take 2 tablets by mouth daily. 2 tablet Quantity: 60 tablet Refills: 11 Continued medications, unchanged Dose Details BETOPTIC S 0.25 % Drps ?nk?wn!?? Generic drug: betaxolol Refills: 0 carboxymethylcellulose 1 % Dpge Commonly known as: REFRESH CELLUVISC 1 drop 3 times daily as needed. 1 drop Refills: 0 famotidine 20 mg Tab Commonly known as: PEPCID 1 tablet 2 times daily. 1 tablet Refills: 0 STOPPED Medications amLODIPine 5 mg Tab Commonly known as: NORVASC chlorhexidine 4 % Liqd Commonly known as: HIBICLENS Discharge Instructions: Call your doctor if: You have a fever of greater than 101 degrees, shaking chills, if you develop redness or drainage from your incision sites, or if you have questions. Please call your surgeon's office if you have any discharge or drainage from your chest incision. Your surgeon, Dr. Laureano Guzman and/or the Cardiac Surgery Physician Dairy Powder Mixer Operator Team may be reached at . Weight: Weigh yourself daily. Please call the office if you notice increasing weight, increasing fluid retention (edema), and/or SOB. Sternal (breast bone) precautions: No lifting greater than 7-10 pounds; no pushing or pulling with upper extremities; no excessive chest stretching for the first 4 weeks. Further instructions will begiven to you at your follow-up appointment. Activity level: Walk three times a day. You should continue to increase your walks by 1-2 minutes each day. It is expected that you will be walking 20-30 minutes twice a day within 3-4 weeks after discharge to home. Rest between activities and after meals. Use common sense, don't exhaust yourself. Biking: You may use a stationary bicycle whenever you are comfortable enough to permit this. Tighten the resistance slightly. Increase the amount of time on the bicycle as you would do for your walks, a minute or two each day. No biking outside until after your return appointment with Dr. Laureano Castillo. You may use a [place] Track or treadmill but avoid any pulling motion with the arms. Home activities: You may do light housework, e.g. dusting, setting the table, washing dishes, preparing a meal. Light carpentry and gardening are allowed. Avoid trying to open tight jars and stuck windows. No vacuuming, mopping, raking, shoveling, digging or hoeing until after your return visit with the surgeon. Sexual activity: You may engage in sexual activity when you feel ready. Use a position that protects your sternum (breastbone). Do not have your partner lie on your chest. Stairs: There are no restrictions on stair climbing. Use common sense. Don't exhaust yourself. Activities outside the home: After the first week home you may go out to dinner, visit friends, go to a movie, go to gnosticist, etc. Heavy activities: No hunting, skiing, jogging, snow shoveling, snowmobiling, lawn mowing, swimming,golf or tennis until after your return appointment with the surgeon. Do not ride motorcycles, ATV'stractors or horses. Avoid the use of a rifle with kickback against the shoulder for six months. Sleep: Try to establish normal sleep patterns. Long naps during the day may make it hard for you tosleep at night. Use the pain medication at bedtime for the first week at home. If you have nightmares, contact us. Some medications make this worse and these can be changed. Smoking: It is very important that you not smoke after surgery. Smoking cessation education was provided as appropriate. If you need further assistance with this please call and you will be referred to a smoking cessation specialist. Medications: Take only those medications listed on your discharge information. Keep your pain undercontrol so you can be active, do your coughing and breathing exercises and sleep. Contact us if thepain medication isn't working for you. Do not take any herbal preparations until after you return to see the surgeon. Diet: You should follow a regular diet until your appetite returns to normal. At that point in timeyou should resume a low fat, low cholesterol, [place] Heart Association Diet/Diabetic diet/Renal diet. Driving: No driving until cleared by your surgeon. Avoid long trips if possible. If you must go on a long trip, stop the car and walk every hour. Shower/Bath: You may shower daily. No baths, soaking, or swimming until cleared by your surgeon. Wound care: Wash your incisions daily with antibacterial soap and rinse well, pat dry. Assess for any signs of infection such as increased redness, pain, warmth or drainage. Please call your surgeon's office if you have any discharge or drainage from your chest incision. If there is a lot of swelling, apply lorne wraps during the day and remove at bedtime. Elevate your legs when you are sitting. REMOVE CHEST TUBE SUTURES ON OR AFTER 06/09/16 Home oxygen therapy: N/A Follow up appointments: 1. You should arrange to see your primary care physician, Noreen Adam APRN, in one-to-two weeksor as soon as possible. 2. Cardiology, Dr. Byrd, in two weeks. 3. You will return to clinic to see Dr. Laureano Guzman or a Cardiac Surgery PA in ~4 weeks and will have a CXR, EKG, and ECHO at that time. A letter will be mailed to you with your appointment information. Cardiac Rehabilitation: Massiel Max has been referred to Cardiac Rehab. After reviewing the patient's current medical status, it has been determined that this patient does not have a qualifying diagnosis for cardiac rehab services. This can be re evaluated in the future. Future Appointments and Orders Future Orders Complete By Expires XR Chest PA & Lateral (Generic) [[id number] Custom] 07/05/2016 (Approximate) 06/04/2017 Process Instructions: Scheduling Instructions: Questions: Where will study be performed?: [facility] Portable exam?: Reason for exam and clinical history: s/p atrial myxoma removal Other pertinent information: Stat read required?: Date of injury if applicable: Requested Time: EKG 12 Lead [EKG1 Custom] 07/06/2016 06/05/2017 Process Instructions: Scheduling Instructions: Questions: Which [facility] location will this be performed?: [place] Is a rhythm strip needed?: No If EKG Reason is Pre-op Evaluation, indicate diagnosis for surgery.: Should this service/procedure be billed to the research sponsor?: Referral to Home Health - at DISCHARGE [[id number] CPT(R)] As directed Process Instructions: Scheduling Instructions: Comments: DOCUMENTATION FOR VNA SERVICES (INCLUDING THOSE PATIENTS WITH MEDICARE COVERAGE REQUIRING HOME VNA SERVICES AND/OR HOSPICE SERVICES) PATIENT'S LOCATION: Massiel Max [address] [place] [id number] (home) Commercial Sewing Instructor's Name: Self In discussion with the attending physician, it is certified that this patient is under their care and that they, or a Nurse Practitioner, or Physician Dairy Powder Mixer Operator who is working directly with them, hada face to face encounter that meets the physician face to face encounter requirements with this patient on 06/01/2016 The encounter with the patient was in whole, or in part, for the following medical condition, whichis the primary reason for home health care services: Atrial Myxoma In discussion with the provider, it is certified that, based on their findings, the following services are medically necessary for home health services. To provide the following care/treatments with the clinical findings supporting the need for services as follows: HOME HEALTH AGENCY: [facility] PHONE: [phone] FAX: [phone] RN orders: Cardiopulmonary assessment, incisional assessment, assess vital signs, assessment of rehab progress, medication management and effectiveness, home safety evaluation. PT ORDERS: Continue rehab for endurance, gait stability and strength with mobility and transfers. Home safety evaluation. Home exercise program if appropriate. OT ORDERS: Home safety evaluation, assess independence with ADL's, and complete therapeutic exercises. CONFERENCE MANAGER ORDERS: Assess for community resources, pt feels as though she will need help with cooking, cleaning, and errands. Start of Care Date: 24-48 hours post discharge SPECIAL INSTRUCTIONS: For any follow up questions, needs, or issues please call the Cardiac SurgeryOffice at [phone] FOR MEDICARE ONLY: (please delete this section if not Medicare) In discussion with the attending physician, it is certified that the clinical findings support thatthis patient is homebound i.e. absences from home require considerable and taxing effort due to: Restricted mobility and poor activity tolerance due to recent cardiac surgery. Patient requires assistance of another individual to leave the home. Home Health agencies which cover the area of patient's residence have been reviewed, either verbally or in writing, and patient/family have chosen the agency as noted. Questions: Agency name and contact information: [facility] Patient location post discharge: Own home What services are requested: Registered Nurse Physical Therapy Social Work Occupational Therapy Start date: Responsible MD post discharge contact info: PCP Arrangements for VNA/home care: As above. VN RN OR PCP TO PLEASE REMOVE CHEST TUBE SUTURES ON OR AFTER 06/09/16 Signed: Katelyn Vasquez APRN [facility] Section of Cardiac Surgery [facility] [place] [address] FAX [phone] Date: 06/05/2016 CC: ANIKET Zavala Doreen J, APRN [address] [place] [address] documented in this encounter Discharge Instructions * Patient Instructions* Katelyn Vasquez, RIVETING MACHINE OPERATOR AUTOMATIC - 06/05/2016 10:14 AM EST Discharge Instructions: Call your doctor if: You have a fever of greater than 101 degrees, shaking chills, if you develop redness or drainage from your incision sites, or if you have questions. Please call your surgeon's office if you have any discharge or drainage from your chest incision. Your surgeon, Dr. Laureano Guzman and/or the Cardiac Surgery Physician Dairy Powder Mixer Operator Team may be reached at . Weight: Weigh yourself daily. Please call the office if you notice increasing weight, increasing fluid retention (edema), and/or SOB. Sternal (breast bone) precautions: No lifting greater than 7-10 pounds; no pushing or pulling with upper extremities; no excessive chest stretching for the first 4 weeks. Further instructions will begiven to you at your follow-up appointment. Activity level: Walk three times a day. You should continue to increase your walks by 1-2 minutes each day. It is expected that you will be walking 20-30 minutes twice a day within 3-4 weeks after discharge to home. Rest between activities and after meals. Use common sense, don't exhaust yourself. Biking: You may use a stationary bicycle whenever you are comfortable enough to permit this. Tighten the resistance slightly. Increase the amount of time on the bicycle as you would do for your walks, a minute or two each day. No biking outside until after your return appointment with Dr. Laureano Castillo. You may use a [place] Cheer Track or treadmill but avoid any pulling motion with the arms. Home activities: You may do light housework, e.g. dusting, setting the table, washing dishes, preparing a meal. Light carpentry and gardening are allowed. Avoid trying to open tight jars and stuck windows. No vacuuming, mopping, raking, shoveling, digging or hoeing until after your return visit with the surgeon. Sexual activity: You may engage in sexual activity when you feel ready. Use a position that protects your sternum (breastbone). Do not have your partner lie on your chest. Stairs: There are no restrictions on stair climbing. Use common sense. Don't exhaust yourself. Activities outside the home: After the first week home you may go out to dinner, visit friends, go to a movie, go to gnosticist, etc. Heavy activities: No hunting, skiing, jogging, snow shoveling, snowmobiling, lawn mowing, swimming,golf or tennis until after your return appointment with the surgeon. Do not ride motorcycles, ATElimi'stractors or horses. Avoid the use of a rifle with kickback against the shoulder for six months. Sleep: Try to establish normal sleep patterns. Long naps during the day may make it hard for you tosleep at night. Use the pain medication at bedtime for the first week at home. If you have nightmares, contact us. Some medications make this worse and these can be changed. Smoking: It is very important that you not smoke after surgery. Smoking cessation education was provided as appropriate. If you need further assistance with this please call and you will be referred to a smoking cessation specialist. Medications: Take only those medications listed on your discharge information. Keep your pain undercontrol so you can be active, do your coughing and breathing exercises and sleep. Contact us if thepain medication isn't working for you. Do not take any herbal preparations until after you return to see the surgeon. Diet: You should follow a regular diet until your appetite returns to normal. At that point in timeyou should resume a low fat, low cholesterol, [place] Heart Association Diet/Diabetic diet/Renal diet. Driving: No driving until cleared by your surgeon. Avoid long trips if possible. If you must go on a long trip, stop the car and walk every hour. Shower/Bath: You may shower daily. No baths, soaking, or swimming until cleared by your surgeon. Wound care: Wash your incisions daily with antibacterial soap and rinse well, pat dry. Assess for any signs of infection such as increased redness, pain, warmth or drainage. Please call your surgeon's office if you have any discharge or drainage from your chest incision. If there is a lot of swelling, apply lorne wraps during the day and remove at bedtime. Elevate your legs when you are sitting. REMOVE CHEST TUBE SUTURES ON OR AFTER 06/09/16 documented in this encounter Medications at Time [...] by mouth 2 times daily. 60 tablet 3 06/05/2016 07/13/2016 aspirin 81 mg Tablet, Chewable Take 81 mg by mouth daily. 30 tablet 3 06/05/2016 07/16/2016 meTOPROLOL tartrate (LOPRESSOR) 25 mg Tablet Take 1 tablet by mouth 2 times daily. 60 tablet 3 06/05/2016 07/13/2016 oxyCODONE (ROXICODONE) 5 mg Tablet Take 1 tablet by mouth every 4 hours as needed for Pain. 30 tablet 06/05/2016 07/13/2016 potassium chloride 20 mEq Tablet Sustained Release Take 0.5 tablets by mouth daily. 7 tablet 06/05/2016 07/13/2016 rivaroxaban (XARELTO) 20 mg Tablet Take 1 tablet by mouth every evening. 30 tablet 3 06/05/2016 10/19/2019 senna-docusate (PERICOLACE) 8.6-50 mg Tablet Take 2 tablets by mouth daily. 60 tablet 11 06/05/2016 10/19/2019 furosemide (LASIX) 20 mg Tablet Take 1 tablet by mouth daily. 7 tablet 06/05/2016 07/13/2016 famotidine (PEPCID) 20 mg Tablet 1 tablet 2 times daily. 03/25/2016 10/19/2019 betaxolol (BETOPTIC S) 0.25 % ophthalmic suspension 04/29/2004 10/19/2019 documented as of this encounter Progress Notes * Carole Hunt RN - 06/05/2016 1:09 PM EST Pt alert and oriented. AVS reviewed with patient, medications reviewed, no questions at this time. Discharged to [facility] with SKEIN INSPECTOR * Katelyn Vasquez S, RIVETING MACHINE OPERATOR AUTOMATIC - 06/05/2016 7:36 AM EST Cardiac Surgery Progress Note: ID: [id number] Massiel Max is a 70 y.o. female with a PMH of intracardiac tumor, HTN. She is POD# 5 s/p removal of LA tumor and pericardial patch of intra-atrial septum. EF-65% 24 Hour Events: no overnight events, prepared for discharge S: Review of Systems - General ROS: negative for - fever Respiratory ROS: negative for - shortness of breath Cardiovascular ROS: negative for - chest pain or palpitations Gastrointestinal ROS: negative for - abdominal pain or nausea/vomiting Musculoskeletal ROS: negative for - edema Neurological ROS: negative for all prior symptoms O: I/O last 3 completed shifts: In: 1191.8 [P.O.:840; I.V.:351.8] Out: 3450 [Urine:3450] Admit weight 90.63 kg Current Weight Weight - Scale: 92.8 kg (204 lb 9.4 oz) Physical exam: General:awake and alert Neuro: complete resolution of expressive aphasia noted, speech clear, conversation oriented and thoughtful without delay, Pupils- KEVIN, equal strength of all 4 extremities Lungs:clear bilaterally Heart:S1 S2 audible and regular, VR 58-66, SR on monitor Abdomen:soft, non-tender, (+) bowel sounds Ext:moves all extremities to command with equal strength, no evidence of edema Incisions:sternotomy ELO, CDI Tubes/Lines/Drains:PIV Assessment/Plan: s/p removal of LA tumor, pericardial patch of intra-atrial septum, POD #5. On POD 3, patient had a neuro event. CTH with subtle findings. Neurology consult stating acute embolic CVA.MRI completed showing acute and subacute cortical infarct of posterior temporal lobe and left occipital lobe. Converted to SR Neuro: q2 hour neuro checks, neurology consult appreciated, scheduled APAP, oxycodone prn CV:continue telemetry, continue amiodarone 200mg, metoprolol 25mg Resp:pulse oximetry, hourly IS GI: speech eval for swallow- negative, cardiac diet, RBO's, daily protonix :voiding freely Renal:strict I+O, replete K+ prn ID:no needs identified Heme:Daily ASA, Xarelto daily Endo:no needs identified Dispo:[facility]->discharge DW Attending Surgeon on rounds. Signed: Katelyn Vasquez APRN * Sarath Rose - 06/04/2016 4:12 PM EST The patient has been provided a list of DME vendors which serve their preferred geographic area. Our affiliations was reviewed with them and they were educated about their right to choose where referrals are placed. Patient requests referral to [facility] @ [facility] [address] [place], [place] for a front wheeled walker. . Expected date of discharge: 06/05/16. Referral routed to the Microfilm Clerk for matching with agency/vendor and to provide any required information. * Renetta Guevara RN - 06/04/2016 2:29 PM EST OUTCOME EVALUATION NOTE: OUTCOME SUMMARY: Massiel had a good day, pt more alert and cheerful; word-searching s/p CVA has cleared. SR/SB on telewith rare-frequent MF PVCs, rare couplets, frequent bigem (nonsustained), rare PACs, HR 50s-80s. Ptsats well on RA. Pt received scheduled tylenol for chest soreness; denied SOB throughout the shift.Heparin gtt transitioned to Xarelto this afternoon. Pt walked with PT and nursing staff, renal case manager and social contact worker in to see pt this afternoon. PLAN MOVING FORWARD: Continue monitoring for any rhythm changes, Possible D/C (home with services vs SNF) Monday 06/05? INDIVIDUALIZED FALL PREVENTION INTERVENTIONS: Patient-specific fall risk factors per assessment: [current deficits]: New environment, IV pole/tubing Assistance [level of assistance required for transfers and ambulation]: SBA Supervision [direct monitoring required during toileting and ADLs]: Arms reach, call parkinson within reach Surveillance [continuous indirect monitoring]: Hourly rounding, room near nurses station, telemetrymonitoring Patient-specific fall prevention interventions for sensory deficits provided, if applicable: N/A CPG GOAL OUTCOME EVALUATION: On-going * Katelyn Vasquez, RIVETING MACHINE OPERATOR AUTOMATIC - 06/04/2016 2:28 PM EST Cardiac Surgery Progress Note: ID: [id number] Massiel Max is a 70 y.o. female with a PMH of intracardiac tumor, HTN. She is POD# 4 s/p removal of LA tumor and pericardial patch of intra-atrial septum. EF-65% 24 Hour Events: MRI done showing acute and subacute infarction, complete resolution of expressive aphasia, converted to SR and remained in SR all night S: I am having a stroke. Review of Systems - General ROS: negative for - fever Respiratory ROS: negative for - shortness of breath Cardiovascular ROS: negative for - chest pain or palpitations Gastrointestinal ROS: negative for - abdominal pain or nausea/vomiting Musculoskeletal ROS: negative for - edema Neurological ROS: negative for all prior symptoms O: I/O last 3 completed shifts: In: 1786.4 [P.O.:1015; I.V.:771.4] Out: 2700 [Urine:2700] I/O this shift: In: 434.8 [P.O.:340; I.V.:94.8] Out: 825 [Urine:825] Admit weight 90.63 kg Current Weight Weight - Scale: 92.8 kg (204 lb 9.4 oz) Physical exam: General:awake and alert Neuro: complete resolution of expressive aphasia noted, speech clear, conversation oriented and thoughtful without delay, Pupils- KEVIN, equal strength of all 4 extremities Lungs:clear bilaterally Heart:S1 S2 audible and regular, VR 58-66, SR on monitor Abdomen:soft, non-tender, (+) bowel sounds Ext:moves all extremities to command with equal strength, no evidence of edema Incisions:sternotomy ELO, CDI Tubes/Lines/Drains:PIV Assessment/Plan: s/p removal of LA tumor, pericardial patch of intra-atrial septum, POD #4. CTH with subtle findings. Neurology consult stating acute embolic CVA. MRI completed showing acute and subacute cortical infarct of posterior temporal lobe and left occipital lobe. Converted to SR Neuro: q2 hour neuro checks, neurology consult appreciated, scheduled APAP, oxycodone prn CV:continue telemetry, continue amiodarone 200mg, metoprolol 25mg Resp:pulse oximetry, hourly IS GI: speech eval for swallow- negative, cardiac diet, RBO's, daily protonix :voiding freely Renal:strict I+O, replete K+ prn ID:no needs identified Heme:Daily ASA, heparin infusion to be completed at 6p, converted to Xarelto today will begin at 5p Endo:no needs identified Dispo:[facility]->may advance to [facility] if mental status changes. DW Attending Surgeon on rounds. Signed: Katelyn Vasquez APRN NA * Renetta Guevara RN - 06/03/2016 2:13 PM EST OUTCOME EVALUATION NOTE: OUTCOME SUMMARY: Massiel had a good day. Pt converted to SR from AFib ~1130 and converted back to AFib (rates 90s-110,asymptomatic) ~1745; AFib on tele with occasional PACs, rare triplets, HR 60-120 (non-sustained). Pt sats well on RA. Pt denied pain/discomfort and SOB throughout the shift. Speech Therapy in to evaluate pt, passed swallow study - cardiac diet ordered. Heparin gtt infusing @ 843 units/hr. Amiodronegtt converted to PO pill. PLAN MOVING FORWARD: Continue increasing ambulation, BM, pain management, NPO for possible Cardioversion Sunday 06/04 INDIVIDUALIZED FALL PREVENTION INTERVENTIONS: Patient-specific fall risk factors per assessment: [current deficits]: New environment, Iv pole/tubing, recent surgery Assistance [level of assistance required for transfers and ambulation]: SBA Supervision [direct monitoring required during toileting and ADLs]: Arms reach, call parkinson within reach Surveillance [continuous indirect monitoring]: Hourly rounding, room near nurses station, telemetrymonitoring Patient-specific fall prevention interventions for sensory deficits provided, if applicable: N/A CPG GOAL OUTCOME EVALUATION: On-going * Katelyn Vasquez, RIVETING MACHINE OPERATOR AUTOMATIC - 06/03/2016 10:12 AM EST Cardiac Surgery Progress Note: ID: [id number] Massiel Max is a 70 y.o. female with a PMH of intracardiac tumor, HTN. She is POD# 3 s/p removal of LA tumor and pericardial patch of intra-atrial septum. EF-65% 24 Hour Events: word finding difficulties noted 4a, CTH ordered, neuro consult called. Placed on heparin infusion. S: I am having a stroke. Review of Systems - General ROS: negative for - fever Respiratory ROS: negative for - shortness of breath Cardiovascular ROS: negative for - chest pain or palpitations Gastrointestinal ROS: negative for - abdominal pain or nausea/vomiting Musculoskeletal ROS: negative for - edema Neurological ROS: positive for - speech problems (word finding) and visual changes (patient states she is having trouble with her right peripheral vision) O: I/O last 3 completed shifts: In: 1841 [P.O.:1265; I.V.:576] Out: 2825 [Urine:2825] I/O this shift: In: 0 Out: 200 [Urine:200] Admit weight 90.63 kg Current Weight Weight - Scale: 94.3 kg (207 lb 14.3 oz) Physical exam: General:awake and alert Neuro:word finding worse-now more expressive aphasia noted, following simple commands with thought,Pupils- KEVIN, equal strength of all 4 extremities Lungs:clear bilaterally Heart:S1 S2 audible and irregular, VR 90-110 Abdomen:soft, non-tender, (+) bowel sounds Ext:moves all extremities to command with equal strength, no evidence of edema Incisions:sternotomy SCABBLER, CDI Tubes/Lines/Drains:PIV Assessment/Plan: CTH with subtle findings. Neurology consult stating acute embolic CVA. Recs include: anticoagulation and MRI of brain without contrast (ordered). Discussed case with patient's primary tire building supervisor, Dr Byrd, as she wishes to limit any blood drawing secondary to sabianism commitment. Dr Byrd recommends Xarelto as patient wants once a day dosing. Creatinine normal pre-op. Will discuss all recommendations with Dr Guzman. Neuro: q1-2 hour neuro checks, neurology consult appreciated, scheduled APAP, oxycodone prn only ifneeded, speech consult for bedside swallow eval CV:continue telemetry, continue amiodarone infusion, metoprolol 25mg (will not increase at this time to allow for higher BP). Requested cardioversion, cardiology consult appreciated-holding CV at this time Resp:pulse oximetry GI: speech eval for swallow, then resume cardiac diet, RBO's, daily protonix :voiding Renal:strict I+O ID:no needs identified Heme:Daily ASA, heparin infusion, will convert to Xarelto Endo:no needs identified Dispo:[facility]->may advance to [facility] if mental status changes. DW Attending Surgeon on rounds. Addendum: 12:20p patient converted to SR. Will convert amiodarone infusion to 200mgPO BID. Signed: Katelyn Vasquez APRN * Ely Atkins T - 06/03/2016 9:37 AM EST [employer] Note, Brief CONSULT FOLLOW UP Massiel Max [id number] 06/03/2016 24 hr events, subjective progress: - unfortunately, patient with symptoms of an acute CVA overnight - this morning, she states that she feels stupid because her speech and language have been affected as a result. She is having word finding difficulty. She is also having symptoms consistent with confabulation. Physical Exam: Vitals: 06/03/16 0056 06/03/16 0309 06/03/16 0651 06/03/16 0800 BP: 122/54 124/67 135/76 BP Location (NBP): Right arm Left arm Right arm Patient Position: Pulse: 103 89 103 Resp: 18 20 19 Temp: 36.5 ??C (97.7 ??F) 36.9 ??C (98.4 ??F) 36.8 ??C (98.2 ??F) TempSrc: Oral Oral Oral SpO2: 94% 93% 94% Weight: 94.3 kg (207 lb 14.3 oz) Height: GEN: Alert and oriented x3, NAD HEAD: normocephalic, atraumatic NECK: no JVD EYES: EOMI, no scleral icterus, no conjunctival pallor or erythema ENT: normal hearing, MMM CARDIAC: irregularly irregular, nl S1 and S2, no m/r/g appreciated RESP: CTAB, no w/r/r ABD: +BS, soft, NT, ND, no organomegaly NEURO: alert and oriented x3, word finding difficulty, inappropriate use of words, confabulation MSK/EXT: no pitting edema SKIN: warm and dry, no rashes on light exposed areas Labs: Last 3 wbc, hgb, hct plt Recent Labs 05/31/16 0940 04/27/16 1302 WBC -- 7.5 HGB -- 15.0 HCT -- 44.6 PLATELET 215 317 Last 3 Lytes Recent Labs 06/02/16 0332 06/01/16 0235 05/11/16 0637 NA -- -- 138 K 3.9 3.8 4.0 CL -- -- 94* CO2 -- -- 22 BUN -- -- 14 CREATININE -- -- 1.00 Last 3 Coags Recent Labs 06/03/16 0824 PTT 32 Diagnostic Data: EKG 05/31/2016: Sinus bradycardia Otherwise normal ECG When compared with ECG of 11-MAY-2016 07:49, No significant change was found IDA 06/03/2016: SUMMARY: ?? 1. IDA pre and post resection of left atrial mass. 2. PREOPERATIVE EXAMINATION: a) There is a mass in the left atrium that is calcified and smooth in nature. It has a pedicle that is affixed to the intra-atrial septum. It is mobile. There is no flow across the intra-atrial septum by color doppler. There is no thrombus in the left atrium or in the left atrial appendage. b) Left ventricular chamber size, wall thickness, global and segmental systolic function are within normal limits. Ejection fraction is estimated to be 65%. c) Right ventricular chamber size, wall thickness, and systolic function are within normal limits. d) No hemodynamically significant valvular disease is present. 3. POST OPERATIVE EXAMINATION: a) The left atrial mass has been resected. There is a patch on the intra-atrial septum. No flow is noted across the intra-atrial septum by color flow doppler. There is a small protrusion into the left atrium that is likely endocardium, that is mobile. It arises from the intra-atrial septum. b) Biventricular systolic function remains normal. c) The remainder of the examination is unchanged. 4. See remainder of report for additional findings. Stress Test: none for review Cath 05/11/2016: Conclusions: * Normal coronary arteries Assessment: 70 y.o. female with hx of HTN, hiatal hernia and irregular arrythmia (no hx of CHF, DM, stroke/TIA, Vascular dz) who presents for scheduled LA mass removal. Patient is now POD#3 s/p resection of the atrial tumor. At appropriate 2:30am on 06/02/2016, patient went into rapid atrial fibrillation, hemodynamically stable, minimally symptomatic. She had been rate controlled on Amio gtt, and remained asymptomatic with rate control. Patient had been scheduled for DCCV today. Unfortunately, overnight, patient with acute symptoms consistent with an ischemic stroke. No hemorrhage on CT. Patient had refused heparin yesterday, but in light of new events, is currently accepting heparin. Because patient is suspected to have had a stroke overnight (24hr MRI pending), and because I suspect that patient likely with microthrombi in the left atrium, s/p her LA surgical procedure, I believeit to be unsafe to cardiovert this patient without first maintaining a month of anticoagulation. Even IDA would not completely rule out LA microthrombi. Furthermore, I suspect that patient has had atrial fibrillation in the past, given that she's describing an irregular arrythmia since 2013 and has had symptoms of fluttering fast heart rates; I would question the utility of cardioversion in a patient with pAFib. I have discussed extensively with patient the intermediate risk for recurrent strokegiven her [id number] of now 4. She is still hesitant about intermediate anticoagulation, but she states that she would go on anticoagulation if she had no other choice in the short term. I would therefore recommend rate control strategy with anticoagulation for the next month. Choice of anticoagulantper neuro and CT surgery team, but patient mentioned that she's not always great with taking her medications, so perhaps a medication in which we can monitor levels, ie. Coumadin, would be best. Plan: - would recommend rate control strategy at this time for this woman with asymptomatic afib and who has likely had a hx of a fib in the past - stop Amio - uptitrate BB for rate control, goal HRs<100 - anticoagulation with transition to roasterman anticoagulants, if still in a fib in 1 month, would consider outpatient cardioversion at that time with continuation of anticoagulant for 1 month after cardioversion. Please see above for my explanation as to why I'd recommend Coumadin over NOAC in this patient. - we are happy to discuss with CT surgery attending regarding the decision to not electrically cardiovert this patient Discussed extensively with cardiology attending, Dr. Jose J Negron. Attending addendum and evaluation to follow. Discussed with Devon Parada of the surgical team. Ely Atkins MD 06/03/2016 Pager: [phone] * Tal, Nina, RIVETING MACHINE OPERATOR AUTOMATIC - 06/02/2016 8:18 AM EST Cardiac Surgery Progress Note: ID: [id number] POD#2 Removal of LA tumor, pericardial patch of intra-atrial septum. EF- 65% 24 Hour Events: tx to floor afib at 0230 amio bolus and gtt. S: pt is doing ok, denies cp, sob, nv/d. +flatus, no bm. O: Temperature Temp: 36.7 ??C (98.1 ??F) Temp: [36.7 ??C (98.1 ??F)-36.9 ??C (98.4 ??F)] Heart Rate Heart Rate: 107 Heart Rate: [64-122] Blood Pressure 129/51 BP: (99-143)/(43-66) Respiratory Rate Resp: 17 Resp: [14-17] SpO2 SpO2: 94 % SpO2: [90 %-100 %] I/O last 3 completed shifts: In: 1882 [P.O.:770; I.V.:712; IV Piggyback:400] Out: 2955 [Urine:2710; Other:245] Admit weight 90.63 kg Current Weight Weight - Scale: 95.3 kg (210 lb 1.6 oz) Patient Vitals for the past 168 hrs: Weight 06/02/16 0700 95.3 kg (210 lb 1.6 oz) 06/01/16 0600 94.8 kg (208 lb 15.9 oz) 05/31/16 0620 90.6 kg (199 lb 12.8 oz) Physical exam: General: alert, sitting up in chair Neuro:A&Ox3, NFD Lungs: lsc Heart: rrr, s1, s2, no mrg Abdomen: soft, nt, +bs Ext: wwp, no edema Incisions: cdi Tubes/Lines/Drains: PIV, pw, medrano LABS: Recent Labs 05/31/16 0940 PLATELET 215 FIBRINOGEN 167* Recent Labs 06/02/16 0332 06/01/16 0235 K 3.9 3.8 Assessment/Plan: POD#2 Removal of LA tumor, pericardial patch of intra-atrial septum. Pt converted to afib early this am. amio gtt. Plan to keep npo attempt CV today. Will titrate up bb as tolerated.No lab draws other then daily K in a pedi tube. Medrano out today, leave PW till rhythm stabilizes Neuro: tylenol, oxy CV: metoprolol 12.5 bid will increase to 25 bid this am, amio gtt Resp: IS, CDB, Ambulate GI: protonix, RBO's, reg diet : medrano will d/c today Renal: K prn, lasix 20mg iv bid ID: periop course complete Heme: asa 81 Endo: WILL Dispo: [facility] DW Attending Surgeon on rounds. DEVON PAARDA, RIVETING MACHINE OPERATOR AUTOMATIC Date: 06/02/2016 * Tal Devon, RIVETING MACHINE OPERATOR AUTOMATIC - 06/01/2016 8:41 AM EST Cardiac Surgery Progress Note: ID: [id number] POD#1 Removal of LA tumor, pericardial patch of intra-atrial septum. EF- 65% 24 Hour Events: tx to CVCC post case, extubated at 1700 Required nicardipine for HTN has been weaned off S: pt is doing ok, denies cp, sob, nv/d. -flatus, is just starting to eat something. O: Temperature Temp: 37.1 ??C (98.8 ??F) Temp: [35.3 ??C (95.5 ??F)-37.1 ??C (98.8 ??F)] Heart Rate Heart Rate: 74 Heart Rate: [52-80] Blood Pressure 129/51 BP: (114)/(32) Respiratory Rate Resp: 10 Resp: [0-26] SpO2 SpO2: 92 % SpO2: [91 %-100 %] I/O last 3 completed shifts: In: 3744.7 [P.O.:150; I.V.:2499.7; Blood:795; IV Piggyback:300] Out: 2330 [Urine:1990; Other:340] I/O this shift: In: 111 [P.O.:50; I.V.:61] Out: 130 [Urine:110; Other:20] Admit weight 90.63 kg Current Weight Weight - Scale: 94.8 kg (208 lb 15.9 oz) Patient Vitals for the past 168 hrs: Weight 06/01/16 0600 94.8 kg (208 lb 15.9 oz) 05/31/16 0620 90.6 kg (199 lb 12.8 oz) Physical exam: General: alert, sitting up in chair Neuro:A&Ox3, NFD Lungs: lsc Heart: rrr, s1, s2, no mrg Abdomen: soft, nt, +bs Ext: wwp, no edema Incisions: cdi Tubes/Lines/Drains: PIV, pw, med ct's, mitchell, TALAT, reinier LABS: Recent Labs 05/31/16 0940 PLATELET 215 FIBRINOGEN 167* Recent Labs 06/01/16 0235 K 3.8 ABG (Arterial Blood Gas) Lab Results Component Value Date pH Art 7.49 (H) 05/31/2016 pO2 Art 396 (H) 05/31/2016 pCO2 Art 29 (L) 05/31/2016 Assessment/Plan: POD#1 Removal of LA tumor, pericardial patch of intra-atrial septum. Pt is doing well, pathway. Able to wean off nicardipine this am. Will start BB and lasix. Plan to tx to the floor. No lab draws other then daily K in a pedi tube. Neuro: tylenol, oxy CV: metoprolol 12.5 bid Resp: IS, CDB, Ambulate GI: protonix, RBO's, reg diet : medrano Renal: K prn, lasix 20mg iv bid ID: periop course Heme: asa 81 Endo: WILL Dispo: CVCC tx to floor DW Attending Surgeon on rounds. DEVON PARADA, RIVETING MACHINE OPERATOR AUTOMATIC Date: 06/01/2016 * Amanda Tinoco RCP - 05/31/2016 11:39 AM EST 05/31/16 1137 Ventilator Settings Servo I Ventilator Mode SIMV Vol + PS Resp. Rate Set 13 Tidal Volume Set 480 VT/Kg 8 Set FiO2 100 % Set PEEP (cm H2O) 8 PS Above PEEP (cm H2O) 5 Flow Type Decelerating Percent Deceleration 25 Flow Rate (L/min) 46.5 Inspiratory Time 1 Sec(s) Inspiratory Cycle: Off (%) 10 Inspiratory Rise Time (Sec) 0.05 Trigger Flow (Numeric) 5 Ventilator Measurements Resp 13 SpO2 100 % Tidal Volume Measured Insp. 483 mL Tidal Volume Measured Exp. 487 Peak Inspiratory Pressure 26 Mean Airway Pressure (cm H2O) 11 Plateau Pressure (cm H2O) 19 Minute Ventilation Total Exhaled (L/min) 6.2 Patient brought out from the OR intubated and placed on the vent on the noted settings(8cc/kg) Placed in PSV at 6917-4541 Patient extubated to 4 l/m NC no complications. Positive cuff leak, strong cough, with phonation. RT to follow documented in this encounter H&P Notes * Laureano Guzman MD - 05/31/2016 7:25 AM EST No interval change, pt ready for surgery. 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 ?? Ms. Max is 70. She is completely asymptomatic. She had a routine echocardiogram done for a different reason, and an incidental finding of a left intraatrial septal mass was found. She has had no symptoms of stroke, no TIAs, no RINDs. She denies ongoing substernal chest pressure or dyspnea on exertion. Her past medical history is not significant for any diabetes, stroke, or previous coronary disease. ?? On physical exam, she has no scars over her chest, no pectus. She has no murmurs. Her lungs are clear. She has no swelling in her legs. ?? 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 Her ventricular function, her valvular function all appears normal. ?? She and I have discussed the treatment for this, the reasons for treatment even though she is currently asymptomatic. We have discussed the risks and benefits of surgery, that the risks include, but are not limited to, bleeding, infection, organ failure, stroke, , need for a pacemaker. She has expressed strongly that she has no desire for any blood or blood products. Even though she is not a Jehovah Witness, she has grown up in a family of Jehovah Witnesses and we will treat her as one with regards to her desire for no blood or blood products. She would like to go home and think about this before considering her catheterization and the procedure. We will get a CBC today to decide whether or not she will need hormone and iron treatment to build up her blood count prior to the possibility of surgery. ?? This is a 40-minute visit, 30 minutes were spent [id number] with the patient discussing the risks and benefits of surgery, as well as the need for blood transfusion in this situation. ? * Laureano Guzman MD - 05/31/2016 7:25 AM EST 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 ?? Ms. Max is 70. She is completely asymptomatic. She had a routine echocardiogram done for a different reason, and an incidental finding of a left intraatrial septal mass was found. She has had no symptoms of stroke, no TIAs, no RINDs. She denies ongoing substernal chest pressure or dyspnea on exertion. Her past medical history is not significant for any diabetes, stroke, or previous coronary disease. ?? On physical exam, she has no scars over her chest, no pectus. She has no murmurs. Her lungs are clear. She has no swelling in her legs. ?? 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 Her ventricular function, her valvular function all appears normal. ?? She and I have discussed the treatment for this, the reasons for treatment even though she is currently asymptomatic. We have discussed the risks and benefits of surgery, that the risks include, but are not limited to, bleeding, infection, organ failure, stroke, , need for a pacemaker. She has expressed strongly that she has no desire for any blood or blood products. Even though she is not a Jehovah Witness, she has grown up in a family of Jehovah Witnesses and we will treat her as one with regards to her desire for no blood or blood products. She would like to go home and think about this before considering her catheterization and the procedure. We will get a CBC today to decide whether or not she will need hormone and iron treatment to build up her blood count prior to the possibility of surgery. ?? This is a 40-minute visit, 30 minutes were spent [id number] with the patient discussing the risks and benefits of surgery, as well as the need for blood transfusion in this situation. ? documented in this encounter Miscellaneous Notes * Plan of Care - Melissa Hernandes RN - 06/05/2016 3:11 AM EST Problem: Patient Care Overview Goal: Plan of Care Review Outcome: Ongoing (Interventions Implemented as Appropriate) 06/01/16 1753 06/04/16 1420 06/04/16 2340 Coping/Psychosocial Plan Of Care Reviewed With -- -- patient Plan of Care Review Progress -- progress toward functional goals as expected -- Outcome Evaluation Outcome Summary/Plan progress ambulation, pain control, promote BM, I/S -- -- OUTCOME EVALUATION NOTE: OUTCOME SUMMARY: Picked up assignment at 2300. Pt A&O x4. No confusion or slurring of speech notes. Denied CP orSOB. Incisions WNL. Assessment WNL refer to flowsheets. SR on tele. VSS refer to flowsheets. PLAN MOVING FORWARD: D/c home with life alert INDIVIDUALIZED FALL PREVENTION INTERVENTIONS: Patient-specific fall risk factors per assessment: [current deficits]: New meds, surgery, age Assistance [level of assistance required for transfers and ambulation]: SBA Supervision [direct monitoring required during toileting and ADLs]: SBA Surveillance [continuous indirect monitoring]: tele Patient-specific fall prevention interventions for sensory deficits provided, if applicable: [X] Yes CPG GOAL OUTCOME EVALUATION: ongoing Goal: Individualization & Mutuality Outcome: Ongoing (Interventions Implemented as Appropriate) 06/04/16 142 Individualization Patient Specific Preferences pt likes door open Patient Specific Goals walk x4, rhythm management Patient Specific Interventions care clustered Mutuality/Individual Preferences What Anxieties, Fears or Concerns Do You Have About Your Health or Care? none What Questions Do You Have About Your Health or Care? none What Information Would Help Us Give You More Personalized Care? none Goal: Fall Prevention-Safe Patient Handling Outcome: Ongoing (Interventions Implemented as Appropriate) 06/04/16141906/04/16 2340 Musculoskeletal Interventions Muscle Strengthening activity/mobility promoted;mobility in bed promoted;personal routines for BADL/IADL promoted;sitting on edge of bed encouraged;strengthening exercises performed;up in chair encouraged for meals and activities -- Daily Care Interventions Self-Care Promotion -- independence encouraged Activity and Safety Assistive Device None -- Marquez Fall Risk History of Falling -- 0 Secondary Diagnosis -- 15 Ambulatory Aids -- 0 Intravenous Therapy/Heparin/Saline Lock -- 20 Gait/Transferring -- 0 Mental Status -- 0 Score -- 35 OTHER Marquez Fall Risk -- Med Restraint Interventions Safety Promotion/Fall Prevention -- activity supervised;nonskid shoes/slippers when out of bed;safety round/check completed Positioning Body Position -- supine, head elevated Goal: Infection Control Outcome: Ongoing (Interventions Implemented as Appropriate) 06/04/16 2340 Safety Interventions Isolation Precautions standard precautions maintained Infection Prevention environmental surveillance performed Coping Strategies Supportive Measures active listening utilized Goal: Discharge Needs Assessment Outcome: Ongoing (Interventions Implemented as Appropriate) 06/04/16 142 Discharge Needs Assessment Concerns To Be Addressed denies needs/concerns at this time Readmission Within The Last 30 Days no previous admission in last 30 days Equipment Needed After Discharge none Current Discharge Risk chronically ill;lives alone Discharge Disposition still a patient Discharge Planning Comments possible D/C 06/05? Current Health Anticipated Changes Related to Illness none Activity/Self Care Review of Systems Equipment Currently Used at Home none Living Environment Transportation Available family or friend will provide;car Goal: Interdisciplinary Rounds/Family Conf Outcome: Ongoing (Interventions Implemented as Appropriate) 06/05/16 0305 Interdisciplinary Rounds/Family Conf Participants nursing;patient;renal case manager * Plan of Care - Shira Jarrell PT - 06/04/2016 4:03 PM EST Problem: Patient Care Overview Goal: Plan of Care Review Outcome: Ongoing (Interventions Implemented as Appropriate) 06/04/16 1559 Coping/Psychosocial Plan Of Care Reviewed With patient Physical Therapy Note Treatment Number: 2 Pertinent History of Current Problem: s/p Removal of LA tumor, pericardial patch of intra-atrial septum on 05/31/16 Assessment: Pt seen for continued mobility, gait, stairs and d/c planning. Pt demonstrated improved balance andconfidence using the walker today. She was able to go up and down stairs independently with rail. All inpt goals have been met. She wants life line at home and other than that feels she will be fine at home with a walker and VNA. Please see the Rehab Evaluation Summaries section for detailed objective data and specifics of today???s session. Precautions/Restrictions: sternal, fall Staff Mobility Recommendations: Supervision of 1 and walker. Anticipated Discharge Disposition: home with assist, home with home health SHIRA JARRELL, PT Pager: [phone] Inpatient Physical Therapy * Care Management - Tommy Felder MSW - 06/04/2016 2:56 PM EST Patient would like a Lif[facility] System installed in her home as early as tomorrow. Assisted patient in contacting [facility] to complete application and arrange for install possible this weekend. * Plan of Care - Laureano Mcqueen SLP - 06/04/2016 10:46 AM EST Problem: Patient Care Overview Goal: Plan of Care Review Outcome: Ongoing (Interventions Implemented as Appropriate) 06/04/16 1043 Coping/Psychosocial Plan Of Care Reviewed With patient SPEECH-LANGUAGE PATHOLOGY Progress Note ASSESSMENT: Pt's affect is much improved and cheerful today. Pt reports no further word finding difficulties inconversation and indicates her communication is nearly back to normal. Pt was able to generate 22 items in a category in 1 minutes time. No word finding errors are noted in conversation. Speech to monitor for need for further work-up. For further details, please refer to the corresponding flowsheet documentation. Laureano Mcqueen, MS CCC-SCRAP PILER Speech-Language Pathologist Rehabilitation Medicine Pager - [phone] Problem: Acute Rehab Services Goal & Intervention Plan Goal: Communication Goal Stand Alone Therapy Goal Outcome: Ongoing (Interventions Implemented as Appropriate) 06/03/16 1228 06/04/16 1043 Communication Goal Communication Goal, Date Established 06/03/16 -- Communication Goal, Time to Achieve by discharge -- Communication Goal, Activity Type Pt will be independent with communication strategies. -- Communication Goal, Outcome Achieved -- goal partially met * Plan of Care - Carole Hunt RN - 06/04/2016 5:19 AM EST Problem: Patient Care Overview Goal: Plan of Care Review Outcome: Ongoing (Interventions Implemented as Appropriate) 06/04/16 0515 Coping/Psychosocial Plan Of Care Reviewed With patient Plan of Care Review Progress progress toward functional goals as expected OUTCOME EVALUATION NOTE: OUTCOME SUMMARY: Patient is alert and oriented, continues to have some difficulty with word finding. VSS. Converted to SR/SB 55-80, rare PVC's and aberrent beats, rare burst of a flutter. Pain controlled with scheduled pain meds. Went to MRI last night. Heparin gtt infusing per protocol. Will continue to monitor PLAN MOVING FORWARD: Continue to monitor mental status and heart rhythm INDIVIDUALIZED FALL PREVENTION INTERVENTIONS: Patient-specific fall risk factors per assessment: [current deficits]: Unfamiliar environment, postop, gtts Assistance [level of assistance required for transfers and ambulation]: SBA Supervision [direct monitoring required during toileting and ADLs]: Intermittent, able to call for assistance Surveillance [continuous indirect monitoring]: Purposeful Hourly Rounding; call parkinson in reach; roomkept free of obstacles; potline monitor attached and alarms and settings reviewed q 4 hours. Patient-specific fall prevention interventions for sensory deficits provided, if applicable: CPG GOAL OUTCOME EVALUATION: Ongoing Goal: Fall Prevention-Safe Patient Handling Outcome: Ongoing (Interventions Implemented as Appropriate) 06/03/16 1412 06/03/16 2300 06/04/16 0515 Musculoskeletal Interventions Muscle Strengthening -- -- activity/mobility promoted;mobility in bed promoted;personal routines for BADL/IADL promoted Daily Care Interventions Self-Care Promotion -- BADL personal objects within reach;independence encouraged;BADL personal routines maintained -- Activity and Safety Assistive Device None -- -- Marquez Fall Risk History of Falling -- 0 -- Secondary Diagnosis -- 15 -- Ambulatory Aids -- 0 -- Intravenous Therapy/Heparin/Saline Lock -- 20 -- Gait/Transferring -- 10 -- Mental Status -- 0 -- Score -- 45 -- OTHER Marquez Fall Risk -- High -- Restraint Interventions Safety Promotion/Fall Prevention -- activity supervised;fall prevention program maintained;nonskid shoes/slippers when out of bed;safety round/check completed -- Positioning Body Position -- supine, head elevated -- Goal: Infection Control Outcome: Ongoing (Interventions Implemented as Appropriate) 06/03/16 2300 Safety Interventions Isolation Precautions standard precautions maintained Infection Prevention environmental surveillance performed;rest/sleep promoted;single patient room provided Coping Strategies Supportive Measures active listening utilized;decision-making supported;positive reinforcement provided;self-care encouraged;verbalization of feelings encouraged * Plan of Care - Laureano Mcqueen, SCRAP PILER - 06/03/2016 12:32 PM EST Problem: Patient Care Overview Goal: Plan of Care Review Outcome: Ongoing (Interventions Implemented as Appropriate) 06/03/16 1228 Coping/Psychosocial Plan Of Care Reviewed With patient SPEECH-LANGUAGE PATHOLOGY Evaluation ASSESSMENT: Pt presents with normal oral manipulation of bolus material across consistencies. No signs of aspiration or pharyngeal dysphagia. Below diet recommendations are made. Auditory comprehension is intact. Verbal expression is mildly impaired and characteristic of word recall deficits. Oral reading is also impaired and characteristic of misread words. Circumlocution strategy is encouraged to assist with word recall deficits. For further details, please refer to the corresponding flowsheet documentation. RECOMMENDATIONS: ?? Regular diet and thin liquids. ?? Upright to feed. ?? Medications whole with water. ?? Encourage pt to use circumlocution strategy to assist with communication. Laureano Mcqueen MS CCC-SCRAP PILER Speech-Language Pathologist Rehabilitation Medicine Pager - [phone] Problem: Acute Rehab Services Goal & Intervention Plan Goal: Communication Goal Stand Alone Therapy Goal Outcome: Ongoing (Interventions Implemented as Appropriate) 06/03/16 1228 Communication Goal Communication Goal, Date Established 06/03/16 Communication Goal, Time to Achieve by discharge Communication Goal, Activity Type Pt will be independent with communication strategies. * Consult Note - Kieran Gonzalez - 06/03/2016 5:58 AM EST Neurology Consult Note - 06/03/2016 Patient name: Massiel Max Date of : 1945 PCP: Noreen Adam APRN Onset of symptoms or last seen normal: 0330 No tPA given. CC: Aphasia HPI: Massiel Max is a 70 y.o. woman who is admitted to the cardiothoracic service for atrial myxoma surgery. The myxoma was found incidentally when an echo was being performed for unrelated reasons. She had no stroke symptoms, TIA, or cardiac symptoms. Although asymptomatic, she consented to proceeding with myxoma removal with atrial septal repair on05/31/16. As of 3am 06/02, she was in atrial fibrillation, and was therefore on an amiodarone drip. Because she is a Jehovahs witness, she declines transfusion of any blood products, and because anticoagulation puts her at risk for bleeding, she declined anticoagulation as well for atrial fibrillation. Notably, the cardiac team is planning a direct-current cardioversion 06/03 at 1300. Between 0330 and 0400 on 06/03/16, night staff noted that she was having difficulty finding the right words to say. She was able to speak words, but with word-finding difficulty, as well as mild disorientation. The primary team obtained a head CT, and after this demonstrated multiple territory hypoattenuations, neurology was consulted. Current Medications: Scheduled Meds: ??? meTOPROLOL 25 mg Oral 2 times per day ??? sodium chloride 0.9 % 5 mL Intravenous Q8H ??? furosemide 20 mg Intravenous BID ??? betaxolol 1 drop Both Eyes BID ??? pantoprazole 40 mg Oral Daily Or ??? pantoprazole 40 mg Intravenous Daily ??? aspirin 81 mg Oral Daily Or ??? aspirin 300 mg Rectal Daily ??? senna-docusate 2 tablet Oral Daily ??? magnesium hydroxide 10 mL Oral Daily ??? acetaminophen 1,000 mg Oral Q6H QUEENIE Continuous Infusions: ??? AMIOdarone 0.5 mg/min (06/02/16 2133) PRN Meds:.bisacodyl, cefUROXime, lidocaine (PF), ondansetron, oxyCODONE Past Medical & Surgical History: No past medical history on file. Past Surgical History Procedure Laterality Date ??? Pro removal heart lesion r d intern N/A 05/31/2016 @[facility] INTRACARDIAC TUMOR W\CPB (WRVU 38.45) performed by Laureano Guzman MD at [facility] Home Medications: No current facility-administered medications on file prior to encounter. Current Outpatient Prescriptions on File Prior to Encounter Medication Sig Dispense Refill ??? famotidine (PEPCID) 20 mg Tablet 1 tablet 2 times daily. ??? amLODIPine (NORVASC) 5 mg Tablet Take 2.5 mg by mouth daily. ??? betaxolol (BETOPTIC S) 0.25 % ophthalmic suspension ??? chlorhexidine (HIBICLENS) 4 % Liquid Apply topically daily as needed. Shower from head to toe with Chlorhexidine the night before surgery . 120 mL 0 Allergy: No Known Allergies Family History: No family history on file. Social History: Social History Social History ??? Marital status: Single Spouse name: N/A ??? Number of children: N/A ??? Years of education: N/A Occupational History ??? Not on file. Social History Main Topics ??? Smoking status: Never Smoker ??? Smokeless tobacco: Never Used ??? Alcohol use No ??? Drug use: No ??? Sexual activity: Not on file Other Topics Concern ??? Not on file Social History Narrative Review of systems: Constitutional: No fevers or chills Eyes: No vision changes, no diplopia, no blurry vision ENT: No rhinorrhea or pharyngitis, no meningismus CV: No chest pain or palpitations Resp: No cough, no shortness of breath GI: No nausea, vomiting, diarrhea or constipation : No dysuria, no incontinence Heme: No bleeding or bruising Endo: No polyuria or cold intolerance Neuro: See HPI Psych: No depression, normal sleep [x] Review of systems otherwise negative Physical Exam: Vitals: Temp: [36.4 ??C (97.5 ??F)-37 ??C (98.6 ??F)] Heart Rate: [80-108] Resp: [17-20] BP: (120-143)/(47-67) SpO2: [93 %-95 %] Heart Rate from SPO2: -- Gen: Patient of apparent stated age, well nourished, well developed, awake, alert, NAD Neck: Supple, no meningismus, no carotid bruit, no occipital tenderness CV: Irr irr Resp: Normal respiratory effort, CTAB Abd: +normoactive bowel sounds, soft, nontender, nondistended Ext: No edema. No bony deformity Neuro Exam: MS: Awake, alert, oriented to person, place, year, follows commands Language with mild word finding difficulty, rare substitutions, phonemic errors, and mildly impaired naming. CN: Pupils 4mm ERRL, EOMI, visual ahuja with apparent Right Lower homonymous quadrananopia via confrontation Facial sensation intact, no facial asymmetry Hearing intact to tuning fork Palate elevates symmetrically, tongue protrudes midline SCM and trap strength intact Motor: Normal bulk and tone. Right pronator drift. UE: 5/5 R, 5/5 L Arm abduction at shoulder 5/5 R, 5/5 L Elbow extension 5/5 R, 5/5 L Elbow flexion 5/5 R, 5/5 L Rolled Seat Trimmer LE: 5/5 R, 5/5 L Hip flexion 5/5 R, 5/5 L Knee extension 5/5 R, 5/5 L Knee flexion 5/5 R, 5/5 L Foot dorsiflexion 5/5 R, 5/5 L Foot plantar flexion Sensation: Intact to light touch, temperature, and vibration throughout Reflexes: DTRs 2+ R, 2+ L Biceps 2+ R, 2+ L Brachioradialis 2+ R, 2+ L Triceps 2+ R, 2+ L Patellar 2+ R, 2+ L Achilles tendon Toes - R down, L down Coordination: Finger to nose intact, no dysmetria Rapid alternating movements & finger tapping smooth and symmetric Heel-dee intact No tremor Gait: Not assessed NIH Stroke Scale: (bold applicable choices) NIH Stroke Scale at Initial Evaluation: 1.a. Level of consciousness: 0-Alert 1-Not alert, but arousable with minimal stimulation 2-Not alert, requires repeat stimulation to attend 3-Coma 1.b. Ask patient the month and their age: 0-Answers both correctly 1-Answers one correctly 2-Both incorrect 1.c. Ask patient to open and close eyes: 0-Obeys both correctly 1-Obeys one correctly 2-Both incorrect 2. Best gaze (horizontal eye movement): 0-Normal 1-Partial gaze palsy 2-Forced deviation 3. Visual field testin-No visual field loss 1-Partial hemianopia 2-Complete hemianopia 3-Bilateral hemianopia (blind including cortical blindness) 4. Facial paresis (Ask patient to show teeth or raise eyebrows and close eyes tightly): 0-Normal symmetrical movement 1-Minor paralysis (flattened nasolabial fold, asymmetry on smiling) 2-Partial paralysis (total or near paralysis of lower face) 3-Complete paralysis of one or both sides (absence of facial movement in the upper and lower face) 5. Motor function right arm: 0-Normal (extends arm 90 degrees for 10 seconds without drift) 1-Drift 2-Some effort against gravity 3-No effort against gravity 4-No movement UT-Untestable (Joint fused or limb amputated) 5. Motor function- left arm: 0-Normal (extends arm 90 degrees for 10 seconds without drift) 1-Drift 2-Some effort against gravity 3-No effort against gravity (but baseline) 4-No movement UT-Untestable (Joint fused or limb amputated) 6. Motor function right le-Normal (extends leg 30 degrees for 5 seconds without drift) 1-Drift 2-Some effort against gravity 3-No effort against gravity 4-No movement UT-Untestable (Joint fused or limb amputated) 6. Motor function-left le-Normal (extends leg 30 degrees for 5 seconds without drift) 1-Drift 2-Some effort against gravity 3-No effort against gravity 4-No movement UT-Untestable (Joint fused or limb amputated) 7. Limb ataxia: 0-No ataxia 1-Present in one limb 2-Present in two limbs 8. Sensory (Use pinprick to test arms, legs, trunk and face compare side to side): 0-Normal 1-Mild to moderate decrease in sensation 2-Severe to total sensory loss 9. Best language (describe picture, name items, read sentences): 0-No aphasia 1-Mild to moderate aphasia 2-Severe aphasia 3-Mute 10. Dysarthria (read several words): 0-Normal articulation 1-Mild to moderate slurring of words 2-Near unintelligible or unable to speak UT-Intubated or other physical barrier 11. Extinction and inattention: 0-Normal 1-Inattention or extinction to bilateral simultaneous in one of the sensory modalities 2-Severe rupesh-inattention or rupesh-inattention to more than one modality TOTAL SCORE: 2 Labs: Recent Results (from the past 24 hour(s)) POCT Glucose Result Value Ref Range POC Glucose 88 65 - 199 mg/dL POCT Glucose Result Value Ref Range POC Glucose 104 65 - 199 mg/dL Diagnostic Tests and Imaging: Head CT w/out: Dr. Le. No intracranial hemorrhage Swallow Screen Results: PASSED (All YES responses) Time 0615 Assessment and Plan: Massiel Max is a 70 y.o. 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 Non-contrast head CT is consistent with he symptoms localize to multiple territories. The likely etiology of this stroke is cardioembolic likely related to periprocedure vs atrial fibrillation without anticoagulation. Thrombolytics were considered and not given due to recent cardiac surgery. At this time, recommend anticoagulation for atrialfibrillation. # Multiple territory infarcts, cardioembolic etiology - Recommend therapeutic anticoagulation - Neuro check & vitals Q 4hrs / Q4hrs - Permissive HTN, treat SBP >220 with prn labetalol, enalaprilat - Continue daily Aspirin - Would start statin - PT/OT/SCRAP PILER consults Kieran Gonzalez MD Vascular Neurology Pager [phone] 06/03/2016 Standard [facility] Swallow Screen: This screen is to be used to document a Swallow Screen prior to ingestion of water and /or oral medications for patients with possible stroke (Ischemic or Hemorrhagic). Exclusion Criteria: A swallow screen is not to be performed on patients who: ?? have a decreased level of consciousness. ?? are not able to follow simple commands. ?? are hypoxic, or have increasing O2 needs or may need to be intubated. ?? have a G/J tube for nutrition. ?? have a recent history of a swallowing disorder *These patients should remain NPO and the physician notified for further orders. Swallow Screen Using Water: None of the Exclusion Criteria as mentioned above is present? Patient is alert and sitting upright? Able to close lips, face is symmetric, and tongue is midline? Able to cough, manage oral secretions with dry voice? ONLY IF ABOVE ALL YES, Able to swallow 30 ml of water without coughing, displaying a wet voice or choking? Repeat Twice. ??? If YES to all responses, proceed with water and oral medications as well as diet as medical provider deems appropriate. Consider SCRAP PILER consult for full evaluation and diet recommendations. ??? If NO to any of the responses, stop immediately, keep patient NPO and notify physician. Associated attestation - Darya Verde MD - 06/03/2016 2:13 PM EST I evaluated the patient with the Neurology Residents during bedside rounds. I have reviewed the medical records and patient's history, as well as the resident???s and student's history and examination findings and I agree with the details as written. My neurologic examination confirms the resident???s findings. We formulated the assessment and plan after a detailed discussion, as documented. 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 Neuro exam remarkable for mild expressive aphasia and left inferior quadrantanopsia. Agree with anticoagulation for stroke secondary prevention. Pt with belives and preferences that preclude her from getting blood products, therefore she wishes not to remain on anticoagulation therapy after discharge. Agree with cardiology recommendations of cardioversion and antiplatelet if Afib persist, PT/OT/SCRAP PILER evaluation. * Plan of Care - Carole Hunt RN - 06/03/2016 1:57 AM EST Problem: Patient Care Overview Goal: Plan of Care Review Outcome: Ongoing (Interventions Implemented as Appropriate) 06/03/16146 Coping/Psychosocial Plan Of Care Reviewed With patient Plan of Care Review Progress progress toward functional goals as expected OUTCOME EVALUATION NOTE: OUTCOME SUMMARY: Patient is alert and oriented at beginning of shift. VSS. A fib. Amio gtt infusing, will continue until AM per ELKIN Iglesias. Pain controlled with scheduled pain meds. At 0300 pt got up to use the bathroom, pt was speaking incomprehensible and garbled words intermittently, able to answer questions but disoriented to situation, VSS, see neuro flowsheet for details. At 0330 pt was able to speak clearly but had difficulty finding words and would repeat herself. She stated that she knew what she was thinking but couldn't say the words, alert and oriented x4. ELKIN Iglesias at bedside to assess pt. Life safetycalled. Stat CT. Continues to have difficulty finding words. Will continue to monitor PLAN MOVING FORWARD: NPO for possible cardioversion today? Neuro consult, Monitor mental status INDIVIDUALIZED FALL PREVENTION INTERVENTIONS: Patient-specific fall risk factors per assessment: [current deficits]: Deconditioned, post op, gtts, general weakness Assistance [level of assistance required for transfers and ambulation]: SBA Supervision [direct monitoring required during toileting and ADLs]: Intermittent, able to call for assistance Surveillance [continuous indirect monitoring]: Purposeful Hourly Rounding; call parkinson in reach; roomkept free of obstacles; potline monitor attached and alarms and settings reviewed q 4 hours. Patient-specific fall prevention interventions for sensory deficits provided, if applicable: CPG GOAL OUTCOME EVALUATION: Ongoing Goal: Fall Prevention-Safe Patient Handling Outcome: Ongoing (Interventions Implemented as Appropriate) 06/02/16 2300 06/03/16146 Musculoskeletal Interventions Muscle Strengthening -- activity/mobility promoted;mobility in bed promoted;personal routines for BADL/IADL promoted Daily Care Interventions Self-Care Promotion -- independence encouraged;BADL personal objects within reach;BADL personal routines maintained Marquez Fall Risk History of Falling 0 -- Secondary Diagnosis 15 -- Ambulatory Aids 15 -- Intravenous Therapy/Heparin/Saline Lock 20 -- Gait/Transferring 0 -- Mental Status 0 -- Score 50 -- OTHER Marquez Fall Risk High -- Restraint Interventions Safety Promotion/Fall Prevention fall prevention program maintained;nonskid shoes/slippers when outof bed;safety round/check completed -- Positioning Body Position supine, head elevated -- Goal: Infection Control Outcome: Ongoing (Interventions Implemented as Appropriate) 06/02/16 2300 Safety Interventions Isolation Precautions standard precautions maintained Infection Prevention environmental surveillance performed;rest/sleep promoted;single patient room provided Coping Strategies Supportive Measures active listening utilized;decision-making supported;positive reinforcement provided;self-care encouraged;verbalization of feelings encouraged * Consult Note - Ely Atkins - 06/02/2016 12:58 PM EST [employer]fer [employer]aker Note, NEW PATIENT Massiel Max [id number] 06/02/2016 Chief Complaint/reason for consult: DCCV Referred by: CT surgery HPI: Massiel Max is a 70 y.o. female who has a PMHx of HTN, hiatal hernia and arrythmia (no hxof CHF, DM, stroke/TIA, Vascular dz) who presents for scheduled LA mass removal. Patient is now POD#2 s/p resection of the atrial tumor. At appropriate 2:30am this morning, patient went into rapid atrial fibrillation with heart rates as high as 120s, hemodynamically stable. She had shortness of breath associated with rapid rates. She was started on Amiodarone gtt after a 150mg bolus. Rates have improved. Cardiology team is being consulted for DCCV. ROS: Review of Systems - Cardiovascular ROS: denies chest pain, shortness of breath, MENEZES, orthopnea, pnd, palpitations, LH/dizziness, syncope, weight gain, peripheral edema at this time. 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 Pro removal heart lesion r d intern N/A 05/31/2016 @[facility] INTRACARDIAC TUMOR W\CPB (WRVU 38.45) performed by Laureano Guzman MD at [facility] Meds: No current facility-administered medications on file prior to encounter. Current Outpatient Prescriptions on File Prior to Encounter Medication Sig Dispense Refill ??? famotidine (PEPCID) 20 mg Tablet 1 tablet 2 times daily. ??? amLODIPine (NORVASC) 5 mg Tablet Take 2.5 mg by mouth daily. ??? betaxolol (BETOPTIC S) 0.25 % ophthalmic suspension ??? chlorhexidine (HIBICLENS) 4 % Liquid Apply topically daily as needed. Shower from head to toe with Chlorhexidine the night before surgery . 120 mL 0 Allergies: No Known Allergies Social History Social History ??? Marital status: Single Spouse name: N/A ??? Number of children: N/A ??? Years of education: N/A Social History Main Topics ??? Smoking status: Never Smoker ??? Smokeless tobacco: Never Used ??? Alcohol use No ??? Drug use: No ??? Sexual activity: Not on file Other Topics Concern ??? Not on file Social History Narrative No family history on file. Physical Exam: Vitals: 06/02/16 0348 06/02/16 0700 06/02/16 0808 06/02/16 1140 BP: 120/58 143/56 120/62 BP Location (NBP): Right arm Right arm Left arm Patient Position: Pulse: 103 107 80 Resp: Temp: 36.7 ??C (98.1 ??F) 36.7 ??C (98.1 ??F) 37 ??C (98.6 ??F) TempSrc: Oral Oral Oral SpO2: 94% 94% 94% Weight: 95.3 kg (210 lb 1.6 oz) Height: GEN: Alert and oriented x3, NAD HEAD: normocephalic, atraumatic NECK: no JVD EYES: EOMI, no scleral icterus, no conjunctival pallor or erythema ENT: normal hearing, MMM CARDIAC: irregularly irregular, nl S1 and S2, no m/r/g appreciated, s/p sternotomy, incision c/d/i RESP: CTAB, no w/r/r ABD: +BS, soft, NT, ND, no organomegaly NEURO: alert and oriented x3, strength 5/5 throught, sensation and cell stripper intact MSK/EXT: no pitting edema SKIN: warm and dry, no rashes on light exposed areas Labs: Last 3 wbc, hgb, hct plt Recent Labs 05/31/16 0940 04/27/16 1302 WBC -- 7.5 HGB -- 15.0 HCT -- 44.6 PLATELET 215 317 Last 3 Lytes Recent Labs 06/02/16 0332 06/01/16 0235 05/11/16 0637 NA -- -- 138 K 3.9 3.8 4.0 CL -- -- 94* CO2 -- -- 22 BUN -- -- 14 CREATININE -- -- 1.00 Last 3 LFTs No results for input(s): AST, ALT, ALKPHOS, BILITOT, BILIDIR in the last 7068 hours. Last Ca, Mg, Phos No results for input(s): CALCIUM, PHOS in the last 168 hours. Invalid input(s): MAGNESIUM1 Last 3 Coags No results for input(s): PT, INR, PTT in the last 168 hours. Last 3 ProBNP, Trop, CK No results for input(s): CK, TROPONINT, PROBNP in the last 168 hours. Last 3 TFT No results for input(s): TSH in the last 7068 hours. Invalid input(s): T4, FT4 Diagnostic Data: EKG 06/02/2016 pending EKG 05/31/2016: Sinus bradycardia Otherwise normal ECG When compared with ECG of 11-MAY-2016 07:49, No significant change was found Echo 04/02/2016: LV systolic function normal, EF 69%, RV normal, L sided atrial mass may be consistent with myxoma Stress Test: none for review Cath 04/2016: no obstructive disease Impression: 70 y.o. female with hx of HTN, hiatal hernia and arrythmia (no hx of CHF, DM, stroke/TIA, Vascular dz) who presents for scheduled LA mass removal. Patient is now POD#2 s/p resection of the atrial tumor. At appropriate 2:30am on 06/02/2016, patient went into rapid atrial fibrillation, hemodynamically stable, minimally symptomatic. She is currently rate controlled on Amio gtt and asymptomatic at th is time. Cardiology team is being consulted for DCCV. Around the time of DCCV, we would recommend therapeutic heparin to lower risk of rupa-procedural anticoagulation with continuation for a month following DCCV; however, complicating this situation is the fact that patient is a [employer] and refuses all blood products if she were to have an acute bleeding after being started on heparin. I'm also being told by the primary team that she often refuses blood draws. Further complicating thesituation is the fact that patient reports that she's been told that she has had an irregular arrythmia since 2013 and she reports that she has felt irregular heart beats (sometimes fast) in the past, which makes me a bit concerned for pAfib, and more concerned for rupa- procedural stroke. I have discussed extensively with patient roasterman risk for stroke given her [id number] of atleast 2. I have discussed risk of stroke rupa- procedurally as well. I have explained that normally we recommend a nticoagulation to help lower the risk of stroke. At this time, patient remains indecisive regardingstarting anticoagulation for the DCCV. She is adamant that she would not continue anticoagulation following the procedure, however. At this time, from all known information, patient has never been documented to have atrial fibrillation in the past and the onset of a fib, as captured post-operatively on tele monitoring has been less than 48hrs. Problem List Items Addressed This Visit None Visit Diagnoses Cardiac tumor, atrial Relevant Orders EKG 12 Lead (Completed) Atrial fibrillation, unspecified type Plan: - would be helpful to obtain records from patient's PCP in order to exlude prior irregular arrythmia. If she has had a fib in the past, likely that patient will be more difficult to electrically cardiovert. - we would recommend anticoagulation pre-procedure and 1 month post procedure (if no contraindication from the surgical standpoint) - we would further recommend roasterman anticoagulation in this patient with DAH4O9-Tban of 2 if shewas demonstrated to have recurrent a fib after DCCV - consider Ziopatch on discharge - continue acute rate control for now with amio, maintain HR<100 - plan for DCCV tomorrow if patient agreeable, at this time, she wants to further discuss with Dr. Guzman. Currently scheduled for 1pm. - NPO at midnight - EKG in the morning Discussed and evaluated patient with Dr. Negron, cardiology attending. Attending addendum to follow. Discussed above recommendations with Devon Garcia, who will discuss with CT surgery attending, Dr. Guzman. Ely Atkins MD 06/02/2016 Pager: [phone] Associated attestation - Jose J Negron MD - 06/02/2016 6:17 PM EST Cardiology Consult Attending Addendum I have personally reviewed the relevant medical data, interviewed and examined the patient and fully agree with Dr. Atkins's note as below. Jehova's witness 2 days post removal of left atrial tumor and atrial fibrillation since this morning, now on amiodarone drip. Patient is aware of increased embolic risk after cardioversion but does not want to be on anticoagulation, at least not after discharge from here. [id number]-Xxlo score of 2. Electrical cardioversion scheduled for tomorrow 1 pm, in case pt is still in afib at that time (as she might convert on amiodarone). * Plan of Care - Doc Roberts RN - 06/02/2016 12:48 PM EST Problem: Skin Integrity Impairment, Risk/Actual (Adult) Goal: Identify Related Risk Factors and Signs and Symptoms Related risk factors and signs and symptoms are identified upon initiation of Human Response Clinical Practice Guideline (CPG) Outcome: Ongoing (Interventions Implemented as Appropriate) OUTCOME EVALUATION NOTE: OUTCOME SUMMARY: Patient post op day 2 from a left atrial tumor removal converted to a-fib at 3 AM from an accelerated junctional rythym. Patient started on an amio gtt and rates controlled as of changing amio rate to 0.5mg an hour at 930 am. PLAN MOVING FORWARD: Cont amio gtt, and monitor patient, patient npo after midnight for a possible cardioversion if doesnot convert ahead of time INDIVIDUALIZED FALL PREVENTION INTERVENTIONS: Patient-specific fall risk factors per assessment: [current deficits]: Patient tethered to iv pole and deconditioned after surgery Assistance [level of assistance required for transfers and ambulation]: Standby assist Supervision [direct monitoring required during toileting and ADLs]: Call parkinson Surveillance [continuous indirect monitoring]: Hourly rounds Patient-specific fall prevention interventions for sensory deficits provided, if applicable: CPG GOAL OUTCOME EVALUATION: Problem: Patient Care Overview Goal: Plan of Care Review Outcome: Ongoing (Interventions Implemented as Appropriate) 06/01/16 3457 06/01/16 1950 Coping/Psychosocial Plan Of Care Reviewed With -- patient Plan of Care Review Progress improving -- Outcome Evaluation Outcome Summary/Plan progress ambulation, pain control, promote BM, I/S -- Goal: Individualization & Mutuality Outcome: Ongoing (Interventions Implemented as Appropriate) 05/31/16 2156 Mutuality/Individual Preferences What Anxieties, Fears or Concerns Do You Have About Your Health or Care? I want to be able to go home, not to rehab What Questions Do You Have About Your Health or Care? Nothing particular right now What Information Would Help Us Give You More Personalized Care? Nothing I can think of Goal: Fall Prevention-Safe Patient Handling Outcome: Ongoing (Interventions Implemented as Appropriate) 06/01/16 1950 06/02/16 0800 Marquez Fall Risk History of Falling -- 0 Secondary Diagnosis -- 15 Ambulatory Aids -- 0 Intravenous Therapy/Heparin/Saline Lock -- 20 Gait/Transferring -- 10 Mental Status -- 0 Score -- 45 OTHER Marquez Fall Risk Med -- Restraint Interventions Safety Promotion/Fall Prevention -- activity supervised;nonskid shoes/slippers when out of bed;fallprevention program maintained Positioning Body Position independent -- Goal: Infection Control Outcome: Ongoing (Interventions Implemented as Appropriate) 06/01/16 1950 Safety Interventions Isolation Precautions standard precautions maintained Infection Prevention rest/sleep promoted Coping Strategies Supportive Measures active listening utilized;self-care encouraged Goal: Discharge Needs Assessment Outcome: Ongoing (Interventions Implemented as Appropriate) 05/31/16 2206 Living Environment Transportation Available car;other (see comments) * Consult Note - Maribel Butts RN - 06/02/2016 11:09 AM EST Massiel Max has been referred to Cardiac Rehab. After reviewing the patient's current medical status, it has been determined that this patient does not have a qualifying diagnosis for cardiac rehab services. This can be re evaluated in the future. * Plan of Care - Graciela Medrano RN - 06/01/2016 6:05 PM EST Problem: Patient Care Overview Goal: Plan of Care Review Outcome: Ongoing (Interventions Implemented as Appropriate) 06/01/16 0723 Coping/Psychosocial Plan Of Care Reviewed With patient Plan of Care Review Progress improving Outcome Evaluation Outcome Summary/Plan progress ambulation, pain control, promote BM, I/S OUTCOME EVALUATION NOTE: OUTCOME SUMMARY: Pt transferred from [facility] this morning, report received from Izabela WOLFE. Pt had uneventful afternoon, reporting fatigue and resting for most of afternoon. Worked with PT in CV this AM. VSS on RA. No complaints of pain/discomfort or SOB throughout shift. MSI c/d/i no drainage or signs of infection. Vwires in, locked and secured to chest. ON tele in Accelerated junctional with rare PJCs, ANKIET Ozzycesar notified. Ambulated 160ft with no symptoms. PLAN MOVING FORWARD: Progress ambulation, pain control, monitor HR and rhythm, I/S, promote BM. INDIVIDUALIZED FALL PREVENTION INTERVENTIONS: Patient-specific fall risk factors per assessment: generalized weakness Assistance: SBA Supervision: Intermittent, call parkinson within reach, ringing appropriately Surveillance: Telemetry, purposeful rounding CPG GOAL OUTCOME EVALUATION: ongoing * Initial Assessments - Sarath Rose - 06/01/2016 2:53 PM EST Office of Care Management Initial Assessment Sarath Rose RN reviewed record and discussed patient with Care Team. Source of Information: Patient Introduced self/reviewed role; services accepted. Reason for Hospitalization: Atrial Myxoma No past medical history on file. Hospitalizations Within the Past 30 Days: None Anticipated Length Of Stay (If known): 2-3 days Current Decision-Making Capacity: Alert and Oriented Advance Care Planning: Pt stated she has paperwork at home. Cable Way Operator informed pt that if she would like to complete AD information during her hospitalization, a member from [facility] would be able to assist. Current Coping/Education/Information Needs: Understands current plan for care. 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 Home Environment: Pt lives alone in her own mobile home. There are x3-4 steps to enter with bilateral railings, and all of her living area is on x1 level. Social & Family Supports/Community Resources: Sister in law and x2 nephews for support. Behavioral Health History: States I'm a worry wort, does not take any medications or seek outpatient counseling Substance Use/Abuse: None Other Pertinent/Service Specific Information: Informed during CT rounds that pt does not want any blood products. Health/Prescription Coverage: Primary Insurance: Medicare Secondary Insurance: [place] Medicaid Prescription Coverage: Yes Preferred Pharmacy: [facility] in [place] Other: n/a Primary Care Provider: Noreen Adam, RIVETING MACHINE OPERATOR [employer] [phone] Patient/Caregiver Goals of Treatment: Return home and receive services through [facility]. Potential Needs for Transition of Care: Rehab/SNF: Not indicated at this time. Home Health: Pt stated her family has used [facility] in the past, and would like to [facility] herself upon discharge. DME: Pt stated she would like to have a raised toilet seat for home use. Cable Way Operator informed pt this isnot covered by insurance, and would be an out of pocket expense. Cable Way Operator called [facility] for estimation and they stated it would be $37 for a raised seat without handle bars. Dialysis: n/a Community Resources: n/a Transportation: One of her two nephews will transport her home. Other: n/a Anticipated Barriers to Discharge/Special Considerations: None identified at this time. Plan: Return home with [facility] for services. A member of the Care Management team will continue to monitor progress, follow for continuity of care and assist with transition of care planning. Sarath Rose RN Pager: [phone] * Plan of Care - Sachin Roe, PT - 06/01/2016 1:41 PM EST Problem: Patient Care Overview Goal: Plan of Care Review Outcome: Ongoing (Interventions Implemented as Appropriate) 06/01/16 1322 Coping/Psychosocial Plan Of Care Reviewed With patient Physical Therapy Assessment Treatment Number: 1 (Evaluation) Pertinent History of Current Problem: s/p Removal of LA tumor, pericardial patch of intra-atrial septum on 05/31/16 Pt seen for evaluation in [facility] this AM. Pt demonstrated impaired functional transfers, gait and activity tolerance from her prior level of independence. Pt ambulated short distance today, limited by light headedness. Pt was indep PRODUCTION ROUSTABOUT and anticipate will make gains and be safe for home d/c once medically ready. Please see the Rehab Evaluation Summaries section for detailed objective data and specifics of today???s session. Precautions/Restrictions: sternal, fall Staff Mobility Recommendations: Ambulated 3-4x/daily with nursing Therapy Frequency: (1-2 visits) Discharge Recommendation: Anticipated Equipment Needs at Discharge: raised toilet seat, shower chair (? walker) Anticipated Discharge Disposition: home with assist, home with home health SACHIN ROE, PT Pager: [phone] Inpatient Physical Therapy Problem: Acute Rehab Services Goal & Intervention Plan Goal: Bed Mobility Goal Stand Alone Therapy Goal Outcome: Ongoing (Interventions Implemented as Appropriate) 06/01/16 1322 Bed Mobility Goal Bed Mobility Goal, Date Established 06/01/16 Bed Mobility Goal, Time to Achieve 5 days Bed Mobility Goal, Activity Type supine to sit/sit to supine Bed Mobility Goal, [place] Level independent Goal: Gait Training Goal Stand Alone Therapy Goal Outcome: Ongoing (Interventions Implemented as Appropriate) 06/01/16 1322 Gait Training Goal Gait Training Goal, Date Established 06/01/16 Gait Training Goal, Time to Achieve 5 days Gait Training Goal, [place] Level independent Gait Training Goal, Assist Device (LRD) Gait Training Goal, Distance to Achieve 160 ft Gait Training Goal, Additional Goal Pt up and down 4 steps with rail with supervision Goal: Goal Transfer Training Stand Alone Therapy Goal Outcome: Ongoing (Interventions Implemented as Appropriate) 06/01/16 1322 Goal Transfer Training Transfer Training Goal, Date Established 06/01/16 Transfer Training Goal, Time to Achieve 5 days Transfer Training Goal, Activity Type vxe-bs-iltnr/meuia-ki-cnh;mea-de-sbpdk/ecgms-mt-ara Transfer Train Goal, [place] Level independent Transfer Training Goal, Assist Device (LRD) * OR Attestation - Laureano Guzman MD - 05/31/2016 11:04 AM EST Attestation: Case Date: 05/31/2016 I was present and I participated during the entire procedure (does not need to include opening and closing). LAUREANO GUZMAN MD 05/31/2016 * Brief Op Note - Laureano Guzman MD - 05/31/2016 11:03 AM EST Brief Operative Note Patient Name: Massiel Max : [id number] MR#: [id number] Case Date: 05/31/2016 Surgeon: Surgeon(s) and Role: * Laureano Guzman MD - Primary * Aleks Iglesias PA - Physician Dairy Powder Mixer Operator Preoperative diagnosis: atrial myxoma Postoperative diagnosis: atrial myxoma Procedure(s): Removal of LA tumor with intra-atrial septum Patch of septum with pericardium Anesthesia: General Findings: calcified mass, stalk taken with septum, no residual asd or tumor Complications: none Fluids: 1L ns Estimated Blood Loss: * No values recorded between 05/31/2016 8:20 AM and 05/31/2016 11:03 AM * Drains: 2 med tubes Disposition: taken directly to the ICU, intubated and in a critical condition. Condition: doing well without problems (Please see the Surgical Encounter Summary for any Implant and Specimen details pertinent to this patient.) Infection Bundle used? No * Op Note - Laureano Guzman MD - 05/31/2016 9:05 AM EST PREOP DIAGNOSIS: Intra-atrial tumor, atrial myxoma. POSTOP DIAGNOSIS: Intra-atrial tumor, atrial myxoma. PROCEDURE: Removal of left atrial tumor and atrial septum with patch repair of the atrial septum using bovine pericardium. SURGEON: Patricia. WEBFOCUS DEVELOPER: MD Deshawn. FINDINGS: Calcified tumor with a diameter of 3 cm. No evidence of other tumors within the atrium. No evidence of residual ASD. Normal ventricular function pre and post. EBL: Minimal. FLUIDS: Saline. Two mediastinal tubes. PROCEDURE: Patient was taken to the operating room. Had a radial A-line, general endotracheal anesthesia. All the proper lines and monitors were placed by Anesthesia after a timeout was performed. The patient was prepped and draped in the normal sterile fashion. An incision on her chest was made short of the angle of Ayo and short of the xiphoid. Cautery was used to get down to the midline on the sternum which was divided along the midline using a pneumatic saw. Her chest was quite osteoporotic. Bone wax was applied to the marrow. A small sternal row boss was used with antibiotic-soaked towels to open the chest. The overlying pericardium was hung to the edge of the sternal retractor. Full-dose heparin was given. The distal intrapericardial aorta was cannulated. The SVC and the IVC were cannulated. We went on bypass and mid ascending aorta had an antegrade. The cross-clamp was applied and the heart was arrested with a liter and a half of cold blood cardioplegia antegrade. CO2 insufflated the field. Snares were placed around the IVC and the SVC. The right atrium was opened in a vertical incision manner and the fossa ovalis was identified as well as the tricuspid valve, the coronary sinus, SVC, and IVC. The septum was opened, making sure to preserve the stock on the mass, and the mass was delivered out with the intra-atrial septum in its attachment points. The inside of the left atrium was inspected. There were no further tumors that could be identified. A piece of pericardium that had been prepped was trimmed to size, and using 8 everting mattress sutures the piece of pericardium was sewn and tied down into place. Using 2 of the tails, a running suture was run around the edge of the pericardium and then tied to itself. V wires were applied. Hot shots were given. The heart began beating in a normal sinus rhythm. The cross-clamp was removed. The right atrium was closed in 2 layers of 5-0 Prolene. The snares were let down. The lungs were reinflated and after a period of deairing and testing the intra-atrial septum we were satisfied with the repair. The antegrade was removed, tied down and oversewn, as well as the IVC and then the SVC. We were from bypass. Protamine was given. There was no residual ASD. There was a small attached piece of left atrium which could be seen within the left atrium from the cut surface, but this was firmly attached to the wall. The protamine was given. There was no further bleeding. Both SVC and IVC were tied down and oversewn. The aorta cannula site had the cannula removed and both purse-strings were tied down, and this was oversewn. An angle chest tube was placed behind, a straight in front, and the V wires were already applied. The wound was irrigated out, there was no further bleeding, and the chest was closed with vanco paste and 4 interrupted steel cables, several layers of Vicryl and then Monocryl. Wound cleaned, dry sterile dressings were applied, and the patient was taken to the [facility] in stable condition. documented in this encounter Plan of Treatment Scheduled Orders Name Type Priority Associated Diagnoses Orde r Schedule EKG 12 Lead ECG Routine Atrial fibrillation, unspecified type One Time for 1 Occurrences starting 06/03/2016 until 06/03/2016 documented as of this encounter Procedures Procedure Name Priority Date/Time Associated Diagnosis Comments TERMINAL COMPUTER OPERATOR SCAN 06/08/2016 12:00 AM EST TERMINAL COMPUTER OPERATOR SCAN 06/08/2016 12:00 AM EST APTT STAT 06/04/2016 3:23 PM EST XR CHEST PA AND LATERAL Routine 06/04/2016 10:02 AM EST APTT Timed 06/04/2016 8:29 AM EST APTT STAT 06/04/2016 2:21 AM EST MRI BRAIN WO CONTRAST Timed 06/03/2016 10:13 PM EST APTT STAT 06/03/2016 8:40 PM EST APTT STAT 06/03/2016 2:02 PM EST APTT STAT 06/03/2016 8:24 AM EST XR CHEST PA AND LATERAL Routine 06/03/2016 4:[address] HEAD WO CONTRAST (GENERIC) STAT 06/03/2016 4:46 AM EST POCT GLUCOSE Routine 06/03/2016 4:14 AM EST CARDIOVERSION-OR Routine 06/02/2016 1:29 PM EST POCT GLUCOSE Routine 06/02/2016 11:29 AM EST POTASSIUM Routine 06/02/2016 3:32 AM EST POTASSIUM STAT 06/01/2016 2:35 AM EST EXTUBATE Routine 05/31/2016 3:47 PM EST XR CHEST ONE VIEW STAT 05/31/2016 12: 17 PM EST BLOOD GAS 2 ARTERIAL Routine 05/31/2016 12:08 PM EST EKG 12-LEAD STAT 05/31/2016 12:03 PM EST Cardiac tumor, atrial BLOOD GAS 2 ARTERIAL Routine 05/31/2016 11:00 AM EST BLOOD GAS 2 ARTERIAL Routine 05/31/2016 10:05 AM EST FIBRINOGEN STAT 05/31/2016 9:40 AM EST PLATELET COUNT STAT 05/31/2016 9:40 AM EST BLOOD GAS 2 ARTERIAL Routine 05/31/2016 9:22 AM EST SPECIMEN TO PATHOLOGY Routine 05/31/2016 9:10 AM EST SURGICAL PATHOLOGY REPORT Routine 05/31/2016 9:09 AM EST BLOOD GAS 2 ARTERIAL Routine 05/31/2016 8:53 AM EST BLOOD GAS 2 ARTERIAL Routine 05/31/2016 8:18 AM EST @EXC INTRACARDIAC TUMOR W\CPB (WRVU 38.45) 05/31/2016 7:33 AM EST Cardiac tumor, atrial documented in this encounter Results * EKG 12 Lead (07/13/2016 1:38 PM EST) Ventricular rate 122 BPM MUSE SYSTEM Atrial Rate 244 BPM MUSE SYSTEM QRS Duration 96 ms MUSE SYSTEM Q-T Interval 378 ms MUSE SYSTEM QTC Calculated (Bezet) 538 ms MUSE SYSTEM Calculated P [place] -119 degrees MUSE SYSTEM Calculated R [place] 39 degrees MUSE SYSTEM Calculated T [place] -35 degrees MUSE SYSTEM INTERPRETATION Atrial flutter [...] Guzman MD ECG ORDERABLES MUSE SYSTEM * XR Chest PA & Lateral (Generic) [...] effusions. Laureano Guzman MD IMG DX ORDERABLES * SCAN DOC: TERMINAL COMPUTER OPERATOR (06/08/2016 12:00 AM EST) Anatomical Region Laterality Modality Other Scanning Provider MEDIA MGR SCAN EXT O RDR/RSLT * SCAN DOC: TERMINAL COMPUTER OPERATOR (06/08/2016 12:00 AM EST) Anatomical Region Laterality Modality Other Scanning Provider MEDIA MGR SCAN EXT O RDR/RSLT * (ABNORMAL) APTT (06/04/2016 3:23 PM EST) PTT 50(H) 25 - 35 sec [facility] Comment: The recommended therapeutic range for full dose, unfractionated heparin at [facility] is 80 ? 114 seconds. The use of the anti-Xa (heparin) level rather than the PTT is recommended for monitoring anticoagulation intensity in critically ill patients receiving unfractionated heparin by continuous IV infusion. Blood specimen (specimen) 06/04/2016 3:23 PM EST 06/04/2016 3:29 PM EST Narrative Resulting Agency Comment Spec In Lab Laureano Guzman MD HEMATOLOGY ORDERABL ES [facility] [place] [address] * XR Chest PA & Lateral (Generic) (06/04/2016 10:02 AM EST) Anatomical Region Laterality Modality Chest N/A Digital Radiogra phy Impressions 06/04/2016 10:17 AM EST Nearly-resolved bibasilar atelectasis and effusions.. 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 ? COMPARISON: 06/03/2016. FINDINGS: Decreased pleural effusion at the bases, with equivocal trace residual in the right and a very small residual on the left. Bibasilar atelectasis is also nearly resolved. Unchanged cardiomediastinal silhouette, joe, pulmonary vessels. Sternotomy wires intact. No interval osseous findings are seen. 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 COMPARISON: 06/03/2016. FINDINGS: Decreased pleural effusion at the bases, with equivocal traceresidual in the right and a very small residual on the left. Bibasilar atelectasisis also nearly resolved. Unchanged cardiomediastinal silhouette, joe,pulmonary vessels. Sternotomy wires intact. No interval osseous findings are seen. IMPRESSION Nearly-resolved bibasilar atelectasis and effusions.. Laureano Guzman MD IMG DX ORDERABLES * (ABNORMAL) APTT (06/04/2016 8:29 AM EST) PTT 69(H) 25 - 35 sec [facility] Comment: The recommended therapeutic range for full dose, unfractionated heparin at [facility] is 80 ? 114 seconds. The use of the anti-Xa (heparin) level rather than the PTT is recommended for monitoring anticoagulation intensity in critically ill patients receiving unfractionated heparin by continuous IV infusion. Blood specimen (specimen) 06/04/2016 8:29 AM EST 06/04/2016 8:47 AM EST Narrative Resulting Agency Comment Spec In Lab Laureano Guzman MD HEMATOLOGY ORDERABL ES [facility] [place] [address] * (ABNORMAL) APTT (06/04/2016 2:21 AM EST) PTT 112(H) 25 - 35 sec [facility] Comment: The recommended therapeutic range for full dose, unfractionated heparin at [facility] is 80 ? 114 seconds. The use of the anti-Xa (heparin) level rather than the PTT is recommended for monitoring anticoagulation intensity in critically ill patients receiving unfractionated heparin by continuous IV infusion. Blood specimen (specimen) 06/04/2016 2:21 AM EST 06/04/2016 2:39 AM EST Narrative Resulting Agency Comment Spec In Lab Laureano Guzman MD HEMATOLOGY ORDERABL ES [facility] [place] [address] * MRI Brain wo Contrast (06/03/2016 10:13 PM EST) Anatomical Region Laterality Modality Head Magnetic Resonan ce Impressions 06/04/2016 5:22 AM EST Focal acute/subacute cortical infarcts of the posterior left temporal lobe and left occipital lobe. I, Barrett Cunningham, discussed these results, over the phone, with Dr. Stiles ??on 06/04/2016 3:09 AM and verified that (s)he understood these results. I have personally reviewed the image(s) and the residents interpretation and agree with the findings, Paolo Carvajal at 06/04/2016 5:22 AM Narrative 06/04/2016 5:22 AM EST EXAMINATION: MRI BRAIN WO CONTRAST CLINICAL HISTORY: acute CVA TECHNIQUE: ?? MRI of the brain without intravenous contrast. COMPARISON: Head CT 06/03/2016 FINDINGS: There are foci of restricted diffusion within the posterior left temporal lobe and left occipital lobe, consistent with acute/subacute infarction. There is associated T2 prolongation within these areas of infarction. There are additional scattered foci of T2 prolongation within the periventricular and subcortical white matter of both cerebral hemispheres, a nonspecific finding most commonly seen within the context of small vessel ischemic changes although demyelination not excluded. There appear to be punctate bilateral cerebellar lacunes. Ventricles appear similar in size/configuration. Patent basal cisterns. No global mass effect, midline shift, herniation appreciated. No intracranial hemorrhage identified. No large space-occupying lesion seen. Central flow voids of the principal intracranial arteries and major dural venous sinuses appear maintained. Mastoid air cells: Clear. Procedure Note Paolo Carvajal MD - 06/04/2016 EXAMINATION: MRI BRAIN WO CONTRAST CLINICAL HISTORY: acute CVA TECHNIQUE: MRI of the brain without intravenous contrast. COMPARISON: Head CT 06/03/2016 FINDINGS: There are foci of restricted diffusion within the posterior left temporallobe and left occipital lobe, consistent with acute/subacute infarction. Thereis associated T2 prolongation within these areas of infarction. There are additional scattered foci of T2 prolongation within the periventricular and subcortical white matter of both cerebral hemispheres,a nonspecific finding most commonly seen within the context of smallvessel ischemic changes although demyelination not excluded. There appear to be punctate bilateral cerebellar lacunes. Ventricles appear similar in size/configuration. Patent basal cisterns. No global mass effect, midline shift, herniation appreciated. No intracranial hemorrhage identified. No large space-occupying lesion seen. Central flow voids of the principal intracranial arteries and major duralvenous sinuses appear maintained. Mastoid air cells: Clear. IMPRESSION Focal acute/subacute cortical infarcts of the posterior left temporal lobeand left occipital lobe. I, Barrett Cunningham, discussed these results, over the phone, withDr. Stiles on 06/04/2016 3:09 AM and verified that (s)he understoodthese results. I have personally reviewed the image(s) and the residents interpretationand agree with the findings, Paolo Carvajal at 06/04/2016 5:22 AM Laureano Guzman MD IMG MRI ORDERABLES * (ABNORMAL) APTT (06/03/2016 8:40 PM EST) PTT 86(H) 25 - 35 sec [facility] Comment: The recommended therapeutic range for full dose, unfractionated heparin at [facility] is 80 ? 114 seconds. The use of the anti-Xa (heparin) level rather than the PTT is recommended for monitoring anticoagulation intensity in critically ill patients receiving unfractionated heparin by continuous IV infusion. Blood specimen (specimen) 06/03/2016 8:40 PM EST 06/03/2016 8:53 PM EST Narrative Resulting Agency Comment Spec In Lab Laureano Guzman MD HEMATOLOGY ORDERABL ES [facility] [place] [address] * (ABNORMAL) APTT (06/03/2016 2:02 PM EST) Pathologist [facility] PTT 67(H) 25 - 35 sec [facility] Comment: The recommended therapeutic range for full dose, unfractionated heparin at [facility] is 80 ? 114 seconds. The use of the anti-Xa (heparin) level rather than the PTT is recommended for monitoring anticoagulation intensity in critically ill patients receiving unfractionated heparin by continuous IV infusion. Blood specimen (specimen) 06/03/2016 2:02 PM EST 06/03/2016 2:14 PM EST Narrative Resulting Agency Comment Spec In Lab Laureano Guzman MD HEMATOLOGY ORDERABL ES Performing Organization Address [facility] Co de Phone Number [facility] [place] [address] * APTT (06/03/2016 8:24 AM EST) PTT 32 25 - 35 sec [facility] Comment: The recommended therapeutic range for full dose, unfractionated heparin at [facility] is 80 ? 114 seconds. The use of the anti-Xa (heparin) level rather than the PTT is recommended for monitoring anticoagulation intensity in critically ill patients receiving unfractionated heparin by continuous IV infusion. Blood specimen (specimen) 06/03/2016 8:24 AM EST 06/03/2016 8:36 AM EST Narrative Resulting Agency Comment Spec In Lab Laureano Guzman MD HEMATOLOGY ORDERABL ES Performing Organization Address [facility] Co de Phone Number [facility] [place] [address] * XR Chest PA & Lateral (Generic) (06/03/2016 4:53 AM EST) Anatomical Region Laterality Modality Chest N/A Digital Radiogra phy Impressions 06/03/2016 6:03 AM EST Small bilateral pleural effusions, left greater than right with associated bibasilar atelectasis. Narrative 06/03/2016 6:03 AM EST EXAMINATION: XR CHEST PA AND LATERAL (GENERIC) CLINICAL HISTORY: pod 3 s/p removal of LA Tumor TECHNIQUE: 2 views COMPARISON: May 31, 2016 FINDINGS: Support lines and tubes have been removed. There are small bilateral pleural effusions, left greater than right. There is associated bibasilar opacities, slightly more confluent in the retrocardiac region but still likely consistent with atelectasis. No pneumothorax. The cardiomediastinal silhouette is stable. Procedure Note Reshma Le MD - 06/03/2016 EXAMINATION: XR CHEST PA AND LATERAL (GENERIC) CLINICAL HISTORY: pod 3 s/p removal of LA Tumor TECHNIQUE: 2 views COMPARISON: May 31, 2016 FINDINGS: Support lines and tubes have been removed. There are small bilateralpleural effusions, left greater than right. There is associated bibasilaropacities, slightly more confluent in the retrocardiac region but still likelyconsistent with atelectasis. No pneumothorax. The cardiomediastinal silhouette isstable. IMPRESSION Small bilateral pleural effusions, left greater than right withassociated bibasilar atelectasis. Laureano Guzman MD IMG DX ORDERABLES * CT Head wo Contrast (Generic) (06/03/2016 4:46 AM EST) Anatomical Region Laterality Modality Head Computed Tomogra phy Impressions 06/03/2016 5:58 AM EST No acute intracranial hemorrhage. I have personally reviewed the image(s) and the residents interpretation and agree with the findings, Reshma Le at 06/03/2016 5:58 AM Narrative 06/03/2016 5:58 AM EST EXAMINATION: CT HEAD WO CONTRAST (GENERIC) CLINICAL HISTORY: s/p atrial myxoma removal, now acute word finding difficulty TECHNIQUE: Noncontrast CT of the head COMPARISON: None FINDINGS: There is no acute intracranial hemorrhage or extra-axial collection. [place] matter white matter differentiation is preserved. There are patchy low attenuation lesions within the bilateral subcortical white matter, nonspecific but likely secondary to chronic small vessel ischemic changes. No mass or mass effect. The sulci, ventricles and basal cisterns are normal. The orbits are normal. The paranasal sinuses and mastoid air cells are clear. No calvarial abnormality. Procedure Note Reshma Le MD - 06/03/2016 EXAMINATION: CT HEAD WO CONTRAST (GENERIC) CLINICAL HISTORY: s/p atrial myxoma removal, now acute word findingdifficulty TECHNIQUE: Noncontrast CT of the head COMPARISON: None FINDINGS: There is no acute intracranial hemorrhage or extra-axial collection. Graymatter white matter differentiation is preserved. There are patchy lowattenuation lesions within the bilateral subcortical white matter, nonspecific butlikely secondary to chronic small vessel ischemic changes. No mass or masseffect. The sulci, ventricles and basal cisterns are normal. The orbits are normal. The paranasal sinuses and mastoid air cells areclear. No calvarial abnormality. IMPRESSION No acute intracranial hemorrhage. I have personally reviewed the image(s) and the residents interpretationand agree with the findings, Reshma Le at 06/03/2016 5:58 AM Laureano Guzman MD IMG CT ORDERABLES * POCT Glucose (06/03/2016 4:14 AM EST) POC Glucose 104 65 - 199 mg/dL [facility] Comment: Supplemental ranges: <140 mg/dL before meals <180 mg/dL all other times of the day Blood specimen (specimen) 06/03/2016 4:14 AM EST 06/03/2016 4:14 AM EST Laureano Guzman MD POINT OF CARE TEST ORDERABLES Performing Organization Address [facility] Co de Phone Number [facility] [place] [address] * POCT Glucose (06/02/2016 11:29 AM EST) POC Glucose 88 65 - 199 mg/dL [facility] Comment: Supplemental ranges: <140 mg/dL before meals <180 mg/dL all other times of the day Blood specimen (specimen) 06/02/2016 11:29 AM EST 06/02/2016 11:29 AM EST Laureano Guzman MD POINT OF CARE TEST ORDERABLES Performing Organization Address City/[facility]/ZIP Co de Phone Number [facility] [place] [address] * Potassium (06/02/2016 3:32 AM EST) Potassium 3.9 3.5 - 5.0 mmol/L [facility] Comment: Please note: ??Patients with WBC >100,000 may have falsely elevated Potassium levels. ??For accurate Potassium quantification in these patients send serum separator tube (gold top) for subsequent determinations. ??Contact the Clinical Chemistry Laboratory if there are any questions. Blood specimen (specimen) 06/02/2016 3:32 AM EST 06/02/2016 3:37 AM EST Narrative Resulting Agency Comment Spec In Lab Laureano Guzman MD CHEMISTRY ORDERABLE S Performing Organization Address [facility] de Phone Number [facility] [place] [address] * Potassium (06/01/2016 2:35 AM EST) Potassium 3.8 3.5 - 5.0 mmol/L [facility] Comment: Please note: ??Patients with WBC >100,000 may have falsely elevated Potassium levels. ??For accurate Potassium quantification in these patients send serum separator tube (gold top) for subsequent determinations. ??Contact the Clinical Chemistry Laboratory if there are any questions. Blood specimen (specimen) 06/01/2016 2:35 AM EST 06/01/2016 2:47 AM EST Narrative Resulting Agency Comment Spec In Lab Laureano Guzman MD CHEMISTRY ORDERABLE S Performing Organization Address [facility] Co de Phone Number [facility] [place] [address] * XR Chest PA or AP 1 view (05/31/2016 12:17 PM EST) Anatomical Region Laterality Modality Chest N/A Digital Radiogra phy Impressions 05/31/2016 12:21 PM EST Satisfactory equipment position. No comment complication seen. Narrative 05/31/2016 12:21 PM EST EXAMINATION: XR CHEST PA OR AP 1 VIEW CLINICAL HISTORY: s/p cardiac tumor resection with interatrial patch TECHNIQUE: Portable AP chest radiograph on ??05/31/2016 at 1209 hours. COMPARISON: 05/11/2016. FINDINGS: Endotracheal tube approximately 3.5 cm above the rosalee. Right IJ introducer with PA catheter in the mid to distal right pulmonary artery. Nasogastric tube extends below the inferior margin of the radiograph, thus to at least the proximal body of the stomach. 2 subxiphoid drains are present. No pneumothorax is seen. Unchanged cardiomediastinal silhouette and pulmonary vessel markings. No definite pleural effusion. Procedure Note Koki Rodriguez MD - 05/31/2016 EXAMINATION: XR CHEST PA OR AP 1 VIEW CLINICAL HISTORY: s/p cardiac tumor resection with interatrial patch TECHNIQUE: Portable AP chest radiograph on 05/31/2016 at 1209 hours. COMPARISON: 05/11/2016. FINDINGS: Endotracheal tube approximately 3.5 cm above the rosalee. RightIJ introducer with PA catheter in the mid to distal right pulmonary artery. Nasogastric tube extends below the inferior margin of the radiograph, thusto at least the proximal body of the stomach. 2 subxiphoid drains are present.No pneumothorax is seen. Unchanged cardiomediastinal silhouette andpulmonary vessel markings. No definite pleural effusion. IMPRESSION Satisfactory equipment position. No comment complication seen. Laureano Guzman MD IMG DX ORDERABLES * (ABNORMAL) BLOOD GAS 2 ARTERIAL (05/31/2016 12:08 PM EST) pH Art 7.49(H) 7.35 - 7.45 [facility] pCO2 Art 29(L) 35 - 45 mmHg [facility] pO2 Art 396(H) 85 - 104 mmHg [facility] HCO3 Art 22.1 20.0 - 26.0 mmol/L [facility] BE Art -1.7 -3.0 - 3.0 mmol/L [facility] Hgb Blood Gas 11.7(L) 11.7 - 15.5 gm/dL [facility] O2HB Art 98.2(H) 94.0 - 97.0 % [facility] COHB Art 0.3 % [facility] Comment: Nonsmokers: 0.5-1.5% COHB Smokers: Variable, but usually less than 10% Toxic: 20-30% COHB Lethal: Greater than 60% COHB METHB Art 0.7 <=1.5 % [facility] Na Whole Blood 133(L) 135 - 145 mmol/L [facility] K Whole Blood 3.5 3.5 - 5.0 mmol/L [facility] Comment: Please note: Patients with WBC >100,000 may have falsely elevated Potassium levels. Contact the Clinical Chemistry Laboratory if there are any questions. ICa Whole Blood 1.06(L) 1.15 - 1.33 mmol/L [facility] Comment: Note: ??Total bilirubin higher than 20 mg/dL may lead to falsely low ionized calcium. CL Whole Blood 106 98 - 107 mmol/L [facility] Gluc Whole Bld 122 65 - 199 mg/dL [facility] Comment:Diabetes: >=200 mg/d L plus symptoms. Lactate WB 1.3 0.5 - 2.2 mmol/L [facility] FIO2 Art 100 % [facility] PF Ratio Art 396 [facility] Temp Art 35.3 Celsius [facility] Blood specimen (specimen) 05/31/2016 12:08 PM EST 05/31/2016 12:08 PM EST Laureano Guzman MD CHEMISTRY ORDERABLE S [facility] [place] [address] * EKG 12 Lead (05/31/2016 12:03 PM EST) Ventricular rate 56 BPM MUSE SYSTEM Atrial Rate 56 BPM MUSE SYSTEM P-R Interval 170 ms MUSE SYSTEM QRS Duration 92 ms MUSE SYSTEM Q-T Interval 490 ms MUSE SYSTEM QTC Calculated (Bezet) 472 ms MUSE SYSTEM Calculated P [place] 15 degrees MUSE SYSTEM Calculated R [place] 35 degrees MUSE SYSTEM Calculated T [place] 61 degrees MUSE SYSTEM INTERPRETATION Sinus bradycardia Otherwise normal ECG When compared with ECG of 11-MAY-2016 07:49, No significant change was found Confirmed by MD PHELAN ALAN ([id number]) on 05/31/2016 1:52:37 PM MUSE SYSTEM 05/31/2016 12:0 3 PM EST 05/31/2016 1:52 PM EST Laureano Guzman MD ECG ORDERABLES MUSE SYSTEM * (ABNORMAL) BLOOD GAS 2 ARTERIAL (05/31/2016 11:00 AM EST) pH Art 7.47(H) 7.35 - 7.45 [facility] pCO2 Art 33(L) 35 - 45 mmHg [facility] pO2 Art 98 85 - 104 mmHg [facility] HCO3 Art 23.3 20.0 - 26.0 mmol/L [facility] BE Art -0.4 -3.0 - 3.0 mmol/L [facility] Hgb Blood Gas 11.1(L) 11.7 - 15.5 gm/dL [facility] O2HB Art 97.3(H) 94.0 - 97.0 % [facility] COHB Art 0.1 % [facility] Comment: Nonsmokers: 0.5-1.5% COHB Smokers: Variable, but usually less than 10% Toxic: 20-30% COHB Lethal: Greater than 60% COHB METHB Art 0.3 <=1.5 % [facility] Na Whole Blood 133(L) 135 - 145 mmol/L [facility] K Whole Blood 4.0 3.5 - 5.0 mmol/L [facility] Comment: Please note: Patients with WBC >100,000 may have falsely elevated Potassium levels. Contact the Clinical Chemistry Laboratory if there are any questions. ICa Whole Blood 0.99(L) 1.15 - 1.33 mmol/L [facility] Comment: Note: ??Total bilirubin higher than 20 mg/dL may lead to falsely low ionized calcium. CL Whole Blood 103 98 - 107 mmol/L [facility] Gluc Whole Bld 138 65 - 199 mg/dL [facility] Comment:Diabetes: >=200 mg/d L plus symptoms. Lactate WB 2.2 0.5 - 2.2 mmol/L [facility] Blood specimen (specimen) 05/31/2016 11:00 AM EST 05/31/2016 11:00 AM EST Laureano Guzman MD CHEMISTRY ORDERABLE S [facility] [place] [address] * (ABNORMAL) BLOOD GAS 2 ARTERIAL (05/31/2016 10:05 AM EST) pH Art 7.39 7.35 - 7.45 [facility] pCO2 Art 41 35 - 45 mmHg [facility] pO2 Art 370(H) 85 - 104 mmHg [facility] HCO3 Art 24.4 20.0 - 26.0 mmol/L [facility] BE Art -0.6 -3.0 - 3.0 mmol/L [facility] Hgb Blood Gas 7.9(L) 11.7 - 15.5 gm/dL [facility] O2HB Art 99.2(H) 94.0 - 97.0 % [facility] COHB Art 0.4 % [facility] Comment: Nonsmokers: 0.5-1.5% COHB Smokers: Variable, but usually less than 10% Toxic: 20-30% COHB Lethal: Greater than 60% COHB METHB Art 0.0 <=1.5 % [facility] Na Whole Blood 128(L) 135 - 145 mmol/L [facility] K Whole Blood 5.1(H) 3.5 - 5.0 mmol/L [facility] Comment: Please note: Patients with WBC >100,000 may have falsely elevated Potassium levels. Contact the Clinical Chemistry Laboratory if there are any questions. ICa Whole Blood 1.33 1.15 - 1.33 mmol/L [facility] Comment: Note: ??Total bilirubin higher than 20 mg/dL may lead to falsely low ionized calcium. CL Whole Blood 99 98 - 107 mmol/L [facility] Gluc Whole Bld 182 65 - 199 mg/dL [facility] Comment:Diabetes: >=200 mg/d L plus symptoms. Lactate WB 2.0 0.5 - 2.2 mmol/L [facility] Blood specimen (specimen) 05/31/2016 10:05 AM EST 05/31/2016 10:05 AM EST Laureano Guzman MD CHEMISTRY ORDERABLE S [facility] [place] [address] * Platelet count (05/31/2016 9:40 AM EST) Platelets 215 145 - 357 x10(3)/mc L [facility] Comment: This result has been called to JEREMIAS CORRALES by ATIYA LAZO on 05-31-2016 at 0956, and has been read back. Plat Immature % 1.0 0.0 - 7.4 % [facility] Comment: Limitation of the Immature Platelet Fraction (IPF)-May be less reliable when the platelet count is less than 98q512/uL due to statistical imprecision. The IPF value provides an assessment of the Bone Marrow production status. ??It is useful in differentiating Thrombocytopenia caused by platelet destruction/consumption versus decreased production. It also helps to determine the imminent release of platelets and can be therefore a helpful parameter in Chemotherapy and Bone marrow transplant patients. ELEVATED IPF value: ?? When the bone marrow is in a state of over production such as when increased destruction and consumption are the underlying issue. ?? When the marrow is recovering post chemotherapy or bone marrow transplant. LOW to NORMAL IPF value: ?? When the bone marrow in not responding and is in a decreased state of production. References: [employer] The Clinical Value of the Immature Platelet Fraction (IPF) in Cell Recovery Document Number 10-1143 10/2010 [employer] The Role of the Immature Platelet Fraction (IPF) in the Differential Diagnosis of Thrombocytopenia, Document [id number] V05 P010/03 Blood specimen (specimen) 05/31/2016 9:40 AM EST 05/31/2016 9:45 AM EST Narrative Resulting Agency Comment Spec In Lab Laureano Guzman MD HEMATOLOGY ORDERABL ES Performing Organization Address [facility] Co de Phone Number [facility] [place] [address] * (ABNORMAL) Fibrinogen (05/31/2016 9:40 AM EST) Fibrinogen 167(L) 180 - 510 mg/dL [facility] Comment: Called by: REHAN, Read back by: Krista Martinez, Date/Time:05/31/16 09:57. A fibrinogen level >100 mg/dL is adequate for hemostasis in most patients without underlying bleeding disorders. Blood specimen (specimen) 05/31/2016 9:40 AM EST 05/31/2016 9:45 AM EST Narrative Resulting Agency Comment Spec In Lab Laureano Guzman MD HEMATOLOGY ORDERABL ES Performing Organization Address [facility] Co de Phone Number [facility] [place] [address] * (ABNORMAL) BLOOD GAS 2 ARTERIAL (05/31/2016 9:22 AM EST) pH Art 7.40 7.35 - 7.45 [facility] pCO2 Art 40 35 - 45 mmHg [facility] pO2 Art 344(H) 85 - 104 mmHg [facility] HCO3 Art 24.5 20.0 - 26.0 mmol/L [facility] BE Art -0.3 -3.0 - 3.0 mmol/L [facility] Hgb Blood Gas 8.9(L) 11.7 - 15.5 gm/dL [facility] O2HB Art 99.1(H) 94.0 - 97.0 % [facility] COHB Art 0.0 % [facility] Comment: Nonsmokers: 0.5-1.5% COHB Smokers: Variable, but usually less than 10% Toxic: 20-30% COHB Lethal: Greater than 60% COHB METHB Art 0.3 <=1.5 % [facility] Na Whole Blood 128(L) 135 - 145 mmol/L [facility] K Whole Blood 4.9 3.5 - 5.0 mmol/L [facility] Comment: Please note: Patients with WBC >100,000 may have falsely elevated Potassium levels. Contact the Clinical Chemistry Laboratory if there are any questions. ICa Whole Blood 0.94(L) 1.15 - 1.33 mmol/L [facility] Comment: Note: ??Total bilirubin higher than 20 mg/dL may lead to falsely low ionized calcium. CL Whole Blood 98 98 - 107 mmol/L [facility] Gluc Whole Bld 175 65 - 199 mg/dL [facility] Comment:Diabetes: >=200 mg/d L plus symptoms. Lactate WB 1.3 0.5 - 2.2 mmol/L [facility] Blood specimen (specimen) 05/31/2016 9:22 AM EST 05/31/2016 9:22 AM EST Laureano Guzman MD CHEMISTRY ORDERABLE S [facility] [place] [address] * Specimen to Pathology (surgical or derm) (05/31/2016 9:10 AM EST) AP Specimen 05/31/2016 9:10 AM EST 05/31/2016 9:10 AM EST Narrative [facility] - 05/31/2016 9:10 AM EST Specimen requisition ordered. ??Separate Pathology report to follow Laureano Guzman MD PATHOLOGY/CYTOLOGY ORDERABLES [facility] [place] [address] * Surgical Pathology Report (05/31/2016 9:09 AM EST) Surgical Pathology Report [id number] ?Location: [facility]; [facility]; The signing pathologist has (i) examined the relevant preparation(s) for the specimen(s) and (ii) rendered or confirmed the diagnosis(es). . ?Surgical Pathology DIAGNOSIS A - Intra-atrial mass, excision: Sclerotic nodule with extensive fibrosis, hemorrhage, calcification, and ossification. 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 ??There is no evidence of malignancy. ADDITIONAL STUDIES Whole slide scan: A2 CLINICAL INFORMATION Specimen Submitted: A - Intra-atrial mass Clinical History: Atrial myxoma Clinical Diagnosis: Same SPECIMEN PROCESSING A - ??Labeled/Fixativ e: Intra-atrial mass, fresh. Quantity/Size: Single, 3.6 x 2.5 x 2.1 cm. Tissue Description: Irregular spherical firm variegated white and yellow tissue attached to white thin connective tissue. The specimen surface is smooth and glistening. Cut section reveals areas of white and yellow, almost ? bone-like with foci of hemorrhage. Sections/Processi ng: Three community representative sections are submitted after decalcification. (R3) ??[facility] 05/31/2016 9:09 AM EST Laureano Guzman MD PATHOLOGY/CYTOLOGY ORDERABLES Performing Organization Address [facility] Co de Phone Number [facility] [place] [address] * (ABNORMAL) BLOOD GAS 2 ARTERIAL (05/31/2016 8:53 AM EST) pH Art 7.43 7.35 - 7.45 [facility] pCO2 Art 34(L) 35 - 45 mmHg [facility] pO2 Art 384(H) 85 - 104 mmHg [facility] HCO3 Art 21.9 20.0 - 26.0 mmol/L [facility] BE Art -2.4 -3.0 - 3.0 mmol/L [facility] Hgb Blood Gas 10.1(L) 11.7 - 15.5 gm/dL [facility] O2HB Art 98.8(H) 94.0 - 97.0 % [facility] COHB Art 0.3 % [facility] Comment: Nonsmokers: 0.5-1.5% COHB Smokers: Variable, but usually less than 10% Toxic: 20-30% COHB Lethal: Greater than 60% COHB METHB Art 0.3 <=1.5 % [facility] Na Whole Blood 134(L) 135 - 145 mmol/L [facility] K Whole Blood 3.9 3.5 - 5.0 mmol/L [facility] Comment: Please note: Patients with WBC >100,000 may have falsely elevated Potassium levels. Contact the Clinical Chemistry Laboratory if there are any questions. ICa Whole Blood 1.00(L) 1.15 - 1.33 mmol/L [facility] Comment: Note: ??Total bilirubin higher than 20 mg/dL may lead to falsely low ionized calcium. CL Whole Blood 101 98 - 107 mmol/L [facility] Gluc Whole Bld 109 65 - 199 mg/dL [facility] Comment:Diabetes: >=200 mg/d L plus symptoms. Lactate WB 1.0 0.5 - 2.2 mmol/L [facility] Blood specimen (specimen) 05/31/2016 8:53 AM EST 05/31/2016 8:53 AM EST Laureano Guzman MD CHEMISTRY ORDERABLE S [facility] [place] [address] * (ABNORMAL) BLOOD GAS 2 ARTERIAL (05/31/2016 8:18 AM EST) pH Art 7.46(H) 7.35 - 7.45 [facility] pCO2 Art 34(L) 35 - 45 mmHg [facility] pO2 Art 243(H) 85 - 104 mmHg [facility] HCO3 Art 23.3 20.0 - 26.0 mmol/L [facility] BE Art -0.5 -3.0 - 3.0 mmol/L [facility] Hgb Blood Gas 13.4 11.7 - 15.5 gm/dL [facility] O2HB Art 98.7(H) 94.0 - 97.0 % [facility] COHB Art 0.6 % [facility] Comment: Nonsmokers: 0.5-1.5% COHB Smokers: Variable, but usually less than 10% Toxic: 20-30% COHB Lethal: Greater than 60% COHB METHB Art 0.3 <=1.5 % [facility] Na Whole Blood 139 135 - 145 mmol/L [facility] K Whole Blood 3.6 3.5 - 5.0 mmol/L [facility] Comment: Please note: Patients with WBC >100,000 may have falsely elevated Potassium levels. Contact the Clinical Chemistry Laboratory if there are any questions. ICa Whole Blood 1.16 1.15 - 1.33 mmol/L [facility] Comment: Note: ??Total bilirubin higher than 20 mg/dL may lead to falsely low ionized calcium. CL Whole Blood 103 98 - 107 mmol/L [facility] Gluc Whole Bld 102 65 - 199 mg/dL [facility] Comment:Diabetes: >=200 mg/d L plus symptoms. Lactate WB 1.2 0.5 - 2.2 mmol/L [facility] Blood specimen (specimen) 05/31/2016 8:18 AM EST 05/31/2016 8:18 AM EST Laureano Guzman MD CHEMISTRY ORDERABLE S [facility] [place] [address] documented in this encounter Visit Diagnoses Diagnosis Cardiac tumor, atrial Neoplasms of unspecified nature, other specified sites Atrial fibrillation, unspecified type Atrial myxoma Benign neoplasm of heart Atrial myxoma Benign neoplasm of heart Atrial myxoma Benign neoplasm of heart documented in this encounter Admitting Diagnoses Diagnosis Atrial myxoma Benign neoplasm of heart documented in this encounter Administered Medications Inactive Administered Medications - up to 3 most recent administrations Medication Order MAR Action Action Date Dose Rate Site acetaminophen (OFIRMEV) injection 1,000 mg 1,000 mg, Intravenous, at 400 mL/hr, Administer over 15 Minutes, EVERY 6 HOURS SCHEDULED, 4 doses, First dose (after last modification) on Tue05/31/16 at 1700, Last dose on Tue06/01/16 at 1200, Maximum dose of acetaminophen is 4000 mg from all sources in 24 hours., Routine, Is ketorolac (Toradol) IV contraindicated? No, Can this patient tolerate oral medications or suppositories? No Given 06/01/2016 12:35 PM EST 1,000 mg 400 mL/hr Given 06/01/2016 6:56 AM EST 1,000 mg 400 mL/hr Given 06/01/2016 12:02 AM EST 1,000 mg 400 mL/hr acetaminophen (TYLENOL) tablet 1,000 mg 1,000 mg, Oral, EVERY 6 HOURS SCHEDULED, First dose (after last modification) on Tue06/01/16 at 1800, Until Discontinued, Maximum dose of acetaminophen is 4000 mg from all sources in 24 hours., Routine Given 06/05/2016 12:16 PM EST 1,00 0 mg Given 06/05/2016 5:54 AM EST 1,000 mg Given 06/04/2016 11:40 PM EST 1,000 mg AMIOdarone (CORDARONE) 360 mg in dextrose 5% 200 mL infusion 0.5-1 mg/min (16.6667-33.3333 mL/hr, rounded to 16.7-33.3 mL/hr), Intravenous, CONTINUOUS, Starting on Tue06/02/16 at 0300, Until Tue06/03/16 at 1600, Initiate loading infusion (slow): 1 mg/minute over 6 hours, then decrease to maintenance Infusion: 0.5 mg/minute over 18 hours. At 24 hours from start time, call MD regarding infusion or change to oral dosing. New Bag 06/03/2016 9:46 AM EST 0.5 mg/min 16.7 mL/hr New Bag 06/02/2016 9:33 PM EST 0.5 mg/min 16.7 mL/hr New Bag 06/02/2016 11:55 AM EST 0.5 mg/min 16.7 mL/hr AMIOdarone (CORDARONE) bolus from bag 150 mg 150 mg, Intravenous, Administer over 10 Minutes, ONCE, 1 dose, On Tue06/02/16 at 0300, Rapid Load. Bolus from Bag, Routine Bolus from Bag 06/02/2016 2:58 AM EST 150 mg AMIOdarone (CORDARONE; PACERONE) tablet 200 mg 200 mg, Oral, DAILY, First dose on Tue06/03/16 at 1245, Until Discontinued, Routine Given 06/03/2016 1:04 PM EST 200 mg AMIOdarone (CORDARONE; PACERONE) tablet 200 mg 200 mg, Oral, 2 TIMES DAILY, First dose (after last modification) on Tue06/03/16 at 2100, Until Discontinued, Routine Given 06/05/2016 9:03 AM EST 200 mg Given 06/04/2016 8:41 PM EST 200 mg Given 06/04/2016 8:56 AM EST 200 mg aspirin chewable tablet 81 mg 81 mg, Oral, DAILY, First dose on Tue06/01/16 at 0900, Until Discontinued, Start on post-op day 1 in the AM., Routine Given 06/05/2016 9:03 AM EST 81 mg Given 06/04/2016 8:55 AM EST 81 mg Given 06/03/2016 9:11 AM EST 81 mg aspirin suppository 300 mg 300 mg, Rectal, DAILY, First dose on Tue06/01/16 at 0900, Until Discontinued, Start on post-op day 1 in the AM, Routine betaxolol (BETOPTIC-S) 0.25 % ophthalmic drops 1 drop 1 drop, Both Eyes, 2 TIMES DAILY, First dose on Tue05/31/16 at 2100, Until Discontinued, Routine Given 06/05/2016 9:25 AM EST 1 drop Given 06/04/2016 8:41 PM EST 1 drop Given 06/04/2016 8:56 AM EST 1 drop bisacodyl (DULCOLAX) suppository 10 mg 10 mg, Rectal, DAILY PRN, Starting on Tue06/02/16 at 0000, Until 06/05/16 at 1513, Constipation, Routine cefUROXime (ZINACEF) 750mg vial attach to sodium chloride 0.9% 100 mL Mini-Bag Plus 750 mg, Intravenous, EVERY 8 HOURS, 3 doses, First dose on Tue05/31/16 at 1800, Last dose on Tue06/01/16 at 1000, Administer over 30 Minutes, Attach to 100 mL sodium Chloride Mini-bag Plus. Give first dose at 8 hours after dose in operating room., Indication for (Active or Suspected): Prophylaxis Given 06/01/2016 9:16 AM EST 750 mg 200 mL/hr Given 06/01/2016 2:41 AM EST 750 mg 200 mL/hr Given 05/31/2016 5:57 PM EST 750 mg 200 mL/hr chlorhexidine (PERIDEX) 0.12 % oral solution 15 mL 15 mL, Oral, EVERY 12 HOURS SCHEDULED (2 times per day), First dose on Tue05/31/16 at 1215, Until Discontinued, [employer] teeth, Routine Given 06/01/2016 8:39 AM EST 15 mLs Given 05/31/2016 8:43 PM EST 15 mLs Given 05/31/2016 12:38 PM EST 15 mLs fentaNYL 50 mcg/mL infusion 0-100 mcg/hr (0-2 mL/hr), Intravenous, CONTINUOUS, Starting on Tue05/31/16 at 1215, Until Tue06/01/16 at 0901, Titrate to patient comfort, pain scale 1-3. Start at 25 mcg/hr, adjust by 25 mcg/hr every 15 minutes. Dose not to exceed 100 mcg/hour. Rate/Dose Verify 06/01/2016 8:00 AM EST 25 mcg/hr 0.5 mL/hr Rate/Dose Verify 06/01/2016 6:00 AM EST 25 mcg/hr 0.5 mL/ hr Rate/Dose Verify 06/01/2016 4:00 AM EST 25 mcg/hr 0.5 mL/ hr furosemide (LASIX) injection 20 mg 20 mg, Intravenous, 2 TIMES DAILY, First dose on Tue06/01/16 at 0900, Until Discontinued Given 06/05/2016 9:13 AM EST 2 0 mg Given 06/04/2016 5:00 PM EST 20 mg Given 06/04/2016 9:00 AM EST 20 mg heparin 25,000 units in dextrose 5% 500 mL infusion 10 Units/kg/hr ? 94.3 kg (18.86 mL/hr, rounded to 18.9 mL/hr), Intravenous, CONTINUOUS, Starting on Gabi 06/03/16 at 0830, Until Tue06/04/16 at 1800, Initial heparin rate 10 Units/kg/hr Target PTT = 60-80 seconds PTT less than 60 seconds- Increase heparin IV infusion by 100 units/hour = 2 mL/hr PTT 60 to 80 seconds- Continue heparin IV infusion PTT 81 to 100 seconds- Decrease heparin IV infusion by 100 units/hour = 2 mL/hr PTT 101 to 120 seconds- Hold infusion for 1 hour and decrease heparin IV infusion by 150 units/hour = 3 mL/hr upon re-initiation of infusion PTT Greater than 120 seconds- Stop infusion and call prescriber to change dosage , Routine Rate/Dose Change 06/04/2016 5:32 PM EST 8.431 Units/kg/hr 15.9 mL/hr New Bag 06/04/2016 12:53 PM EST 7.37 Units/kg/hr 13.9 m L/hr Rate/Dose Change 06/04/2016 11:17 AM EST 7.37 Units/kg/hr 13.9 mL/hr lactated ringers infusion 1,000 mL 1,000 mL, at 100 mL/hr, Intravenous, CONTINUOUS, Starting on Tue05/31/16 at 0630, Until Tue05/31/16 at 1156, Day of Surgery (Day of Procedure) New Bag 05/31/2016 6:49 AM EST 1,000 mLs 100 mL/hr lidocaine (XYLOCAINE) 10 mg/mL (1 %) injection 3 mg 3 mg (0.3 mL), Subcutaneous, ONCE PRN, 1 dose, Starting on Tue05/31/16 at 0612, Until Tue05/31/16 at 0649, for discomfort with PIV insertion, Day of Surgery (Day of Procedure), Routine Given 05/31/2016 6:49 AM EST 3 mg magnesium hydroxide (MILK OF MAGNESIA) oral suspension 10 mL 10 mL, Oral, DAILY, First dose on Tue06/02/16 at 0900, Until Discontinued, Post-op day 2. Do not use with renal insufficiency., Routine Given 06/03/2016 6:41 PM EST 10 mLs Given 06/02/2016 8:41 AM EST 10 mLs meTOPROLOL (LOPRESSOR) tablet 12.5 mg 12.5 mg, Oral, EVERY 12 HOURS SCHEDULED (2 times per day), First dose on Tue06/01/16 at 0900, Until Discontinued, Routine Given 06/01/2016 9:03 AM EST 12.5 mg meTOPROLOL tartrate (LOPRESSOR) tablet 25 mg 25 mg, Oral, EVERY 12 HOURS SCHEDULED (2 times per day), First dose (after last modification) on Tue06/02/16 at 0900, Until Discontinued, Routine Given 06/05/2016 9:12 AM EST 25 mg Given 06/04/2016 8:41 PM EST 25 mg Given 06/04/2016 8:56 AM EST 25 mg niCARdipine 0.2 mg/mL (Standard Adult and Scout greater than 20 kg) infusion 0-15 mg/hr (0-75 mL/hr), Intravenous, CONTINUOUS, Starting on Tue05/31/16 at 1215, Until Tue06/01/16 at 0901, Titrate to SBP greater than 90 and less than 140 mmHg. Start at 5 mg/hour, titrate to maintain target SBP, adjust infusion rate by 2.5 mg/hour every 5 minutes to a maximum of 15 mg/hour. Initiate if nitroglycerin ineffective at maintaining target systolic BP., Routine Rate/Dose Verify 06/01/2016 4:00 AM EST 3 mg/hr 15 mL/hr New Bag 06/01/2016 2:29 AM EST 3 mg/hr 15 mL/hr Rate/Dose Verify 06/01/2016 2:00 AM EST 3 mg/hr 15 mL/h r NORepinephrine 16 mcg/mL (standard ADULT and Scout greater than 20 kg) infusion 0-30 mcg/min (0-112.5 mL/hr), Intravenous, CONTINUOUS, Starting on Tue05/31/16 at 1215, Until Tue06/01/16 at 0901, Titrate to keep systolic blood pressure greater than 90 mmHg. Start at 2 mcg/minute and adjust by 2 mcg/min every 3 minutes. Dose not to exceed 30 mcg/minute. Begin if phenyleprine and/or vasopressin ineffective.Call pager # [phone] if initiated., Routine Rate/Dose Change 05/31/2016 11:40 AM EST 0 mcg/min 0 mL/hr Continued Bag 05/31/2016 11:30 AM EST 2 mcg/min 7.5 mL/hr oxyCODONE (ROXICODONE) immediate release tablet 5 mg 5 mg, Oral, EVERY 4 HOURS PRN, Starting on 05/31/16 at 1156, Until 06/05/16 at 1513, Pain, For pain when taking by mouth. May repeat once in 30 minutes if pain not relieved., Routine Given 06/01/2016 9:01 AM EST 5 mg pantoprazole (PROTONIX) injection 40 mg 40 mg, Intravenous, DAILY, First dose on Tue05/31/16 at 1215, Until Discontinued, Reconstitute with 10 mL of normal saline to a concentration of 4 mg/mL and infuse slowly over 2 minutes. , Routine Given 05/31/2016 12:38 PM EST 40 mg pantoprazole (PROTONIX) tablet 40 mg 40 mg, Oral, DAILY, First dose on 05/31/16 at 1215, Until Discontinued, DO NOT CRUSH OR OPEN If unable to take PO, may give IV Given 06/05/2016 9:02 AM EST 40 mg Given 06/04/2016 8:56 AM EST 40 mg Given 06/03/2016 9:11 AM EST 40 mg potassium chloride (K-DUR/KLOR-CON) extended release tablet 10 mEq 10 mEq, Oral, ONCE, 1 dose, On Tue06/02/16 at 0830, Routine Given 06/02/2016 8:39 AM EST 10 mEq potassium chloride (K-DUR/KLOR-CON) extended release tablet 20 mEq 20 mEq, Oral, DAILY, First dose on Gabi 06/03/16 at 0900, Until Discontinued, Routine Given 06/05/2016 9:02 AM EST 20 mEq Given 06/04/2016 8:56 AM EST 20 mEq Given 06/03/2016 9:12 AM EST 20 mEq potassium chloride 20 mEq in 100 mL 20 mEq, Intravenous, EVERY 1 HOUR PRN, Starting on Tue05/31/16 at 1156, Until Tue06/01/16 at 0901, Administer over 60 Minutes, hypokalemia, Administer 2 doses for a serum potassium (mMol/L) of 3.3 - 3.8 See instructions for Potassium Protocol in online policies. Given 06/01/2016 6:50 AM EST 20 mEq 100 mL/h r Given 06/01/2016 4:31 AM EST 20 mEq 100 mL/hr propofol (DIPRIVAN) infusion 0-50 mcg/kg/min ? 90.6 kg (0-27.18 mL/hr, rounded to 0-27.2 mL/hr), Intravenous, CONTINUOUS, Starting on Tue05/31/16 at 1215, Until Tue06/01/16 at 0901, Titrate to sedation level of RASS Goal (-) 1. Start at 10 mcg/kg/min, adjust rate by 5 mcg/kg/min every 3 minutes. Dose not to exceed 50 mcg/kg/minute. Discontinue upon extubation., Routine Rate/Dose Change 05/31/2016 2:33 PM EST 15 mcg/kg/min 8.2 mL/hr Rate/Dose Verify 05/31/2016 2:02 PM EST 30 mcg/kg/min 16.3 mL/hr Rate/Dose Verify 05/31/2016 1:27 PM EST 30 mcg/kg/min 16.3 mL/hr rivaroxaban (XARELTO) tablet 20 mg 20 mg, Oral, EVERY EVENING, First dose on Tue06/04/16 at 1700, Until Discontinued, Routine, Restricted anticoagulant, choose the most appropriate response: Approved indication of non-valvular atrial fibrillation Given 06/04/2016 5:28 PM EST 20 mg senna-docusate (PERICOLACE) 8.6-50 mg per tablet 2 tablet 2 tablet, Oral, DAILY, First dose on Tue06/01/16 at 2100, Until Discontinued, Post-op day 1, Routine Given 06/04/2016 8:41 PM EST 2 tablets Given 06/03/2016 8:19 PM EST 2 tablets Given 06/02/2016 8:09 PM EST 2 tablets sodium chloride 0.9 % flush 5 mL 5 mL, Intravenous, EVERY 8 HOURS, First dose on Tue06/01/16 at 0930, Until Discontinued, Routine Given 06/05/2016 9:12 AM EST 5 mLs Given 06/04/2016 5:28 PM EST 5 mLs Given 06/04/2016 9:08 AM EST 5 mLs sodium chloride 0.9% infusion 0-500 mL/hr, Intravenous, CONTINUOUS, Starting on Tue05/31/16 at 1215, Until Tue06/01/16 at 0901, Bolus 250 mL every 5 minutes as needed for volume replacement to maintain cardiac index greater than or equal to 2.0 L/min/M2. Maximum volume 2 L. Call data warehouse manager for additional fluid orders: pager #[phone]. Rate/Dose Change 05/31/2016 12:30 PM EST 0 mL/hr 0 mL/hr New Bag 05/31/2016 11:30 AM EST 500 mL/hr 500 mL/hr sodium chloride 0.9% infusion 10-30 mL/hr, Intravenous, DAILY PRN, Starting on Tue05/31/16 at 1156, Until Tue06/01/16 at 0901, Side port TKO rate, per [facility] nursing protocol. Rate/Dose Verify 05/31/2016 2:02 PM EST 20 mL/hr 20 mL/hr Rate/Dose Verify 05/31/2016 1:27 PM EST 20 mL/hr 20 mL/h r Rate/Dose Verify 05/31/2016 12:59 PM EST 20 mL/hr 20 mL/ hr sodium chloride 0.9% infusion 10-30 mL/hr, Intravenous, DAILY PRN, Starting on Tue05/31/16 at 1156, Until Tue06/01/16 at 0901, Side port TKO rate, per [facility] nrusing protocol. Rate/Dose Change 06/01/2016 8:00 AM EST 10 mL/hr 10 mL/hr Rate/Dose Verify 06/01/2016 6:00 AM EST 30 mL/hr 30 mL/h r Rate/Dose Verify 06/01/2016 4:00 AM EST 30 mL/hr 30 mL/h r documented in this encounter Active and Recently Administered Medications Times are shown in EST. Scheduled Medication Order 06/03/2016 06/04/2016 06/05/2016 acetaminophen (TYLENOL) tablet 1,000 mg(Linked Group 1) 1,000 mg, Oral, EVERY 6 HOURS SCHEDULED, First dose (after last modification) on 1/10/17 at 1800, Until Discontinued, Maximum dose of acetaminophen is 4000 mg from all sources in 24 hours., Routine 0019 (Given - Provider: Carole Hunt RN)0648 (Given - Provider: Carole Hunt RN)1304 (Given - Provider: Renetta Guevara RN)1822 (Not Given - Provider: Renetta Guevara RN - Reason: Patient/family refused) 0037 (Given - Provider: Carole Hunt RN)0604 (Given - Provider: Carole Hunt RN)1249 (Given - Provider: Renetta Guevara RN)1800 (Not Given - Provider: Renetta Guevara RN - Reason: Patient/family refused)2340 (Given - Provider: Melissa Hernandes RN) 0554 (Given - Provider: Melissa Hernandes RN)1216 (Given - Provider: Carole Hunt RN) AMIOdarone (CORDARONE; PACERONE) tablet 200 mg (CANCELED) 200 mg, Oral, DAILY, First dose on Tue06/03/16 at 1245, Until Discontinued, Routine 1304 (Given - Provider: Renetta Guevara RN) AMIOdarone (CORDARONE; PACERONE) tablet 200 mg 200 mg, Oral, 2 TIMES DAILY, First dose (after last modification) on Tue06/03/16 at 2100, Until Discontinued, Routine 2019 (Given - Provider: Renetta Guevara RN) 0856 (Given - Provider: Tammy Queen RN)204 (Given - Provider: Renetta Guevara RN) 0903 (Given - Provider: Carole Hunt RN - Comment: QTC .43) aspirin chewable tablet 81 mg(Linked Group 2) 81 mg, Oral, DAILY, First dose on Tue06/01/16 at 0900, Until Discontinued, Start on post-op day 1 in the AM., Routine 09 (Given - Provider: Tammy Queen RN) 0855 (Given - Provider: Tammy Queen RN) 0903 (Given - Provider: Carole Hunt RN) aspirin suppository 300 mg(Linked Group 2) 300 mg, Rectal, DAILY, First dose on Tue06/01/16 at 0900, Until Discontinued, Start on post-op day 1 in the AM, Routine 0911 (See Alternative - Provider: Tammy Queen RN) 0855 (See Alternative - Provider: Tammy Queen RN) 09 (See Alternative - Provider: Carole Hunt RN) betaxolol (BETOPTIC-S) 0.25 % ophthalmic drops 1 drop 1 drop, Both Eyes, 2 TIMES DAILY, First dose on Tue05/31/16 at 2100, Until Discontinued, Routine 09 (Given - Provider: Tammy Queen RN)2019 (Given - Provider: Renetta Guevara RN) 0856 (Given - Provider: Tammy Queen RN)2040 (Given - Provider: Renetta Guevara RN) 09 (Given - Provider: Carole Hunt RN) furosemide (LASIX) injection 20 mg 20 mg, Intravenous, 2 TIMES DAILY, First dose on Tue06/01/16 at 0900, Until Discontinued 899 (Given - Provider: Tammy Queen RN)182 (Given - Provider: Renetta Guevara RN) 09 (Given - Provider: Tammy Queen RN)1700 (Given - Provider: Renetta Guevara RN) 09 (Given - Provider: Carole Hunt RN) magnesium hydroxide (MILK OF MAGNESIA) oral suspension 10 mL 10 mL, Oral, DAILY, First dose on Tue06/02/16 at 0900, Until Discontinued, Post-op day 2. Do not use with renal insufficiency., Routine 911 (Hold - Provider: Tammy Queen RN - Reason: See comment - Comment: npo for CV)184 (Given - Provider: Renetta Guevara RN) 09 (Not Given - Provider: Tammy Queen RN - Reason: Patient/family refused) 09 (Not Given - Provider: Carole Hunt RN - Reason: Patient/family refused) meTOPROLOL tartrate (LOPRESSOR) tablet 25 mg 25 mg, Oral, EVERY 12 HOURS SCHEDULED (2 times per day), First dose (after last modification) on Tue06/02/16 at 0900, Until Discontinued, Routine 0912 (Given - Provider: Tammy Queen RN)182 (Given - Provider: Renetta Guevara, AIDEN - Comment: spoke with MD Longoria from CT surgery as pt went back into AFib - giving 2100 Metoprolol early, will give 2100 Amio as scheduled)2100 (Not Given - Provider: Renetta Guevara RN - Reason: See comment - Comment: 2100 dose given early (@ ~1830)) 0856 (Given - Provider: Tammy Queen RN)2040 (Given - Provider: Renetta Guevara RN) 0912 (Given - Provider: Carole Hunt RN) pantoprazole (PROTONIX) injection 40 mg(Linked Group 3) 40 mg, Intravenous, DAILY, First dose on Tue05/31/16 at 1215, Until Discontinued, Reconstitute with 10 mL of normal saline to a concentration of 4 mg/mL and infuse slowly over 2 minutes. , Routine 0911 (See Alternative - Provider: Tammy Queen RN) 0856 (See Alternative - Provider: Tammy Queen RN) 0902 (See Alternative - Provider: Carole Hunt RN) pantoprazole (PROTONIX) tablet 40 mg(Linked Group 3) 40 mg, Oral, DAILY, First dose on Tue05/31/16 at 1215, Until Discontinued, DO NOT CRUSH OR OPEN If unable to take PO, may give IV 0911 (Given - Provider: Tammy Queen RN) 0856 (Given - Provider: Tammy Queen RN) 0902 (Given - Provider: Carole Hunt RN) potassium chloride (K-DUR/KLOR-CON) extended release tablet 20 mEq 20 mEq, Oral, DAILY, First dose on Gabi 06/03/16 at 0900, Until Discontinued, Routine 0912 (Given - Provider: Tammy Queen RN) 0856 (Given - Provider: Tammy Queen RN) 0902 (Given - Provider: Carole Hunt RN) rivaroxaban (XARELTO) tablet 20 mg 20 mg, Oral, EVERY EVENING, First dose on Tue06/04/16 at 1700, Until Discontinued, Routine, Restricted anticoagulant, choose the most appropriate response: Approved indication of non-valvular atrial fibrillation 1728 (Given - Provider: Renetta Guevara, AIDEN) senna-docusate (PERICOLACE) 8.6-50 mg per tablet 2 tablet 2 tablet, Oral, DAILY, First dose on Tue06/01/16 at 2100, Until Discontinued, Post-op day 1, Routine 2019 (Given - Provider: Renetta Guevara, AIDEN) 204 (Given - Provider: Renetta Guevara RN) sodium chloride 0.9 % flush 5 mL 5 mL, Intravenous, EVERY 8 HOURS, First dose on Tue06/01/16 at 0930, Until Discontinued, Routine 013 (Not Given - Provider: Carole Hunt RN - Reason: See comment - Comment: IV infusing)0926 (Given - Provider: Tammy Queen RN)1822 (Given - Provider: Renetta Guevara RN) 013 (Not Given - Provider: Caorle Hunt RN - Reason: See comment - Comment: IV infusing)0908 (Given - Provider: Tammy Queen RN)1728 (Given - Provider: Renetta Guevara RN) 0130 (Not Given - Provider: Melissa Hernandes RN - Reason: See comment - Comment: given on assessment)0912 (Given - Provider: Carole Hunt RN) Continuous Medication Order 06/03/2016 06/04/2016 06/05/2016 AMIOdarone (CORDARONE) 360 mg in dextrose 5% 200 mL infusion ()(Linked Group 4) 0.5-1 mg/min (16.6667-33.3333 mL/hr, rounded to 16.7-33.3 mL/hr), Intravenous, CONTINUOUS, Starting on Tue06/02/16 at 0300, Until Gabi 06/03/16 at 1600, Initiate loading infusion (slow): 1 mg/minute over 6 hours, then decrease to maintenance Infusion: 0.5 mg/minute over 18 hours. At 24 hours from start time, call MD regarding infusion or change to oral dosing. 0946 (New Bag - Provider: Tammy Queen RN)1648 (Stopped - Provider: Renetta Guevara RN) heparin 25,000 units in dextrose 5% 500 mL infusion () 10 Units/kg/hr ? 94.3 kg (18.86 mL/hr, rounded to 18.9 mL/hr), Intravenous, CONTINUOUS, Starting on Gabi 06/03/16 at 0830, Until Tue06/04/16 at 1800, Initial heparin rate 10 Units/kg/hr Target PTT = 60-80 seconds PTT less than 60 seconds- Increase heparin IV infusion by 100 units/hour = 2 mL/hr PTT 60 to 80 seconds- Continue heparin IV infusion PTT 81 to 100 seconds- Decrease heparin IV infusion by 100 units/hour = 2 mL/hr PTT 101 to 120 seconds- Hold infusion for 1 hour and decrease heparin IV infusion by 150 units/hour = 3 mL/hr upon re-initiation of infusion PTT Greater than 120 seconds- Stop infusion and call prescriber to change dosage , Routine 0907 (New Bag - Provider: Tammy Queen RN)1449 (Rate/Dose Verify - Provider: Renetta Guevara RN)2124 (Rate/Dose Change - Provider: Renetta Guevara RN) 0305 (Paused - Provider: Carole Hunt RN)0409 (Restarted - Provider: Carole Hunt RN)1117 (Rate/Dose Change - Provider: Tammy Queen RN)1253 (New Bag - Provider: Renetta Guevara RN)1732 (Rate/Dose Change - Provider: Renetta Guevara RN)1848 (Stopped - Provider: Renetta Guevara RN) PRN Medication Order 06/03/2016 06/04/2016 06/05/2016 bisacodyl (DULCOLAX) suppository 10 mg 10 mg, Rectal, DAILY PRN, Starting on Tue06/02/16 at 0000, Until 06/05/16 at 1513, Constipation, Routine ondansetron (ZOFRAN) injection 4 mg 4 mg, Intravenous, EVERY 8 HOURS PRN, Starting on Tue05/31/16 at 1156, Until 06/05/16 at 1513, Nausea oxyCODONE (ROXICODONE) immediate release tablet 5 mg 5 mg, Oral, EVERY 4 HOURS PRN, Starting on Tue05/31/16 at 1156, Until 06/05/16 at 1513, Pain, For pain when taking by mouth. May repeat once in 30 minutes if pain not relieved., Routine Linked Groups Order Group 1: acetaminophen (OFIRMEV) injection 1,000 mg (COMPLETED) 1,000 mg, Intravenous, at 400 mL/hr, Administer over 15 Minutes, EVERY 6 HOURS SCHEDULED, 4 doses, First dose (after last modification) on Tue05/31/16 at 1700, Last dose on Tue06/01/16 at 1200, Maximum dose of acetaminophen is 4000 mg from all sources in 24 hours., Routine, Is ketorolac (Toradol) IV contraindicated? No, Can this patient tolerate oral medications or suppositories? No Followed by acetaminophen (TYLENOL) tablet 1,000 mgJump to med 1,000 mg, Oral, EVERY 6 HOURS SCHEDULED, First dose (after last modification) on Tue06/01/16 at 1800, Until Discontinued, Maximum dose of acetaminophen is 4000 mg from all sources in 24 hours., Routine Group 2: aspirin chewable tablet 81 mgJump to med 81 mg, Oral, DAILY, First dose on Tue06/01/16 at 0900, Until Discontinued, Start on post-op day 1 in the AM., Routine Or aspirin suppository 300 mgJump to med 300 mg, Rectal, DAILY, First dose on Tue06/01/16 at 0900, Until Discontinued, Start on post-op day 1 in the AM, Routine Group 3: pantoprazole (PROTONIX) tablet 40 mgJump to med 40 mg, Oral, DAILY, First dose on Tue05/31/16 at 1215, Until Discontinued, DO NOT CRUSH OR OPEN If unable to take PO, may give IV Or pantoprazole (PROTONIX) injection 40 mgJump to med 40 mg, Intravenous, DAILY, First dose on Tue05/31/16 at 1215, Until Discontinued, Reconstitute with 10 mL of normal saline to a concentration of 4 mg/mL and infuse slowly over 2 minutes. , Routine Group 4: AMIOdarone (CORDARONE) bolus from bag 150 mg (COMPLETED) 150 mg, Intravenous, Administer over 10 Minutes, ONCE, 1 dose, On Tue06/02/16 at 0300, Rapid Load. Bolus from Bag, Routine And AMIOdarone (CORDARONE) 360 mg in dextrose 5% 200 mL infusion ()Jump to med 0.5-1 mg/min (16.6667-33.3333 mL/hr, rounded to 16.7-33.3 mL/hr), Intravenous, CONTINUOUS, Starting on 06/02/16 at 0300, Until Gabi 06/03/16 at 1600, Initiate loading infusion (slow): 1 mg/minute over 6 hours, then decrease to maintenance Infusion: 0.5 mg/minute over 18 hours. At 24 hours from start time, call MD regarding infusion or change to oral dosing. documented in this encounter Care Teams Manager Wellness Relationship Specialty Start Date End Date Noreen Adam, ANIKET [address] [place] [address] PCP - General Family Medicine 04/27/16 02/12/22 documented as of this encounter
--- OUTSIDE RECORDS SUMMARY | 2023-12-07 03:57 | XMS_ITS | Encounter Summary ---
Author Organization [facility] [place] [address] Care Team Providers Care Time Clock Inspector Name Role Phone Noreen Adam APRN Primary Care Provider [phone] Encounter Details Date Type Department Care Team (Late st Contact Info) Description 05/11/2016 2:40 PM EST Clinical [place] [id number] Social History Tobacco Use Types Packs/Day Years [...] Sign Reading Time Taken Comments Blood Pressure - - Pulse - - Temperature - - Respiratory Rate - - Oxygen Saturation - - Inhaled Oxygen Concentration - - Weight 93.4 kg (206 lb) 05/11/2016 3:35 PM EST Height - - Body Mass Index 33.25 05/11/2016 7:13 AM EST documented in this encounter Progress Notes * Yamileth Rothman RN - 05/11/2016 2:40 PM EST PAT questionnaire reviewed with patient while in Pre Admission testing. Pre-operative instruction booklet reviewed with patient. Reviewed importance of pain control and cough and deep breathing exercise during the post-operative period. Instructed patient on use of Hibiclens soap to shower with the night before surgery or the morning of surgery. Pt verbalizes good understanding of all information reviewed. PLAN TestinLCXR Special medication instructions: Procedure date: No date yet. Pt was here on 04-27 so brief review. documented in this encounter Plan of Treatment Not on file documented as of this encounter Visit Diagnoses Not on filedocumented in this encounter Care Teams Time Clock Inspector Relationship Specialty Start Date End Date Noreen Adam, [employer] OPERATOR [address] [place] [address] [address] [facility] [address] [place] [address] PCP - General Family Medicine 04/27/16 02/12/22 documented as of this encounter
--- OUTSIDE RECORDS SUMMARY | 2023-12-07 03:57 | XMS_ITS | Encounter Summary ---
Author Organization [facility] Address [facility] [place] [address] Care Team Providers Care Supervisor Beet End Name Role Phone Noreen Adam APRN Primary Care Provider [phone] Encounter Details Date Type Department Care Team (Latest Contact Info) Description 05/11/2016 4:04 PM EST - 05/11/2016 11:59 PM [facility] Hospital Encounter XRay at [address] [place] [address] Laureano Guzman MD [facility] [place] [address] Cardiac tumor, atrial Discharge Disposition: Home Social History Tobacco Use [...] Sig Dispensed Refills Start Date End Date chlorhexidine (HIBICLENS) 4 % LiquidIndications:Car diac tumor, atrial Apply topically daily as needed. Shower from head to toe with Chlorhexidine the night before surgery . 120 mL 05/11/2016 06/05/2016 famotidine (PEPCID) 20 mg Tablet 1 tablet 2 times daily. 03/25/201609/21 amLODIPine (NORVASC) 5 mg Tablet Take 2.5 mg by mouth daily. 06/05/2016 betaxolol (BETOPTIC S) 0.25 % ophthalmic suspension 04/29/2004 10/19/2019 documented as of this encounter Plan of Treatment Not on file documented as of this encounter Procedures Procedure Name Priority Date/Time Associated Diagnosis Comments XR CHEST PA AND LATERAL Routine 05/11/2016 4:12 PM EST Cardiac tumor, atrial documented in [...] sites documented in this encounter Care Teams Supervisor Beet End Relationship Specialty Start Date End Date Noreen Adam, ANIKET [address] [place] [address] PCP - General Family Medicine 04/27/16 02/12/22 documented as of this encounter
--- OUTSIDE RECORDS SUMMARY | 2023-12-07 03:57 | XMS_ITS | Encounter Summary ---
[facility] [place] [address] Care Team Providers Care Hospice Community Liaison Name Role Phone Noreen Adam APRN Primary Care Provider [phone] Reason for Visit * Auth/Cert Specialty Diagnoses / Procedures Referred By Contac t Referred To Contact Diagnoses Atrial myxoma atrial myxoma n/a Procedures PRO REMOVAL HEART LESION TEXTILE SCREEN MAKER @EXC INTRACARDIAC TUMOR W\CPB (WRVU 38.45) Referral ID Status Reason Start Date Expiration Date Visits Re quested Visits Authorized [id number] 1 1 Encounter Details Date Type Department Care Team (Late st Contact Info) Description 05/31/2016 7:30 AM EST - 05/31/2016 11:47 AM EST [place] [id number] Laureano Guzman MD [facility] [place] [address] @EXC INTRACARDIAC TUMOR W\CPB (WRVU 38.45) Social History Tobacco Use Types Packs/Day Years [...] Sign Reading Time Taken Comments Blood Pressure 114/32 05/31/2016 11:33 AM EST Pulse 54 05/31/2016 11:46 AM EST Temperature 35.5 ??C (95.9 ??F) 05/31/2016 1 1:45 AM EST Respiratory Rate 13 05/31/2016 11:4 6 AM EST Oxygen Saturation 100% 05/31/2016 11: 46 AM EST Inhaled Oxygen Concentration - - Weight 90.6 kg (199 lb 12.8 oz) 05/31/2016 6:20 AM EST Height 167.6 cm (5' 6) 05/31/2016 6:20 AM EST Body Mass Index 33.02 05/31/2016 6:20 AM EST documented in this encounter Discharge Summaries * Katelyn Vasquez APRN - 06/05/2016 10:16 AM EST Inpatient - Discharge Summary Patient Name: Massiel Max Patient Age: 70 y.o. Birthdate: 1945 Language: Albanian Race: White Ethnicity: Not nor Admit Date: 05/31/2016 Discharge Date: 06/05/2016 Attending Physician: Laureano Guzman MD Follow-up Recommendations for Providers: Please continue routine management of cardiovascular risk factors including blood pressure, lipids,glucose, etc. Please note any changes to medications. Patient to follow-up with PCP, Noreen Adam APRN, in 1-2 weeks. Patient to follow-up with Bioinformatics Associate, Dr Byrd, in two weeks. Patient to follow-up with Cardiac Surgery, Dr. Laureano Guzman, in ~ 4 weeks with CXR, EKG, and Echo. Inpatient Provider Contact Information: [facility] Section of Cardiac Surgery [facility] [address] FAX [phone] Discharge Diagnoses (Hospital Problems) Primary Diagnoses: Atrial [...] Laterality Date ??? Pro removal heart lesion internal controls consultant N/A 05/31/2016 @EXC INTRACARDIAC TUMOR W\CPB (WRVU 38.45) performed by Laureano Guzman MD at [facility] MAIN OR Prior To Admission Medications Prescriptions [...] Her study is an echocardiogram done in [place], which clearly shows a mass attached to [...] Hospital Course: Massiel Max was admitted to [facility] on 05/31/2016 via the Same Day [...] Laureano Guzman and/or the Cardiac Surgery Physician Pattern Checker Team may be reached at . Weight: [...] until after your return appointment with Dr. Lauraeno Castillo. You may use a [place] Track or treadmill but avoid any pulling [...] friends, go to a movie, go to christianity, etc. Heavy activities: No hunting, skiing, jogging, [...] should resume a low fat, low cholesterol, [place] Heart Association Diet/Diabetic diet/Renal diet. Driving: No [...] Expires XR Chest PA & Lateral (Generic) [28102 [id number] Custom] 07/05/2016 (Approximate) 06/04/2017 Process Instructions: Scheduling Instructions: Questions: Where will study be performed?: [facility] Portable exam?: Reason for exam and clinical history: s/p atrial myxoma removal Other pertinent information: Stat read required?: Date of injury if applicable: Requested Time: EKG 12 Lead [EKG1 Custom] 07/06/2016 06/05/2017 Process Instructions: Scheduling Instructions: Questions: Which DH location will this be performed?: [place] Is a rhythm strip needed?: No If EKG Reason is Pre-op Evaluation, indicate diagnosis for surgery.: Should this service/procedure be billed to the research sponsor?: Referral to Home Health - at DISCHARGE [[id number] CPT(R)] As directed Process Instructions: Scheduling Instructions: Comments: DOCUMENTATION FOR VNA SERVICES (INCLUDING THOSE PATIENTS WITH MEDICARE COVERAGE REQUIRING HOME VNA SERVICES AND/OR HOSPICE SERVICES) PATIENT'S LOCATION: Massiel Max [address] [place] [id number] (home) Sugar Cane Planter's Name: Self In discussion with the attending physician, it is certified that this patient is under their care and that they, or a Nurse Practitioner, or Physician Pattern Checker who is working directly with them, hada [...] for services as follows: HOME HEALTH AGENCY: [facility] PHONE: [phone] FAX: [phone] RN orders: Cardiopulmonary assessment, incisional assessment, assess vital signs, assessment of rehab progress, medication management and effectiveness, home safety evaluation. PT ORDERS: Continue rehab for endurance, gait stability and strength with mobility and transfers. Home safety evaluation. Home exercise program if appropriate. OT ORDERS: Home safety evaluation, assess independence with ADL's, and complete therapeutic exercises. MINE PATROL ORDERS: Assess for community resources, pt feels as though she will need help with cooking, cleaning, and errands. Start of Care Date: 24-48 hours post discharge SPECIAL INSTRUCTIONS: For any follow up questions, needs, or issues please call the Cardiac SurgeryOffice at [phone] FOR MEDICARE ONLY: (please delete this section [...] noted. Questions: Agency name and contact information: [facility] Patient location post discharge: Own home What services are requested: Registered Nurse Physical Therapy Social Work Occupational Therapy Start date: Responsible MD post discharge contact info: PCP Arrangements for VNA/home care: As above. VN RN OR PCP TO PLEASE REMOVE CHEST TUBE SUTURES ON OR AFTER 06/09/16 Signed: Katelyn Vasquez APRN [facility] Section of Cardiac Surgery [facility] [address] FAX [phone] Date: 06/05/2016 CC: ANIKET Zavala Doreen J, APRN [address] [place] [address] documented in this encounter Discharge Instructions * Patient Instructions* Katelyn Vasquez, REPRODUCTIVE HEALTHCARE ASSISTANT - 06/05/2016 10:14 AM EST Discharge Instructions: Call your doctor if: You have a fever of greater than 101 degrees, shaking chills, if you develop redness or drainage from your incision sites, or if you have questions. Please call your surgeon's office if you have any discharge or drainage from your chest incision. Your surgeon, Dr. Laureano Guzman and/or the Cardiac Surgery Physician Pattern Checker Team may be reached at . Weight: [...] Dr. Laureano Castillo. You may use a [place] Track or treadmill but avoid any pulling [...] friends, go to a movie, go to christianity, etc. Heavy activities: No hunting, skiing, jogging, snow shoveling, snowmobiling, lawn mowing, swimming,golf or tennis until after your return appointment with the surgeon. Do not ride motorcycles, ATOceanlinx'stractors or horses. Avoid the use of a [...] should resume a low fat, low cholesterol, [place] Heart Association Diet/Diabetic diet/Renal diet. Driving: No [...] no questions at this time. [facility] DENTAL LABORATORY TECHNOLOGY TEACHER * ChristinaKatelyn S, REPRODUCTIVE HEALTHCARE ASSISTANT - 06/05/2016 7:36 AM EST Cardiac Surgery Progress Note: ID: [id number] Massiel Max is a 70 y.o. female [...] requests referral to Ortho Care Located @ [facility] [place], [place] for a front wheeled walker. . Expected date of discharge: 06/05/16. Referral routed to the Earth Science Faculty Member for matching with agency/vendor and to provide [...] Pt walked with PT and nursing staff, social work case manager and psych social worker in to see pt this afternoon. [...] GOAL OUTCOME EVALUATION: On-going * Katelyn Vasquez, REPRODUCTIVE HEALTHCARE ASSISTANT - 06/04/2016 2:28 PM EST Cardiac Surgery Progress Note: ID: [id number] Massiel Max is a 70 y.o. female [...] applicable: N/A CPG GOAL OUTCOME EVALUATION: On-going Katelyn Georges APRN - 06/03/2016 10:12 AM EST Cardiac Surgery Progress Note: ID: [id number] Massiel Max is a 70 y.o. female [...] equal strength, no evidence of edema Incisions:sternotomy DESIGNER/WRITER, CDI Tubes/Lines/Drains:PIV Assessment/Plan: CTH with subtle findings. Neurology consult stating acute embolic CVA. Recs include: anticoagulation and MRI of brain without contrast (ordered). Discussed case with patient's primary tableau analyst, Dr Byrd, as she wishes to limit any blood drawing secondary to jehovah's witness commitment. Dr Byrd recommends Xarelto as patient [...] Atkins T - 06/03/2016 9:37 AM EST Head Automatic Sawyer Note, Brief CONSULT FOLLOW UP Massiel Max [id number] 06/03/2016 24 hr events, subjective progress: - [...] Patient Position: Pulse: [phone] Resp: Temp: 36.5 ??C (97.7 ??F) 36.9 ??C [...] I have discussed extensively with patient the alf risk for recurrent strokegiven her [id number]-Ptph of now 4. She is still hesitant about medical terminologist anticoagulation, but she states that she would [...] goal HRs<100 - anticoagulation with transition to alf anticoagulants, if still in a fib in [...] surgical team. Ely Atkins MD 06/03/2016 Pager: [phone] * [place], Nina, REPRODUCTIVE HEALTHCARE ASSISTANT - 06/02/2016 8:18 AM EST Cardiac Surgery Progress Note: ID: [id number] POD#2 Removal of LA tumor, pericardial patch [...] ICCU DW Attending Surgeon on rounds. DEVON PARADA, REPRODUCTIVE HEALTHCARE ASSISTANT Date: 06/02/2016 * Devon Parada, REPRODUCTIVE HEALTHCARE ASSISTANT - 06/01/2016 8:41 AM EST Cardiac Surgery Progress Note: ID: [id number] POD#1 Removal of LA tumor, pericardial patch [...] Incisions: cdi Tubes/Lines/Drains: PIV, pw, med ct's, medrano, RIJ, reinier LABS: Recent Labs 05/31/16 0940 PLATELET [...] floor DW Attending Surgeon on rounds. DEVON PARADA APRN Date: 06/01/2016 * Amanda Tinoco RCP - [...] the noted settings(8cc/kg) Placed in PSV at [id number] Patient extubated to 4 l/m NC no [...] Her study is an echocardiogram done in [place], which clearly shows a mass attached to [...] a 40-minute visit, 30 minutes were spent fxra-wa-pdvu with the patient discussing the risks and [...] Her study is an echocardiogram done in [place], which clearly shows a mass attached to [...] a 40-minute visit, 30 minutes were spent fupb-aq-hpog with the patient discussing the risks and [...] Mutuality Outcome: Ongoing (Interventions Implemented as Appropriate) 06/04/161419 Individualization Patient Specific Preferences pt likes door [...] Assessment Outcome: Ongoing (Interventions Implemented as Appropriate) 06/04/161420 Discharge Needs Assessment Concerns To Be Addressed [...] Appropriate) 06/05/16 0305 Interdisciplinary Rounds/Family Conf Participants nursing;patient;social work case manager * Plan of Care - Shira Jarrell, PT - 06/04/2016 4:03 PM EST Problem: [...] with home health SHIRA JARRELL, PT Pager: [phone] Inpatient Physical Therapy * Care Management - Tommy Felder MSW - 06/04/2016 2:56 PM EST Patient would like a Lifeline System installed in her home as early as tomorrow. Assisted patient in contacting [facility] to complete application and arrange for install [...] refer to the corresponding flowsheet documentation. Laureano Mcqueen MS [facility]-CORE ANALYSIS OPERATOR Speech-Language Pathologist Rehabilitation Medicine Pager - [phone] Problem: Acute Rehab Services Goal & Intervention [...] parkinson in reach; roomkept free of obstacles; phototypesetting equipment monitor attached and alarms and settings reviewed [...] * Plan of Care - Laureano Mcqueen, CORE ANALYSIS OPERATOR - 06/03/2016 12:32 PM EST Problem: Patient [...] to assist with communication. Laureano Mcqueen MS CCC-CORE ANALYSIS OPERATOR Speech-Language Pathologist Rehabilitation Medicine Pager - [phone] Problem: Acute Rehab Services Goal & Intervention [...] Laterality Date ??? Pro removal heart lesion internal controls consultant N/A 05/31/2016 @EXC INTRACARDIAC TUMOR W\CPB (WRVU 38.45) performed by Laureano Guzman MD at [facility] MAIN OR Home Medications: No current facility-administered [...] L Elbow flexion 5/5 R, 5/5 L Therapeutic Radiologist LE: 5/5 R, 5/5 L Hip flexion [...] daily Aspirin - Would start statin - PT/OT/CORE ANALYSIS OPERATOR consults Kieran Gonzalez MD Vascular Neurology Pager [phone] 06/03/2016 Standard [facility] Swallow Screen: This screen is to be [...] diet as medical provider deems appropriate. Consider CORE ANALYSIS OPERATOR consult for full evaluation and diet recommendations. [...] of cardioversion and antiplatelet if Afib persist, PT/OT/CORE ANALYSIS OPERATOR evaluation. * Plan of Care - Carole [...] parkinson in reach; roomkept free of obstacles; phototypesetting equipment monitor attached and alarms and settings reviewed [...] of feelings encouraged * Consult Note - AtkinsChristianoEly T - 06/02/2016 12:58 PM EST Head Automatic Sawyer Note, NEW PATIENT Massiel Max [id number] 06/02/2016 Chief Complaint/reason for consult: DCCV Referred by: CT surgery HPI: Massiel Mxa is a 70 y.o. female who has [...] Laterality Date ??? Pro removal heart lesion internal controls consultant N/A 05/31/2016 @EXC INTRACARDIAC TUMOR W\CPB (WRVU 38.45) performed by Laureano Guzman MD at [facility] MAIN OR Meds: No current facility-administered medications [...] oriented x3, strength 5/5 throught, sensation and windows application developer intact MSK/EXT: no pitting edema SKIN: warm [...] is the fact that patient is a Congregational and refuses all blood products if she [...] stroke. I have discussed extensively with patient alf risk for stroke given her PDZ9B6-Ophu of atleast 2. I have discussed risk [...] surgical standpoint) - we would further recommend alf anticoagulation in this patient with YGX9R3-Ogmy of 2 if shewas demonstrated to have [...] Dr. Guzman. Ely Atkins MD 06/02/2016 Pager: [phone] Associated attestation - Jose J Negron MD [...] at least not after discharge from here. [id number]-Zphk score of 2. Electrical cardioversion scheduled for [...] Ongoing (Interventions Implemented as Appropriate) 06/01/16 1753 06/01/16 1950 Coping/Psychosocial Plan Of Care Reviewed [...] Handling Outcome: Ongoing (Interventions Implemented as Appropriate) 06/01/16194906/02/16 0800 Marquez Fall Risk History of Falling [...] Outcome: Ongoing (Interventions Implemented as Appropriate) 06/01/16 4680 Coping/Psychosocial Plan Of Care Reviewed With patient Plan of Care Review Progress improving Outcome Evaluation Outcome Summary/Plan progress ambulation, pain control, promote BM, I/S OUTCOME EVALUATION NOTE: OUTCOME SUMMARY: Pt transferred from [facility] this morning, report received from Izabela WOLFE. Pt had uneventful afternoon, reporting fatigue and resting for most of afternoon. Worked with PT in CV this AM. VSS on RA. No complaints of pain/discomfort or SOB throughout shift. MSI c/d/i no drainage or signs of infection. Vwires in, locked and secured to chest. ON tele in Accelerated junctional with rare PJCs, ANIKET Fuchs notified. Ambulated 160ft with no symptoms. PLAN [...] Pt stated she has paperwork at home. Centerless Grinding Machine Adjuster informed pt that if she would like to complete AD information during her hospitalization, a member from [facility] would be able to assist. Current Coping/Education/Information Needs: Understands current plan for care. 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 Home Environment: Pt lives alone [...] Health/Prescription Coverage: Primary Insurance: Medicare Secondary Insurance: [place] Medicaid Prescription Coverage: Yes Preferred Pharmacy: [facility] in [place] Other: n/a Primary Care Provider: Noreen Adam, REPRODUCTIVE HEALTHCARE ASSISTANT [phone] Patient/Caregiver Goals of Treatment: Return home and receive services through [facility]. Potential Needs for Transition of Care: Rehab/SNF: Not indicated at this time. Home Health: Pt stated her family has used [facility] in the past, and would like to used[facility] herself upon discharge. DME: Pt stated she would like to have a raised toilet seat for home use. Centerless Grinding Machine Adjuster informed pt this isnot covered by insurance, and would be an out of pocket expense. Centerless Grinding Machine Adjuster called [facility] for estimation and they stated it would be $37 for a raised seat without handle bars. Dialysis: n/a Community Resources: n/a Transportation: One of her two nephews will transport her home. Other: n/a Anticipated Barriers to Discharge/Special Considerations: None identified at this time. Plan: Return home with [facility] for services. A member of the Care Management team will continue to monitor progress, follow for continuity of care and assist with transition of care planning. Sarath Rose RN Pager: [phone] * Plan of Care - Sachin Roe, [...] on 05/31/16 Pt seen for evaluation in [facility] this AM. Pt demonstrated impaired functional transfers, gait and activity tolerance from her prior level of independence. Pt ambulated short distance today, limited by light headedness. Pt was indep PAGINATOR and anticipate will make gains and be [...] with home health SACHIN ROE, PT Pager: [phone] Inpatient Physical Therapy Problem: Acute Rehab Services Goal & Intervention Plan Goal: Bed Mobility Goal Stand Alone Therapy Goal Outcome: Ongoing (Interventions Implemented as Appropriate) 06/01/16 1322 Bed Mobility Goal Bed Mobility Goal, Date Established 06/01/16 Bed Mobility Goal, Time to Achieve 5 days Bed Mobility Goal, Activity Type supine to sit/sit to supine Bed Mobility Goal, [place] Level independent Goal: Gait Training Goal Stand Alone Therapy Goal Outcome: Ongoing (Interventions Implemented as Appropriate) 06/01/16 1322 Gait Training Goal Gait Training Goal, Date Established 06/01/16 Gait Training Goal, Time to Achieve 5 days Gait Training Goal, [place] Level independent Gait Training Goal, Assist Device [...] 5 days Transfer Training Goal, Activity Type vrd-lv-wgiyn/mmjrg-ge-okx;kyf-oe-dexsk/tifrl-tj-inn Transfer Train Goal, [place] Level independent Transfer Training Goal, Assist Device [...] Operative Note Patient Name: Massiel Max : [id number] MR#: [id number] Case Date: 05/31/2016 Surgeon: Surgeon(s) and Role: * Laureano Guzman MD - Primary * Aleks Iglesias PA - Physician Pattern Checker Preoperative diagnosis: atrial myxoma Postoperative diagnosis: atrial [...] atrial septum using bovine pericardium. SURGEON: Patricia. ELECTRICIAN THIRD: MD Deshawn. FINDINGS: Calcified tumor with a [...] applied to the marrow. A small sternal side laster tack was used with antibiotic-soaked towels to open [...] Procedure Name Priority Date/Time Associated Diagnosis Comments PORTABLE GRINDING MACHINE OPERATOR SCAN 06/08/2016 12:00 AM EST PORTABLE GRINDING MACHINE OPERATOR SCAN 06/08/2016 12:00 AM EST APTT [...] (Bezet) 538 ms MUSE SYSTEM Calculated P [place] -119 degrees MUSE SYSTEM Calculated R [place] 39 degrees MUSE SYSTEM Calculated T [place] -35 degrees MUSE SYSTEM INTERPRETATION Atrial flutter [...] MD IMG DX ORDERABLES * SCAN DOC: PORTABLE GRINDING MACHINE OPERATOR (06/08/2016 12:00 AM EST) Anatomical Region Laterality Modality Other Scanning Provider MEDIA MGR SCAN EXT O RDR/RSLT * SCAN DOC: PORTABLE GRINDING MACHINE OPERATOR (06/08/2016 12:00 AM EST) Anatomical Region Laterality Modality Other Scanning Provider MEDIA MGR SCAN EXT O RDR/RSLT * (ABNORMAL) APTT (06/04/2016 3:23 PM EST) PTT 50(H) 25 - 35 sec [facility] Comment: The recommended therapeutic range for full dose, unfractionated heparin at [facility] is 80 ? 114 seconds. The use of the anti-Xa (heparin) level rather than the PTT is recommended for monitoring anticoagulation intensity in critically ill patients receiving unfractionated heparin by continuous IV infusion. Blood specimen (specimen) 06/04/2016 3:23 PM EST 06/04/2016 3:29 PM EST Narrative Resulting Agency Comment Spec In Lab Laureano Guzman MD HEMATOLOGY ORDERABL ES [facility] [place] [address] * XR Chest PA & Lateral (Generic) [...] EST) PTT 69(H) 25 - 35 sec [facility] Comment: The recommended therapeutic range for full dose, unfractionated heparin at [facility] is 80 ? 114 seconds. The use of the anti-Xa (heparin) level rather than the PTT is recommended for monitoring anticoagulation intensity in critically ill patients receiving unfractionated heparin by continuous IV infusion. Blood specimen (specimen) 06/04/2016 8:29 AM EST 06/04/2016 8:47 AM EST Narrative Resulting Agency Comment Spec In Lab Laureano Guzman MD HEMATOLOGY ORDERABL ES [facility] [place] [address] * (ABNORMAL) APTT (06/04/2016 2:21 AM EST) PTT 112(H) 25 - 35 sec [facility] Comment: The recommended therapeutic range for full dose, unfractionated heparin at [facility] is 80 ? 114 seconds. The use of the anti-Xa (heparin) level rather than the PTT is recommended for monitoring anticoagulation intensity in critically ill patients receiving unfractionated heparin by continuous IV infusion. Blood specimen (specimen) 06/04/2016 2:21 AM EST 06/04/2016 2:39 AM EST Narrative Resulting Agency Comment Spec In Lab Laureano Guzman MD HEMATOLOGY ORDERABL ES [facility] [place] [address] * MRI Brain wo Contrast (06/03/2016 10:13 [...] * (ABNORMAL) APTT (06/03/2016 8:40 PM EST) Pathologist [facility] PTT 86(H) 25 - 35 sec [facility] Comment: The recommended therapeutic range for full dose, unfractionated heparin at [facility] is 80 ? 114 seconds. The use of the anti-Xa (heparin) level rather than the PTT is recommended for monitoring anticoagulation intensity in critically ill patients receiving unfractionated heparin by continuous IV infusion. Blood specimen (specimen) 06/03/2016 8:40 PM EST 06/03/2016 8:53 PM EST Narrative Resulting Agency Comment Spec In Lab Laureano Guzman MD HEMATOLOGY ORDERABL ES [facility] [place] [address] * (ABNORMAL) APTT (06/03/2016 2:02 PM EST) Pathologist [facility] PTT 67(H) 25 - 35 sec [facility] Comment: The recommended therapeutic range for full dose, unfractionated heparin at [facility] is 80 ? 114 seconds. The use of the anti-Xa (heparin) level rather than the PTT is recommended for monitoring anticoagulation intensity in critically ill patients receiving unfractionated heparin by continuous IV infusion. Blood specimen (specimen) 06/03/2016 2:02 PM EST 06/03/2016 2:14 PM EST Narrative Resulting Agency Comment Spec In Lab Laureano Guzman MD HEMATOLOGY ORDERABL ES Performing Organization Address [facility] de Phone Number [facility] [place] [address] * APTT (06/03/2016 8:24 AM EST) PTT 32 25 - 35 sec [facility] Comment: The recommended therapeutic range for full dose, unfractionated heparin at [facility] is 80 ? 114 seconds. The use of the anti-Xa (heparin) level rather than the PTT is recommended for monitoring anticoagulation intensity in critically ill patients receiving unfractionated heparin by continuous IV infusion. Blood specimen (specimen) 06/03/2016 8:24 AM EST 06/03/2016 8:36 AM EST Narrative Resulting Agency Comment Spec In Lab Laureano Guzman MD HEMATOLOGY ORDERABL ES Performing Organization Address [facility] Co de Phone Number [facility] [place] [address] * XR Chest PA & Lateral (Generic) [...] POC Glucose 104 65 - 199 mg/dL [facility] Comment: Supplemental ranges: <140 mg/dL before meals <180 mg/dL all other times of the day Blood specimen (specimen) 06/03/2016 4:14 AM EST 06/03/2016 4:14 AM EST Laureano Guzman MD POINT OF CARE TEST ORDERABLES Performing Organization Address [facility]/ZIP Co de Phone Number [facility] [place] [address] * POCT Glucose (06/02/2016 11:29 AM EST) POC Glucose 88 65 - 199 mg/dL [facility] Comment: Supplemental ranges: <140 mg/dL before meals <180 mg/dL all other times of the day Blood specimen (specimen) 06/02/2016 11:29 AM EST 06/02/2016 11:29 AM EST Narrative Authorizing Provider Result Dick Guzman MD POINT OF CARE TEST ORDERABLES [facility] [place] [address] * Potassium (06/02/2016 3:32 AM EST) Potassium 3.9 3.5 - 5.0 mmol/L [facility] Comment: Please note: ??Patients with WBC [...] MD CHEMISTRY ORDERABLE S Performing Organization Address [facility] de Phone Number [facility] [place] [address] * Potassium (06/01/2016 2:35 AM EST) Potassium 3.8 3.5 - 5.0 mmol/L [facility] Comment: Please note: ??Patients with WBC [...] MD CHEMISTRY ORDERABLE S Performing Organization Address [facility] Co de Phone Number [facility] [place] [address] * XR Chest PA or AP 1 [...] EST) pH Art 7.49(H) 7.35 - 7.45 [facility] pCO2 Art 29(L) 35 - 45 mmHg [facility] pO2 Art 396(H) 85 - 104 mmHg [facility] HCO3 Art 22.1 20.0 - 26.0 mmol/L [facility] BE Art -1.7 -3.0 - 3.0 mmol/L [facility] Hgb Blood Gas 11.7(L) 11.7 - 15.5 gm/dL [facility] O2HB Art 98.2(H) 94.0 - 97.0 % [facility] COHB Art 0.3 % [facility] Comment: Nonsmokers: 0.5-1.5% COHB Smokers: Variable, but usually less than 10% Toxic: 20-30% COHB Lethal: Greater than 60% COHB METHB Art 0.7 <=1.5 % [facility] Na Whole Blood 133(L) 135 - 145 mmol/L [facility] K Whole Blood 3.5 3.5 - 5.0 mmol/L [facility] Comment: Please note: Patients with WBC >100,000 may have falsely elevated Potassium levels. Contact the Clinical Chemistry Laboratory if there are any questions. ICa Whole Blood 1.06(L) 1.15 - 1.33 mmol/L [facility] Comment: Note: ??Total bilirubin higher than 20 mg/dL may lead to falsely low ionized calcium. CL Whole Blood 106 98 - 107 mmol/L [facility] Gluc Whole Bld 122 65 - 199 mg/dL [facility] Comment:Diabetes: >=200 mg/d L plus symptoms. Lactate WB 1.3 0.5 - 2.2 mmol/L [facility] FIO2 Art 100 % [facility] PF Ratio Art [address] [facility] Temp Art 35.3 Celsius [facility] Blood specimen (specimen) 05/31/2016 12:08 PM EST 05/31/2016 12:08 PM EST Laureano Guzman MD CHEMISTRY ORDERABLE S [facility] [place] [address] * EKG 12 Lead (05/31/2016 12:03 PM EST) Ventricular rate 56 BPM MUSE SYSTEM Atrial Rate 56 BPM MUSE SYSTEM P-R Interval 170 ms MUSE SYSTEM QRS Duration 92 ms MUSE SYSTEM Q-T Interval 490 ms MUSE SYSTEM QTC Calculated (Bezet) 472 ms MUSE SYSTEM Calculated P [place] 15 degrees MUSE SYSTEM Calculated R [place] 35 degrees MUSE SYSTEM Calculated T [place] 61 degrees MUSE SYSTEM INTERPRETATION Sinus bradycardia [...] EST) pH Art 7.47(H) 7.35 - 7.45 [facility] pCO2 Art 33(L) 35 - 45 mmHg [facility] pO2 Art 98 85 - 104 mmHg [facility] HCO3 Art 23.3 20.0 - 26.0 mmol/L [facility] BE Art -0.4 -3.0 - 3.0 mmol/L [facility] Hgb Blood Gas 11.1(L) 11.7 - 15.5 gm/dL [facility] O2HB Art 97.3(H) 94.0 - 97.0 % [facility] COHB Art 0.1 % [facility] Comment: Nonsmokers: 0.5-1.5% COHB Smokers: Variable, but usually less than 10% Toxic: 20-30% COHB Lethal: Greater than 60% COHB METHB Art 0.3 <=1.5 % [facility] Na Whole Blood 133(L) 135 - 145 mmol/L [facility] K Whole Blood 4.0 3.5 - 5.0 mmol/L [facility] Comment: Please note: Patients with WBC >100,000 may have falsely elevated Potassium levels. Contact the Clinical Chemistry Laboratory if there are any questions. ICa Whole Blood 0.99(L) 1.15 - 1.33 mmol/L [facility] Comment: Note: ??Total bilirubin higher than 20 mg/dL may lead to falsely low ionized calcium. CL Whole Blood 103 98 - 107 mmol/L [facility] Gluc Whole Bld 138 65 - 199 mg/dL [facility] Comment:Diabetes: >=200 mg/d L plus symptoms. Lactate WB 2.2 0.5 - 2.2 mmol/L [facility] Blood specimen (specimen) 05/31/2016 11:00 AM EST 05/31/2016 11:00 AM EST Laureano Guzman MD CHEMISTRY ORDERABLE S [facility] [place] [address] * (ABNORMAL) BLOOD GAS 2 ARTERIAL (05/31/2016 10:05 AM EST) pH Art 7.39 7.35 - 7.45 [facility] pCO2 Art 41 35 - 45 mmHg [facility] pO2 Art 370(H) 85 - 104 mmHg [facility] HCO3 Art 24.4 20.0 - 26.0 mmol/L [facility] BE Art -0.6 -3.0 - 3.0 mmol/L [facility] Hgb Blood Gas 7.9(L) 11.7 - 15.5 gm/dL [facility] O2HB Art 99.2(H) 94.0 - 97.0 % [facility] COHB Art 0.4 % [facility] Comment: Nonsmokers: 0.5-1.5% COHB Smokers: Variable, but usually less than 10% Toxic: 20-30% COHB Lethal: Greater than 60% COHB METHB Art 0.0 <=1.5 % [facility] Na Whole Blood 128(L) 135 - 145 mmol/L [facility] K Whole Blood 5.1(H) 3.5 - 5.0 mmol/L [facility] Comment: Please note: Patients with WBC >100,000 may have falsely elevated Potassium levels. Contact the Clinical Chemistry Laboratory if there are any questions. ICa Whole Blood 1.33 1.15 - 1.33 mmol/L [facility] Comment: Note: ??Total bilirubin higher than 20 mg/dL may lead to falsely low ionized calcium. CL Whole Blood 99 98 - 107 mmol/L [facility] Gluc Whole Bld 182 65 - 199 mg/dL [facility] Comment:Diabetes: >=200 mg/d L plus symptoms. Lactate WB 2.0 0.5 - 2.2 mmol/L [facility] Blood specimen (specimen) 05/31/2016 10:05 AM EST 05/31/2016 10:05 AM EST Laureano Guzman MD CHEMISTRY ORDERABLE S [facility] [place] [address] * Platelet count (05/31/2016 9:40 AM EST) Platelets 215 145 - 357 x10(3)/mc L [facility] Comment: This result has been called to JEREMIAS CORRALES by ATIYA LAZO on 05-31-2016 at 0956, and has been read back. Plat Immature % 1.0 0.0 - 7.4 % [facility] Comment: Limitation of the Immature Platelet Fraction (IPF)-May be less reliable when the platelet count is less than 46b506/uL due to statistical imprecision. The IPF value [...] in a decreased state of production. References: [employer] The Clinical Value of the Immature Platelet Fraction (IPF) in Cell Recovery Document Number 10-1143 10/2010 [employer] The Role of the Immature Platelet Fraction (IPF) in the Differential Diagnosis of Thrombocytopenia, Document MKT-[id number] V05 P010/03 Blood specimen (specimen) 05/31/2016 9:40 AM EST 05/31/2016 9:45 AM EST Narrative Resulting Agency Comment Spec In Lab Laureano Guzman MD HEMATOLOGY ORDERABL ES Performing Organization Address [facility] Co de Phone Number [facility] [place] [address] * (ABNORMAL) Fibrinogen (05/31/2016 9:40 AM EST) Fibrinogen 167(L) 180 - 510 mg/dL [facility] Comment: Called by: REHAN, Read back by: Krista Martinez, Date/Time:05/31/16 09:57. A fibrinogen level >100 mg/dL is adequate for hemostasis in most patients without underlying bleeding disorders. Blood specimen (specimen) 05/31/2016 9:40 AM EST 05/31/2016 9:45 AM EST Narrative Resulting Agency Comment Spec In Lab Laureano Guzman MD HEMATOLOGY ORDERABL ES Performing Organization Address [facility] Co de Phone Number [facility] [place] [address] * (ABNORMAL) BLOOD GAS 2 ARTERIAL (05/31/2016 9:22 AM EST) pH Art 7.40 7.35 - 7.45 [facility] pCO2 Art 40 35 - 45 mmHg [facility] pO2 Art 344(H) 85 - 104 mmHg [facility] HCO3 Art 24.5 20.0 - 26.0 mmol/L [facility] BE Art -0.3 -3.0 - 3.0 mmol/L [facility] Hgb Blood Gas 8.9(L) 11.7 - 15.5 gm/dL [facility] O2HB Art 99.1(H) 94.0 - 97.0 % [facility] COHB Art 0.0 % [facility] Comment: Nonsmokers: 0.5-1.5% COHB Smokers: Variable, but usually less than 10% Toxic: 20-30% COHB Lethal: Greater than 60% COHB METHB Art 0.3 <=1.5 % [facility] Na Whole Blood 128(L) 135 - 145 mmol/L [facility] K Whole Blood 4.9 3.5 - 5.0 mmol/L [facility] Comment: Please note: Patients with WBC >100,000 may have falsely elevated Potassium levels. Contact the Clinical Chemistry Laboratory if there are any questions. ICa Whole Blood 0.94(L) 1.15 - 1.33 mmol/L [facility] Comment: Note: ??Total bilirubin higher than 20 mg/dL may lead to falsely low ionized calcium. CL Whole Blood 98 98 - 107 mmol/L [facility] Gluc Whole Bld 175 65 - 199 mg/dL [facility] Comment:Diabetes: >=200 mg/d L plus symptoms. Lactate WB 1.3 0.5 - 2.2 mmol/L [facility] Blood specimen (specimen) 05/31/2016 9:22 AM EST 05/31/2016 9:22 AM EST Laureano Guzman MD CHEMISTRY ORDERABLE S Performing Organization Address City/[facility]/ZIP Co de Phone Number [facility] [place] [address] * Specimen to Pathology (surgical or derm) (05/31/2016 9:10 AM EST) AP Specimen 05/31/2016 9:10 AM EST 05/31/2016 9:10 AM EST Narrative [facility] - 05/31/2016 9:10 AM EST Specimen requisition ordered. ??Separate Pathology report to follow Laureano Guzman MD PATHOLOGY/CYTOLOGY ORDERABLES [facility] [place] [address] * Surgical Pathology Report (05/31/2016 9:09 AM EST) Surgical Pathology Report [id number] ?Location: [facility]; [facility]; The signing pathologist has (i) examined the relevant preparation(s) for the specimen(s) and (ii) rendered or confirmed the diagnosis(es). . ?Surgical Pathology DIAGNOSIS A - Intra-atrial mass, excision: Sclerotic nodule with extensive fibrosis, hemorrhage, calcification, and ossification. ??(see Discussion.) Electronically signed by: ??Samuel DEGROOT, Abdiaziz Chávez Verified: ??06/03/2016 ?Pathologist DISCUSSION The findings are [...] with foci of hemorrhage. Sections/Processi ng: Three home furnishings sales representative sections are submitted after decalcification. (R3) ??[facility] 05/31/2016 9:09 AM EST Laureano Guzman MD PATHOLOGY/CYTOLOGY ORDERABLES [facility] [place] [address] * (ABNORMAL) BLOOD GAS 2 ARTERIAL (05/31/2016 8:53 AM EST) pH Art 7.43 7.35 - 7.45 [facility] pCO2 Art 34(L) 35 - 45 mmHg [facility] pO2 Art 384(H) 85 - 104 mmHg [facility] HCO3 Art 21.9 20.0 - 26.0 mmol/L [facility] BE Art -2.4 -3.0 - 3.0 mmol/L [facility] Hgb Blood Gas 10.1(L) 11.7 - 15.5 gm/dL [facility] O2HB Art 98.8(H) 94.0 - 97.0 % [facility] COHB Art 0.3 % [facility] Comment: Nonsmokers: 0.5-1.5% COHB Smokers: Variable, but usually less than 10% Toxic: 20-30% COHB Lethal: Greater than 60% COHB METHB Art 0.3 <=1.5 % [facility] Na Whole Blood 134(L) 135 - 145 mmol/L [facility] K Whole Blood 3.9 3.5 - 5.0 mmol/L [facility] Comment: Please note: Patients with WBC >100,000 may have falsely elevated Potassium levels. Contact the Clinical Chemistry Laboratory if there are any questions. ICa Whole Blood 1.00(L) 1.15 - 1.33 mmol/L [facility] Comment: Note: ??Total bilirubin higher than 20 mg/dL may lead to falsely low ionized calcium. CL Whole Blood 101 98 - 107 mmol/L [facility] Gluc Whole Bld 109 65 - 199 mg/dL [facility] Comment:Diabetes: >=200 mg/d L plus symptoms. Lactate WB 1.0 0.5 - 2.2 mmol/L [facility] Blood specimen (specimen) 05/31/2016 8:53 AM EST 05/31/2016 8:53 AM EST Laureano Guzman MD CHEMISTRY ORDERABLE S [facility] [place] [address] * (ABNORMAL) BLOOD GAS 2 ARTERIAL (05/31/2016 8:18 AM EST) pH Art 7.46(H) 7.35 - 7.45 [facility] pCO2 Art 34(L) 35 - 45 mmHg [facility] pO2 Art 243(H) 85 - 104 mmHg [facility] HCO3 Art 23.3 20.0 - 26.0 mmol/L [facility] BE Art -0.5 -3.0 - 3.0 mmol/L [facility] Hgb Blood Gas 13.4 11.7 - 15.5 gm/dL [facility] O2HB Art 98.7(H) 94.0 - 97.0 % [facility] COHB Art 0.6 % [facility] Comment: Nonsmokers: 0.5-1.5% COHB Smokers: Variable, but usually less than 10% Toxic: 20-30% COHB Lethal: Greater than 60% COHB METHB Art 0.3 <=1.5 % [facility] Na Whole Blood 139 135 - 145 mmol/L [facility] K Whole Blood 3.6 3.5 - 5.0 mmol/L [facility] Comment: Please note: Patients with WBC >100,000 may have falsely elevated Potassium levels. Contact the Clinical Chemistry Laboratory if there are any questions. ICa Whole Blood 1.16 1.15 - 1.33 mmol/L [facility] Comment: Note: ??Total bilirubin higher than 20 mg/dL may lead to falsely low ionized calcium. CL Whole Blood 103 98 - 107 mmol/L [facility] Gluc Whole Bld 102 65 - 199 mg/dL [facility] Comment:Diabetes: >=200 mg/d L plus symptoms. 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 documented [...] hours., Routine Given 06/05/2016 12:16 PM EST 1,000 mg Given 06/05/2016 5:54 AM EST 1,000 mg Given 06/04/2016 11:40 PM EST 1,000 mg AMIOdarone (CORDARONE; PACERONE) [...] 0000, Until 06/05/16 at 1513, Constipation, Routine calcium chloride 100 mg/mL (10 %) injection ONCE PRN, Starting on Tue05/31/16 at 0957, Until Tue06/01/16 at 1325, Intra-Operative (Intra-Procedure), Routine Given 05/31/2016 9:57 AM EST 1 g Central Line cardioplegic solution (PLEGISOL) induction solution ONCE PRN, Starting on Tue05/31/16 at 0855, Until Tue06/01/16 at 1325, Intra-Operative (Intra-Procedure) Given 05/31/2016 8:55 AM EST 300 mLs cardioplegic solution (PLEGISOL) maintenance solution ONCE PRN, Starting on Tue05/31/16 at 0931, Until Tue06/01/16 at 1325, Intra-Operative (Intra-Procedure) Given 05/31/2016 9:31 AM EST 200 mLs cardioplegic solution (PLEGISOL) reperfusion solution ONCE PRN, Starting on Tue05/31/16 at 0957, Until Tue06/01/16 at 1325, Intra-Operative (Intra-Procedure) Given 05/31/2016 9:57 AM EST 120 mLs cefUROXime (ZINACEF) injection 1.5 g Administer over 60 Minutes, ONCE PRN, Starting on Tue05/31/16 at 0844, Until Tue06/05/16 at 1513, Intra-Operative (Intra-Procedure), Routine Given 05/31/2016 8:44 AM EST 1 g Central Line electrolyte (pH 7.4) (NORMOSOL-R; PLASMALYTE-A) injection CONTINUOUS PRN, Starting on Tue05/31/16 at 0844, Until Tue05/31/16 at 1156, Intra-Operative (Intra-Procedure) Restarted 05/31/2016 10:03 AM EST 1,900 mLs Central Line New Bag 05/31/2016 8:44 AM EST 1,300 mLs Ce ntral Line furosemide (LASIX) injection 20 mg 20 mg, Intravenous, 2 TIMES DAILY, First dose on Tue06/01/16 at 0900, Until Discontinued Given 06/05/2016 9:13 AM EST 2 0 mg Given 06/04/2016 5:00 PM EST 20 mg Given 06/04/2016 9:00 AM EST 20 mg heparin (porcine) injection ONCE PRN, Starting on Tue05/31/16 at 0844, Until Tue06/01/16 at 1325, Intra-Operative (Intra-Procedure), Routine Given 05/31/2016 9:22 AM EST 4,000 Units Central Line Given 05/31/2016 8:44 AM EST 5,000 Units C entral Line lidocaine (PF) (XYLOCAINE) 20 mg/mL (2 %) injection ONCE PRN, Starting on Tue05/31/16 at 0946, Until Tue06/05/16 at 1513, Intra-Operative (Intra-Procedure), Routine Given 05/31/2016 9:46 AM EST 200 mg Central Line magnesium hydroxide (MILK OF MAGNESIA) oral suspension 10 mL 10 mL, Oral, DAILY, First dose on Tue06/02/16 at 0900, Until Discontinued, Post-op day 2. Do not use with renal insufficiency., Routine Given 06/03/2016 6:41 PM EST 10 mLs Given 06/02/2016 8:41 AM EST 10 mLs magnesium sulfate 4 mEq/mL (50 %) injection ONCE PRN, Starting on Tue05/31/16 at 0946, Until Tue06/01/16 at 1325, Intra-Operative (Intra-Procedure), Routine Given 05/31/2016 9:46 AM EST 2 g Centr al Line mannitol (less than 50 grams) 25% injection ONCE PRN, Starting on Tue05/31/16 at 0926, Until Tue06/01/16 at 1325, Intra-Operative (Intra-Procedure), Routine Given 05/31/2016 9:26 AM EST 30 g Centr al Line meTOPROLOL tartrate (LOPRESSOR) tablet 25 mg 25 mg, Oral, EVERY 12 HOURS SCHEDULED (2 times per day), First dose (after last modification) on Tue06/02/16 at 0900, Until Discontinued, Routine Given 06/05/2016 9:12 AM EST 25 mg Given 06/04/2016 8:41 PM EST 25 mg Given 06/04/2016 8:56 AM EST 25 mg oxyCODONE (ROXICODONE) immediate release tablet 5 mg [...] mg potassium chloride (K-DUR/KLOR-CON) extended release tablet 20 mEq 20 mEq, Oral, DAILY, First dose on Tue06/03/16 at 0900, Until Discontinued, Routine Given 06/05/2016 9:02 AM EST 20 mEq Given 06/04/2016 8:56 AM EST 20 mEq Given 06/03/2016 9:12 AM EST 20 mEq rivaroxaban (XARELTO) tablet 20 mg 20 [...] Given 06/04/2016 9:08 AM EST 5 mLs vancomycin (VANCOCIN) injection ONCE PRN, Starting on Tue05/31/16 at 0853, Until Tue05/31/16 at 0906, Intra-Operative (Intra-Procedure), Routine Given 05/31/2016 8:53 AM EST 1 g 19- Surgical Site documented in this encounter Active and Recently [...] Carole Hunt RN)1304 (Given - Provider: Renetta Guevara, AIDEN)1822 (Not Given - Provider: Renetta Guevara, AIDEN - Reason: Patient/family refused) 0037 (Given - Provider: Carole Hunt RN)0604 (Given - Provider: Carole Hunt RN)1249 (Given - Provider: Renetta Guevara, AIDEN)1800 (Not Given - Provider: Renetta Guevara, AIDEN - Reason: Patient/family refused)2340 (Given - Provider: Melissa Hernandes, AIDEN) 0554 (Given - Provider: Melissa Hernandes, RN)1216 (Given - Provider: Carole Hunt RN) [...] 2019 (Given - Provider: Renetta Guevara RN) 08 (Given - Provider: Tammy Queen RN)2040 (Given - Provider: Renetta Guevara RN) 902 (Given - Provider: Carole Hunt RN - Comment: QTC .43) aspirin chewable tablet 81 mg(Linked Group 2) 81 mg, Oral, DAILY, First dose on Tue06/01/16 at 0900, Until Discontinued, Start on post-op day 1 in the AM., Routine 09 (Given - Provider: Tammy Queen RN) 08 (Given - Provider: Tammy Queen RN) 09 (Given - Provider: Carole Hunt RN) aspirin suppository 300 mg(Linked Group 2) 300 mg, Rectal, DAILY, First dose on Tue06/01/16 at 0900, Until Discontinued, Start on post-op day 1 in the AM, Routine 910 (See Alternative - Provider: Tammy Queen RN) 08 (See Alternative - Provider: Tammy Queen RN) 902 (See Alternative - Provider: Carole Hunt RN) betaxolol (BETOPTIC-S) 0.25 % ophthalmic drops 1 drop 1 drop, Both Eyes, 2 TIMES DAILY, First dose on Tue05/31/16 at 2100, Until Discontinued, Routine 09 (Given - Provider: Tammy Queen RN)2019 (Given - Provider: Renetta Guevara RN) 0856 (Given - Provider: Tammy Queen RN)2040 (Given - Provider: Renetta Guevara RN) 924 (Given - Provider: Carole Hunt RN) furosemide (LASIX) injection 20 mg 20 mg, Intravenous, 2 TIMES DAILY, First dose on Tue06/01/16 at 0900, Until Discontinued 09 (Given - Provider: Tammy Queen RN)1822 (Given - Provider: Renetta Guevara RN) 0900 (Given - Provider: Tammy Queen RN)1700 (Given - Provider: Renetta Guevara RN) 0913 (Given - Provider: Carole Hunt RN) magnesium hydroxide (MILK OF MAGNESIA) oral suspension 10 mL 10 mL, Oral, DAILY, First dose on Tue06/02/16 at 0900, Until Discontinued, Post-op day 2. Do not use with renal insufficiency., Routine 09 (Hold - Provider: Tammy Queen RN - [...] Queen RN)182 (Given - Provider: Renetta Guevara RN - Comment: spoke with MD Longoria from [...] 09 (Given - Provider: Carole Hunt RN) pantoprazole [...] 0856 (Given - Provider: Tammy Queen RN) 09 (Given - Provider: Carole Hunt RN) potassium chloride (K-DUR/KLOR-CON) extended release tablet 20 mEq 20 mEq, Oral, DAILY, First dose on Tue06/03/16 at 0900, Until Discontinued, Routine 0912 (Given - Provider: Tammy Queen RN) 0856 (Given - Provider: Tammy Queen RN) 0902 (Given - Provider: Carole Hunt RN) rivaroxaban (XARELTO) tablet 20 mg 20 mg, Oral, EVERY EVENING, First dose on Tue06/04/16 at 1700, Until Discontinued, Routine, Restricted anticoagulant, choose the most appropriate response: Approved indication of non-valvular atrial fibrillation 172 (Given - Provider: Renetta Guevara RN) senna-docusate (PERICOLACE) 8.6-50 mg per tablet 2 tablet 2 tablet, Oral, DAILY, First dose on Tue06/01/16 at 2100, Until Discontinued, Post-op day 1, Routine 2019 (Given - Provider: Renetta Guevara RN) 2040 (Given - Provider: Renetta Guevara RN) sodium chloride 0.9 % flush 5 mL 5 mL, Intravenous, EVERY 8 HOURS, First dose on Tue06/01/16 at 0930, Until Discontinued, Routine 013 (Not Given - Provider: Carole Hunt RN - Reason: See comment - Comment: IV infusing)09 (Given - Provider: Tammy Queen RN)182 (Given - Provider: Renetta Guevara RN) 013 (Not Given - Provider: Carole Hunt [...] Queen RN)1253 (New Bag - Provider: Renetta Guevara, RN)1732 (Rate/Dose Change - Provider: Renetta Guevara, RN)1848 (Stopped - Provider: Renetta Guevara, RN) PRN Medication Order 06/03/2016 06/04/2016 06/05/2016 [...] dosing. documented in this encounter Care Teams Hospice Community Liaison Relationship Specialty Start Date End Date Noreen Adam APRN [address] [place] [address] PK[address] [facility] [address] [place] [address] PCP - General Family Medicine 04/27/16 02/12/22 documented as of this encounter
--- OUTSIDE RECORDS SUMMARY | 2023-12-07 03:57 | XMS_ITS | Encounter Summary ---
Author Organization [facility] Address [facility] [place] [address] Care Team Providers Care Director Of Head Start Name Role Phone Noreen Adam APRN Primary Care Provider [phone] Encounter Details Date Type Department Care Team (Late st Contact Info) Description 05/06/2016 Orders Only Cardiology at [address] [id number] Ayesha Birch PA [facility] [place] [address] Atrial mass Social History Tobacco Use Types Packs/Day Years [...] Procedure Name Priority Date/Time Associated Diagnosis Comments TRANSESOPHAGEAL ECHOCARDIOGRAM (CADEN) Routine 06/03/2016 CARDIAC CATHETERIZATION Routine 05/11/20 16 12:38 PM EST Atrial mass documented in this encounter Results * Transesophageal Echocardiogram (CADEN) (06/03/2016) Anatomical Region Laterality Modality Other 06/03/2016 Narrative 06/03/2016 9:43 AM EST Amended Report Procedure: ?Transesophageal Echocardiogram Patient: ?MANSOOR Edwards ?(Age): 1945(70y) Med Rec#: ? [id number] ?Sex: ?F ? Site Loc: ? Ht / Wt: ??(cm)/ (kg) ? Pt. Loc: ? Study Date: ?? 05/31/2016 ?Pt. Type: Tape: ? Referring: Laureano Gomez Reading: Som Siegel ([id number]) Performing: Som Siegel ([id number]) Diagnosis: SUMMARY: 1. CADEN pre and post resection of left atrial mass. 2. PREOPERATIVE EXAMINATION: ??a) ??There is a mass in the left atrium that is calcified and smooth in nature. ??It has a pedicle that is affixed to the intra-atrial septum. ??It is mobile. ??There is no flow across the intra-atrial septum by color doppler. ??There is no thrombus in the left atrium or in the left atrial appendage. ??b) ??Left ventricular chamber size, wall thickness, global and segmental systolic function are within normal limits. Ejection fraction is estimated to be 65%. ??c) ??Right ventricular chamber size, wall thickness, and systolic function are within normal limits. ??d) ??No hemodynamically significant valvular disease is present. ?? 3. POST OPERATIVE EXAMINATION: ??a) ??The left atrial mass has been resected. ??There is a patch on the intra-atrial septum. ??No flow is noted across the intra-atrial septum by color flow doppler. ??There is a small protrusion into the left atrium that is likely endocardium, that is mobile. ??It arises from the intra-atrial septum. ??b) ??Biventricular systolic function remains normal. ??c) ??The remainder of the examination is unchanged. 4. See remainder of report for additional findings. Findings ? : Left Ventricle: ? Left ventricular chamber size, wall thickness, global and segmental systolic function are within normal limits. Ejection fraction is estimated to be 65%. Left Atrium: ? The left atrium is normal in size. ?A mass is visualized within the left atrium. ?There is no patent foramen ovale visualized. Right Ventricle: ? Right ventricular chamber size, wall thickness, and systolic function are within normal limits. Right Atrium: ? The right atrium appears normal. ?The right atrium is normal in size. Aortic Valve: ? The aortic valve is tricuspid. ?There is no evidence of aortic valve stenosis. ?There is a trace of aortic regurgitation present. Mitral Valve: ? The mitral valve leaflets appear normal. ?There is no evidence of mitral stenosis. ?There is trace mitral regurgitation present. Tricuspid Valve: ? The tricuspid valve leaflets are morphologically normal. ?There is trace tricuspid regurgitation present. Pulmonic Valve: ? The pulmonic valve appears normal in structure and function. Pericardium: ? The pericardium appears normal and there is no evidence of a pericardial effusion. Aorta: ? There is evidence of grade 2 (extensive intimal thickening) atheromatous disease of the ascending aorta. ?There is evidence of grade 2 (extensive intimal thickening) atheromatous disease of the aortic arch. ?There is evidence of grade 2 (extensive intimal thickening) atheromatous disease of the descending thoracic aorta. Pulmonary Artery: ? The main pulmonary artery appears normal. Venous: ? The superior vena cava appears normal. Caden Procedures: ? The procedure and risk were explained to the patient who consented to the study. ?The CADEN probe was passed in the operating room by the anesthesiologist after the patient was sedated with general anesthesia. Misc: ? Other echo and stress findings as noted in report. ?See remainder of report for additional findings. Wall Motion: Segment Name ?Rest ? Base-Anteroseptal ?? Normal ? Base-Anterior ? Normal ? Base-Anterolateral ??Normal ? Base-Posterolateral Normal ? Base-Inferior ? Normal ? Base-Inferoseptal ?? Normal ? Mid-Anteroseptal ?Normal ? Mid-Anterior ?Normal ? Mid-Anterolateral ?? Normal ? Mid-Posterolateral ??Normal ? Mid-Inferior ?Normal ? Mid-Inferoseptal ?Normal ? [place]-Septal ? Normal ? [place]-Anterior ? Normal ? [place]-Lateral ?Normal ? [place]-Inferior ? Normal ? [place]-Tip ?Normal ? This report has been electronically signed by: Som Siegel M.D. ? 06/03/2016 09:43:29 Images reviewed and interpretation verified [facility] Cardiac Ultrasound Laboratory Procedure Note Som Siegel MD - 06/03/2016 Amended Report Procedure: Transesophageal Echocardiogram Patient: MANSOOR CASTANON(Age): 1945(70y) [facility] Rec#: [id number] Sex: F Site Loc: Ht / Wt: (cm)/ (kg) Pt. Loc: Study Date: 05/31/2016 Pt. Type: Tape: Referring: Laureano Gomez Reading: Som Siegel ([id number]) Performing: Som Siegel ([id number]) Diagnosis: SUMMARY: 1. CADEN pre and post resection of left atrial [...] for additional findings. Findings : Left Ventricle: Left ventricular chamber size, wall thickness, global and segmental systolic function are within normal limits. Ejection fraction is estimated to be 65%. Left Atrium: The left atrium is normal in size. A mass is visualized within the left atrium. There is no patent foramen ovale visualized. Right Ventricle: Right ventricular chamber size, wall thickness, and systolic function are within normal limits. Right Atrium: The right atrium appears normal. The right atrium is normal in size. Aortic Valve: The aortic valve is tricuspid. There is no evidence of aortic valve stenosis. There is a trace of aortic regurgitation present. Mitral Valve: The mitral valve leaflets appear normal. There is no evidence of mitral stenosis. There is trace mitral regurgitation present. Tricuspid Valve: The tricuspid valve leaflets are morphologically normal. There is trace tricuspid regurgitation present. Pulmonic Valve: The pulmonic valve appears normal in structure and function. Pericardium: The pericardium appears normal and there is no evidence of a pericardial effusion. Aorta: There is evidence of grade 2 (extensive intimal thickening) atheromatous disease of the ascending aorta. There is evidence of grade 2 (extensive intimal thickening) atheromatous disease of the aortic arch. There is evidence of grade 2 (extensive intimal thickening) atheromatous disease of the descending thoracic aorta. Pulmonary Artery: The main pulmonary artery appears normal. Venous: The superior vena cava appears normal. Caden Procedures: The procedure and risk were explained to the patient who consented to the study. The CADEN probe was passed in the operating room by the anesthesiologist after the patient was sedated with general anesthesia. Misc: Other echo and stress findings as noted in report. See remainder of report for additional findings. Wall Motion: Segment Name Rest Base-Anteroseptal Normal Base-Anterior Normal Base-Anterolateral Normal Base-Posterolateral Normal Base-Inferior Normal Base-Inferoseptal Normal Mid-Anteroseptal Normal Mid-Anterior Normal Mid-Anterolateral Normal Mid-Posterolateral Normal Mid-Inferior Normal Mid-Inferoseptal Normal [place]-Septal Normal [place]-Anterior Normal [place]-Lateral Normal [place]-Inferior Normal [place]-Tip Normal This report has been electronically signed by: Som Siegel M.D. 06/03/2016 09:43:29 Images reviewed and interpretation verified [facility] Cardiac Ultrasound Laboratory Unknown ECHO ORDERABLES * CARDIAC CATHETERIZATION (05/11/2016 12:38 PM EST) Anatomical Region Laterality Modality Other Narrative 05/11/2016 1:43 PM EST ?[facility] ? Cardiac Catheterization/Intervention Report ? Patient Name: Mansoor, Massiel E. ? Procedure Date: 05/11/2016 ? A #: [id number] ? Primary Physician: Alex Cisneros V ? Case #: [id number] ? File Name: [id number] ? Catheterization Order Number: [id number] ? [facility] ? Final Report [place], [place] ? Patient Name: ? Massiel Bethany Max ?ID#: ?[id number] ? : ?1945 ? Procedure Date: ? May 11, 2016 ?Case #: ? [id number] ? Room: ? 2 ? Case Physician: ? Alex Cisneros MGreggD. ? Start: ?11:52 ? Admission: ??05/11/2016 ? Procedures: ?* Coronary Angiography ?* Left Heart Catheterization ? History ?Massiel Max is a 70 year old woman. She has hypertension. Prior to ?the initiation of this procedure, the patient was designated as ASA Class ?IV. ? Patient Status at Catheterization: ?The patient presented with: no symptom, no angina (w/i 14 days). [place] ?Cardiovascular Society angina class was 0. This patient was on calcium ?loretta blockers prior to the procedure. No stress or imaging studies were ?performed prior to this procedure ? Technique: ?A 6Fr sheath was inserted in the right radial artery utilizing the ?Seldinger technique. The left coronary artery was injected utilizing a ?5Fr JL 3.5 catheter. A 5Fr JR 4 catheter was used to inject the right ?coronary artery. Left ventricular pressure was performed with a 5Fr JL ?3.5 catheter. 5,000 units of heparin were administered. A total of 100cc ?of Omnipaque were opened, 65cc of Omnipaque were administered and 35cc of ?Omnipaque were wasted. Radiation: Fluoro time was 9.2 minutes, dose area ?product was 50,779 mGYcm2 and air kerma was 873 mGY. ?The patient received the following medications prior to and during the ?procedure: Aspirin (any) and Unfractionated Heparin (any). ? Hemodynamics: ?Left Heart Pressures ? Resting: ? Syst Diast ? EDP ?a ?v ? m ?Ao 172 ?? 62 ?109 ?LV 171 ? 10 ? Coronary Angiography: ?Dominance: Right ?Left Main ? The left main was normal. ? The LMCA is long. ?Left Anterior Descending ? The left anterior descending (LAD) was normal. ?Left Circumflex ? The left circumflex (LCX) was normal. ?Right Coronary Artery ? The right coronary artery (RCA) was normal. ?Ramus ? The ramus was normal. ? Vascular Access: ?Vascular Access Management: ? Mechanical Compression of the right radial artery access site was ? performed. ? Conclusions: ?* Normal coronary arteries ? Complications/Events: ?The patient had no complications during these procedures. ? Comments: ?Fluoroscopic exam of the heart demonstrates a round globular left atrial ?mass. There no apparent blood supply from the coronary circulation. ?The attending physician was present for the entire procedure. ?Dr. Alex Cisneros M.D. performed the coronary angiography and left heart ?catheterization. ? Alex Cisneros M.D. ? Electronically Signed by: Alex Cisneros M.D. ? Report Finalized: 05/11/2016 ??13:39 ? Procedure Note Alex Cisneros MD - 05/11/2016 [facility] Cardiac Catheterization/Intervention Report Patient Name: MansoorMassiel dia Procedure Date: 05/11/2016 A #: [id number] Primary Physician: Alex Cisneros V Case #: [id number] File Name: [id number] Catheterization Order Number: [id number] [facility] FinalReport [place], [place] Patient Name: Massiel Max ID#:[id number] :1945 Procedure Date: May 11, 2016 Case #: [id number] Room: 2 Case Physician: Alex Cisneros M.D. Start: 11:52 Admission:05/11/2016 Procedures: * Coronary Angiography * Left Heart Catheterization History Massiel Max is a 70 year old woman. She has hypertension. Priorto the initiation of this procedure, the patient was designated as ASAClass IV. Patient Status at Catheterization: The patient presented with: no symptom, no angina (w/i 14 days).[place] Cardiovascular Society angina class was 0. This patient was oncalcium loretta blockers prior to the procedure. No stress or imaging studieswere performed prior to this procedure Technique: A 6Fr sheath was inserted in the right radial artery utilizing the Seldinger technique. The left coronary artery was injected utilizinga 5Fr JL 3.5 catheter. A 5Fr JR 4 catheter was used to inject theright coronary artery. Left ventricular pressure was performed with a 5FrJL 3.5 catheter. 5,000 units of heparin were administered. A total [id number] of Omnipaque were opened, 65cc of Omnipaque were administered [id number] of Omnipaque were wasted. Radiation: Fluoro time was 9.2 minutes, dosearea product was 50,779 mGYcm2 and air kerma was 873 mGY. The patient received the following medications prior to and duringthe procedure: Aspirin (any) and Unfractionated Heparin (any). Hemodynamics: Left Heart Pressures Resting: Syst Diast EDP a v m Ao 172 62 109 LV 171 10 Coronary Angiography: Dominance: Right Left Main The left main was normal. The LMCA is long. Left Anterior Descending The left anterior descending (LAD) was normal. Left Circumflex The left circumflex (LCX) was normal. Right Coronary Artery The right coronary artery (RCA) was normal. Ramus The ramus was normal. Vascular Access: Vascular Access Management: Mechanical Compression of the right radial artery access sitewas performed. Conclusions: * Normal coronary arteries Complications/Events: The patient had no complications during these procedures. Comments: Fluoroscopic exam of the heart demonstrates a round globular leftatrial mass. There no apparent blood supply from the coronary circulation. The attending physician was present for the entire procedure. Dr. Alex Cisneros M.D. performed the coronary angiography and leftheart catheterization. Alex Cisneros M.D. Electronically Signed by: Alex Cisneros M.D. Report Finalized: 05/11/2016 13:39 Neeraj Newell MD CARDIAC CATH ORDERAB LES documented in this encounter Visit Diagnoses Diagnosis Atrial mass Swelling, mass, or lump in chest Atrial mass Swelling, mass, or lump in chest documented in this encounter Care Teams Director Of Head Start Relationship Specialty Start Date End Date Noreen Adam APRN [address] [place] [address] PCP - General Family Medicine 04/27/16 02/12/22 documented as of this encounter
--- OUTSIDE RECORDS SUMMARY | 2023-12-07 03:57 | XMS_ITS | Encounter Summary ---
Author Organization [facility] [place] [address] Care Team Providers Care Rib Builder Name Role Phone Noreen Adam APRN Primary Care Provider [phone] Encounter Details Date Type Department Care Team (Late st Contact Info) Description 04/27/2016 12:40 PM EST [place] [phone] Myxoma Social History Tobacco Use Types Packs/Day Years [...] Procedure Name Priority Date/Time Associated Diagnosis Comments HEMOGRAM Routine 04/27/2016 1:02 PM EST My[place] DIFFERENTIAL, AUTOMATED Routine 04/27/2016 1:02 PM EST Myx[place] CBC (WITH DIFF) Routine 04/27/2016 1:02 PM EST Myxoma documented in this encounter Results * Differential, Automated (04/27/2016 1:02 PM EST) Neutrophils % 66.9 % [facility] Neutr Abs (ANC) 5.01 1.70 - 6.10 x10(3)/mcL [facility] Lymphocytes % 22.1 % [facility] Lymphocytes Abs 1.7 0.9 - 3.2 x10(3)/[facility] Monocytes % 8.9 % [facility] Monocyte Abs 0.7 0.3 - 0.9 x10(3)/[facility] Eosinophils % 1.2 % [facility] Eosinophils Abs 0.1 0.0 - 0.4 x10(3)/[facility] Basophils % 0.5 % [facility] Basophils Abs 0.0 0.0 - 0.1 x10(3)/[facility] Immature Gran % 0.40 % [facility] Comment: Immature granulocytes(IG's)percentage and absolute count will include metamyelocytes, myelocytes, and promyelocytes. Blood smears from CBCs yielding IG's will be scanned manually for concordance. If this scan disagrees with the automated IG or if promyelocytes are noted, a manual differential will be performed. Karen Gran Abs 0.03 0.00 - 0.04 x10(3)/[facility] Blood specimen (specimen) 04/27/2016 1:02 PM EST 04/27/2016 1:17 PM EST Narrative Resulting Agency Comment Spec In Lab Laureano Guzman MD HEMATOLOGY ORDERABL ES Performing Organization Address City/State/[facility] Co de Phone Number [facility] [place] [address] * Hemogram (04/27/2016 1:02 PM EST) WBC 7.5 4.0 - 9.5 x10(3)/[facility] RBC 5.07 4.00 - 5.21 x10(6)/[facility] Hemoglobin 15.0 11.7 - 15.5 gm/dL [facility] Hematocrit 44.6 35.7 - 45.8 % [facility] MCV 88.0 82.6 - 94.4 fL [facility] MCH 29.6 27.1 - 32.0 pg [facility] MCHC 33.6 31.7 - 35.0 gm/dL [facility] Platelets 317 145 - 357 x10(3)/[facility] RDWSD 43.6 37.0 - 46.0 fL [facility] RDWCV 13.6 11.5 - 14.1 % [facility] MPV 8.9 7.6 - 12.9 fL [facility] nRBC % Auto 0.0 % [facility] nRBC Abs Auto 0.000 0.000 - 0.000 x10(3)/[facility] Blood specimen (specimen) 04/27/2016 1:02 PM EST 04/27/2016 1:17 PM EST Narrative Resulting Agency Comment Spec In Lab Laureano Guzman MD HEMATOLOGY ORDERABL ES [facility] [place] [phone] documented in this encounter Visit Diagnoses Diagnosis Myxoma Other benign neoplasm of connective and other soft tissue of unspecified site documented in this encounter Care Teams Rib Builder Relationship Specialty Start Date End Date Noreen Adam APRN [address] [place] [address] PCP - General Family Medicine 04/27/16 02/12/22 documented as of this encounter
--- OUTSIDE RECORDS SUMMARY | 2023-12-07 03:57 | XMS_ITS | Encounter Summary ---
Author Organization [facility] Address [facility] [place] [address] Care Team Providers Care Ribbon Cutter Name Role Phone Noreen Adam APRN Primary Care Provider [phone] Reason for Visit * Consultation (Routine) - Closed Specialty Diagnoses / Procedures Referred By Contac t Referred To Contact Cardiac Surgery Diagnoses Myxoma of heart CARDIAC MYXOMA Procedures EVALUATE FOR SURGERY Tonyn Byrd MD [address] [place] [phone] Laureano Guzman MD [facility] [place] [address] Referral ID Status Reason Start Date Expiration Date V isits Requested Visits Authorized [id number] Closed Consult, Test & Treat 04/06/2016 04/06/2017 1 1 Encounter Details Date Type Department Care Team (Late st Contact Info) Description 04/27/2016 11:20 AM EST Office Visit [place] [address] Laureano Guzman MD [facility] CARDIOTHORACIC [place] [id number] Myxoma Social History Tobacco Use Types Packs/Day [...] Sign Reading Time Taken Comments Blood Pressure 142/90 04/27/2016 11:21 AM EST Pulse 79 04/27/2016 11:21 AM EST Temperature - - Respiratory Rate - - Oxygen Saturation 98% 04/27/2016 11:21 AM EST Inhaled Oxygen Concentration - - Weight 93.4 kg (206 lb) 04/27/2016 11:21 AM EST Height 167.6 cm (5' 6) 04/27/2016 11:21 AM EST Body Mass Index 33.25 04/27/2016 11:21 AM EST documented in this encounter Progress Notes * Laureano Guzman MD - 04/27/2016 11:20 AM EST 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 Ms. Max is 70. She is completely [...] any diabetes, stroke, or previous coronary disease. On physical exam, she has no scars over her chest, no pectus. She has no murmurs. Her lungs are clear. She has no swelling in her legs. Her study is an echocardiogram done in [place], which clearly shows a mass attached to the intraatrial septum in the left atrium. Her ventricular function, her valvular function all appears normal. She and I have discussed the treatment [...] count prior to the possibility of surgery. This is a 40-minute visit, 30 minutes were spent [id number] with the patient discussing the risks and benefits of surgery, as well as the need for blood transfusion in this situation. documented in this encounter Plan of Treatment Not on file documented as of this encounter Visit Diagnoses Diagnosis Myxoma Other benign neoplasm of connective and other soft tissue of unspecified site documented in this encounter Care Teams Ribbon Cutter Relationship Specialty Start Date End Date Noreen Adam, ANIKET [address] [place] [address] PCP - General Family Medicine 04/27/16 02/12/22 documented as of this encounter
--- OUTSIDE RECORDS SUMMARY | 2023-12-07 03:57 | XMS_ITS | Encounter Summary ---
Author Organization [facility] Address [facility] [place] [address] Care Team Providers Care Accounts Payable Lead Name Role Phone Noreen Adam APRN Primary Care Provider [phone] Encounter Details Date Type Department Care Team (Late st Contact Info) Description 05/11/2016 7:30 AM EST - 05/11/2016 8:30 AM [place] [address] [facility] [place] [address] CARDIAC CATHETERIZATION Social History Tobacco Use Types Packs/Day Years [...] Sign Reading Time Taken Comments Blood Pressure 165/72 05/11/2016 7:13 AM EST Pulse 76 05/11/2016 7:13 AM EST Temperature - - Respiratory Rate 18 05/11/2016 7:13 AM EST Oxygen Saturation 98% 05/11/2016 7:13 AM EST Inhaled Oxygen Concentration - - Weight 93.4 kg (206 lb) 05/11/2016 7:13 AM EST Height 167.6 cm (5' 6) 05/11/2016 7:13 AM EST Body Mass Index 33.25 05/11/2016 7:13 AM EST documented in this encounter Discharge Instructions * Discharge Instructions* Chhaya Barrow, RN - 05/11/2016 2:44 PM EST Activity If you are discharged the same day as your procedure, do not drive yourself home. Arrange to have another person drive. You may walk around when you get home, but keep your activity at a minimum until the morning. Do not bend over, strain, or lift heavy objects for 24 hours after the procedure. Do not participate in active sports for 48 hours. You may engage in sexual activity after 48 hours. These restrictions will not apply if the catheter was placed in a blood vessel in your arm. Catheter Insertion Area Care Take the band-aid off the catheter insertion area the morning following the procedure. You may takea shower if you wish. Wash the area with soap and water. Look for signs of infection over the next several days. A little spot of blood at the catheter insertion area is not unusual. A bruise or small lump under the skin is normal; they generally disappear in 3-4 days. For the first several days at home if you cough or sneeze, hold your groin to help prevent bleeding. Expect some mild tenderness over the area where the catheter was inserted. You will notice this after the local anesthetic (numbing medicine) wears off. This should improve during the 24-48 hours after the procedure. Take tylenol if needed. Contact your doctor if the discomfort worsens. Problems to Watch For If there is bright red blood flowing from the catheter insertion area: *stop what you are doing and lie down *Hold pressure steadily on the area for 15 minutes *Call for Help *If the bleeding does not stop in 15 minutes call 911 for an ambulance. If there is swelling with black and blue color at the catheter insertion area, there may be bleeding inside. Contact the doctor if there is any increase in size. Look at the insertion site for the first few days at home. Signs of infection are: *redness *Swelling *Yellow, white, green or brown foul smelling drainage. *increased soreness If you think there is an infection, take your temperature. Then call your doctor. The limb on the side where you had your catheterization should look and feel normal in its color, sensation, and temperature. If your leg becomes cool, pale, blue or changing color with numbness and tingling, contact your doctor. If you feel faint or dizzy, lie down with your feet elevated. Have someone call the doctor. If you are alert, drink fluids. How to Deal with Chest pain If you had only the cardiac catheterization, treat any angina or chest discomfort as instructed. Stop what you are doing, and sit or lie down. If prescribed, take nitroglycerin under your tongue. If the angina isn't relieved, take another nitroglycerine in 5 minutes. After another 5 minutes, a third nitroglycerine may be taken. If the angina isn't improved you should call for an ambulance to bring you to the nearest hospital emergency room. If your angina is more frequent or more sever than before, contact your doctor. We usually would not expect to have angina after an angioplasty. If you do get angina, treat it as you did before but also contact your doctor. Return to Work The doctor will usually have told you when to return to work. If you do not perform heavy physical labor, most people can return to work in a few days. Diet Follow your previous diet unless otherwise instructed. Cardiac Risk Factors If you have coronary artery disease, it is important that you help control it by reducing your cardiac risk factors. If you smoke, we urge you to stop now. If you think this is going to be a problem,let us know so that we may help you. We have dieticians who can help you learn about low fat, low cholesterol diet. Cardiac rehabilitation programs can help you set up a regular exercise program. Work with your doctor if you have high blood pressure or sugar diabetes to keep these under control. Medications ____Take your usual medications ____Medication changes: If you are taking medicines prescribed by your doctor, do not take any [id number] medicines or herbal preparations without first discussing this with your doctor or pharmacist. There is the possibility of side effect and interactions when these are combined. Follow up Care Who to Call with Questions or Problems If there are any questions or problems that you think might be related to your cardiac cath or angioplasty, contact the instruction assistant principal telecommunications switch technician by calling [facility] at . documented in this encounter Medications at Time [...] 04/29/2004 10/19/2019 documented as of this encounter H&P Notes * Ayesha Birch PA - 05/11/2016 11:19 AM EST Pre-Cardiac Catheterization 24 hr Update Please see Dr. Guzman's note dated 04/27/12 for full details regarding reason for referral for cardiac catheterization. There has been no significant interval change in clinical status since that visit. Consent obtained Labs ok Augustin's test normal (right) documented in this encounter Plan of Treatment Not on file documented as of this encounter Procedures Procedure Name Priority Date/Time Associated Diagnosis Comments EKG 12-LEAD Routine 05/11/2016 7:49 AM EST Atrial mass BMP W/FASTING GLUCOSE STAT 05/11/2016 6:37 AM EST Atrial mass documented in this encounter Results * EKG 12 Lead (05/11/2016 7:49 AM EST) Ventricular rate 71 BPM MUSE SYSTEM Atrial Rate 71 BPM MUSE SYSTEM P-R Interval 172 ms MUSE SYSTEM QRS Duration 90 ms MUSE SYSTEM Q-T Interval 398 ms MUSE SYSTEM QTC Calculated (Bezet) 432 ms MUSE SYSTEM Calculated P [place] 59 degrees MUSE SYSTEM Calculated R [place] 20 degrees MUSE SYSTEM Calculated T [place] 36 degrees MUSE SYSTEM INTERPRETATION Normal sinus rhythm Normal ECG No previous ECGs available Confirmed by MD Becka, Adan ([id number]) on 05/11/2016 4:07:21 PM MUSE SYSTEM 05/11/2016 7:49 AM EST 05/11/2016 4:07 PM EST Neeraj Newell MD ECG ORDERABLES MUSE SYSTEM * (ABNORMAL) BMP w/fasting Glucose (05/11/2016 6:37 AM EST) Glucose Fasting 109(H) 65 - 99 mg/dL [facility] Comment: ?Fasting* Glucose Interpretive Criteria Normal ?65-99 mg/dL Impaired Fasting glucose ?100-125 mg/dL Consistent with Diabetes Mellitus ? >or= 126 mg/dL *Fasting is defined as no caloric intake for at least 8 hours In the absence of unequivocal hyperglycemia a plasma glucose value of >or= 126 mg/dL should be repeated on a subsequent day. Diagnosis and Classification of Diabetes Mellitus, Position Statement from the [employer]. ??Diabetes Care, Volume 33, Supplement 1, May 2009 BUN 14 8 - 18 mg/dL [facility] Creatinine 1.00 0.70 - 1.20 mg/dL [facility] Comment: Please note that the pediatric reference intervals supplied above were not validated at [facility] [place] Results from pediatric patients should be interpreted in conjunction to the patient's age, height and muscle mass. Sodium 138 135 - 145 mmol/L [facility] Potassium 4.0 3.5 - 5.0 mmol/L [facility] Comment: Please note: ??Patients with WBC >100,000 may have falsely elevated Potassium levels. ??For accurate Potassium quantification in these patients send serum separator tube (gold top) for subsequent determinations. ??Contact the Clinical Chemistry Laboratory if there are any questions. Chloride 94(L) 98 - 107 mmol/L [facility] CO2 22 22 - 31 mmol/L [facility] Anion Gap 22(H) 5 - 15 mmol/L [facility] Calcium 9.8 8.5 - 10.5 mg/dL [facility] Estimated GFR 54(L) >=60 [facility] Comment: This estimated GFR [...] the following links into your internet browser. [email or web address] Blood specimen (specimen) 05/11/2016 6:37 AM EST 05/11/2016 6:47 AM EST Narrative Resulting Agency Comment Spec In Lab Neeraj Newell MD CHEMISTRY ORDERABLES Performing Organization Address [facility]/State[facility] Co de Phone Number [facility] [place] [phone] documented in this encounter Visit Diagnoses Diagnosis Atrial mass Swelling, mass, or lump in chest Atrial mass Swelling, mass, or lump in chest documented in this encounter Administered Medications Inactive Administered Medications - up to 3 most recent administrations Medication Order MAR Action Action Date Dose Rate Site fentaNYL 50 mcg/mL multi-dose injection ONCE PRN, Starting on Tue05/11/16 at 1147, Until Tue05/11/16 at 1249, Intra-Operative (Intra-Procedure), Routine Given 05/11/2016 11:47 AM EST 25 mcg Left Arm heparin (porcine) injection ONCE PRN, Starting on Tue05/11/16 at 1211, Until Tue05/11/16 at 1249, Cath (Intra-Procedure), Routine Given 05/11/2016 12:11 PM EST 5,000 Units Left Arm midazolam (PF) (VERSED) 1 mg/mL multi-dose injection ONCE PRN, Starting on Tue05/11/16 at 1147, Until Tue05/11/16 at 1249, Cath (Intra-Procedure), Routine Given 05/11/2016 12:02 PM EST 0.5 mg Left Arm Given 05/11/2016 11:47 AM EST 1 mg L eft Arm nitroGLYcerin (NITROSTAT) SL tablet 0.4 mg 0.4 mg, Sublingual, EVERY 5 MIN PRN, Starting on Tue05/11/16 at 1329, Until Tue05/11/16 at 1604, Chest pain, May repeat every 5 minutes for a total of three doses. Notify provider if chest pain not relieved with nitroglycerin. Do not administer nitroglycerin if the patinet has received or taken phosphodiesterase (PDE-5) inhibitors such as sildenafil, tadalafil or vardenafil within the last 24 to 72 hours., Recovery (Recovery-Hospital Unit), Routine nitroGLYcerin 100 mcg/mL intracoronary dilution ONCE PRN, Starting on Tue05/11/16 at 1207, Until Tue05/11/16 at 1249, Cath (Intra-Procedure), Routine Given 05/11/2016 12:07 PM EST 150 mcg sodium chloride 0.9% infusion 125 mL/hr, Intravenous, CONTINUOUS, Starting on Tue05/11/16 at 1345, Until Tue05/11/16 at 1604, Recovery (Recovery-Hospital Unit) New Bag 05/11/2016 1:34 PM EST 125 mL/hr 125 mL/hr verapamil (ISOPTIN) injection ONCE PRN, Starting on Tue05/11/16 at 1206, Until Tue05/11/16 at 1249, Administer over 2 Minutes, Cath (Intra-Procedure) Given 05/11/2016 12:06 PM EST 2.5 mg documented in this encounter Active and Recently Administered Medications Times are shown in EST. Continuous Medication Order 05/09/2016 05/10/2016 05/11/2016 sodium chloride 0.9% infusion 125 mL/hr, Intravenous, CONTINUOUS, Starting on Tue05/11/16 at 1345, Until Tue05/11/16 at 1604, Recovery (Recovery-Hospital Unit) 1334 (New Bag - Prov ider: Barak Smiley RN - Comment: verbal from MD Cisneros fluids can be stopped at 3:30pmBarak Harrison RN) PRN Medication Order 05/09/2016 05/10/2016 05/11/2016 fentaNYL 50 mcg/mL multi-dose injection (CANCELED) ONCE PRN, Starting on Tue05/11/16 at 1147, Until Tue05/11/16 at 1249, Intra-Operative (Intra-Procedure), Routine 1147 (Given - Provid er: Madyson Mei RN) heparin (porcine) injection (CANCELED) ONCE PRN, Starting on Tue05/11/16 at 1211, Until Tue05/11/16 at 1249, Cath (Intra-Procedure), Routine 1211 (Given - Provid er: Madyson Mei RN) midazolam (PF) (VERSED) 1 mg/mL multi-dose injection (CANCELED) ONCE PRN, Starting on Tue05/11/16 at 1147, Until Tue05/11/16 at 1249, Cath (Intra-Procedure), Routine 1147 (Given - Provid er: Madyson Mei RN)1202 (Given - Provider: Madyson Mei RN) nitroGLYcerin (NITROSTAT) SL tablet 0.4 mg 0.4 mg, Sublingual, EVERY 5 MIN PRN, Starting on Tue05/11/16 at 1329, Until Tue05/11/16 at 1604, Chest pain, May repeat every 5 minutes for a total of three doses. Notify provider if chest pain not relieved with nitroglycerin. Do not administer nitroglycerin if the patinet has received or taken phosphodiesterase (PDE-5) inhibitors such as sildenafil, tadalafil or vardenafil within the last 24 to 72 hours., Recovery (Recovery-Hospital Unit), Routine nitroGLYcerin 100 mcg/mL intracoronary dilution (CANCELED) ONCE PRN, Starting on Tue05/11/16 at 1207, Until Tue05/11/16 at 1249, Cath (Intra-Procedure), Routine 1207 (Given - Provid er: Alex Jiménez MD) verapamil (ISOPTIN) injection (CANCELED) ONCE PRN, Starting on Tue05/11/16 at 1206, Until Tue05/11/16 at 1249, Administer over 2 Minutes, Cath (Intra-Procedure) 1206 (Given - Provid er: Alex Jiménez MD) documented in this encounter Care Teams Accounts Payable Lead Relationship Specialty Start Date End Date Noreen Adam APRN [facility] [address] [place] [address] PCP - General Family Medicine 04/27/16 02/12/22 documented as of this encounter
--- OUTSIDE RECORDS SUMMARY | 2023-12-07 03:57 | XMS_ITS | Encounter Summary ---
Author Organization [facility] [place] [address] Care Team Providers Care Appliance Repairer Name Role Phone Noreen Adam APRN Primary Care Provider [phone] Reason for Visit * Auth/Cert Specialty Diagnoses / Procedures Referred By Contac t Referred To Contact Diagnoses Atrial myxoma atrial myxoma n/a Procedures PRO REMOVAL HEART LESION CHICKEN AND FISH BUTCHER @EXC INTRACARDIAC TUMOR W\CPB (WRVU 38.45) Referral ID Status Reason Start Date Expiration Date Visits Re quested Visits Authorized [id number] 1 1 Encounter Details Date Type Department Care Team (Late st Contact Info) Description 05/31/2016 7:34 AM EST Anesthesia Event [place] [address] Som Isaac MD [facility] [place] [address] pOal Luis [facility] [place] [address] Anesthesia Record Procedure Summary Procedure Name Responsible Anesthesiologist Anesthesia Start Time Anesthesia Stop Time @EXC INTRACARDIAC TUMOR W\CPB (WRVU 38.45) (Chest) Som Isaac MD 05/31/16 0734 05/31/16 1124 Events Date Time Event Comment 05/31/2016 0715 0734 AN Verify 0734 Start 0734 An Start Data 0741 An Induction 0743 An Intubation 0750 IDA PROBE ONLY 0759 Anesthesia Ready 0852 An Clamp start 1006 Fabrication Lead 1007 An Clamp Remove 1018 CP Bypass Ended 1051 Chest Closed 1124 an stop data 1124 Recovery or ICU Handoff Jada ent care was transferred to the destination unit staff after review of the patient's medical history, current anesthetic/surgical status and plan, according to the Provider Handoff Checklist. 1124 Stop Meds Name Total Midazolam 5 mg fentaNYL 750 mcg Propofol 50 mg Propofol INF 157.64 mg PHENYLephrine INF 2,080 mcg Vecuronium 10 mg Heparin 20,000 Units Protamine 120 mg Tranexamic Acid 90 mg Tranexamic Acid INF 309.55 mg ceFURoxime 3 g NORepinephrine INF 258 mcg NORepinephrine 16 mcg Sodium Chloride 0.9% 700 mL Lactated Ringers 300 mL * Agents Name O2 Air N2O Isoflurane (et) * Blood No blood administrations on file. Lines, Drains, and Airways Type Details Placement Removal (RETIRED) Peripheral IV Line - Single Lumen 05/31/16; 0646; metacarpal vein (top of hand), right; vwda-zvv-eqyryu catheter system; 20 gauge, 1 in length; intradermal injection, tolerated well, appears comfortable, age-appropriate response; site symptomatic; 06/03/16; 0842 05/31/16 0646 by Tatiana Arroyo RN 06/03/16 0842 by Chhaya Cortes RN ETT Mask Ventilation: Ea sy (1); ETT Type: Cuffed, Oral; ETT Size: 8 mm; Mac Blade: 3; Notes: Asleep, Pre-O2, Stylette; Laryngoscopy Grade: 1; ETT Placement Verified By: Auscultation, Capnometry, Visual; Secured at Teeth: 22 cm; Inserted by: Janelle; Removal Date: 05/31/16; Removal Time: 1554 05/31/16 0748 by Opal Luis MD 05/31/16 1554 by Amanda Tinoco RRT Urethral Catheter 05/31/16; 0755; Surg awilda longer than 2 hours, Need for intraoperative urine output monitoring; Close urine output monitoring: critically ill patient; indwelling catheter with core temperature probe; silicone coated; 14; inserted at this facility (By Cierra Martinez RN. ); 1; 5; 10; none; drainage bag to dependent drainage; 06/02/16; 0845 05/31/16 0755 by Cierra Martinez RN 06/02/16 0845 by Michelle Soto RN Arterial Line 05/31/16; 0807; radi al artery, left; 20 gauge; Luis; Sterile Prep, Sterile Gloves; no longer indicated, removed per policy, catheter intact; 06/01/16; 0930 05/31/16 0807 by Opal Luis MD 06/01/16 0930 by Izabela Shteh, AIDEN (RETIRED) Percutaneous Central Line - Single Lumen 05/31/16; 0807; internal jugular vein, right; Ultrasound Guidance; Yes; 9 Fr; Luis; IDA; CVC Protocol Performed; no longer indicated, removed per policy/procedure, site care per policy/procedure, catheter/device intact; 06/01/16; 0950 05/31/16 0807 by Opal Luis MD 06/01/16 0950 by Izabela Sheth RN (RETIRED) Pulmonary Artery Catheter - Triple Lumen 05/31/16; 0807; jugular vein, right internal; VIP; 8 Fr; CVC Protocol Performed; no longer indicated, catheter intact, removed per policy; Janelle; 05/31/16; 1400 05/31/16 0807 by Opal Luis MD 05/31/16 1400 by Lizeth Ackerman RN Incision 05/31/16; 0820; ches t; midline, vertical; 01/18/22 (LDA cleanup utility RA#[id number]); 1715 (LDA cleanup utility RA#[id number]) 05/31/16 0820 by Cierra Martinez RN 01/18/22 1715 by Megan Kumar Chest Tube 05/31/16; 0849; Left ; posterior; other (see comments) (Pericardium.); Angled 28 Fr.; 06/01/16; 0925 05/31/16 0849 by Cierra Martinez RN 06/01/16 0925 by Izabela Sheth RN Chest Tube 05/31/16; 0850; Righ t; anterior; mediastinum; Straight 28 Fr.; 06/01/16; 92405/31/16 0850 by Cierra Martinez RN 06/01/16 0925 by Izabela Sheth RN NG/OG Tube 05/31/16; 1100 (plac ed in OR); Hayes sump; center mouth; stomach; 49; with ease, tubing intact; 05/31/16; 1555 05/31/16 1100 by Lizeth Ackerman RN 05/31/16 1555 by Lizeth Ackerman RN documented in this encounter Social History [...] OR Notes * Anesthesia Postprocedure Evaluation - Som Isaac MD - 05/31/2016 5:49 PM EST [facility]esthesiology Post-procedure Note Patient: Massiel Max Procedure Summary Date Anesthesia Start Anesthesia Stop Room / Location 05/31/16 0734 1124 [facility] OR 16 / [facility] MAIN OR Procedure Diagnosis Surgeon Responsible Provider @EXC INTRACARDIAC TUMOR W\CPB (WRVU 38.45) (N/A Chest) Cardiac tumor, atrial (atrial myxoma) Laureano Gomez MD Rassias, Athos J, MD All Anesthesia Providers: Anesthesiologist: Som Isaac MD Filling And Stapling Machine Operator: Opal Luis DO Last (1hr) Vitals: BP Temp 36.2 ??C (97.2 ??F) (05/31/16 1700) Pulse 64 (05/31/16 1700) Resp 13 (05/31/16 1700) SpO2 99 % (05/31/161699) Patient Location: [facility] Level of Consciousness: Awake and Alert Pain Management: Satisfactory Analgesia PONV: None Cardiovascular Status: At Baseline and Hemodynamically Stable Respiratory Status: At Baseline and Room Air Postoperative Fluid Status: Intravascular EUvolemia Possible Anesthetic Complications: NONE apparent at time of evaluation Final Primary Anesthesia Type: General (The anesthetic type performed was the same as planned.) Comments: SOM ISAAC MD * Anesthesia Preprocedure Evaluation - Opal Luis - 05/28/2016 11:59 AM EST Pre-Anesthesia Evaluation for: Massiel daugherty 70 y.o. female. Procedure(s): @EXC INTRACARDIAC TUMOR W\CPB (WRVU 38.45) Patient Active Problem List Diagnosis ??? Atrial myxoma No past medical history on file. No past surgical history on file. Social History Substance Use Topics ??? Smoking status: Never Smoker ??? Smokeless tobacco: Never Used ??? Alcohol use No History Drug Use No No Known Allergies Medications: MAR and/or home medications have been reviewed. Physical Exam: There were no vitals filed for this visit. There is no height or weight on file to calculate BMI. 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 Asymptomatic aside from palpitations. NKDA Med hx as above meds-famotidine, amlodipine, betaxolol Lab Results Component Value Date WBC 7.5 04/27/2016 HGB 15.0 04/27/2016 HCT 44.6 04/27/2016 MCV 88.0 04/27/2016 PLATELET 317 04/27/2016 Lab Results Component Value Date NA 138 05/11/2016 K 4.0 05/11/2016 CL 94 (L) 05/11/2016 CO2 22 05/11/2016 BUN 14 05/11/2016 CREATININE 1.00 05/11/2016 GLUCFASTING 109 (H) 05/11/2016 CALCIUM 9.8 05/11/2016 Left heart cath- no significant coronary disease, myxoma does not have blood supply from coronaries. TTE-EF 66%, mild AI/MR/WY/TR RVSP 40-45mmhg Plan: GETA, arterial line, CVC, PAC, IDA (if probe passes easily), standard ASA monitors, pt agreesto normovolemic hemodilution, CPB, and cell saver but refuses all blood products including albumin and fractions with continuity plan for ICU intubated and sedated post-op Region - Other Informed Consent: Anesthetic plan and risks discussed with patient. Use of blood products discussed with patient who did not consent to blood products. Special considerations: Faith. Plan discussed with attending. PAT Staff Note documented in this encounter Plan of Treatment Not on file documented as of this encounter Visit Diagnoses Not on filedocumented in this encounter Administered Medications Inactive Administered Medications - up to 3 most recent administrations Medication Order MAR Action Action Date Dose Rate Site cefUROXime (ZINACEF) injection 1.5 g Administer over 60 Minutes, PRN, Starting on Tue05/31/16 at 0803, Until Tue05/31/16 at 1124, Anesthesia Intra-op, Routine Given 05/31/2016 10:24 AM EST 1.5 g Given 05/31/2016 8:03 AM EST 1.5 g fentaNYL 50 mcg/mL multi-dose injection PRN, Starting on Tue05/31/16 at 0823, Until Tue05/31/16 at 1124, Pain, Anesthesia Intra-op, Routine Given 05/31/2016 11:10 AM EST 100 mcg Given 05/31/2016 10:48 AM EST 150 mcg Given 05/31/2016 8:23 AM EST 250 mcg heparin (porcine) injection PRN, Starting on Tue05/31/16 at 0832, Until Tue05/31/16 at 1124, Anesthesia Intra-op, Routine Given 05/31/2016 8:32 AM EST 20,000 Units lactated ringers infusion CONTINUOUS PRN, Starting on Tue05/31/16 at 0734, Until Tue05/31/16 at 1124, Anesthesia Intra-op New Bag 05/31/2016 7:34 AM EST midazolam (PF) (VERSED) 1 mg/mL multi-dose injection PRN, Starting on Tue05/31/16 at 0734, Until Tue05/31/16 at 1124, Sleep, Anesthesia Intra-op, Routine Given 05/31/2016 10:07 AM EST 2 mg Given 05/31/2016 7:34 AM EST 3 mg NORepinephrine (LEVOPHED) injection PRN, Starting on Tue05/31/16 at 1008, Until Tue05/31/16 at 1124, Anesthesia Intra-op, Routine Given 05/31/2016 10:08 AM EST 16 mcg NORepinephrine 16 mcg/mL (standard ADULT and Scout greater than 20 kg) infusion CONTINUOUS PRN, Starting on Tue05/31/16 at 1004, Until Tue05/31/16 at 1124, Anesthesia Intra-op, Routine Rate/Dose Change 05/31/2016 11:06 AM EST 2 mcg/min 7.5 mL/hr Rate/Dose Change 05/31/2016 10:26 AM EST 2 mcg/min 7.5 mL /hr Rate/Dose Change 05/31/2016 10:13 AM EST 6 mcg/min 22.5 m L/hr PHENYLephrine (CARLOS-SYNEPHRINE) 20 mg in sodium chloride 250 mL (standard ADULT & Scout greater than 20kg) infusion CONTINUOUS PRN, Starting on Tue05/31/16 at 0741, Until Tue05/31/16 at 1124, Anesthesia Intra-op, Routine New Bag 05/31/2016 7:41 AM EST 40 mcg/min 30 mL/hr propofol (DIPRIVAN) 10 mg/mL bolus injection (Anesthesia) PRN, Starting on Tue05/31/16 at 0741, Until Tue05/31/16 at 1124, Anesthesia Intra-op Given 05/31/2016 7:41 AM EST 50 mg propofol (DIPRIVAN) infusion CONTINUOUS PRN, Starting on Tue05/31/16 at 1026, Until Tue05/31/16 at 1124, Anesthesia Intra-op, Routine New Bag 05/31/2016 10:26 AM EST 30 mcg/kg/min 16.3 mL/hr protamine injection PRN, Starting on Tue05/31/16 at 1024, Until Tue05/31/16 at 1124, Anesthesia Intra-op, Routine Given 05/31/2016 10:24 AM EST 120 mg sodium chloride 0.9% infusion CONTINUOUS PRN, Starting on Tue05/31/16 at 0734, Until Tue05/31/16 at 1124, Anesthesia Intra-op New Bag 05/31/2016 7:34 AM EST tranexamic acid (CYKLOKAPRON) 100 mg/mL bolus injection (Anesthesia) PRN, Starting on Tue05/31/16 at 0759, Until Tue05/31/16 at 1124, Anesthesia Intra-op, Routine Given 05/31/2016 7:59 AM EST 90 mg tranexamic acid (CYKLOKAPRON) injection CONTINUOUS PRN, Starting on Tue05/31/16 at 0759, Until Tue05/31/16 at 1124, Anesthesia Intra-op, Routine New Bag 05/31/2016 7:59 AM EST 1 mg/kg/hr 0.9 mL/hr vecuronium (NORCURON) injection PRN, Starting on Tue05/31/16 at 0741, Until Tue05/31/16 at 1124, Anesthesia Intra-op, Routine Given 05/31/2016 7:41 AM EST 10 mg documented in this encounter Care Teams Appliance Repairer Relationship Specialty Start Date End Date Noreen Adam, FAMILY MEMBER CARETAKER [address] [place] [address] [address] [facility] [address] [place] [address] PCP - General Family Medicine 04/27/16 02/12/22 documented as of this encounter
--- OUTSIDE RECORDS SUMMARY | 2023-12-07 03:57 | XMS_ITS | Encounter Summary ---
Author Organization [facility] [place] [address] Care Team Providers Care Bus Girl Name Role Phone Noreen Adam APRN Primary Care Provider [phone] Encounter Details Date Type Department Care Team (Latest Contact Info) Description 05/11/2016 6:28 AM EST - 05/11/2016 3:39 PM EST Hospital Encounter Same [place] [address] Alex Cisneros MD [facility] [place] [address] Atrial mass Discharge Disposition: Home Social History Tobacco Use [...] Sign Reading Time Taken Comments Blood Pressure 177/76 05/11/2016 3:00 PM EST Pulse 82 05/11/2016 3:00 PM EST Temperature 37.4 ??C (99.3 ??F) 05/11/2016 2:39 PM ES T Respiratory Rate 18 05/11/2016 3:00 PM EST Oxygen Saturation 95% 05/11/2016 3:00 PM EST Inhaled Oxygen Concentration - - Weight [...] by your doctor, do not take any [id number] medicines or herbal preparations without first discussing this with your doctor or pharmacist. There is the possibility of side effect and interactions when these are combined. Follow up Care Who to Call with Questions or Problems If there are any questions or problems that you think might be related to your cardiac cath or angioplasty, contact the supplier quality specialist director of customer acquisition by calling [facility] at . documented in this encounter Medications [...] (Bezet) 432 ms MUSE SYSTEM Calculated P [place] 59 degrees MUSE SYSTEM Calculated R [place] 20 degrees MUSE SYSTEM Calculated T [place] 36 degrees MUSE SYSTEM INTERPRETATION Normal sinus rhythm Normal ECG No previous ECGs available Confirmed by MD Becka, Adan ([id number]) on 05/11/2016 4:07:21 PM MUSE SYSTEM 05/11/2016 7:49 AM EST 05/11/2016 4:07 PM EST Neeraj Newell MD ECG ORDERABLES MUSE SYSTEM * (ABNORMAL) BMP w/fasting Glucose (05/11/2016 6:37 AM EST) Glucose Fasting 109(H) 65 - 99 mg/dL [facility] Comment: ?Fasting* Glucose Interpretive Criteria Normal [...] of Diabetes Mellitus, Position Statement from the [place] [employer]. ??Diabetes Care, Volume 33, Supplement 1, May 2009 BUN 14 8 - 18 mg/dL [facility] Creatinine 1.00 0.70 - 1.20 mg/dL [facility] Comment: Please note that the pediatric reference intervals supplied above were not validated at [facility] Results from pediatric patients should be interpreted in conjunction to the patient's age, height and muscle mass. Sodium 138 135 - 145 mmol/L [facility] Potassium 4.0 3.5 - 5.0 mmol/L [facility] Comment: Please note: ??Patients with WBC >100,000 may have falsely elevated Potassium levels. ??For accurate Potassium quantification in these patients send serum separator tube (gold top) for subsequent determinations. ??Contact the Clinical Chemistry Laboratory if there are any questions. Chloride 94(L) 98 - 107 mmol/L [facility] CO2 22 22 - 31 mmol/L [facility] Anion Gap 22(H) 5 - 15 mmol/L [facility] Calcium 9.8 8.5 - 10.5 mg/dL [facility] Estimated GFR 54(L) >=60 [facility] Comment: This estimated GFR (eGFR) value [...] the following links into your internet browser. [email or web address] Blood specimen (specimen) 05/11/2016 6:37 AM EST 05/11/2016 6:47 AM EST Narrative Resulting Agency Comment Spec In Lab Neeraj Newell MD CHEMISTRY ORDERABLES [facility] [place] [address] documented in this encounter Visit Diagnoses Diagnosis Atrial mass Swelling, mass, or lump in chest documented in this encounter Administered Medications Inactive Administered Medications - up to 3 most recent administrations Medication Order MAR Action Action Date Dose Rate Site nitroGLYcerin (NITROSTAT) SL tablet 0.4 mg 0.4 [...] to 72 hours., Recovery (Recovery-Hospital Unit), Routine sodium chloride 0.9% infusion 125 mL/hr, Intravenous, CONTINUOUS, Starting on Tue05/11/16 at 1345, Until Tue05/11/16 at 1604, Recovery (Recovery-Hospital Unit) [facility] 05/11/2016 1:34 PM EST 125 mL/hr 125 mL/hr documented in this encounter Active and Recently Administered Medications Times are shown in EST. Continuous Medication Order 05/09/2016 05/10/2016 05/11/2016 sodium chloride 0.9% infusion 125 mL/hr, Intravenous, CONTINUOUS, Starting on 05/11/16 at 1345, Until 05/11/16 at 1604, Recovery (Recovery-Hospital Unit) 1334 (New Bag - Prov ider: Barak Smiley RN - Comment: verbal from MD Cisneros fluids can be stopped at 3:30pmBarak Harrison RN) PRN Medication Order 05/09/2016 05/10/2016 05/11/2016 fentaNYL 50 mcg/mL multi-dose injection (CANCELED) ONCE PRN, Starting on 05/11/16 at 1147, Until 05/11/16 at 1249, Intra-Operative (Intra-Procedure), Routine 1147 (Given - Provid er: Madyson Mei RN) heparin (porcine) injection (CANCELED) ONCE PRN, Starting on 05/11/16 at 1211, Until 05/11/16 at 1249, Cath (Intra-Procedure), Routine 1211 (Given - Provid er: Madyson Mei RN) midazolam (PF) (VERSED) 1 mg/mL multi-dose injection (CANCELED) ONCE PRN, Starting on 05/11/16 at 1147, Until 05/11/16 at 1249, Cath (Intra-Procedure), Routine 1147 (Given - Provid er: Madyson Mei RN)1202 (Given - Provider: Madyson Mei RN) nitroGLYcerin (NITROSTAT) SL tablet 0.4 mg 0.4 mg, Sublingual, EVERY 5 MIN PRN, Starting on e 05/11/16 at 1329, Until 05/11/16 at 1604, Chest pain, May repeat every [...] MD) documented in this encounter Care Teams Bus Girl Relationship Specialty Start Date End Date Noreen Adam APRN [address] [place] [address] [place] [address] PCP - General Family Medicine 04/27/16 02/12/22 documented as of this encounter
[2023-12-07 14:39] LABS: Uric Acid 7.2 mg/dL (2.6-6.0)
== END 2023-12-07 03:55 | disposition home or self-care (01) ==
LOC: LBO 03:54
PROVIDERS: PCP Nurse Practitioner Family; Visit Provider Nurse Practitioner Family
DX: M10.9 Gout, unspecified (principal)
CPT/HCPCS: 36415; 84550

== ENCOUNTER 2024-02-22 02:21 | Outpatient (CLI) | payer MEDICARE, SELFPAY ==
[2024-02-22 11:54] LABS: Uric Acid 5.6 mg/dL (2.6-6.0)
== END 2024-02-22 02:22 | disposition home or self-care (01) ==
LOC: LBO 02:21
PROVIDERS: PCP Nurse Practitioner Family; Visit Provider Nurse Practitioner Family
DX: M10.9 Gout, unspecified (principal)
CPT/HCPCS: 36415; 84550

== ENCOUNTER 2024-03-19 01:02 | Outpatient (CLI) | payer MEDICARE, MEDICAID, SELFPAY ==
--- NOTE | 2024-03-19 14:03 | DI.US_ITS ---
APPROVED REPORT EXAM: Comprehensive 2D, Doppler, and color-flow Echocardiogram Patient Location: Out-Patient Machine Binder Stripper: Rebekah Arzate RDCS (AE) Indications: Recheck LV function , Cardiomyopahty Other Information Study Quality: Adequate Conclusion Normal left ventricular wall thickness and chamber size. Ejection fraction biplane is 44%. Visually it may be 45 to 50%. Right ventricle borderline dilated. Severely dilated left atrium. Right atrium is moderately dilated Aortic valve is trileaflet and sclerotic with trace regurgitation Mild mitral annular calcification. Moderate mitral regurgitation Mild tricuspid regurgitation. Estimated right ventricular systolic pressure is 44 mmHg Ascending aorta measures 3.55 cm Overall there is no significant change compared to 2022 Wall motion Left Ventricle The left ventricle is normal size. Left ventricular systolic function is mildly decreased. There is n ormal left ventricular wall thickness. There is global hypokinesis of the left ventricle. There is no ventricular septal defect visualized. LVEF is 44%. Right Ventricle Right ventricle is borderline dilated. Right ventricular systolic function is grossly normal. Atria Left atrium is severely dilated. Right atrium is moderately dilated. The interatrial septum is intact with no evidence for an atrial septal defect. Aortic Valve The Aortic valve is sclerotic. Aortic valve is trileaflet. There is no aortic valvular stenosis. Trac e aortic regurgitation. Mitral Valve Mild mitral annular calcification. No evidence of mitral valve stenosis. Moderate mitral regurgitati on. Tricuspid Valve The tricuspid valve is normal in structure. There is no tricuspid valve stenosis. Mild tricuspid regu rgitation. The RVSP is 44.0 mmHg. Pulmonic Valve The pulmonary valve is normal in structure. There is no pulmonic valvular stenosis. Trace to mild pul sonya regurgitation. Great Vessels The aortic root is normal in size. The ascending aorta is mildly dilated. Aortic arch is normal in ca liber. IVC is normal in size and collapses >50% with inspiration. Pericardium There is no pericardial effusion. 2D Dimensions IVSD d PLAX 0.80 cm F: 0.6-1.0 Ao Root d 3.30 cm F: 2.7 - 3.3 LVPW d PLAX 0.84 cm F: 0.6 - 1.0 Ao Asc Diam d 3.55 cm F: 2.3 - 3.1 LVID d PLAX 4.90 cm F: 3.8 - 5.2 LVDs 3.87 cm F: 2.2 - 3.5 LV EF Teichholz 42.8 % FS 21.14 % LV EDV (Teich) 113.0 mL LV ESV (Teich) 64.6 mL M-Mode TAPSE 1.23 cm (M/F) >1.7 Auto EF LV EDV A4C 89.8 mL LV EDV A2C 93.2 mL LV EDV BP 94.6 mL LV ESV A4C 50.5 mL LV ESV A2C 52.9 mL LV ESV BP 51.8 mL LVEF(%) A4C 43.7 % LVEF(%) A2C 43.2 % LVEF(%) BP 45.2 % LV SV A4C 39.2 ml LV SV A2C 40.3 ml LV SV BP 42.8 ml LV CO A4C 2.8 L/min LV CO A2C 3.4 L/min LV CO BP 3.1 L/min HR A4C 72.15 BPM HR A2C 83.72 BPM LV EDV Index (BP) LA Volume LA Length A4C 6.3 cm LA Length A2C 6.3 cm LA Area A4C s 30.74 cm2 LA Area A2C s 25.21 cm2 LA Vol A4C A-L 127.49 mL LA Vol A2C A-L 85.64 mL LA Vol Biplane A-L 104.5 mL LA Vol/BSA A4C A-L LA Vol/BSA A2C A-L LA Vol/BSA BP A-L 48.8 mL/m2 LA Vol A4C MOD 113.1 mL LA Vol A2C MOD 78.6 mL LA Vol BP MOD 94.1 mL RA Volume RA Area A4C 20.6 cm2 RA ESV A4C (A-L) 56.6mL RA Vol/BSA A4C A-L RA Length A4C 6.4 cm RA ESV A4C (MOD) 54.9mL LV Diastology MV E' medial 0.061 (>0.07 m/s) MV E Vmax 1.13 (0.4-1.3 m/s) MV E/E' MED 18.60 (<14) MV E' lateral 0.123 (>0.1 m/s) MV E/E' LAT 9.16 (<14) MV E' Average 0.092 m/s MV E/E'(average) 12.27 Aortic Valve AoV Vmax 1.19 m/s LVOT Vmax 0.77 m/s AoV Peak Grad 24.3 mmHg LVOT Peak Grad 2.4 mmHg AoV Area (Vmax) 1.87 cm2 LVOT VTI 0.158 m AoV VTI 0.250 m LVOT Mean Grad 1.5 mmHg AoV Mean Giovanny. 0.82 m/s LVOT SV 45.87 mL AoV Mean Grad 3.1 mmHg LVOT Diam s 1.90 cm AoV Area (VTI) 1.83 cm2 AV Regurg Peak Gr. 5.67 mmHg Velocity Ratio 0.65 AR Decel Greenlee 1.5m/sec2 AR DT 2218 msec AR PHT 643 msec AR Vmax 3.28 m/s Mitral Valve MV DT 149 (160-240 msec) MV Vmax TIPS 1.03 m/s MV Mean Grad 1.6 (<2mmHg) MV VTI 0.224 m Pulmonary Valve PV Vmax 0.54 (0.5-1.5 m/s) RVOT Vmax 0.45 m/s PV Peak Grad 1.2 mmHg RVOT Peak Gr. 0.8 mmHg PV Mean Giovanny 0.41 m/s RVOT VTI 0.101 m PV Mean Grad 0.7 mmHg RVOT Mean Gr. 0.5 mmHg Tricuspid Valve RA Pressure 3.00 mmHg TR Vmax 3.20 m/s TV S' 0.08 m/s TR Peak Grad 41.0 mmHg RVSP (TR) 44.0 mmHg
== END 2024-03-19 01:22 ==
PROVIDERS: PCP Nurse Practitioner Family; Visit Provider Internal Medicine Cardiovascular Disease
DX: I42.9 Cardiomyopathy, unspecified (principal)
CPT/HCPCS: 93306

== ENCOUNTER → 2024-03-30 10:59 | Outpatient (BNVA) | payer MEDICARE, MEDICAID, SELFPAY | PROVIDERS: PCP Nurse Practitioner Family; Visit Provider Internal Medicine Cardiovascular Disease | DX: I48.21 Permanent atrial fibrillation (principal); I42.9 Cardiomyopathy, unspecified | CPT/HCPCS: 99213 ==

== ENCOUNTER 2024-08-21 21:46 | Outpatient (REF) | payer MEDICARE, MEDICAID, SELFPAY ==
[2024-08-21 22:55] LABS: TSH (W/Ref FT4) 8.08 uIU/mL (0.36-3.74)
[2024-08-21 23:17] LABS: FREE T4 1.05 ng/dL (0.76-1.46)
== END 2024-08-21 21:47 | disposition home or self-care (01) ==
LOC: LBN 21:46
PROVIDERS: PCP Nurse Practitioner Family; Visit Provider Nurse Practitioner Family
DX: E03.9 Hypothyroidism, unspecified (principal); L98.9 Disorder of the skin and subcutaneous tissue, unspecified
CPT/HCPCS: 84439; 84443

== ENCOUNTER → 2024-10-02 11:02 | Outpatient (BNVA) | payer MEDICARE, MEDICAID, SELFPAY | PROVIDERS: PCP Nurse Practitioner Family; Visit Provider Internal Medicine Cardiovascular Disease | DX: I48.21 Permanent atrial fibrillation (principal); I42.9 Cardiomyopathy, unspecified | CPT/HCPCS: 99213 ==

== ENCOUNTER 2024-10-16 02:32 | Outpatient (CLI) | payer MEDICARE, MEDICAID, SELFPAY ==
[2024-10-16 11:13] LABS: HCT 39.2 % (36.0-46.0); HGB 13.1 g/dL (11.2-15.7); MCH 30.8 pg (27.0-33.0); MCHC 33.4 % (32.0-36.0); MCV 92 fL (80-95); MPV 9.3 fL (8.0-11.0); Platelet Count 280 10^3/uL (130-400); RBC 4.26 10^6/uL (3.93-5.22); RDW 15.2 % (11.7-14.6); RDW-SD 50.9 fL; WBC 8.11 10^3/uL (4.4-10.8)
[2024-10-16 11:46] LABS: Anion Gap 8.2 mmol/L (3-11); BUN 22 mg/dL (7-18); CO2 26.8 mmol/L (21.0-32.0); CREATININE 1.4 mg/dL (0.55-1.02); Chloride 100 mmol/L (98-107); Estimated GFR 38.03 (mL/min/1.73m2); Glucose 104 mg/dL (74-106); Potassium 4.2 mmol/L (3.5-5.1); Sodium 135 mmol/L (136-145)
== END 2024-10-16 02:33 | disposition home or self-care (01) ==
LOC: LBO 02:32
PROVIDERS: PCP Nurse Practitioner Family; Visit Provider Nurse Practitioner Family
DX: I61.4 Nontraumatic intracerebral hemorrhage in cerebellum (principal); I50.9 Heart failure, unspecified; I42.9 Cardiomyopathy, unspecified
CPT/HCPCS: 36415; 80048; 85027

== ENCOUNTER 2025-01-02 04:14 | Outpatient (CLI) | payer MEDICARE, MEDICAID, SELFPAY ==
[2025-01-02 12:42] LABS: TSH (W/Ref FT4) 4.51 uIU/mL (0.36-3.74)
== END 2025-01-02 04:15 | disposition home or self-care (01) ==
LOC: LOS 04:14
PROVIDERS: PCP Nurse Practitioner Family; Visit Provider Nurse Practitioner Family
DX: E03.9 Hypothyroidism, unspecified (principal); R79.89 Other specified abnormal findings of blood chemistry
CPT/HCPCS: 36415; 84439; 84443

== ENCOUNTER → 2025-03-07 10:58 | Outpatient (BNVA) | payer MEDICARE, MEDICAID, SELFPAY | PROVIDERS: PCP Nurse Practitioner Family; Referring Provider Nurse Practitioner Family; Visit Provider Internal Medicine Cardiovascular Disease | DX: I48.21 Permanent atrial fibrillation (principal); I42.9 Cardiomyopathy, unspecified; Z79.01 Long term (current) use of anticoagulants | CPT/HCPCS: 99213 ==